=== PATIENT | female | born 1965 | race Caucasian/White ===

== ENCOUNTER 2018-11-12 08:29 | Inpatient (IN) | payer SELFPAY ==
[2018-11-12 09:21] LABS: Arterial Blood Carboxyhemoglob 1.4 % (0-1.5); Blood Gas Oxyhemoglobin 92.8 % (94-97); Blood O2 Saturation 95.1 % (92-98.5)
[2018-11-12 09:22] LABS: Absolute Lymphocytes (CBC) 0.5 K/uL (0.7-4.9); Absolute Monocytes 0.5 K/uL (0.1-1.3); Absolute Neutrophil 9.8 K/uL (1.8-8.0); Basophils % 0.2 % (0-1.3); Eosinophils % 9.2 % (0-4.4); Lymphocytes % 4.1 % (15.3-44.8); MPV 9.6 fL (7.6-11.3); Monocytes % 4.6 % (3.3-12.3); RBC Red Blood Cell Count 5.45 M/uL (3.86-4.86)
[2018-11-12] MEDS ORDERED: NA CHLORIDE 0.9% 1,000 ML ONE ×2 (09:24→16:03)
[2018-11-12] MEDS ORDERED: PROMETHAZINE 25 MG/ML VIAL ONE ×2 (09:24→13:23)
[2018-11-12 09:45] LABS: Blood Morphology Comment NOT SEEN (NOT SEEN); Platelet Estimate DECR; Urine White Blood Cell Casts OK
[2018-11-12] MEDS ORDERED: INSULIN -REGULAR HUMAN 50 UNIT/0.5 ML ML ONE ×2 (10:21→11:30)
[2018-11-12 10:22] LABS: Albumin 2.4 g/dL (3.4-5.0); Bilirubin Direct 0.6 mg/dL (0-0.2); Phosphorus 3.6 mg/dL (2.5-4.9); Potassium 4.6 mmol/L (3.5-5.1); Protein, Total 7.6 g/dL (6.4-8.2); Thyroid Stimulating Hormone 2.8 uIU/mL (0.360-3.740)
--- NOTE | 2018-11-12 10:56 | RAD REPORT ---
EXAM DESCRIPTION: CT - Stone Protocol - 11/12/2018 10:41 am CLINICAL HISTORY: Flank pain. ABD PAIN COMPARISON: No comparisons TECHNIQUE: Axial images were obtained without oral or IV contrast. Lack of contrast limits solid org an and vascular assessment. The [id number] spans the entirety of the system partially obscuring uppermost abdomen and lung bases. Coronal reformatted images were obtained and reviewed. All CT scans are performed using dose optimization technique as appropriate and may include automated exposure control or mA/KV adjustment according to patient size. FINDINGS: Small left pleural effusion is seen with ill-defined opacity in the left lung base may rep resent infiltrate or atelectasis. Imaged portions of the liver and spleen show no suspicious findings on non-contrast imaging. The panc reas and adrenal glands are normal. No pathologic lymphadenopathy in the abdomen or pelvis. The left kidney appears significantly enlarged with surrounding inflammatory changes present. Mild le ft hydronephrosis and hydroureter is present without obstructing stones seen. Air is seen within the cortex of the posterior left kidney as well as the urinary bladder. No right-sided stone or hydroneph rosis is seen. No bowel obstruction, free air, free fluid or abscess. Prominent sigmoid diverticulosis is present. No significant bony abnormality. IMPRESSION: Emphysematous left pyelonephritis and emphysematous cystitis is present. Mild left hydronephrosis and hydroureter is noted without evidence of obstructing calculus. Small left pleural effusion with atelectasis or infiltrate left base. Prominent colonic diverticulosis without diverticulitis.
--- NOTE | 2018-11-12 11:19 | ER ---
Nurse's Notes [facility] Name: Nancy El Age: 53 yrs Sex: Female : 1965 Arrival Date: 11/12/2018 Time: 08:32 Bed 15 Private MD: None, None Diagnosis: Emphysematous Pyelonephritis with acute kidney injury, Dehydration;Diabetes mellitus due to underlying condition with hyperglycemia Presentation: 11/12 08:32 Presenting complaint: Patient states: n/v/left flank pain/dysuria since Monday. sv Transition of care: patient was not received from another setting of care. Onset of symptoms was November 10, 2018. Care prior to arrival: None. 08:32 Method Of Arrival: Wheelchair sv 08:32 Acuity: GONZALO 3 sv 09:14 Risk Assessment: Do you want to hurt yourself or someone else? Patient reports no iw desire to harm self or others. Initial Sepsis Screen: Does the patient meet any 2 criteria? RR > 20 per min. HR > 90 bpm. Does the patient have a suspected source of infection? No. Patient's initial sepsis screen is negative. 09:14 Acuity: GONZALO 2 iw Triage Assessment: 08:32 General: Appears in no apparent distress. uncomfortable, ill, Behavior is calm, sv cooperative, appropriate for age. Pain: Complains of pain in posterior aspect of left lateral abdomen Pain currently is 8 out of 10 on a pain scale. Neuro: Level of Consciousness is awake, alert, obeys commands, Oriented to person, place, time, situation, Moves all extremities. Full function Gait is steady. Respiratory: Respiratory effort is even, unlabored, Respiratory pattern is regular, symmetrical. GI: Reports nausea, vomiting. : Reports dysuria. Historical: - Allergies: 08:40 No Known Allergies; sv - PMHx: 08:40 Diabetes - NIDDM; sv - PSHx: 08:40 Tubal ligation; sv - Immunization history:: Flu vaccine is not up to date. - Social history:: Smoking status: Patient uses tobacco products, smokes one-half pack cigarettes per day. - Ebola Screening: : No symptoms or risks identified at this time. Screenin:28 Abuse screen: Denies threats or abuse. Denies injuries from another. Nutritional ph screening: On. Tuberculosis screening: No symptoms or risk factors identified. Fall Risk No fall in past 12 months (0 pts). No secondary diagnosis (0 pts). IV access (20 points). Ambulatory Aid- None/Bed Rest/Nurse Assist (0 pts). Gait- Weak (10 pts.). Mental Status- Overestimates/Forgets Limitations (15 pts.). Total Daniel Fall Scale indicates High Risk Score (45 or more points). Fall prevention measures have been instituted. Side Rails Up X 2 Placed Close to Nursing Station Frequent Obs/Assessments Occuring Family Present and informed to notify staff if the need to leave the bedside As available patient and family educated on Fall Prevention Program and Strategies. Assessment: 09:25 General: Behavior is cooperative, fussy, restless. Pain: Complains of pain in left ph lower quadrant and left upper quadrant and posterior aspect of left lateral abdomen. Neuro: Level of Consciousness is awake, obeys commands, lethargic, Oriented to person, place, Speech is slurred, Facial symmetry appears normal, Facial symmetry: tongue is midline, Pupils are PERRLA. Cardiovascular: Capillary refill < 3 seconds in bilateral fingers. Respiratory: Airway is patent Respiratory effort is even, shallow, Respiratory pattern is tachypnea Breath sounds are clear bilaterally. Denies shortness of breath. GI: Abdomen is round non-distended, Reports nausea, vomiting. : Reports burning with urination, pain in left flank(s), upper quadrant(s) lower quadrant(s) in lower back. Derm: Skin is intact, with poor turgor Skin is pink, warm \T\ dry. Musculoskeletal: Circulation, motion, and sensation intact. Range of motion: intact in all extremities. 10:30 Reassessment: Patient appears in no apparent distress at this time. No changes from ph previously documented assessment. Patient and/or family updated on plan of care and expected duration. Pain level reassessed. 12:09 Reassessment: Patient appears in no apparent distress at this time. Patient and/or ph family updated on plan of care and expected duration. Pain level reassessed. Pt awake but drowsy, Dr Iverson at bedside to speak w/ pt and family. 13:00 Reassessment: Patient appears in no apparent distress at this time. No changes from ph previously documented assessment. Patient and/or family updated on plan of care and expected duration. Pain level reassessed. 14:00 Reassessment: Patient appears in no apparent distress at this time. No changes from ph previously documented assessment. Patient and/or family updated on plan of care and expected duration. Pain level reassessed. 14:45 Reassessment: Patient appears in no apparent distress at this time. Patient and/or ph family updated on plan of care and expected duration. Pain level reassessed. Patient is alert, oriented x 3, equal unlabored respirations, skin warm/dry/pink. Pt ambulated to restroom, accompanied by family, attempted to call report to ICU and was asked to call back in approx 30 min. 16:00 Reassessment: Patient appears in no apparent distress at this time. No changes from ph previously documented assessment. Patient and/or family updated on plan of care and expected duration. Pain level reassessed. Patient is alert, oriented x 3, equal unlabored respirations, skin warm/dry/pink. Unable to take pt to ICU at this time, told that another nurse is being called in and will call down to ED for report when they arrive. 17:00 Reassessment: Patient appears in no apparent distress at this time. No changes from ph previously documented assessment. Patient and/or family updated on plan of care and expected duration. Pain level reassessed. 17:45 Reassessment: Patient appears in no apparent distress at this time. Patient and/or ph family updated on plan of care and expected duration. Pain level reassessed. Patient is alert, oriented x 3, equal unlabored respirations, skin warm/dry/pink. Report called to CELIA Brownlee, pt taken to ICU 7. Vital Signs: 08:40 BP 94 / 59; Pulse 131; Resp 20; Temp 98; Pulse Ox 97% ; Weight 55.34 kg; Height 5 ft. 1 sv in. (154.94 cm); Pain 8/10; 09:09 BP 105 / 71; Pulse 137; Resp 28; Pulse Ox 100% on R/A; iw 10:24 BP 112 / 76; Pulse 133; Resp 26; Pulse Ox 99% on R/A; ph 11:06 BP 111 / 71; Pulse 133; Resp 26; Pulse Ox 97% on R/A; ph 12:10 BP 124 / 73; Pulse 138; Resp 30; Pulse Ox 96% on R/A; ph 12:44 BP 114 / 72; Pulse 137; Resp 28; Pulse Ox 97% on R/A; ph 13:30 BP 105 / 69; Pulse 140; Resp 28; Pulse Ox 98% on R/A; ph 13:57 BP 105 / 69; Pulse 141; Resp 28; Temp 98.6; Pulse Ox 96% on R/A; ph 14:30 BP 117 / 87; Pulse 137; Resp 26; Pulse Ox 98% on R/A; ph 15:30 BP 108 / 78; Pulse 134; Resp 28; Temp 98.8(TE); Pulse Ox 97% on R/A; ph 16:30 BP 110 / 72; Pulse 132; Resp 30; Pulse Ox 97% on R/A; ph 17:22 BP 111 / 68; Pulse 136; Resp 26; Temp 98.8; Pulse Ox 97% on R/A; ph 08:40 Body Mass Index 23.05 (55.34 kg, 154.94 cm) sv Vitals: 13:57 Cardiac Rhythm Assessment Sinus tach. ph 17:22 Cardiac Rhythm Assessment Sinus tach. ph ED Course: 08:32 Patient arrived in ED. sb2 08:32 Arm band placed on Patient placed in an exam room, on a stretcher, on pulse oximetry. sv 08:33 None, None is Private Physician. sb2 08:35 Desiree [facility]-C [facility]. snw 08:35 Jerod Squires MD is Attending Physician. snw 08:37 Venita Umana, RN is Primary Nurse. ph 08:40 Triage completed. sv 08:45 Missed attempt(s): 22 gauge in right antecubital area. Bleeding controlled, band aid ph applied, catheter tip intact. 08:55 Missed attempt(s): 22 gauge in right forearm. Bleeding controlled, band aid applied, ph catheter tip intact. 09:14 Inserted saline lock: 22 gauge in left antecubital area, using aseptic technique. Blood iw collected. 09:29 Patient has correct armband on for positive identification. Placed in gown. Bed in low ph position. Call light in reach. Side rails up X2. monitoring analyst on. Pulse ox on. NIBP on. Door closed. Noise minimized. Warm blanket given. 10:[address] vr 10:40 CT completed. Patient tolerated procedure well. Patient moved back from CT. jj2 11:16 Esequiel Iverson MD is Hospitalizing Provider. snw 16:00 No provider procedures requiring assistance completed. Patient admitted, IV remains in ph place. Administered Medications: 09:24 Drug: NS 0.9% 1000 ml Route: IV; Rate: 1 bolus; Site: left antecubital; ph 10:30 Follow up: Response: No adverse reaction; IV Status: Completed infusion ph 09:24 Drug: Phenergan 6.25 mg Route: IVP; Site: left antecubital; ph 10:23 Drug: Insulin Regular Human 5 units {Co-Signature: hb (Taya Umanzor RN).} Route: IVP; ph Site: left antecubital; 11:30 Follow up: Response: No adverse reaction ph 11:45 Drug: LevaQUIN 500 mg Volume: 100 ml; Route: IVPB; Infused Over: 60 mins; Site: left ph antecubital; 12:45 Follow up: Response: No adverse reaction; IV Status: Completed infusion ph 11:45 Drug: NS 0.9% 500 ml Route: IV; Rate: bolus; Site: left antecubital; ph 12:30 Follow up: Response: No adverse reaction; IV Status: Completed infusion ph 11:45 Drug: Insulin Regular Human 5 units {Co-Signature: hb (Taya Umanzor RN).} Route: IVP; ph Site: left antecubital; 12:45 Follow up: Response: No adverse reaction; Blood sugar is lowered ph 11:45 Drug: fentaNYL (PF) 25 mcg Route: IVP; Site: left antecubital; ph 12:30 Follow up: Response: No adverse reaction; Pain is decreased ph 13:19 Drug: Zosyn 3.375 grams Route: IVPB; Infused Over: 60 mins; Site: left antecubital; ph 14:20 Follow up: Response: No adverse reaction; IV Status: Completed infusion ph 13:19 Drug: Phenergan 6.25 mg Route: IVP; Site: left antecubital; ph 13:45 Follow up: Response: No adverse reaction; Nausea is decreased ph Point of Care Testing: Blood Glucose: 08:50 Blood Glucose: 414 mg/dL; ph 11:11 Blood Glucose: 456 mg/dL; ph 12:44 Blood Glucose: 295 mg/dL; ph Ranges: Outcome: 11:17 Decision to Hospitalize by Provider. snw 18:15 Patient left the ED. hb 18:15 Admitted to ICU accompanied by nurse, accompanied by tech, family with patient, via [facility], room 7, with chart. 18:15 critical 18:15 Instructed on the need for admit. Signatures: Randee Lewis, RN RN Desiree Jenkins, PEDAL ASSEMBLER-C PEDAL ASSEMBLER-Csnw Mendoza Clark jSarah Vazquez, CELIA YANG Eliane Silveira Patricia, RN RN Taya Umanzor RN RN Angelina Abraham 2 Taya Umanzor RN
--- NOTE | 2018-11-12 11:20 | EDPHYS ---
Physician Documentation [facility] Name: Nancy El Age: 53 yrs Sex: Female : 1965 Arrival Date: 11/12/2018 Time: 08:32 Bed 15 Private MD: None, None ED Physician Jerod Squires HPI: 11/12 08:48 This 53 yrs old Unknown Female presents to ER via Wheelchair with complaints of side snw pain, Nausea/Vomiting. 08:48 pt is diabetic but has not been treated in "a long time". Onset: The symptoms/episode snw began/occurred at an unknown time. and became worse this morning. Severity of symptoms: At their worst the symptoms were severe. It is unknown whether or not the patient has had similar symptoms in the past. The patient has not recently seen a physician, and does not have an established primary care provider. Historical: - Allergies: 08:40 No Known Allergies; sv - PMHx: 08:40 Diabetes - NIDDM; sv - PSHx: 08:40 Tubal ligation; sv - Immunization history:: Flu vaccine is not up to date. - Social history:: Smoking status: Patient uses tobacco products, smokes one-half pack cigarettes per day. - Ebola Screening: : No symptoms or risks identified at this time. ROS: 08:48 Eyes: Negative for injury, pain, redness, and discharge, ENT: Negative for injury, snw pain, and discharge, Neck: Negative for injury, pain, and swelling, Cardiovascular: Negative for chest pain, palpitations, and edema, Respiratory: Negative for shortness of breath, cough, wheezing, and pleuritic chest pain. 08:48 Back: Negative for injury and pain, : Negative for injury, bleeding, discharge, and swelling, MS/Extremity: Negative for injury and deformity, Skin: Negative for injury, rash, and discoloration, Neuro: Negative for headache, weakness, numbness, tingling, and seizure. 08:48 Constitutional: Positive for body aches, malaise, poor PO intake. 08:48 Abdomen/GI: Positive for abdominal pain, nausea. Exam: 08:44 Head/Face: Normocephalic, atraumatic. Eyes: Pupils equal round and reactive to light, snw extra-ocular motions intact. Lids and lashes normal. Conjunctiva and sclera are non-icteric and not injected. Cornea within normal limits. Periorbital areas with no swelling, redness, or edema. ENT: Nares patent. No nasal discharge, no septal abnormalities noted. Tympanic membranes are normal and external auditory canals are clear. Oropharynx with no redness, swelling, or masses, exudates, or evidence of obstruction, uvula midline. Mucous membranes moist. Neck: Trachea midline, no thyromegaly or masses palpated, and no cervical lymphadenopathy. Supple, full range of motion without nuchal rigidity, or vertebral point tenderness. No Meningismus. Chest/axilla: Normal chest wall appearance and motion. Nontender with no deformity. No lesions are appreciated. 08:44 Respiratory: Lungs have equal breath sounds bilaterally, clear to auscultation and percussion. No rales, rhonchi or wheezes noted. No increased work of breathing, no retractions or nasal flaring. Back: No spinal tenderness. No costovertebral tenderness. Full range of motion. 08:44 Skin: Warm, dry with poor turgor. pale color with no rashes, no lesions, and no evidence of cellulitis. MS/ Extremity: Pulses equal, no cyanosis. Neurovascular intact. Full, normal range of motion. 08:44 Constitutional: The patient appears awake, anxious, frail, listless, in obvious distress, moderately distressed. 08:44 Cardiovascular: Rate: tachycardic, Rhythm: regular, Heart sounds: normal. 08:44 Abdomen/GI: Inspection: abdomen appears normal, Bowel sounds: diminished, in all quadrants, Palpation: moderate abdominal tenderness, in the left upper quadrant, right lower quadrant and left lower quadrant. 08:44 Neuro: Orientation: is normal, fatigued. Vital Signs: 08:40 BP 94 / 59; Pulse 131; Resp 20; Temp 98; Pulse Ox 97% ; Weight 55.34 kg; Height 5 ft. 1 sv in. (154.94 cm); Pain 8/10; 09:09 BP 105 / 71; Pulse 137; Resp 28; Pulse Ox 100% on R/A; iw 10:24 BP 112 / 76; Pulse 133; Resp 26; Pulse Ox 99% on R/A; ph 11:06 BP 111 / 71; Pulse 133; Resp 26; Pulse Ox 97% on R/A; ph 12:10 BP 124 / 73; Pulse 138; Resp 30; Pulse Ox 96% on R/A; ph 12:44 BP 114 / 72; Pulse 137; Resp 28; Pulse Ox 97% on R/A; ph 13:30 BP 105 / 69; Pulse 140; Resp 28; Pulse Ox 98% on R/A; ph 13:57 BP 105 / 69; Pulse 141; Resp 28; Temp 98.6; Pulse Ox 96% on R/A; ph 14:30 BP 117 / 87; Pulse 137; Resp 26; Pulse Ox 98% on R/A; ph 15:30 BP 108 / 78; Pulse 134; Resp 28; Temp 98.8(TE); Pulse Ox 97% on R/A; ph 16:30 BP 110 / 72; Pulse 132; Resp 30; Pulse Ox 97% on R/A; ph 17:22 BP 111 / 68; Pulse 136; Resp 26; Temp 98.8; Pulse Ox 97% on R/A; ph 08:40 Body Mass Index 23.05 (55.34 kg, 154.94 cm) sv MDM: 08:44 Patient medically screened. snw 11:09 Data reviewed: vital signs, nurses notes. Data interpreted: Pulse oximetry: on room air snw is 99 %. Interpretation: normal. Counseling: I had a detailed discussion with the patient and/or guardian regarding: the historical points, exam findings, and any diagnostic results supporting the discharge/admit diagnosis, lab results, radiology results, the need for further work-up and treatment in the hospital. Physician consultation: Esequiel Iverson MD was called at 11:10, was contacted at 11:10, regarding admission, to the medical/surgical unit. 11/12 08:42 Order name: CBC with Diff w 11/12 08:42 Order name: Chem 7 formerly [facility] 11/12 08:42 Order name: Blood Culture Adult (2) formerly [facility] 11/12 08:42 Order name: Procalcitonin formerly [facility] 11/12 08:42 Order name: Lactate formerly [facility] 11/12 08:42 Order name: Hemoglobin A1c formerly [facility] 11/12 08:42 Order name: TSH formerly [facility] 11/12 08:42 Order name: TS 11/12 08:42 Order name: Phosphorus formerly [facility] 11/12 08:42 Order name: LDH formerly [facility] 11/12 08:42 Order name: ABG formerly [facility] 11/12 09:27 Order name: ABG Arterial Blood Gas; Complete Time: 09:36 EDMS 11/12 09:45 Order name: CBC with Automated Diff; Complete Time: 09:56 EDMS 11/12 09:45 Order name: CBC Smear Scan; Complete Time: 09:56 EDMS 11/12 09:59 Order name: Add On-Lab formerly [facility] 11/12 10:02 Order name: Type and Screen; Complete Time: 10:03 EDMS 11/12 10:50 Order name: Basic Metabolic Panel; Complete Time: 10:57 EDMS 11/12 10:50 Order name: Liver (Hepatic) Function; Complete Time: 10:57 EDMS 11/12 10:50 Order name: Lactic Dehydrogenase; Complete Time: 10:57 EDMS 11/12 10:50 Order name: Phosphorus; Complete Time: 10:57 EDMS 11/12 10:50 Order name: Thyroid Stimulating Hormone; Complete Time: 10:57 EDMS 11/12 10:51 Order name: Lactate; Complete Time: 10:57 EDMS 11/12 11:24 Order name: Glucose 11/12 11:28 Order name: ABO/RH no charge; Complete Time: 11:28 EDMS 11/12 12:05 Order name: Procalcitonin formerly [facility] 11/12 12:05 Order name: Chem 7 formerly [facility] 11/12 12:06 Order name: Lactate: reflex order in but will repeat now with other labs formerly [facility] 11/12 12:27 Order name: Glucose Level; Complete Time: 12:47 EDMS 11/12 13:18 Order name: Basic Metabolic Panel; Complete Time: 13:23 EDMS 11/12 13:19 Order name: Lactate; Complete Time: 13:23 EDKS 11/12 08:42 Order name: FSBS; Complete Time: 09:12 formerly [facility] 11/12 10:25 Order name: CT Stone Protocol formerly [facility] 11/12 10:57 Order name: CT; Complete Time: 10:57 EDMS 11/12 11:03 Order name: Recheck Vital Signs; Complete Time: 11:11 formerly [facility] 11/12 11:03 Order name: Recheck Blood Sugar; Complete Time: 11:11 formerly [facility] 11/12 13:56 Order name: Procalcitonin; Complete Time: 13:58 EDMS Administered Medications: 09:24 Drug: NS 0.9% 1000 ml Route: IV; Rate: 1 bolus; Site: left antecubital; ph 10:30 Follow up: Response: No adverse reaction; IV Status: Completed infusion ph 09:24 Drug: Phenergan 6.25 mg Route: IVP; Site: left antecubital; ph 10:23 Drug: Insulin Regular Human 5 units {Co-Signature: hb (Taya Umanzor RN).} Route: IVP; ph Site: left antecubital; 11:30 Follow up: Response: No adverse reaction ph 11:45 Drug: LevaQUIN 500 mg Volume: 100 ml; Route: IVPB; Infused Over: 60 mins; Site: left ph antecubital; 12:45 Follow up: Response: No adverse reaction; IV Status: Completed infusion ph 11:45 Drug: NS 0.9% 500 ml Route: IV; Rate: bolus; Site: left antecubital; ph 12:30 Follow up: Response: No adverse reaction; IV Status: Completed infusion ph 11:45 Drug: Insulin Regular Human 5 units {Co-Signature: hb (Taya Umanzor RN).} Route: IVP; ph Site: left antecubital; 12:45 Follow up: Response: No adverse reaction; Blood sugar is lowered ph 11:45 Drug: fentaNYL (PF) 25 mcg Route: IVP; Site: left antecubital; ph 12:30 Follow up: Response: No adverse reaction; Pain is decreased ph 13:19 Drug: Zosyn 3.375 grams Route: IVPB; Infused Over: 60 mins; Site: left antecubital; ph 14:20 Follow up: Response: No adverse reaction; IV Status: Completed infusion ph 13:19 Drug: Phenergan 6.25 mg Route: IVP; Site: left antecubital; ph 13:45 Follow up: Response: No adverse reaction; Nausea is decreased ph Point of Care Testing: Blood Glucose: 08:50 Blood Glucose: 414 mg/dL; ph 11:11 Blood Glucose: 456 mg/dL; ph 12:44 Blood Glucose: 295 mg/dL; ph Ranges: Critical Glucose Levels:Adult <50 mg/dl or >400 mg/dl <40 mg/dl or >180 mg/dl Disposition: 11/13 07:08 Co-signature as Attending Physician, Jerod Squires MD I agree with the assessment and jese plan of care. Disposition: 11/12/18 11:17 Hospitalization ordered by Esequiel Iverson for Inpatient Admission. Preliminary diagnosis are Emphysematous Pyelonephritis with acute kidney injury, Dehydration, Diabetes mellitus due to underlying condition with hyperglycemia. - Bed requested for Intensive Care Unit. - Status is Inpatient Admission. hb - Condition is Stable. - Problem is an acute exacerbation. - Symptoms are unchanged. UTI on Admission? Yes Signatures: Dispatcher [employer] EDMS Muriel Perdomo Stephanie, RN RN sv Anderson, Corey, MD MD cha Therrien, Shelly, GRINDER-C GRINDER-Csnw Venita Umana RN RN Taya Umanzor RN RN Taya Umanzor RN Corrections: (The following items were deleted from the chart) 11/12 13:49 11:17 Hospitalization Ordered by Esequiel Iverson MD for Inpatient Admission. Preliminary bd diagnosis is Emphysematous Pyelonephritis with acute kidney injury, Dehydration; Diabetes mellitus due to underlying condition with hyperglycemia. Bed requested for Telemetry/MedSurg (Inpatient). Status is Inpatient Admission. Condition is Stable. Problem is an acute exacerbation. Symptoms are unchanged. UTI on Admission? Yes. snw 14:38 13:49 11/12/2018 11:17 Hospitalization Ordered by Esequiel Iverson MD for Inpatient bd Admission. Preliminary diagnosis is Emphysematous Pyelonephritis with acute kidney injury, Dehydration; Diabetes mellitus due to underlying condition with hyperglycemia. Bed requested for Telemetry/MedSurg (Inpatient). Status is Inpatient Admission. Condition is Stable. Problem is an acute exacerbation. Symptoms are unchanged. UTI on Admission? Yes. bd 16:48 14:38 11/12/2018 11:17 Hospitalization Ordered by Esequiel Iverson MD for Inpatient bd Admission. Preliminary diagnosis is Emphysematous Pyelonephritis with acute kidney injury, Dehydration; Diabetes mellitus due to underlying condition with hyperglycemia. Bed requested for Intensive Care Unit. Status is Inpatient Admission. Condition is Stable. Problem is an acute exacerbation. Symptoms are unchanged. UTI on Admission? Yes. bd 18:15 16:48 11/12/2018 11:17 Hospitalization Ordered by Esequiel Iverson MD for Inpatient hb Admission. Preliminary diagnosis is Emphysematous Pyelonephritis with acute kidney injury, Dehydration; Diabetes mellitus due to underlying condition with hyperglycemia. Bed requested for Intensive Care Unit. Status is Inpatient Admission. Condition is Stable. Problem is an acute exacerbation. Symptoms are unchanged. UTI on Admission? Yes. bd
[2018-11-12] MEDS ORDERED: Levofloxacin500mg IV 500 MG/100 ML BAG IV ONE (11:31)
[2018-11-12] MEDS ORDERED: FENTANYL CITR 100 MCG/2 ML ONE (11:31)
[2018-11-12] MEDS ORDERED: PIPER/TAZO/NS 3.375gm 3.375 GM/100 ML BAG ONE (11:31)
[2018-11-12] MEDS ORDERED: NA CHLORIDE 0.9% 500 ML ONE (11:31)
[2018-11-12 13:07] LABS: Potassium 4.2 mmol/L (3.5-5.1)
[2018-11-12] MEDS ORDERED: ACETAMINOPHEN 500 MG TAB PO PRN (15:28)
[2018-11-12] MEDS ORDERED: Levofloxacin500mg IV 500 MG/100 ML BAG IV SCH (15:28)
[2018-11-12] MEDS: INSULIN -REGULAR HUMAN 50 UNIT/0.5 ML ML SQ SCH ×2 (16:30→21:54)
[2018-11-12] MEDS ORDERED: PIPER/TAZO/NS 3.375gm 3.375 GM/100 ML BAG IVPB SCH (17:00)
[2018-11-12] MEDS: NA CHLORIDE 0.9% 1,000 ML IV SCH ×2 (18:00→23:48)
[2018-11-12] MEDS ORDERED: ONDANSETRON 4 MG/2 ML VIAL ONE (18:28)
[2018-11-12] MEDS: ONDANSETRON 4 MG/2 ML VIAL IV PRN (18:29)
[2018-11-12] MEDS: MORPHINE 4 MG/ML SYR IV PRN (18:29)
--- NOTE | 2018-11-12 18:37 | P.HP ---
Certification for Inpatient Patient admitted to: Inpatient With expected LOS: >2 Midnights Practitioner: I am a practitioner with admitting privileges, knowledge of patient current condition, hospital course, and medical plan of care. Services: Services provided to patient in accordance with Admission requirements found in Title 42 Section 412.3 of the Code of Federal Regulations Patient History Date of Service: 11/12/18 Primary Care Provider: No primary care physician Reason for admission: Left upper quadrant pain History of Present Illness: This is a 53-year-old female with complaints of left upper quadrant pain and left flank pain. Per patient and family, pain started a couple days ago has been progressively getting worse. She is also complaining of dysuria, subjective fever. Patient is a known diabetic, but she has not seen any physician for management of her diabetes in a very long time. She has not been taking any medications for a few years now. She was previously diagnosed with diabetes, was on oral pills. She states that she has never been on any insulin. In the ER, patient was found to be tachypneic, hypotensive and with elevated blood sugars. Blood gas was done which showed pH of 7.422, pCO2 decreased at 28.3 and PO2 75.3. She was also found to have blood sugars in the 400-500s, elevated lactic acid and pro calcitonin of 315.85. At the time of my exam, patient was breathing better, her blood pressures have stabilized though she was still tachycardic. She was alert and oriented x3, though in moderate distress secondary to the left lower quadrant pain and flank pain. Allergies No Known Allergies Allergy (Unverified 11/12/18 14:40) - Past Medical/Surgical History Diabetic: Yes Review of Systems 10-point ROS is otherwise unremarkable Physical Examination - Vital Signs Temperature: 98 F Blood Pressure: 111/71 Pulse: 133 Respirations: 26 - Physical Exam General: Alert, Oriented x3, Moderate distress HEENT: Atraumatic, PERRLA, Mucous membr. moist/pink, EOMI, Sclerae nonicteric Neck: Supple, 2+ carotid pulse no bruit, No LAD, Without JVD or thyroid abnormality Respiratory: Clear to auscultation bilaterally, Normal air movement Cardiovascular: Normal S1 S2, No murmurs, Irregular heart rate/rhythm Gastrointestinal: Normal bowel sounds, No tenderness Musculoskeletal: Tenderness (Positive left CVA tenderness) Integumentary: No rashes Neurological: Normal gait, Normal speech, Normal strength at 5/5 x4 extr, Normal tone, Normal affect Lymphatics: No axilla or inguinal lymphadenopathy - Studies Laboratory Data (last 24 hrs) 11/12/18 08:25: WBC 11.9 H, Hgb 14.9, Hct 44.0, Plt Count 56 L Assessment and Plan - Problems (Diagnosis) (1) Acute kidney injury Current Visit: Yes Status: Acute (2) Diverticulosis Current Visit: Yes Status: Acute (3) Emphysematous pyelonephritis of right kidney Current Visit: Yes Status: Acute (4) Hydronephrosis, left Current Visit: Yes Status: Acute (5) Hydroureter on left Current Visit: Yes Status: Acute (6) Hyponatremia Current Visit: Yes Status: Acute (7) Sepsis Current Visit: Yes Status: Acute (8) Type 2 diabetes mellitus with hyperglycemia, without long-term current use of insulin Current Visit: Yes Status: Acute (9) Right calf pain Current Visit: Yes Status: Acute - Plan This is a 53-year-old female with: Sepsis (Acute) A41.9 Admit to ICU. Blood pressure now stabilized, the patient still tachycardic. Sepsis bundle initiated. Patient was given 1.6 L bolus of fluids in the ER. Will continue maintenance fluids. IV antibiotics with Levaquin, Zosyn Lactic acid elevated, improved with fluid. Pro calcitonin of 315.85, improved slightly with fluids. Will recheck pro calcitonin in the morning Emphysematous pyelonephritis of right kidney (Acute) N12 Continue IV antibiotics with Levaquin and Zosyn. Acute kidney injury (Acute) N17.9 Unsure if any underlying chronic kidney disease. Creatinine improving with IV fluids. We will continue to monitor Avoid nephrotoxic drugs Hydronephrosis, left (Acute) N13.30 Hydroureter on left (Acute) N13.4 No calculi noted. Likely secondary to the pyelonephritis. Will continue to monitor May consider consulting Urology. Pain control Hyponatremia (Acute) E87.1 Likely pseudohyponatremia secondary to hyperglycemia. Continue IV fluids We will monitor with a.m. labs Type 2 diabetes mellitus with hyperglycemia, without long-term current use of insulin (Acute) E11.65 Not in DKA at this time. Continue moderate sliding scale insulin and Accu- Cheks. Admit to ICU if insulin drip needed overnight. We will continue to monitor and adjust. Patient will need social work involvement for the resources for [facility] diabetic program as patient does not have insurance or PCP at this time. Diverticulosis (Acute) K57.90 Right calf pain and swelling Venous Doppler ordered, pending Thrombocytopenia Unsure of etiology. Will continue to monitor, hold Lovenox for now. SCDs for DVT prophylaxis May need further autoimmune testing if no improvement noted. . DVT prophylaxis: SCDs GI prophylaxis: Protonix Diet: Diabetic Disposition: Admit to ICU, monitor. Continue IV antibiotics and pain control. Pending symptomatic improvement - Advance Directives Does patient have a Living Will: No Does patient have a Durable POA for Healthcare: No Critical Care: Yes
--- NOTE | 2018-11-12 20:22 | RAD REPORT ---
EXAM DESCRIPTION: US - Extrem Venous W Compress Shlomo - 11/12/2018 8:17 pm CLINICAL HISTORY: R/O DVT Bilateral leg edema and swelling. COMPARISON: No comparisons TECHNIQUE: Real-time sonographic interrogation of the left and right lower extremity deep venous sys tems was performed. FINDINGS: Normal compressibility, flow augmentation, phasic flow and spontaneous flow is identified in both the left and right lower extremity deep venous systems. IMPRESSION: No sonographic evidence of left or right lower extremity deep venous thrombosis.
[2018-11-12] MEDS ORDERED: INFLUENZA VACCINE (for 3y+) 0.5 ML DOSE IMVAC ONE (21:00)
[2018-11-13] MEDS: MORPHINE 4 MG/ML SYR IV PRN ×3 (00:10→20:32)
[2018-11-13] MEDS: PIPER/TAZO/NS 3.375gm 3.375 GM/100 ML BAG IVPB SCH ×2 (01:56→08:36)
[2018-11-13] MEDS: NA CHLORIDE 0.9% 1,000 ML IV SCH ×3 (02:00→17:20)
[2018-11-13] MEDS: ONDANSETRON 4 MG/2 ML VIAL IV PRN ×2 (02:09→14:45)
[2018-11-13 05:25] LABS: Absolute Lymphocytes (CBC) 0.4 K/uL (0.7-4.9); Absolute Monocytes 0.5 K/uL (0.1-1.3); Absolute Neutrophil 6.5 K/uL (1.8-8.0); Basophils % 0.1 % (0-1.3); Eosinophils % 8.7 % (0-4.4); Hematocrit 33.1 % (36.0-45.0); Monocytes % 5.8 % (3.3-12.3); RBC Red Blood Cell Count 4.18 M/uL (3.86-4.86)
[2018-11-13 05:33] LABS: Albumin 1.7 g/dL (3.4-5.0); Bilirubin Total 1.6 mg/dL (0.2-1.0); Potassium 4.6 mmol/L (3.5-5.1); Protein, Total 6.1 g/dL (6.4-8.2)
[2018-11-13 05:36] LABS: Blood Morphology Comment NOT SEEN (NOT SEEN); Platelet Estimate DECR
[2018-11-13 05:58] LABS: Urine Appearance TURBID; Urine Bilirubin NEGATIVE (NEG); Urine Blood 2+ (NEG); Urine Color DK YELLOW; Urine Glucose TRACE (NEG); Urine Protein 2+ (NEG); Urine pH 5.5 (5.0-7.0)
[2018-11-13 06:48] LABS: Magnesium 1.5 mg/dL (1.8-2.4); Phosphorus 3.9 mg/dL (2.5-4.9)
[2018-11-13 07:06] LABS: Urine Microscopic Reflex ORDER UMIC
[2018-11-13 07:18] LABS: Urine Amorphous Sediment 1+ /HPF (NONE SEEN); Urine Bacteria 20-50 /HPF (<20); Urine Culture Reflex Order NOT NEEDED; Urine Mucus 2+ /HPF (NONE SEEN)
[2018-11-13 07:19] LABS: Urine Coarse Granular Casts 0-5 /LPF (NONE SEEN)
[2018-11-13] MEDS: INSULIN -REGULAR HUMAN 50 UNIT/0.5 ML ML SQ SCH ×4 (08:36→21:00)
[2018-11-13] MEDS ORDERED: Levofloxacin 250mg IV 250 MG/50 ML BAG IV SCH (10:00)
[2018-11-13] MEDS ORDERED: MAGNESIUM SULFATE 1 gm IVPB 1 GM/100 ML BAG IV ONE ×2 (10:00→16:00)
[2018-11-13] MEDS ORDERED: Levofloxacin500mg IV 500 MG/100 ML BAG IV SCH (12:00)
--- NOTE | 2018-11-13 15:52 | RAD REPORT ---
EXAM DESCRIPTION: CT - Abdomen Pelvis Wo Contrast - 11/13/2018 3:40 pm CLINICAL HISTORY: Abdominal pain COMPARISON: November 12, 2018 TECHNIQUE: Computed axial tomography of the abdomen and pelvis was obtained. IV and oral contrast we re not requested. All CT scans are performed using dose optimization technique as appropriate and may include automated exposure control or mA/KV adjustment according to patient size. FINDINGS: The evaluation of solid organs, vessels and bowel is limited secondary to the lack of con trast administration. Left lower lobe atelectasis with small left pleural effusion The amount of air within the left kidney and surrounding the left renal capsule has progressed since the prior exam. Air extends outside of the left kidney between the left kidney and spleen. A 26 jonas meter vague low-density areas present within the lower pole of the left kidney Mild left hydronephros is is seen. Left ureter is mildly dilated. A genitourinary calculus is not noted. Air within the blad neto is present. A small amount of ascites is present. No other significant change noted IMPRESSION: Emphysematous left pyelonephritis has worsened since the prior exam. Left emphysematous cystitis persists A 26 millimeter low-density areas present within the lower pole of the left kidney. This is nonspecif ic without IV contrast but may represent an abscess
[2018-11-13] MEDS ORDERED: NA CHLORIDE 0.9% 1,000 ML IV SCH (16:00)
[2018-11-13] MEDS ORDERED: PIPER/TAZO/NS 2.25gm 2.25 GM/50 ML BAG IVPB SCH (17:00)
[2018-11-13] MEDS ORDERED: VANCOMYCIN 1.5 GM in NA CHLORIDE 0.9% 500 ML IVPB ONE (18:00)
--- NOTE | 2018-11-13 18:29 | PN ---
Date of Progress Note: 11/13/2018 Subjective: The patient is seen and examined. Chart reviewed, and case discussed with RN and Dr. Joshua christianson. The patient is still having some pain in her left flank. Complains of nausea and vomiting. Medications: List reviewed. Physical Examination: Vital Signs: Temperature 97.5, heart rate 114, blood pressure 112/74, respirations 24, O2 of 94% on room air. General: Awake, alert, oriented x3. An ill-appearing female. CV: S1, S2. Sinus tachycardia. Peripheral pulses present. Respiratory: Moving air well bilaterally. No wheezing or stridor. Gastrointestinal: Abdomen is soft, nontender, nondistended. Positive bowel sounds. Extremities: No clubbing, cyanosis, or edema. No calf tenderness. Neuro: Cranial nerves 2 through 12 intact grossly. No focal neurological deficit. Speech is normal . Musculoskeletal: The patient has left flank tenderness. Laboratory Data: Sodium 133, potassium 4.6, chloride 102, CO2 of 19, BUN 56, creatinine 2.41, glucos e 175, calcium 7.4, magnesium 1.5. AST 94, ALT 48, albumin 1.7. Procalcitonin 267. WBC 8.1, H and H 11.5 and 33.1, platelets 19, neutrophils 80%. Blood cultures preliminary growing gram-negative shilo s, 4 out of 4 bottles. Urine culture is pending. Assessment: A 53-year-old female with: 1.Sepsis. The patient is still tachycardic and tachypneic. The patient is on sepsis bundle, receiv ed 1.6 L bolus in the ER. Continue IV fluids. Continue broad-spectrum IV antibiotics. Secondary to bacteremia and pyelonephritis. 2.Emphysematous pyelonephritis of left kidney. 3.Acute kidney injury secondary to above. We will continue with IV fluids. Continue to monitor cre atinine. 4.Diverticulosis. 5.Left hydronephrosis. 6.Left hydroureter. 7.Pseudohyponatremia secondary to hyperglycemia, improved. 8.Diabetes mellitus type 2 with hyperglycemia without long-term use of insulin, uncontrolled. We wi ll continue with sliding scale insulin and monitor Accu-Cheks. 9.Right calf pain. Venous Dopplers negative for deep venous thrombosis. 10.Thrombocytopenia, unclear etiology, may be secondary to sepsis. Hold Lovenox. Continue with SCD s for deep venous thrombosis prophylaxis. We will obtain peripheral blood smear. No history of live r disease. Liver imaging on CT scan of what was imaged is normal. The patient does have elevated LF Ts, may have history of hepatitis and subsequent liver damage. We will continue to monitor. No sign s of active bleeding at this time. We will hold off on any platelet transfusion. 11.Gastrointestinal and deep venous thrombosis prophylaxis with PPI and SCDs. No chemical anticoagu lation due to thrombocytopenia. Plan: Step down from ICU. Urology was contacted. Dr. Perez is out of town. He will be unable to s ee the patient. He recommends transfer to tertiary care facility for Urology Services. We will init iate transfer. Overall guarded prognosis. SA/MODL Voice ID: [id number] Report ID: [id number]
[2018-11-13 20:35] LABS: Urine Protein/Creatinine Ratio 3.76 ratio (<0.15)
--- NOTE | 2018-11-13 20:53 | CON ---
Date of Consultation: 11/13/2018 Additional Consulting Physician: Dr. Gardner. Reason For Consultation: Elevated BUN and creatinine, complicated UTI. History Of Present Illness: This is a pleasant 53-year-old female with significant past medical hist ory of diabetes since more than 20 years, complicated with neuropathy, no retinopathy, hypertension, hyperlipidemia, kidney stone. In the last episode last year, according to her, she passed 2-3 stones back on May 2018, brownish color. The patient started her this time around Monday when she started having flank pain, nausea without any vomiting, no fever, no chills, came to the hospital, found to have UTI complicated with emphysematous and sepsis. For that re ason, the patient was started on treatment. On presentation, her creatinine was elevated at 2.9 to 3 with the GFR down to 17 and 15. Currently creatinine improved to 2.4, GFR of 21. The patient had g ood urine output. The patient apparently taking ibuprofen 3-4 tablet every other day and lately pauline use of the pain, she is taking 3-4 tablet 3 times a day. The patient denied any fever, any chills. Reviewing the record for the patient, there is no record for any kidney function before. The patient apparently had CT abdomen and pelvis was done on the and that one was without contra st. Past Medical History: Include: 1.Diabetes complicated with neuropathy. 2.Hypertension. 3.Nephrolithiasis, recurrent according to her she has brownish stones. Allergies: NO KNOWN DRUGS ALLERGY. Family History: Positive for hypertension. Social History: Lives with the family. Denies smoking. Denies drinking. Denies drugs abuse. Home Medication: None. Current Medications: In the hospital include Levaquin, Zofran, Zosyn, and IV fluid. Past Surgical History: Noncontributory. Review of Systems: Head and Neck: No red eye. No ear pain. GI: Has nausea. No vomiting. : No polyuria. No dysuria. Has flank pain. GARDEN CONSULTANT: No vaginal discharge. Respiratory: No shortness of breath. Cardiovascular: No chest pain. Endocrine: No polydipsia. Skin: No rash. Neuro: Has neuropathy. Musculoskeletal: No joint pain. Physical Examination: Vital Signs: Blood pressure 112/74, pulse of 114. Chest: Clear to auscultation. Heart: S1, S2. Regular. Abdomen: Soft. Tender on the left flank with the positive CVA tenderness. Extremities: No edema. Laboratory Data: Sodium 133, potassium 4.6, bicarb 19, BUN 56, creatinine 2.4, GFR of 20, calcium 7. 4, phosphorus 3.9, magnesium 1.5. TSH of 2.8. WBC 8.1, H and H 11.5/33.1, platelets of 19. Urinaly sis has hematuria of 10, wbc more than 50, +2 protein, serology still pending. Assessment And Plan: 1.Acute kidney injury secondary to toxic acute tubular necrosis, obstructive uropathy, supported wit h the finding on the CT abdomen and pelvis, mostly on chronic kidney disease. Given the presence of thrombocytopenia and the anemia for the patient, light chain disease and autoimmune disease needs to be ruled out. I am going to go ahead and send for full serology for the patient and we will send for serum protein electrophoresis. We will quantify the protein creatinine. I am going to go ahead and also send for PTH to evaluate the chronicity of the disease. For the time being, we will bolus the patient with the another liter of normal saline and then we will maintain the patient on IV fluid. 2.The patient is going to need evaluation giving the obstructive uropathy that being complicated with urinary tract infection and acute kidney injury. 3.Complicated urinary tract infection. As I mentioned, the patient need urology evaluation. We nkechi l continue hydration and we will follow up the patient. 4.Hypomagnesemia. We will supplement. 5.Diabetes, as by the primary. ANDI/HO Voice ID: [id number] Report ID: [id number]
[2018-11-14] MEDS ORDERED: Levofloxacin 250mg IV 250 MG/50 ML BAG IV SCH (09:00)
--- NOTE | 2018-11-14 23:04 | DS ---
Date of Discharge: 11/13/2018 Business Mail Entry Clerk: Dr. Sosa with Nephrology. Admitting Diagnoses: 1.Sepsis. 2.Emphysematous pyelonephritis of the left kidney. 3.Diverticulosis. 4.Acute kidney injury. 5.Hydronephrosis, left kidney. 6.Hydroureter, left. 7.Pseudohyponatremia. 8.Diabetes mellitus type 2, with hyperglycemia, without long-term use of insulin. 9.Right calf pain. Discharge Diagnoses: 1.Sepsis. 2.Emphysematous pyelonephritis of left kidney. 3.Acute kidney injury secondary to above. 4.Diverticulosis. 5.Left hydronephrosis. 6.Left hydroureter. 7.Pseudohyponatremia. 8.Diabetes mellitus type 2, with hyperglycemia, without long-term use of insulin, uncontrolled. 9.Right calf pain. 10.Thrombocytopenia. Hospital Course: The patient is a 53-year-old female who comes in with left flank pain. The patient was found to have pyelonephritis. She was found to be septic, started on sepsis bundle and IV antib iotics. She received IV fluid bolus. The patient did respond. Her white count improved from 11,000 to 8000. However, her platelets did fall. She did come in with a very high glucose level; however, was not in DKA. She also had some pseudohyponatremia. Her electrolytes were corrected. The patien t's procalcitonin was elevated over 300, trending down. The patient's blood cultures grew out Escher ichia coli. The patient was unable to be seen by Urology. There was no coverage. Her repeat CT sca n did show emphysematous left pyelonephritis, which was worse since previous. Left emphysematous cys titis and low-density area of 26 mm in the lower pole of left kidney possibly representing abscess. Transfer was initiated as there was no Urology coverage. Initial contact with Dr. Roman, urologist at [facility], recommended repeating the CT scan, which was done. Once the results showed worsenin g findings, Transfer Center was contacted again, and Dr. Roman was [facility] They agreed for [facility]. The patient was transferred on an urgent basis to [facility] d was transferred once bed was available yesterday, on the day of discharge. The patient was then tr ansferred to [facility] in a fair condition. Physical Examination: For physical examination findings, please see progress note dictated on day of discharge. Total time spent transferring the patient was 45 minutes. HOMER Voice ID: [id number] Report ID: [id number]
[2018-11-15] MEDS ORDERED: VANCOMYCIN/NS 1 gm 1 GM/250 ML BAG IVPB SCH (18:00)
== END 2018-11-13 22:49 | disposition short-term general hospital (02) | DRG 871 ==
LOC: ER 08:29 → ERHOLD 11:37 → 3RD-ICU 17:54 → 4TH 11-13 12:10
PROVIDERS: ADMIT Family Medicine; ATTEND Family Medicine
DX: A41.51 Sepsis due to Escherichia coli [E. coli] (principal); N17.0 Acute kidney failure with tubular necrosis; N13.30 Unspecified hydronephrosis; N13.4 Hydroureter; E87.1 Hypo-osmolality and hyponatremia; N12 Tubulo-interstitial nephritis, not specified as acute or chronic; R65.20 Severe sepsis without septic shock; K57.90 Diverticulosis of intestine, part unspecified, without perforation or abscess without bleeding; E11.65 Type 2 diabetes mellitus with hyperglycemia; Z79.84 Long term (current) use of oral hypoglycemic drugs; M79.661 Pain in right lower leg; D69.6 Thrombocytopenia, unspecified; F17.210 Nicotine dependence, cigarettes, uncomplicated; E86.0 Dehydration; R06.82 Tachypnea, not elsewhere classified; I95.9 Hypotension, unspecified; E11.40 Type 2 diabetes mellitus with diabetic neuropathy, unspecified; E78.5 Hyperlipidemia, unspecified; I10 Essential (primary) hypertension; E83.42 Hypomagnesemia
CPT/HCPCS: 36415; 74176; 76377; 80048; 80053; 80076; 81003; 81015; 82553; 82570; 82805; 82947; 82962; 83605; 83615; 83735; 84100; 84145; 84156; 84443; 85025; 86038; 86850; 86900; 86901; 87040; 87077; 87086; 87088; 87186; 87205; 88108; 93970; 94760; 96361; 96365; 96367; 96375; 99285; J2405; J2543; J2550; J3010; J3475; J7030

== ENCOUNTER 2018-11-27 12:19 | Emergency (ER) | payer SELFPAY ==
--- OUTSIDE RECORDS SUMMARY | 2018-11-27 12:22 | XMS REPORT | Clinical Summary ---
:1965 Author Organization [facility] Address [address] [place] [address] Care Team Providers Name Role Phone Unavailable Primary Care Provider Unavailable Allergies No Known Allergies Medications Medication Sig Dispensed Refills Start Date End Date Status cefdinir Take 1 capsule (300 60 capsule 0 11/23/2018 12/23/2018 Active (OMNICEF) 300 MG mg total) by mouth 2 capsule (two) times daily for 30 days. omeprazole Take 2 capsules (40 0 11/23/2018 11/23/2019 Active (PRILOSEC) 20 MG mg total) by mouth capsule daily. folic acid Take 1 tablet (1 mg 0 11/24/2018 11/24/2019 Active (FOLVITE) 1 MG total) by mouth tablet daily. insulin NPH Inject 10 Units 10 mL 0 11/23/2018 Active (HUMULIN N) 100 subcutaneously 2 unit/mL injection (two) times daily before meals Use as directed. senna-docusate Take 2 tablets by 0 11/23/2018 11/23/2019 Active (SENOKOT S) mouth daily as needed 8.6-50 mg per for Constipation. tablet acetaminophen-cod Take 1 tablet by 30 tablet 0 11/23/2018 Active eine mouth every 4 (four) (TYLENOL-CODEINE hours as needed for #3) 300-30 mg per Pain. Max Daily tablet Amount: 6 tablets Active Problems Problem Noted Date Pyelonephritis 11/14/2018 RAVEN (acute kidney injury) 11/14/2018 Thrombocytopenia 11/14/2018 Encounters Date Type Specialty Care Team Description 11/18/2018 Travel 11/14/2018 Anesthesia Event rErol Fisher, LEAD INSTRUCTOR/FLIGHT ATTENDANT 11/14/2018 Surgery Ramsey Roman CYSTOSCOPY,INSERTION MD Edu URETERAL STENTS 11/13/2018 - Hospital Encounter General Internal Luisa, RAVEN (acute kidney injury) (HCC); 11/23/2018 Medicine MD Jose Juan Pyelonephritis; Jayashree Sky Thrombocytopenia (HCC); Kaylee Buckley, Bacteremia; Other hydronephrosis; Pam Vitale Sepsis due to Gram negative bacteria (HCC); MD Frank Cirrhosis of liver without ascites, unspecified hepatic cirrhosis type (HCC) Andria Tony MD after 11/26/2017 Immunizations Name Dates Previously Given Next Due Influenza Four-QIV Non-PF 5+ YR 11/16/2018 (Deferred: - pt/family refused vaccine at this time.) Pneumococcal Conjugate (Prevnar) 11/16/2018 (Deferred: ) 13-Valent Social History Tobacco Use Types Packs/Day Years Used Date Light Tobacco Smoker 0.25 40 Tobacco Cessation: Ready to Quit: No; Counseling Given: Yes Alcohol Use Drinks/Week oz/Week Comments Yes occasional Sex Assigned at Date Recorded Not on file Job Start Date Occupation Industry Not on file Not on file Not on file Travel History Travel Start Travel End No recent travel history available. Last Filed Vital Signs Vital Sign Reading Time Taken Blood Pressure 116/62 11/23/2018 11:24 AM ASSISTANT HOUSEKEEPING MANAGER Pulse 99 11/23/2018 11:24 AM ASSISTANT HOUSEKEEPING MANAGER Temperature 35.8 C (96.5 F) 11/23/2018 11:24 AM ASSISTANT HOUSEKEEPING MANAGER Respiratory Rate 18 11/23/2018 11:24 AM ASSISTANT HOUSEKEEPING MANAGER Oxygen Saturation 100% 11/23/2018 11:24 AM ASSISTANT HOUSEKEEPING MANAGER Inhaled Oxygen Concentration - - Weight 65.4 kg (144 lb 2.9 oz) 11/19/2018 6:00 AM ASSISTANT HOUSEKEEPING MANAGER Height 182.9 cm (6') 11/14/2018 12:37 AM ASSISTANT HOUSEKEEPING MANAGER Body Mass Index 19.55 11/19/2018 6:00 AM ASSISTANT HOUSEKEEPING MANAGER Plan of Treatment Not on file Implants Implanted Type Area Nipple Threader Device Shelf Model / Identifier Expiration Serial / Date Lot Stent Uret Cntour Inj [id number] - [id number] IMPLANTS Left: [employer]ON 05/16/2020 [id number] / Implanted: Qty: 1 on 11/14/2018 by Ramsey Roman MD [employer] SCI:UROLOGY /GYNE / COLOGY [id number] Procedures Procedure Name Priority Date/Time Associated Diagnosis Comments POCT-GLUCOSE METER Routine 11/23/2018 11:50 Results for this AM ASSISTANT HOUSEKEEPING MANAGER procedure are in the results section. POCT-GLUCOSE METER Routine 11/23/2018 8:42 Results for this AM ASSISTANT HOUSEKEEPING MANAGER procedure are in the results section. POCT-GLUCOSE METER Routine 11/22/2018 9:15 Results for this PM ASSISTANT HOUSEKEEPING MANAGER procedure are in the results section. POCT-GLUCOSE METER Routine 11/22/2018 5:26 Results for this PM ASSISTANT HOUSEKEEPING MANAGER procedure are in the results section. XR CHEST 1 VIEW STAT 11/22/2018 2:44 Results for this PORTABLE/BEDSIDE PM ASSISTANT HOUSEKEEPING MANAGER procedure are in the results section. POCT-GLUCOSE METER Routine 11/22/2018 11:23 Results for this AM ASSISTANT HOUSEKEEPING MANAGER procedure are in the results section. POCT-GLUCOSE METER Routine 11/22/2018 8:02 Results for this AM ASSISTANT HOUSEKEEPING MANAGER procedure are in the results section. BASIC METABOLIC PANEL Routine 11/22/2018 5:14 Results for this (7) AM ASSISTANT HOUSEKEEPING MANAGER procedure are in the results section. POCT-GLUCOSE METER Routine 11/21/2018 10:31 Results for this PM ASSISTANT HOUSEKEEPING MANAGER procedure are in the results section. POCT-GLUCOSE METER Routine 11/21/2018 5:39 Results for this PM ASSISTANT HOUSEKEEPING MANAGER procedure are in the results section. POCT-GLUCOSE METER Routine 11/21/2018 11:27 Results for this AM ASSISTANT HOUSEKEEPING MANAGER procedure are in the results section. CT ABDOMEN/PELVIS Routine 11/21/2018 11:12 Results for this WITH IV CONTRAST AM ASSISTANT HOUSEKEEPING MANAGER procedure are in the results section. POCT-GLUCOSE METER Routine 11/21/2018 7:56 Results for this AM ASSISTANT HOUSEKEEPING MANAGER procedure are in the results section. BASIC METABOLIC PANEL Routine 11/21/2018 3:47 Results for this (7) AM ASSISTANT HOUSEKEEPING MANAGER procedure are in the results section. HEMOGLOBIN A1C Routine 11/21/2018 3:47 Results for this AM ASSISTANT HOUSEKEEPING MANAGER procedure are in the results section. POCT-GLUCOSE METER Routine 11/20/2018 9:57 Results for this PM ASSISTANT HOUSEKEEPING MANAGER procedure are in the results section. POCT-GLUCOSE METER Routine 11/20/2018 5:09 Results for this PM ASSISTANT HOUSEKEEPING MANAGER procedure are in the results section. BLOOD CULTURE Routine 11/20/2018 12:20 Results for this PM ASSISTANT HOUSEKEEPING MANAGER procedure are in the results section. POCT-GLUCOSE METER Routine 11/20/2018 12:05 Results for this PM ASSISTANT HOUSEKEEPING MANAGER procedure are in the results section. BLOOD CULTURE Routine 11/20/2018 10:34 Results for this AM ASSISTANT HOUSEKEEPING MANAGER procedure are in the results section. POCT-GLUCOSE METER Routine 11/20/2018 8:18 Results for this AM ASSISTANT HOUSEKEEPING MANAGER procedure are in the results section. (CELLAVISION MANUAL Routine 11/20/2018 4:41 Results for this DIFF) AM ASSISTANT HOUSEKEEPING MANAGER procedure are in the results section. CBC W/PLT COUNT & Routine 11/20/2018 4:41 Results for this AUTO DIFFERENTIAL AM ASSISTANT HOUSEKEEPING MANAGER procedure are in the results section. BASIC METABOLIC PANEL Routine 11/20/2018 4:41 Results for this (7) AM ASSISTANT HOUSEKEEPING MANAGER procedure are in the results section. CBC W/PLT COUNT & Routine 11/20/2018 4:41 Results for this AUTO DIFFERENTIAL AM ASSISTANT HOUSEKEEPING MANAGER procedure are in the results section. POCT-GLUCOSE METER Routine 11/19/2018 9:52 Results for this PM ASSISTANT HOUSEKEEPING MANAGER procedure are in the results section. POCT-GLUCOSE METER Routine 11/19/2018 6:52 Results for this PM ASSISTANT HOUSEKEEPING MANAGER procedure are in the results section. POCT-GLUCOSE METER Routine 11/19/2018 12:14 Results for this PM ASSISTANT HOUSEKEEPING MANAGER procedure are in the results section. POCT-GLUCOSE METER Routine 11/19/2018 7:50 Results for this AM ASSISTANT HOUSEKEEPING MANAGER procedure are in the results section. (CELLAVISION MANUAL Routine 11/19/2018 4:23 Results for this DIFF) AM ASSISTANT HOUSEKEEPING MANAGER procedure are in the results section. CBC W/PLT COUNT & Routine 11/19/2018 4:23 Results for this AUTO DIFFERENTIAL AM ASSISTANT HOUSEKEEPING MANAGER procedure are in the results section. BASIC METABOLIC PANEL Routine 11/19/2018 4:23 Results for this (7) AM ASSISTANT HOUSEKEEPING MANAGER procedure are in the results section. CBC W/PLT COUNT & Routine 11/19/2018 4:23 Results for this AUTO DIFFERENTIAL AM ASSISTANT HOUSEKEEPING MANAGER procedure are in the results section. US ENDOVAGINAL EV Routine 11/18/2018 10:45 Results for this PM ASSISTANT HOUSEKEEPING MANAGER procedure are in the results section. POCT-GLUCOSE METER Routine 11/18/2018 10:01 Results for this PM ASSISTANT HOUSEKEEPING MANAGER procedure are in the results section. POCT-GLUCOSE METER Routine 11/18/2018 5:59 Results for this PM ASSISTANT HOUSEKEEPING MANAGER procedure are in the results section. TRANSFUSION SERVICE 11/18/2018 5:51 REPORT - SCAN PM ASSISTANT HOUSEKEEPING MANAGER POCT-GLUCOSE METER Routine 11/18/2018 12:40 Results for this PM ASSISTANT HOUSEKEEPING MANAGER procedure are in the results section. (CELLAVISION MANUAL Routine 11/18/2018 9:48 Results for this DIFF) AM ASSISTANT HOUSEKEEPING MANAGER procedure are in the results section. CBC W/PLT COUNT & Routine 11/18/2018 9:48 Results for this AUTO DIFFERENTIAL AM ASSISTANT HOUSEKEEPING MANAGER procedure are in the results section. BASIC METABOLIC PANEL Routine 11/18/2018 9:48 Results for this (7) AM ASSISTANT HOUSEKEEPING MANAGER procedure are in the results section. CBC W/PLT COUNT & Routine 11/18/2018 9:48 Results for this AUTO DIFFERENTIAL AM ASSISTANT HOUSEKEEPING MANAGER procedure are in the results section. POCT-GLUCOSE METER Routine 11/18/2018 7:33 Results for this AM ASSISTANT HOUSEKEEPING MANAGER procedure are in the results section. POCT-GLUCOSE METER Routine 11/18/2018 12:33 Results for this AM ASSISTANT HOUSEKEEPING MANAGER procedure are in the results section. PREPARE LEUKO-REDUCED Routine 11/17/2018 11:54 Results for this PLATELETS PM ASSISTANT HOUSEKEEPING MANAGER procedure are in the results section. FERRITIN AP Routine 11/17/2018 6:34 Results for this PM ASSISTANT HOUSEKEEPING MANAGER procedure are in the results section. IRON, TIBC, % SAT. Routine 11/17/2018 6:34 Results for this (WITHOUT FERRITIN) PM ASSISTANT HOUSEKEEPING MANAGER procedure are in the results section. POCT-GLUCOSE METER Routine 11/17/2018 6:00 Results for this PM ASSISTANT HOUSEKEEPING MANAGER procedure are in the results section. TRANSFUSION SERVICE 11/17/2018 5:51 REPORT - SCAN PM ASSISTANT HOUSEKEEPING MANAGER CT DRAINAGE ABDOMINAL UMM 11/17/2018 1:22 Results for this PM ASSISTANT HOUSEKEEPING MANAGER procedure are in the results section. ECHOCARDIOGRAM REPORT 11/17/2018 10:50 - SCAN AM ASSISTANT HOUSEKEEPING MANAGER POCT-GLUCOSE METER Routine 11/17/2018 7:29 Results for this AM ASSISTANT HOUSEKEEPING MANAGER procedure are in the results section. (CELLAVISION MANUAL Routine 11/17/2018 4:55 Results for this DIFF) AM ASSISTANT HOUSEKEEPING MANAGER procedure are in the results section. CBC W/PLT COUNT & Routine 11/17/2018 4:55 Results for this AUTO DIFFERENTIAL AM ASSISTANT HOUSEKEEPING MANAGER procedure are in the results section. BASIC METABOLIC PANEL Routine 11/17/2018 4:55 Results for this (7) AM ASSISTANT HOUSEKEEPING MANAGER procedure are in the results section. CBC W/PLT COUNT & Routine 11/17/2018 4:55 Results for this AUTO DIFFERENTIAL AM ASSISTANT HOUSEKEEPING MANAGER procedure are in the results section. POCT-GLUCOSE METER Routine 11/16/2018 10:45 Results for this PM ASSISTANT HOUSEKEEPING MANAGER procedure are in the results section. XR CHEST 1 VIEW STAT 11/16/2018 9:36 Results for this PORTABLE/BEDSIDE PM ASSISTANT HOUSEKEEPING MANAGER procedure are in the results section. TRANSFUSE Routine 11/16/2018 6:22 LEUKO-REDUCED PM ASSISTANT HOUSEKEEPING MANAGER PLATELETS POCT-GLUCOSE METER Routine 11/16/2018 6:08 Results for this PM ASSISTANT HOUSEKEEPING MANAGER procedure are in the results section. TRANSFUSION SERVICE 11/16/2018 5:52 REPORT - SCAN PM ASSISTANT HOUSEKEEPING MANAGER XR CHEST 1 VIEW Routine 11/16/2018 4:13 Results for this PORTABLE/BEDSIDE PM ASSISTANT HOUSEKEEPING MANAGER procedure are in the results section. 2D ECHO W/ DOPPLER Routine 11/16/2018 3:20 Results for this (CW/PW/COLOR) PM ASSISTANT HOUSEKEEPING MANAGER procedure are in the results section. POCT-GLUCOSE METER Routine 11/16/2018 12:35 Results for this PM ASSISTANT HOUSEKEEPING MANAGER procedure are in the results section. CT ABDOMEN/PELVIS Routine 11/16/2018 12:18 Results for this WITH/WITHOUT IV PM ASSISTANT HOUSEKEEPING MANAGER procedure are in CONTRAST the results section. POCT-GLUCOSE METER Routine 11/16/2018 6:19 Results for this AM ASSISTANT HOUSEKEEPING MANAGER procedure are in the results section. (CELLAVISION MANUAL Routine 11/16/2018 4:34 Results for this DIFF) AM ASSISTANT HOUSEKEEPING MANAGER procedure are in the results section. CBC W/PLT COUNT & Routine 11/16/2018 4:34 Results for this AUTO DIFFERENTIAL AM ASSISTANT HOUSEKEEPING MANAGER procedure are in the results section. BASIC METABOLIC PANEL STAT 11/16/2018 4:34 Results for this (7) AM ASSISTANT HOUSEKEEPING MANAGER procedure are in the results section. B-TYPE NATRIURETIC Routine 11/16/2018 4:34 Results for this FACTOR (BNP) AM ASSISTANT HOUSEKEEPING MANAGER procedure are in the results section. HEPATITIS C PCR, Routine 11/16/2018 4:34 Results for this QUANTITATIVE AM ASSISTANT HOUSEKEEPING MANAGER procedure are in the results section. CBC W/PLT COUNT & Routine 11/16/2018 4:34 Results for this AUTO DIFFERENTIAL AM ASSISTANT HOUSEKEEPING MANAGER procedure are in the results section. MAGNESIUM Routine 11/16/2018 4:34 Results for this AM ASSISTANT HOUSEKEEPING MANAGER procedure are in the results section. PROTHROMBIN TIME/INR Routine 11/16/2018 4:34 Results for this AM ASSISTANT HOUSEKEEPING MANAGER procedure are in the results section. HEPATIC FUNCTION Routine 11/16/2018 4:34 Results for this PANEL AM ASSISTANT HOUSEKEEPING MANAGER procedure are in the results section. POCT-GLUCOSE METER Routine 11/15/2018 11:43 Results for this PM ASSISTANT HOUSEKEEPING MANAGER procedure are in the results section. TRANSFUSION SERVICE 11/15/2018 5:52 REPORT - SCAN PM ASSISTANT HOUSEKEEPING MANAGER POCT-GLUCOSE METER Routine 11/15/2018 5:39 Results for this PM ASSISTANT HOUSEKEEPING MANAGER procedure are in the results section. BASIC METABOLIC PANEL STAT 11/15/2018 1:25 Results for this (7) PM ASSISTANT HOUSEKEEPING MANAGER procedure are in the results section. POCT-GLUCOSE METER Routine 11/15/2018 11:54 Results for this AM ASSISTANT HOUSEKEEPING MANAGER procedure are in the results section. POCT-GLUCOSE METER Routine 11/15/2018 9:05 Results for this AM ASSISTANT HOUSEKEEPING MANAGER procedure are in the results section. POCT-GLUCOSE METER Routine 11/15/2018 6:16 Results for this AM ASSISTANT HOUSEKEEPING MANAGER procedure are in the results section. US ABDOMEN COMPLETE Routine 11/15/2018 4:15 Results for this AM ASSISTANT HOUSEKEEPING MANAGER procedure are in the results section. (CELLAVISION MANUAL Routine 11/15/2018 3:50 Results for this DIFF) AM ASSISTANT HOUSEKEEPING MANAGER procedure are in the results section. CBC W/PLT COUNT & Routine 11/15/2018 3:50 Results for this AUTO DIFFERENTIAL AM ASSISTANT HOUSEKEEPING MANAGER procedure are in the results section. PERIPHERAL BLOOD Routine 11/15/2018 3:50 Results for this SMEAR - HOLD ONLY AM ASSISTANT HOUSEKEEPING MANAGER procedure are in the results section. HEPATITIS C ANTIBODY Routine 11/15/2018 3:50 Results for this AM ASSISTANT HOUSEKEEPING MANAGER procedure are in the results section. CBC W/PLT COUNT & Routine 11/15/2018 3:50 Results for this AUTO DIFFERENTIAL AM ASSISTANT HOUSEKEEPING MANAGER procedure are in the results section. MAGNESIUM Routine 11/15/2018 3:50 Results for this AM ASSISTANT HOUSEKEEPING MANAGER procedure are in the results section. PROTHROMBIN TIME/INR Routine 11/15/2018 3:50 Results for this AM ASSISTANT HOUSEKEEPING MANAGER procedure are in the results section. HEPATIC FUNCTION Routine 11/15/2018 3:50 Results for this PANEL AM ASSISTANT HOUSEKEEPING MANAGER procedure are in the results section. BASIC METABOLIC PANEL Routine 11/15/2018 3:50 Results for this (7) AM ASSISTANT HOUSEKEEPING MANAGER procedure are in the results section. POCT-GLUCOSE METER Routine 11/15/2018 12:50 Results for this AM ASSISTANT HOUSEKEEPING MANAGER procedure are in the results section. POCT-GLUCOSE METER Routine 11/14/2018 9:25 Results for this PM ASSISTANT HOUSEKEEPING MANAGER procedure are in the results section. PREPARE PLATELETS STAT 11/14/2018 9:15 Results for this PM ASSISTANT HOUSEKEEPING MANAGER procedure are in the results section. SURGICALLY OBTAINED Routine 11/14/2018 8:59 Results for this CULTURE + GRAM STAIN PM ASSISTANT HOUSEKEEPING MANAGER procedure are in the results section. FUNGUS CULTURE + Routine 11/14/2018 8:59 SMEAR PM ASSISTANT HOUSEKEEPING MANAGER ANAEROBIC CULTURE Routine 11/14/2018 8:59 Results for this PM ASSISTANT HOUSEKEEPING MANAGER procedure are in the results section. AFB CULTURE + SMEAR Routine 11/14/2018 8:59 PM ASSISTANT HOUSEKEEPING MANAGER POCT-GLUCOSE METER Routine 11/14/2018 5:44 Results for this PM ASSISTANT HOUSEKEEPING MANAGER procedure are in the results section. CYSTOSCOPY,INSERTION 11/14/2018 3:02 Emphysematous URETERAL STENTS PM ASSISTANT HOUSEKEEPING MANAGER pyelonephritis PT/APTT STAT 11/14/2018 2:33 Results for this PM ASSISTANT HOUSEKEEPING MANAGER procedure are in the results section. RETICULOCYTE COUNT STAT 11/14/2018 2:33 Results for this PM ASSISTANT HOUSEKEEPING MANAGER procedure are in the results section. HAPTOGLOBIN STAT 11/14/2018 2:33 Results for this PM ASSISTANT HOUSEKEEPING MANAGER procedure are in the results section. LACTATE DEHYDROGENASE STAT 11/14/2018 2:33 Results for this (LDH) PM ASSISTANT HOUSEKEEPING MANAGER procedure are in the results section. HEPATITIS C PCR, Routine 11/14/2018 2:33 Results for this QUANTITATIVE PM ASSISTANT HOUSEKEEPING MANAGER procedure are in the results section. URINE CULTURE Routine 11/14/2018 1:52 Results for this PM ASSISTANT HOUSEKEEPING MANAGER procedure are in the results section. POCT-GLUCOSE METER Routine 11/14/2018 12:42 Results for this PM ASSISTANT HOUSEKEEPING MANAGER procedure are in the results section. BLOOD CULTURE Routine 11/14/2018 11:51 Results for this IDENTIFICATION PANEL AM ASSISTANT HOUSEKEEPING MANAGER procedure are in the results section. BLOOD CULTURE Routine 11/14/2018 11:51 Results for this AM ASSISTANT HOUSEKEEPING MANAGER procedure are in the results section. BLOOD CULTURE Routine 11/14/2018 11:51 Results for this AM ASSISTANT HOUSEKEEPING MANAGER procedure are in the results section. CBC W/PLT COUNT & Routine 11/14/2018 8:01 Results for this AUTO DIFFERENTIAL AM ASSISTANT HOUSEKEEPING MANAGER procedure are in the results section. ABORH, MANUAL STAT 11/14/2018 8:01 Results for this AM ASSISTANT HOUSEKEEPING MANAGER procedure are in the results section. PERIPHERAL BLOOD AP Routine 11/14/2018 8:01 Results for this SMEAR - PATHOLOGIST AM ASSISTANT HOUSEKEEPING MANAGER procedure are in REVIEW the results section. HAPTOGLOBIN Routine 11/14/2018 8:01 Results for this AM ASSISTANT HOUSEKEEPING MANAGER procedure are in the results section. LACTATE DEHYDROGENASE Routine 11/14/2018 8:01 Results for this (LDH) AM ASSISTANT HOUSEKEEPING MANAGER procedure are in the results section. CBC W/PLT COUNT & Routine 11/14/2018 8:01 Results for this AUTO DIFFERENTIAL AM ASSISTANT HOUSEKEEPING MANAGER procedure are in the results section. XR CHEST 1 VIEW Routine 11/14/2018 7:28 Results for this PORTABLE/BEDSIDE AM ASSISTANT HOUSEKEEPING MANAGER procedure are in the results section. TYPE AND SCREEN, Routine 11/14/2018 6:50 Results for this AUTOMATED AM ASSISTANT HOUSEKEEPING MANAGER procedure are in the results section. POCT-GLUCOSE METER Routine 11/14/2018 6:49 Results for this AM ASSISTANT HOUSEKEEPING MANAGER procedure are in the results section. (CELLAVISION MANUAL Routine 11/14/2018 3:04 Results for this DIFF) AM ASSISTANT HOUSEKEEPING MANAGER procedure are in the results section. CBC W/PLT COUNT & Routine 11/14/2018 3:04 Results for this AUTO DIFFERENTIAL AM ASSISTANT HOUSEKEEPING MANAGER procedure are in the results section. VITAMIN B12 Routine 11/14/2018 3:04 Results for this AM ASSISTANT HOUSEKEEPING MANAGER procedure are in the results section. FOLATE, SERUM Routine 11/14/2018 3:04 Results for this AM ASSISTANT HOUSEKEEPING MANAGER procedure are in the results section. FIBRINOGEN Routine 11/14/2018 3:04 Results for this AM ASSISTANT HOUSEKEEPING MANAGER procedure are in the results section. D-DIMER Routine 11/14/2018 3:04 Results for this AM ASSISTANT HOUSEKEEPING MANAGER procedure are in the results section. PERIPHERAL BLOOD Routine 11/14/2018 3:04 Results for this SMEAR - HOLD ONLY AM ASSISTANT HOUSEKEEPING MANAGER procedure are in the results section. HEPATITIS PANEL, Routine 11/14/2018 3:04 Results for this ACUTE AM ASSISTANT HOUSEKEEPING MANAGER procedure are in the results section. HIV-1 ANTIGEN WITH Routine 11/14/2018 3:04 Results for this HIV-1/2 ANTIBODY AM ASSISTANT HOUSEKEEPING MANAGER procedure are in the results section. CBC W/PLT COUNT & Routine 11/14/2018 3:04 Results for this AUTO DIFFERENTIAL AM ASSISTANT HOUSEKEEPING MANAGER procedure are in the results section. MAGNESIUM Routine 11/14/2018 3:04 Results for this AM ASSISTANT HOUSEKEEPING MANAGER procedure are in the results section. PROTHROMBIN TIME/INR Routine 11/14/2018 3:04 Results for this AM ASSISTANT HOUSEKEEPING MANAGER procedure are in the results section. HEPATIC FUNCTION Routine 11/14/2018 3:04 Results for this PANEL AM ASSISTANT HOUSEKEEPING MANAGER procedure are in the results section. BASIC METABOLIC PANEL Routine 11/14/2018 3:04 Results for this (7) AM ASSISTANT HOUSEKEEPING MANAGER procedure are in the results section. POCT-GLUCOSE METER Routine 11/14/2018 12:18 Results for this AM ASSISTANT HOUSEKEEPING MANAGER procedure are in the results section. after 11/26/2017 Results POC-Glucose meter (11/23/2018 11:50 AM ASSISTANT HOUSEKEEPING MANAGER)Only the most recent of40 resultswithin the time period is included. POC-Glucose Meter 252 (H)Comment: TESTED AT 70 - 110 mg/dL [facility] [address] [facility] [id number] Specimen Blood Performing Organization Address City/State/Zipcode Phone Number [facility] [address] [place], [place] [id number] CENTER XR chest 1 view portable / bedside (11/22/2018 2:44 PM ASSISTANT HOUSEKEEPING MANAGER)Only the most recent of4 resultswithin the time period is included. Narrative Performed At FINAL REPORT [facility] TECHNIQUE: Frontal chest radiograph dated 11/22/2018. CLINICAL HISTORY: Post PICC COMPARISON STUDY: Chest radiograph dated 11/16/2018 IMPRESSION: Right-sided PICC is seen with the tip projects over the superior vena cava/right atrial junction. Pulmonary edema has improved. There is stable left retrocardiac atelectasis. No fracture. Signed: Irma Betts MD Report Verified Date/Time:11/22/2018 15:45:15 Reading Location: [facility] Radiology Reading Room Procedure Note Interface, External Ris In - 11/22/2018 3:47 PM ASSISTANT HOUSEKEEPING MANAGER FINAL REPORT TECHNIQUE: Frontal chest radiograph dated 11/22/2018. CLINICAL HISTORY: Post PICC COMPARISON STUDY: Chest radiograph dated 11/16/2018 IMPRESSION: Right-sided PICC is seen with the tip projects over the superior vena cava/right atrial junction. Pulmonary edema has improved. There is stable left retrocardiac atelectasis. No fracture. Signed: Irma Betts MD Report Verified Date/Time: 11/22/2018 15:45:15 Reading Location: [facility] Radiology Reading Room Performing Organization Address City/State/Zipcode Phone Number [facility] Basic Metabolic Panel (11/22/2018 5:14 AM ASSISTANT HOUSEKEEPING MANAGER)Only the most recent of10 resultswithin the time period is included. Sodium 137 136 - 145 meq/L [facility] Potassium 5.4 (H)Comment: Specimen 3.5 - 5.1 meq/L [facility] slightly hemolyzed [facility] Chloride 110 (H) 98 - 107 meq/L [facility] CO2 22 22 - 29 meq/L [facility] BUN 33 (H) 7 - 21 mg/dL [facility] Creatinine 1.02Comment: Specimen 0.57 - 1.25 mg/dL [facility] [place] slightly hemolyzed [facility] Glucose 83 70 - 105 mg/dL [facility] Calcium 8.4 8.4 - 10.2 mg/dL [facility] EGFR 56Comment: ESTIMATED GFR IS mL/min/1.73 sq m [facility] [place] NOT ACCURATE CREATININE [facility] CLEARANCE IN PREDICTING GLOMERULAR FILTRATION RATE. ESTIMATED GFR IS NOT APPLICABLE FOR DIALYSIS PATIENTS. Specimen Blood Performing Organization Address City/State/Zipcode Phone Number [facility] [address] [place] [address] abdomen/pelvis with IV contrast (11/21/2018 11:12 AM ASSISTANT HOUSEKEEPING MANAGER) Narrative Performed At FINAL REPORT [employer] TECHNIQUE: CT of the abdomen and pelvis WITH intravenous contrast and WITHOUT oral contrast. Dose modulation, iterative reconstruction, and/or weight-based adjustment of the mA/kV was utilized to reduce the radiation dose to as low as reasonably achievable. INDICATION: Abd pain, fever, abscess suspected. COMPARISON: CT from 11/16/2018. FINDINGS: LOWER THORAX: Moderate right and small left pleural effusions with atelectasis. Groundglass opacities and interstitial changes of the lungs HEPATOBILIARY: The liver is mildly enlarged. No focal hepatic lesions. Gallbladder is unremarkable. No biliary ductal dilatation. SPLEEN: No splenomegaly. The spleen measures 4.4 cm in length. PANCREAS: No focal masses or ductal dilatation. ADRENALS: No adrenal nodules. KIDNEYS/URETERS: A retropulsed renal cyst measures 1 cm on axial image 35. The left kidney is diffusely enlarged with several areas of wedge-shaped hypodensity and phlegmon. In addition, there is gas in the left renal parenchyma in a branching pattern. There is some questionable fluid in this location as well. There is a left ureteral stent extends from the renal pelvis to the bladder. No residual hydronephrosis. The catheter has been retracted out of the kidney. PELVIC ORGANS/BLADDER: The bladder is collapsed by a Mejia catheter. PERITONEUM/RETROPERITONEUM: Small volume free fluid in the pelvis and left paracolic gutter. LYMPH NODES: Retroperitoneal are prominent measuring up to 0.9 mm in the left para-aortic region on image 32. VESSELS: Unremarkable. GI TRACT: No distention or wall thickening. Severe diverticulosis of the sigmoid colon. Mild diverticulosis of the left an right colon. [place] is normal. BONES AND SOFT TISSUES: Mild degenerative changes of the lumbar spine.. 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 The left posterior renal necrosis with gas may have a small amount of liquid. However, this is likely not enough for a drain. The appearance is similar to the prior examination. 2.The previously seen left renal drainage catheter has been retracted outside of the kidney. 3.The left ureteral catheter is in place without residual hydronephrosis. 4.There is small volume free fluid in the pelvis and left paracolic gutter. 5.Moderate right and small left pleural effusions with pulmonary edema. 6.Mild hepatomegaly with upper limit of normal spleen size. Signed: Rober Payan MD Report Verified Date/Time:11/21/2018 12:29:22 Reading Location: [facility] Diagnostic Imaging Reading Room - [place] [address] Procedure Note Interface, External Ris In - 11/21/2018 12:31 PM ASSISTANT HOUSEKEEPING MANAGER FINAL REPORT TECHNIQUE: CT of the abdomen and pelvis WITH intravenous contrast and WITHOUT oral contrast. Dose modulation, iterative reconstruction, and/or weight-based adjustment of the mA/kV was utilized to reduce the radiation dose to as low as reasonably achievable. INDICATION: Abd pain, fever, abscess suspected. COMPARISON: CT from 11/16/2018. FINDINGS: LOWER THORAX: Moderate right and small left pleural effusions with atelectasis. Groundglass opacities and interstitial changes of the lungs HEPATOBILIARY: The liver is mildly enlarged. No focal hepatic lesions. Gallbladder is unremarkable. No biliary ductal dilatation. SPLEEN: No splenomegaly. The spleen measures 4.4 cm in length. PANCREAS: No focal masses or ductal dilatation. ADRENALS: No adrenal nodules. KIDNEYS/URETERS: A retropulsed renal cyst measures 1 cm on axial image 35. The left kidney is diffusely enlarged with several areas of wedge-shaped hypodensity and phlegmon. In addition, there is gas in the left renal parenchyma in a branching pattern. There is some questionable fluid in this location as well. There is a left ureteral stent extends from the renal pelvis to the bladder. No residual hydronephrosis. The catheter has been retracted out of the kidney. PELVIC ORGANS/BLADDER: The bladder is collapsed by a Mejia catheter. PERITONEUM/RETROPERITONEUM: Small volume free fluid in the pelvis and left paracolic gutter. LYMPH NODES: Retroperitoneal are prominent measuring up to 0.9 mm in the left para-aortic region on image 32. VESSELS: Unremarkable. GI TRACT: No distention or wall thickening. Severe diverticulosis of the sigmoid colon. Mild diverticulosis of the left an right colon. [place] is normal. BONES AND SOFT TISSUES: Mild degenerative changes of the lumbar spine.. 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 The left posterior renal necrosis with gas may have a small amount of liquid. However, this is likely not enough for a drain. The appearance is similar to the prior examination. 2.The previously seen left renal drainage catheter has been retracted outside of the kidney. 3.The left ureteral catheter is in place without residual hydronephrosis. 4.There is small volume free fluid in the pelvis and left paracolic gutter. 5.Moderate right and small left pleural effusions with pulmonary edema. 6.Mild hepatomegaly with upper limit of normal spleen size. Signed: Rober Payan MD Report Verified Date/Time: 11/21/2018 12:29:22 Reading Location: [facility] Diagnostic Imaging Reading Room - [place] [address] [id number] Performing Organization Address City/State/Zipcode Phone Number [facility] Hemoglobin A1c (11/21/2018 3:47 AM ASSISTANT HOUSEKEEPING MANAGER) Hemoglobin A1C 13.6 (H) 4.3 - 6.1 % [facility] Specimen Blood - Arm, Right Performing Organization Address City/[facility]/Zipcode Phone Number [facility] [address] [place] [address] CENTER Blood culture (11/20/2018 12:20 PM ASSISTANT HOUSEKEEPING MANAGER)Only the most recent of4 resultswithin the time period is included. Result No growth in 5 days [facility] Specimen Blood - Arm, Right Performing Organization Address [facility] Cent[facility] Phone Number [facility] [address] [place] [address] CENTER Manual Differential (11/20/2018 4:41 AM ASSISTANT HOUSEKEEPING MANAGER)Only the most recent of7 resultswithin the time period is included. % Neutros 86 % [facility] % Lymphs 8 % [facility] % Monos 5 % [facility] % Bands 1 0 - 10 % [facility] # Neutros 10.15 (H) 1.56 - 6.13 K/ul [facility] # Lymphs 0.94 (L) 1.18 - 3.74 K/ul [facility] # Monos 0.59 (H) 0.24 - 0.36 K/uL [facility] # Bands 0.12 0.00 - 0.80 K/uL [facility] Total Counted 100 [facility] Giant Platelet Present [facility] Toxic Granulation Present [facility] Anisocytosis 1+ few [facility] Microcytes 1+ few [facility] Schistocytes 1+ few [facility] Artifact Present [facility] Platelet Conc Adequate [facility] Specimen Blood - Arm, Left Narrative Performed At Received comment: [facility] User comments: Slide comments: Performing Organization Address City/[facility] Cent[facility]ode Phone Number [facility] [address] [place] [address] [phone] [place] CBC with platelet count + automated diff (11/20/2018 4:41 AM ASSISTANT HOUSEKEEPING MANAGER)Only the most recent of8 resultswithin the time period is included. WBC 11.8 (H) 3.5 - 10.5 K/L [facility] RBC 3.26 (L) 3.93 - 5.22 M/L [facility] Hemoglobin 8.6 (L) 11.2 - 15.7 GM/DL [facility] Hematocrit 27.6 (L) 34.1 - 44.9 % [facility] MCV 84.7 79.4 - 94.8 fL [facility] MCH 26.4 25.6 - 32.2 pg [facility] MCHC 31.2 (L) 32.2 - 35.5 GM/DL [facility] RDW 15.2 (H) 11.7 - 14.4 % [facility] Platelets 182 150 - 450 K/CU MM [facility] MPV 11.3 9.4 - 12.3 fL [facility] nRBC 0 0 - 0 /100 WBC [facility] Specimen Blood - Arm, Left Performing Organization Address City/[facility]/Zipcode Phone Number [facility] [address] [place] [address] [phone] CENTER US Endovaginal (11/18/2018 10:45 PM ASSISTANT HOUSEKEEPING MANAGER) Narrative Performed At FINAL REPORT [employer] U/S, ENDOVAGINAL (EV) CLINICAL INDICATION: ultrasound hx of cervical cancer, f/u COMPARISON: CT abdomen and pelvis November 16, 2018 TECHNIQUE:Ultrasound imaging of the pelvis was performed transabdominally through a distended urinary bladder followed by transvaginal examination postvoid. Color and spectral Doppler evaluation was also performed. FINDINGS: Uterus Orientation: Anteverted Size: 7.1 x 3.2 x 5.5 cm Masses: None Endometrial thickness: 0.8 cm. Cervix: Unremarkable Other: Linear echogenic focus which is either within or adjacent to the myometrium measures 0.8 and 0.2 x 0.4 cm, uncertain etiology, possibly a ureteral stent. Right Ovary: Size: 2.7 x 1.0 x 1.4cm. Echogenicity: Normal. Single calcification adjacent to or within the ovary measures 0.8 x 0.4 cm Vascular flow: Preserved Left Ovary: Not seen Free fluid: None. Additional findings: None IMPRESSION: 1. No definite masses identified within the cervix 2. Echogenic focus within the myometrium is of uncertain etiology and appears well circumscribed with sharp margins. This may conceivably represent a ureteral stent noted adjacent to the uterus on recent CT. Correlate with clinical history. 3. Punctate calcification within the right adnexa of uncertain significance that corresponds to calcific focus seen on prior CT. Right ovary is otherwise normal in appearance. Signed: Kumar Wang MD Report Verified Date/Time:11/19/2018 03:28:08 Reading Location: [facility] C013V Neuro Reading Room Procedure Note Interface, External Ris In - 11/19/2018 3:30 AM ASSISTANT HOUSEKEEPING MANAGER FINAL REPORT U/S, ENDOVAGINAL (EV) CLINICAL INDICATION: ultrasound hx of cervical cancer, f/u COMPARISON: CT abdomen and pelvis November 16, 2018 TECHNIQUE: Ultrasound imaging of the pelvis was performed transabdominally through a distended urinary bladder followed by transvaginal examination postvoid. Color and spectral Doppler evaluation was also performed. FINDINGS: Uterus Orientation: Anteverted Size: 7.1 x 3.2 x 5.5 cm Masses: None Endometrial thickness: 0.8 cm. Cervix: Unremarkable Other: Linear echogenic focus which is either within or adjacent to the myometrium measures 0.8 and 0.2 x 0.4 cm, uncertain etiology, possibly a ureteral stent. Right Ovary: Size: 2.7 x 1.0 x 1.4cm. Echogenicity: Normal. Single calcification adjacent to or within the ovary measures 0.8 x 0.4 cm Vascular flow: Preserved Left Ovary: Not seen Free fluid: None. Additional findings: None IMPRESSION: 1. No definite masses identified within the cervix 2. Echogenic focus within the myometrium is of uncertain etiology and appears well circumscribed with sharp margins. This may conceivably represent a ureteral stent noted adjacent to the uterus on recent CT. Correlate with clinical history. 3. Punctate calcification within the right adnexa of uncertain significance that corresponds to calcific focus seen on prior CT. Right ovary is otherwise normal in appearance. Signed: Kumar Wang MD Report Verified Date/Time: 11/19/2018 03:28:08 Reading Location: [facility] B1 C013V Neuro Reading Room Performing Organization Address City/[facility] Centercoms Phone Number [employer] TRANSFUSION SERVICE REPORT - SCAN (11/18/2018 5:51 PM ASSISTANT HOUSEKEEPING MANAGER)Only the most recent of4 resultswithin the time period is included. Narrative Performed At Prepare Leuko-Red PLT (11/17/2018 11:54 PM ASSISTANT HOUSEKEEPING MANAGER) Unit ABO O Neg [facility] [place] UNIT NUMBER [id number] [place] Status TRANSFUSED [facility] Blood Bank Product PLATELETS [place] PRODUCT CODE [id number] [place] Specimen Blood Performing Organization Address [facility] [place] Number [place] [place] Iron, TIBC, % sat. (without ferritin) (11/17/2018 6:34 PM ASSISTANT HOUSEKEEPING MANAGER) Iron 40.0 40.0 - 160.0 ug/dL [facility] TIBC 146 (L) 250 - 450 ug/dL [facility] Iron % Saturation 27 20 - 55 % [facility] Specimen Blood - Arm, Right Performing Organization Address [facility] [place] Phone Number [address] [address] [phone] CENTER Ferritin (11/17/2018 6:34 PM ASSISTANT HOUSEKEEPING MANAGER) Ferritin 2,216 (H) 5 - 275 ng/mL [facility] Specimen Blood - Arm, Right Performing Organization Address City/State/Zipcode Phone Number [facility] [address] [place] [address] [phone] drainage abdominal (11/17/2018 1:22 PM ASSISTANT HOUSEKEEPING MANAGER) Narrative Performed At FINAL REPORT [employer] PROCEDURE: Dose modulation, iterative reconstruction, and/or weight-based adjustment of the mA/kV was utilized to reduce the radiation dose to as low as reasonably achievable. INDICATION: Left renal abscess. COMPARISON: CT from 11/16/2018. SEDATION: Intravenous moderate sedation was administered by radiology nursing and monitored under the direction of the undersigned radiologist. The patient's vital signs were monitored throughout the procedure and recorded in the patient's medical record by radiology nursing. Total intraservice time of sedation was 45 minutes. MEDICATIONS: 0.5 mg Versed, 25 mcg fentanyl DESCRIPTION: After obtaining informed written consent, the patient was brought to the procedure room and placed in the prone position. Preliminary CT scan revealed the air and possible fluid collection of the left kidney. A clear path to the collection was identified. The overlying skin was prepped and draped in the usual, sterile fashion and local 1% lidocaine anesthesia was administered. Under ultrasound guidance, a 19-gauge introducer needle was placed into the fluid collection. No fluid was able to be aspirated. Therefore, the needle was repositioned with the tip in a slightly different position. Again, no fluid was able to be aspirated. A J-wire was introduced, and an 8 Malay catheter was placed. The catheter was unable to be coiled, but it was sutured in place. The catheter was affixed to the skin and connected to suction bulb. Post procedure scan showed no immediate complications. Interstitial nodular opacities in the lungs could be due to pneumonia. IMPRESSION: An 8 Malay catheter was placed in the region of air and fluid in the left kidney. No fluid was obtained, and this may be necrotic renal parenchyma as opposed to a true fluid collection. If no significant fluid is obtained within two days, removal of the catheter is recommended. Signed: Rober Payan MD Report Verified Date/Time:11/17/2018 15:00:19 Reading Location: [facility] C013Y CT Body Reading Room Procedure Note Interface, External Ris In - 11/17/2018 3:02 PM ASSISTANT HOUSEKEEPING MANAGER FINAL REPORT PROCEDURE: Dose modulation, iterative reconstruction, and/or weight-based adjustment of the mA/kV was utilized to reduce the radiation dose to as low as reasonably achievable. INDICATION: Left renal abscess. COMPARISON: CT from 11/16/2018. SEDATION: Intravenous moderate sedation was administered by radiology nursing and monitored under the direction of the undersigned radiologist. The patient's vital signs were monitored throughout the procedure and recorded in the patient's medical record by radiology nursing. Total intraservice time of sedation was 45 minutes. MEDICATIONS: 0.5 mg Versed, 25 mcg fentanyl DESCRIPTION: After obtaining informed written consent, the patient was brought to the procedure room and placed in the prone position. Preliminary CT scan revealed the air and possible fluid collection of the left kidney. A clear path to the collection was identified. The overlying skin was prepped and draped in the usual, sterile fashion and local 1% lidocaine anesthesia was administered. Under ultrasound guidance, a 19-gauge introducer needle was placed into the fluid collection. No fluid was able to be aspirated. Therefore, the needle was repositioned with the tip in a slightly different position. Again, no fluid was able to be aspirated. A J-wire was introduced, and an 8 Malay catheter was placed. The catheter was unable to be coiled, but it was sutured in place. The catheter was affixed to the skin and connected to suction bulb. Post procedure scan showed no immediate complications. Interstitial nodular opacities in the lungs could be due to pneumonia. IMPRESSION: An 8 Malay catheter was placed in the region of air and fluid in the left kidney. No fluid was obtained, and this may be necrotic renal parenchyma as opposed to a true fluid collection. If no significant fluid is obtained within two days, removal of the catheter is recommended. Signed: Rober Payan MD Report Verified Date/Time: 11/17/2018 15:00:19 Reading Location: [facility] C013Y CT Body Reading Room Performing Organization Address City/State/Zipcode Phone Number [employer] ECHOCARDIOGRAM REPORT - SCAN (11/17/2018 10:50 AM ASSISTANT HOUSEKEEPING MANAGER) Narrative Performed At Transfuse Leuko-Red PLT (11/16/2018 6:22 PM ASSISTANT HOUSEKEEPING MANAGER)Only the most recent of2 resultswithin the time period is included.2D Echo W/Doppler(CW/PW/Color) (2018 3:20 PM ASSISTANT HOUSEKEEPING MANAGER) Ejection Fraction [facility] Narrative Performed At Transthoracic Echocardiography Report (TTE) 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 Clinical History DM, Thyroid disease HGB 10.8 HCT 32.6 % Height: 62 inches Weight: 63.96 kg (141 lbs) BSA: 1.65 m^2 BMI: 25.79 kg/m^2 HR: 105 bpm BP: 106/68 mmHg Summary Sinus tachycardia during the exam. The left ventricle is chamber size (by PSLAX dimension) is normal (female - LVIDd 3.8-5.2cm) . Normal LV wall thickness. The following segment(s) appear akinetic:large area of apex and mid-distal septum. Mid segments are hypokinetic with relatively preserved basal segments contractility. Global LV systolic function moderately reduced . LVEF by Pack's method of disk assessment is moderately reduced (30-34%) . The LVEF was measured using Pack's bi-plane method of disk . Degree of diastolic dysfunction (LAP assessment) is inconclusive due to tachycardia . The right ventricular chamber size and systolic function are within normal limits. Unable to estimate peak systolic PA pressure; inadequate TR velocity signal. The estimated RA pressure by IVC dynamics 5-10mmHg . No significant pericardial effusion is visualized. Previous Study No prior exam available for comparison. Signature Findings Technical Quality: Technically adequate exam. Rhythm/BPSinus tachycardia during the exam. Left Ventricle The left ventricle is chamber size (by PSLAX di mension) is normal (female - LVIDd 3.8-5.2cm) . No rmal LV wall thickness. The following segment(s) ap pear akinetic:large area of apex and mid-distal se ptum. Mid segments are hypokinetic with re latively preserved basal segments contractility. Gl obal LV systolic function moderately reduced . LV EF by Pack's method of disk assessment is mo derately reduced (30-34%) . The LVEF was measured us ing Pack's bi-plane method of disk . Degree of di astolic dysfunction (LAP assessment) is in conclusive due to tachycardia . Left AtriumLA size is mildly enlarged (35-41 ml/m2) . Right VentricleThe right ventricular chamber size and systolic fu nction are within normal limits. Right Atrium RA cavity size is normal . Aortic Valve Mild AoV cusp thickening. Ao V cusp mobility is normal . Mitral Valve Mild MV leaflet thickening. Mi ld mitral annular calcification. Tr isaac mitral regurgitation. Tricuspid ValveTV structure is normal. Un able to estimate peak systolic PA pressure; in adequate TR velocity signal. Pulmonic Valve Normal PV structure and function by limited views an d Doppler. AortaAortic root size (SInus of Valsalva diameter) is no rmal . Proximal ascending aorta size is normal . PericardiumNo significant pericardial effusion is visualized. IVC/SVC/PA/PV/PleuralA left pleural effusion is noted. Th e right upper pulmonary vein (RUPV) is normal . Th e estimated RA pressure by IVC dynamics 5-10mmHg . Chambers/Structures Left Atrium LA Dimension: 3.46 cmLA Area: 19.27 cm^2 LA Volume: 57.13 ml LA Vol. Index: 35 ml/m^2 Left Ventricle LVIDd: 4 cm LV Septum Diastolic: 0.94 cm LV PW Diastolic: 0.89 cm LVEDV Pack's:110.5 ml LVESV Pack's:86.2 ml LVEF Pack's: 22 %L VEDVI: 67 ml/m^2 LVESVI: 52 ml/m^2 LVOT Diameter: 1.9 cm Right Ventricle TAPSE: 2.3 cm Aorta Ao Root S of Ryann.: 2.86 cm Doppler/Quantitative Measurements LVOT Peak Velocity: 0.88 m/s Peak Gradient: 3.09 mmHg Mean Velocity: 0.64 m/s Mean Gradient: 1.83 mmHg LVOT Diameter: 1.9 cm LVOT VTI: 14.87 cm LVOT Area: 2.84 cm^2LVOT SV:42.14 ml LVOT CO: 4.42 l/min LVOT CI: 2.68 l/min/m^2 Procedure Note Interface, External Ris In - 11/17/2018 10:14 AM ASSISTANT HOUSEKEEPING MANAGER Transthoracic Echocardiography Report (TTE) Demographics Patient Name NANCY MEJIA Date of Study 11/16/2018 Gender Female Visit Number [id number] Race Room Number C716 Number Date of 1965 Referring Physician Pam Vitale 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 Clinical History DM, Thyroid disease HGB 10.8 HCT 32.6 % Height: 62 inches Weight: 63.96 kg (141 lbs) BSA: 1.65 m^2 BMI: 25.79 kg/m^2 HR: 105 bpm BP: 106/68 mmHg Summary Sinus tachycardia during the exam. The left ventricle is chamber size (by PSLAX dimension) is normal (female - LVIDd 3.8-5.2cm) . Normal LV wall thickness. The following segment(s) appear akinetic:large area of apex and mid-distal septum. Mid segments are hypokinetic with relatively preserved basal segments contractility. Global LV systolic function moderately reduced . LVEF by Pack's method of disk assessment is moderately reduced (30-34%) . The LVEF was measured using Pack's bi-plane method of disk . Degree of diastolic dysfunction (LAP assessment) is inconclusive due to tachycardia . The right ventricular chamber size and systolic function are within normal limits. Unable to estimate peak systolic PA pressure; inadequate TR velocity signal. The estimated RA pressure by IVC dynamics 5-10mmHg . No significant pericardial effusion is visualized. Previous Study No prior exam available for comparison. Signature Findings Technical Quality: Technically adequate exam. Rhythm/BP Sinus tachycardia during the exam. Left Ventricle The left ventricle is chamber size (by PSLAX dimension) is normal (female - LVIDd 3.8-5.2cm) . Normal LV wall thickness. The following segment(s) appear akinetic:large area of apex and mid-distal septum. Mid segments are hypokinetic with relatively preserved basal segments contractility. Global LV systolic function moderately reduced . LVEF by Pack's method of disk assessment is moderately reduced (30-34%) . The LVEF was measured using Pack's bi-plane method of disk . Degree of diastolic dysfunction (LAP assessment) is inconclusive due to tachycardia . Left Atrium LA size is mildly enlarged (35-41 ml/m2) . Right Ventricle The right ventricular chamber size and systolic function are within normal limits. Right Atrium RA cavity size is normal . Aortic Valve Mild AoV cusp thickening. AoV cusp mobility is normal . Mitral Valve Mild MV leaflet thickening. Mild mitral annular calcification. Trace mitral regurgitation. Tricuspid Valve TV structure is normal. Unable to estimate peak systolic PA pressure; inadequate TR velocity signal. Pulmonic Valve Normal PV structure and function by limited views and Doppler. Aorta Aortic root size (SInus of Valsalva diameter) is normal . Proximal ascending aorta size is normal . Pericardium No significant pericardial effusion is visualized. IVC/SVC/PA/PV/Pleural A left pleural effusion is noted. The right upper pulmonary vein (RUPV) is normal . The estimated RA pressure by IVC dynamics 5-10mmHg . Chambers/Structures Left Atrium LA Dimension: 3.46 cm LA Area: 19.27 cm^2 LA Volume: 57.13 ml LA Vol. Index: 35 ml/m^2 Left Ventricle LVIDd: 4 cm LV Septum Diastolic: 0.94 cm LV PW Diastolic: 0.89 cm LVEDV Pack's:110.5 ml LVESV Pack's:86.2 ml LVEF Pack's: 22 % LVEDVI: 67 ml/m^2 LVESVI: 52 ml/m^2 LVOT Diameter: 1.9 cm Right Ventricle TAPSE: 2.3 cm Aorta Ao Root S of Ryann.: 2.86 cm Doppler/Quantitative Measurements LVOT Peak Velocity: 0.88 m/s Peak Gradient: 3.09 mmHg Mean Velocity: 0.64 m/s Mean Gradient: 1.83 mmHg LVOT Diameter: 1.9 cm LVOT VTI: 14.87 cm LVOT Area: 2.84 cm^2 LVOT SV:42.14 ml LVOT CO: 4.42 l/min LVOT CI: 2.68 l/min/m^2 Performing Organization Address City/State/[facility] Phone Number [facility] CT abdomen/pelvis without & with IV contrast (11/16/2018 12:18 PM ASSISTANT HOUSEKEEPING MANAGER) Narrative Performed At FINAL REPORT [employer] [facility] ABDOMINAL AND PELVIS CT DATED 11/16/2018 CLINICAL INFORMATION:Pyelonephritis, complicated Emphysematous pyelonephritis TECHNIQUE:Axial images of the abdomen and pelvis were obtained from diaphragm to the pubic symphysis with and without intravenous contrast. This exam was performed according to our departmental dose-optimization program, which includes automated exposure control, adjustment of the mA and/or kV according to patient size and/or use of interactive reconstruction technique. COMMENT: Moderate bilateral pleural effusion is present with bibasilar subsegmental atelectasis. Liver and spleen are normal in size without focal abnormality. Gallbladder is contracted. No gallstone or biliary dilatation is noted. Pancreas and adrenals are unremarkable. A double-J ureteral stent is seen on the left. Perfusion defects are seen in the left kidney suggestive of pyelonephritis. Air-fluid collection is seen in the mid upper pole left kidney measuring at least to 3.1 x 4.4 x 6.2 suspicious for renal abscess. A 1.1 cm cyst is seen in the mid inferior pole right kidney. Diverticular disease is seen in the large bowel without diverticulitis. The small bowel is normal in caliber. Appendix is not visualized. Uterus and ovaries are unremarkable. Trace amount of free fluid is seen in the pelvis. IMPRESSION: 1. Perfusion defects in the left kidney suggestive of multifocal pyelonephritis with air-fluid collection in the mid upper pole left kidney suggestive of renal abscess. 2. Bilateral pleural effusion with bibasilar subsegmental atelectasis. 3. Diverticulosis without diverticulitis. Signed: Briana Giron MD Report Verified Date/Time:11/16/2018 15:05:14 Reading Location: [address] Body Reading Room Procedure Note Interface, External Ris In - 11/16/2018 3:07 PM ASSISTANT HOUSEKEEPING MANAGER FINAL REPORT ABDOMINAL AND PELVIS CT DATED 11/16/2018 CLINICAL INFORMATION: Pyelonephritis, complicated Emphysematous pyelonephritis TECHNIQUE: Axial images of the abdomen and pelvis were obtained from diaphragm to the pubic symphysis with and without intravenous contrast. This exam was performed according to our departmental dose-optimization program, which includes automated exposure control, adjustment of the mA and/or kV according to patient size and/or use of interactive reconstruction technique. COMMENT: Moderate bilateral pleural effusion is present with bibasilar subsegmental atelectasis. Liver and spleen are normal in size without focal abnormality. Gallbladder is contracted. No gallstone or biliary dilatation is noted. Pancreas and adrenals are unremarkable. A double-J ureteral stent is seen on the left. Perfusion defects are seen in the left kidney suggestive of pyelonephritis. Air-fluid collection is seen in the mid upper pole left kidney measuring at least to 3.1 x 4.4 x 6.2 suspicious for renal abscess. A 1.1 cm cyst is seen in the mid inferior pole right kidney. Diverticular disease is seen in the large bowel without diverticulitis. The small bowel is normal in caliber. Appendix is not visualized. Uterus and ovaries are unremarkable. Trace amount of free fluid is seen in the pelvis. IMPRESSION: 1. Perfusion defects in the left kidney suggestive of multifocal pyelonephritis with air-fluid collection in the mid upper pole left kidney suggestive of renal abscess. 2. Bilateral pleural effusion with bibasilar subsegmental atelectasis. 3. Diverticulosis without diverticulitis. Signed: Briana Giron MD Report Verified Date/Time: 11/16/2018 15:05:14 Reading Location: [facility] B1 [id number] CT Body Reading Room Performing Organization Address City/State/Zipcode Phone Number [facility] Hepatitis C PCR, Quantitative (11/16/2018 4:34 AM ASSISTANT HOUSEKEEPING MANAGER)Only the most recent of2 resultswithin the time period is included. HCV PCR, Quantitative HCV RNA not detected HCV RNA not detected [facility] Specimen Blood - Arm, Right Narrative Performed At This test uses a Real-Time Polymerase Chain [facility] Reaction (RT-PCR) methodology and was performed using ANTONIO Ampliprep/ANTONIO TaqMan HCV test kit version 2.0 ([employer]). Reportable range for this assay is 15 - 100,000,000 IU per mL (1.18 - 8.00 Log IU/mL). Performing Organization Address City/State/Zipcode Phone Number [address] [address] [phone] CENTER Prothrombin time/INR (11/16/2018 4:34 AM ASSISTANT HOUSEKEEPING MANAGER)Only the most recent of3 resultswithin the time period is included. Protime 14.2 11.7 - 14.7 seconds [facility] INR 1.1 <=5.9 [facility] Specimen Blood - Arm, Right Narrative Performed At RECOMMENDED COUMADIN/WARFARIN INR THERAPY [facility] RANGES STANDARD DOSE: 2.0 - 3.0 Includes: PROPHYLAXIS for venous thrombosis, systemic embolization; TREATMENT for venous thrombosis and/or pulmonary embolus. HIGH RISK: Target INR is 2.5-3.5 for patients with mechanical heart valves. Performing Organization Address City/[facility]/Zipcode Phone Number [address] [address] [phone] CENTER B-type Natriuretic Factor (BNP) (11/16/2018 4:34 AM ASSISTANT HOUSEKEEPING MANAGER) BNP 2,264 (H) 0 - 100 pg/mL [facility] Specimen Blood - Arm, Right Performing Organization Address [facility] Phone Number [address] [address] CENTER Magnesium (11/16/2018 4:34 AM ASSISTANT HOUSEKEEPING MANAGER)Only the most recent of3 resultswithin the time period is included. Magnesium 2.4Comment: Specimen slightly 1.6 - 2.6 mg/dL [facility] Specimen Blood - Arm, Right Performing Organization Address [facility] [place] Phone Number [address] [address] CENTER Hepatic function panel (11/16/2018 4:34 AM ASSISTANT HOUSEKEEPING MANAGER)Only the most recent of3 resultswithin the time period is included. Protein, Total 6.2Comment: Specimen 6.0 - 8.3 gm/dL [facility] hemolyzed [facility] Albumin 2.2 (L)Comment: Specimen 3.5 - 5.0 g/dL [facility] hemolyzed [facility] Total Bilirubin 5.4 (H)Comment: Specimen 0.2 - 1.2 mg/dL [facility] hemolyzed [facility] Bilirubin, Direct 4.0 (H)Comment: Specimen 0.1 - 0.5 mg/dL [facility] slightly hemolyzed [facility] [place] Alkaline Phosphatase 426 (H) 40 - 150 U/L [facility] [place] AST 66 (H)Comment: Specimen 5 - 34 U/L [facility] slightly hemolyzed [facility] ALT 44Comment: Specimen 6 - 55 U/L [facility] slightly hemolyzed [facility] Specimen Blood - Arm, Right Narrative Performed At Specimen slightly icteric [facility] Performing Organization Address City/State/Zipcode Phone Number [facility] [address] [place] [address] [phone] CENTER US abdomen complete (11/15/2018 4:15 AM ASSISTANT HOUSEKEEPING MANAGER) Narrative Performed At FINAL REPORT [employer] TECHNIQUE: Grayscale ultrasound of the abdomen. INDICATION: 53-year-old woman with low platelets. COMPARISON: None. FINDINGS: MIDLINE VASCULATURE: The visualized inferior vena cava is patent. Portal vein is patent and measures 1.3 cm in diameter. The maximum visualized aortic diameter is 2 cm. LIVER: The liver is normal in size and echotexture with nodular contour. No focal lesions. BILIARY: Gallbladder: No gallstones or sludge. No gallbladder wall thickening, pericholecystic fluid, or distention. Negative sonographic Mendoza sign. Common bile duct measures 0.4 cm, within normal limits. No intrahepatic biliary ductal dilatation. PANCREAS: Visualized portions of the pancreas are unremarkable. SPLEEN: The spleen is enlarged, measuring 15.4 cm. PERITONEUM: No free fluid. KIDNEYS: Normal in size bilaterally. No hydronephrosis. Extrarenal pelvis on the left. No sonographically evident solid mass lesion. OTHER FINDINGS: Trace bilateral pleural effusions. IMPRESSION: Nodular contour of the liver, suggestive of cirrhosis. Splenomegaly. Signed: Damon Silvestre MD Report Verified Date/Time:11/15/2018 08:05:08 Reading Location: [facility] [id number] Ultrasound Reading Room Procedure Note Interface, External Ris In - 11/15/2018 8:07 AM ASSISTANT HOUSEKEEPING MANAGER FINAL REPORT TECHNIQUE: Grayscale ultrasound of the abdomen. INDICATION: 53-year-old woman with low platelets. COMPARISON: None. FINDINGS: MIDLINE VASCULATURE: The visualized inferior vena cava is patent. Portal vein is patent and measures 1.3 cm in diameter. The maximum visualized aortic diameter is 2 cm. LIVER: The liver is normal in size and echotexture with nodular contour. No focal lesions. BILIARY: Gallbladder: No gallstones or sludge. No gallbladder wall thickening, pericholecystic fluid, or distention. Negative sonographic Mendoza sign. Common bile duct measures 0.4 cm, within normal limits. No intrahepatic biliary ductal dilatation. PANCREAS: Visualized portions of the pancreas are unremarkable. SPLEEN: The spleen is enlarged, measuring 15.4 cm. PERITONEUM: No free fluid. KIDNEYS: Normal in size bilaterally. No hydronephrosis. Extrarenal pelvis on the left. No sonographically evident solid mass lesion. OTHER FINDINGS: Trace bilateral pleural effusions. IMPRESSION: Nodular contour of the liver, suggestive of cirrhosis. Splenomegaly. Signed: Damon Silvestre MD Report Verified Date/Time: 11/15/2018 08:05:08 Reading Location: [place] [id number] Ultrasound Reading Room Performing Organization Address [facility] Phone Number [facility] Peripheral Blood Smear - Hold only (11/15/2018 3:50 AM ASSISTANT HOUSEKEEPING MANAGER)Only the most recent of2 resultswithin the time period is included. Peripheral Smear Save saved [facility] Specimen Blood - Arm, Left Performing Organization Address [facility] [place] Phone Number [address] [address] [phone] CENTER Hepatitis C antibody (11/15/2018 3:50 AM ASSISTANT HOUSEKEEPING MANAGER) Hepatitis C Ab Reactive (A) Nonreactive [facility] Specimen Blood - Arm, Left Performing Organization Address [facility] [place] Phone Number [address] [address] CENTER Prepare PLT (11/14/2018 9:15 PM ASSISTANT HOUSEKEEPING MANAGER) Unit ABO O Pos [place] UNIT NUMBER [id number] [place] Status RETURNED FROM ISSUE [place] Blood Bank Product PLATELETS SAF[place]ACE [place] PRODUCT CODE [id number] [place] Performing Organization Address [facility] [place] Phone Number [place] Anaerobic culture (11/14/2018 8:59 PM ASSISTANT HOUSEKEEPING MANAGER) Result No anaerobes isolated [facility] Specimen Body Fluid - Kidney, Left Performing Organization Address City/[facility] Phone Number [facility] [address] [place] [address] CENTER Surgically obtained culture + gram stain (11/14/2018 8:59 PM ASSISTANT HOUSEKEEPING MANAGER) Result ESCHERICHIA COLI (A) [facility] Result ESCHERICHIA COLI (A)Comment: [facility] of a second type MEDICAL CENTER Gram Stain Result 3+ WBCs [facility] Gram Stain Result No organisms seen [facility] Specimen Body Fluid - Kidney, Left Organism Antibiotic Method Susceptibility Escherichia coli Amikacin <=2: Susceptible Escherichia coli Ampicillin + Sulbactam >=32: Resistant Escherichia coli Aztreonam <=1: Susceptible Escherichia coli Cefepime <=1: Susceptible Escherichia coli Cefoxitin <=4: Susceptible Escherichia coli Ceftazidime <=1: Susceptible Escherichia coli Ceftriaxone <=1: Susceptible Escherichia coli Ertapenem <=0.5: Susceptible Escherichia coli Gentamicin <=1: Susceptible Escherichia coli Levofloxacin >=8: Resistant Escherichia coli Meropenem <=0.25: Susceptible Escherichia coli Piperacillin + Tazobactam <=4: Susceptible Escherichia coli Tetracycline 4: Susceptible Escherichia coli Tobramycin <=1: Susceptible Escherichia coli Trimethoprim + Sulfamethoxazole >=320: Resistant Escherichia coli Amikacin <=2: Susceptible Escherichia coli Ampicillin + Sulbactam 16: Resistant Escherichia coli Aztreonam <=1: Susceptible Escherichia coli Cefepime <=1: Susceptible Escherichia coli Cefoxitin <=4: Susceptible Escherichia coli Ceftazidime <=1: Susceptible Escherichia coli Ceftriaxone <=1: Susceptible Escherichia coli Ertapenem <=0.5: Susceptible Escherichia coli Gentamicin <=1: Susceptible Escherichia coli Levofloxacin <=0.12: Susceptible Escherichia coli Meropenem <=0.25: Susceptible Escherichia coli Piperacillin + Tazobactam <=4: Susceptible Escherichia coli Tetracycline >=16: Resistant Escherichia coli Tobramycin <=1: Susceptible Escherichia coli Trimethoprim + Sulfamethoxazole <=20: Susceptible Performing Organization Address City/State/[facility] Cent[facility]ode Phone Number [address] [address] CENTER PT/aPTT (11/14/2018 2:33 PM ASSISTANT HOUSEKEEPING MANAGER) Protime 15.5 (H) 11.7 - 14.7 seconds [facility] INR 1.2 <=5.9 [facility] PTT 26.3 22.5 - 36.0 seconds [facility] Specimen Blood - Arm, Right Narrative Performed At RECOMMENDED COUMADIN/WARFARIN INR THERAPY [facility] RANGES STANDARD DOSE: 2.0 - 3.0 Includes: PROPHYLAXIS for venous thrombosis, systemic embolization; TREATMENT for venous thrombosis and/or pulmonary embolus. HIGH RISK: Target INR is 2.5-3.5 for patients with mechanical heart valves. Performing Organization Address [facility] Phone Number [address] [address] CENTER Reticulocyte count (11/14/2018 2:33 PM ASSISTANT HOUSEKEEPING MANAGER) % Retic 0.9 0.5 - 1.7 % [facility] Specimen Blood - Arm, Right Performing Organization Address [facility] Phone Number [address] [address] CENTER Lactate dehydrogenase (LDH) (11/14/2018 2:33 PM ASSISTANT HOUSEKEEPING MANAGER)Only the most recent of2 resultswithin the time period is included. LDH 634 (H) 125 - 220 U/L [facility] Specimen Blood - Arm, Right Performing Organization Address [facility] Cent[facility]ode Phone Number [address] [address] CENTER Haptoglobin (11/14/2018 2:33 PM ASSISTANT HOUSEKEEPING MANAGER)Only the most recent of2 resultswithin the time period is included. Haptoglobin 245 14 - 258 mg/dL [facility] Specimen Blood - Arm, Right Performing Organization Address [facility] Cent[facility]ode Phone Number [facility] [address] [place] [address] [place] Urine culture (11/14/2018 1:52 PM ASSISTANT HOUSEKEEPING MANAGER) Result No growth [facility] Gram Stain Result <1+ WBCs [facility] Gram Stain Result No organisms seen [facility] Specimen Urine - Urine, Voided Performing Organization Address City/State/Zipcode Phone Number [facility] [address] [place] [address] [phone] [place] Blood Culture Panel([employer]) (11/14/2018 11:51 AM ASSISTANT HOUSEKEEPING MANAGER) LISTERIA MONOCYTOGENES Not detected Not detected [facility] STAPHYLOCOCCUS Not detected Not detected [facility] STAPHYLOCOCCUS AUREUS Not detected Not detected [facility] Streptococcus Not detected Not detected [facility] STREPTOCOCCUS AGALACTIAE Not detected Not detected [facility] (GROUP B) [facility] STREPTOCOCCUS PNEUMONIAE Not detected Not detected [facility] Streptococcus pyogenes (Group Not detected Not detected [facility] ACINETOBACTER BAUMANNII Not detected Not detected [facility] HAEMOPHILUS INFLUENZAE Not detected Not detected [facility] NEISSERIA MENINGITIDIS Not detected Not detected [facility] ENTEROBACTERIACEAE Detected (A) Not detected [facility] ENTEROBACTER CLOACOE COMPLEX Not detected Not detected [facility] KLEBSIELLA OXYTOCA Not detected Not detected [facility] KLEBSIELLA PNEUMONIAE Not detected Not detected [facility] PROTEUS Not detected Not detected [facility] SERRATIA MARCESCENS Not detected Not detected [facility] TRESSA ALBICANS Not detected Not detected [facility] TRESSA GLABRATA Not detected Not detected [facility] TRESSA ALEXA Not detected Not detected [facility] TRESSA PARAPSILOSIS Not detected Not detected [facility] TRESSA TROPICALIS Not detected Not detected [facility] ESCHERICHIA COLI Detected (A) Not detected [facility] Comment: [facility] First line therapy: Meropenem. De-escalate based on susceptibilities.This test does not evaluate for ESBL Reference Range: Not Detected METHICILLIN-RESISTANCE GENE Not detected [facility] VANCOMYCIN-RESISTANCE GENE Not detected [facility] CARBAPENEM-RESISTANCE GENE Not detected Not detected [facility] ENTEROCOCCUS Not detected Not detected [facility] PSEUDOMONAS AERUGINOSA Not detected Not detected [facility] Specimen Blood - Arm, Left Narrative Performed At Other bacteria and resistance markers not [facility] targeted by this PCR panel cannot be excluded; therefore clinical correlation and follow up of serology, culture results, and other molecular studies is required. The results are not intended to be used as the sole means for clinical diagnosis or patient management decisions. This sample was tested at the [facility] using the [employer] Blood Culture ID Panel. It is FDA cleared and has been verified and approved by the [facility] for clinical use. This laboratory is CLIA-certified and [employer] (CAP)-accredited to perform high complexity testing. Performing Organization Address City/State/Zipcode Phone Number [facility] [address] [place] [address] CENTER Peripheral Blood Smear - Path Review (11/14/2018 8:01 AM ASSISTANT HOUSEKEEPING MANAGER) RBC Morphology Comment: Hypochromic, normocytic [facility] anemia with mild [facility] anisopoikilocytosis including occasional spherocytes. Mild Rouleaux. WBC Morphology Comment: Normal in number. [facility] Predominately comprised by [facility] neutrophils. Some neutrophils with toxic granulation changes. Subpopulation of hypogranular forms. Platelet Morphology Comment: Markedly decreased. [facility] Normal granular morphology. [facility] Increase large and rare giants forms present. No platelet clumping identified. Pathologist: Hugo Tsang MD (electronic [facility] signature) [facility] Specimen Blood - Arm, Right Performing Organization Address [facility] Centercode Phone Number [address] [address] CENTER ABORH, manual (11/14/2018 8:01 AM ASSISTANT HOUSEKEEPING MANAGER) ABO Grouping O [facility] Rh Factor NEG [facility] Specimen Blood - Arm, Right Performing Organization Address [facility] Cent[facility]ode Phone Number [address] [address] Type and screen, automated (11/14/2018 6:50 AM ASSISTANT HOUSEKEEPING MANAGER) ABO/RH AUTOMATED (BEAKER) O NEGATIVE [facility] Ab Scrn NEGATIVE [facility] Specimen Blood - Arm, Left Performing Organization Address [facility] Phone Number [address] [address] HIV-1 Antigen with HIV-1/2 Antibody (11/14/2018 3:04 AM ASSISTANT HOUSEKEEPING MANAGER) HIV-1 Antigen with HIV 1&2 NON-REACTIVE Nonreactive [facility] Specimen Blood - Arm, Left Performing Organization Address [facility] Cent[facility] Phone Number [address] [phone] CENTER Hepatitis panel, acute (11/14/2018 3:04 AM ASSISTANT HOUSEKEEPING MANAGER) Hep A IgM HEPATITIS A TEST NEGATIVE Nonreactive [facility] Hep B C IgM NON-REACTIVE Nonreactive [facility] Hepatitis C Ab Reactive (A) Nonreactive [facility] hepatitis B Surface Ag NON-REACTIVE Nonreactive [facility] Specimen Blood - Arm, Left Performing Organization Address [facility] Cent[facility] Phone Number [address] [address] CENTER Fibrinogen (11/14/2018 3:04 AM ASSISTANT HOUSEKEEPING MANAGER) Fibrinogen 1,324 (H) 225 - 434 mg/dl [facility] Specimen Blood - Arm, Left Performing Organization Address [facility] Centercode Phone Number [address] [address] CENTER D-dimer (11/14/2018 3:04 AM ASSISTANT HOUSEKEEPING MANAGER) D-Dimer, Quant 13.73 (H) <0.50 MG/L FEU [facility] Specimen Blood - Arm, Left Narrative Performed At Intended Use: The D-Dimer Assay can be used [facility] to aid in the diagnosis of Deep Vein Thrombosis (DVT) and Pulmonary Embolism Disease (PED). In patients with low pre-test probability, various studies concerning STA Liatest D-dimer test have reported that with a cutoff value of 0.50 MG/L FEU, the Negative Predictive Value (NPV) regarding the exclusion of thrombosis is within 95-100% range. Performing Organization Address [facility] Phone Number [address] [address] CENTER Folate, Serum (11/14/2018 3:04 AM ASSISTANT HOUSEKEEPING MANAGER) Folate 3.8 (L) >=7.0 ng/mL [facility] Specimen Blood - Arm, Left Performing Organization Address [facility] Cent[facility]ode Phone Number [address] [address] [phone] CENTER Vitamin B12 (11/14/2018 3:04 AM ASSISTANT HOUSEKEEPING MANAGER) Vitamin B12 >2000 (H) 213 - 816 pg/mL [facility] Specimen Blood - Arm, Left Performing Organization Address [facility]/Zipcode Phone Number [address] [address] CENTER after 11/26/2017 Advance Directives For more information, please contact:[place] [address] [place]be FelixWENONA, [place] [phone] Code Status Date Activated Date Inactivated Comments Full Code 11/14/2018 1:54 AM This code status was determined by: Patient
--- OUTSIDE RECORDS SUMMARY | 2018-11-27 12:24 | XMS REPORT ---
:1965 [facility] [address] [place] [address] [address] [place] [address] Care Team Providers Name Role Phone LIZA SHAH Unavailable Unavailable Problems This patient has no known problems. Allergies, Adverse Reactions, Alerts This patient has no known allergies or adverse reactions. Medications This patient has no known medications. Results Test Description Test Time Test Comments Text Results Atomic Results Result Comments BLOOD CULTURE 2018-11-25 19:01:00 Test Item Value Reference Range Comments CULTURE (BEAKER) (test xjjl=4354) No growth in 5 days BLOOD [id number] 19:01:00 Test Item Value Reference Range Comments CULTURE (BEAKER) (test ewwj=9335) No growth in 5 days POCT-GLUCOSE [id number] 11:52:00 Test Item Value Reference Range Comments POC-GLUCOSE METER (BEAKER) 252 mg/dL 70-110 TESTED AT [facility] [address] [facility] (test tmgx=7747) [facility] [address] POCT-GLUCOSE [id number] 08:45:00 Test Item Value Reference Range Comments POC-GLUCOSE METER (BEAKER) 94 mg/dL 70-110 TESTED AT [facility] [address] [facility] (test fifi=6644) [facility] [address] POCT-GLUCOSE [id number] 21:49:00 Test Item Value Reference Range Comments POC-GLUCOSE METER (BEAKER) 95 mg/dL 70-110 TESTED AT [place] [id number] [facility] (test mnqn=0829) [facility] [address] POCT-GLUCOSE [id number] 17:58:00 Test Item Value Reference Range Comments POC-GLUCOSE METER (BEAKER) 122 mg/dL 70-110 TESTED AT [place] [id number] [facility] (test kfla=4463) [facility] [address] RAD, CHEST, 1 VIEW, NON [id number] 15:45:00Reason for exam:->post picc line insertionShould this be performed at the bedside?->YesFINAL REPORT TECHNIQUE: Frontal chest radiograph dated 11/22/2018. CLINICAL HISTORY: Post PICC COMPARISON STUDY: Chest radiograph dated 11/16/2018 IMPRESSION:Right-sided PICC is seen with the tip projects over the superior vena cava/right atrial junction. Pulmonary edema has improved. There is stable left retrocardiac atelectasis. No fracture. Signed: Irma Betts MDReportVerified Date/Time: 11/22/2018 15:45:15 Reading Location: [facility] Radiology Reading Room POCT-GLUCOSE [id number] 12:04:00 Test Item Value Reference Range Comments POC-GLUCOSE METER (BEAKER) 233 mg/dL 70-110 TESTED AT [facility] [address] [facility] (test tyec=0059) [facility] [address] POCT-GLUCOSE [id number] 08:10:00 Test Item Value Reference Range Comments POC-GLUCOSE METER (BEAKER) 101 mg/dL 70-110 TESTED AT [place] [id number] [facility] (test pser=2768) [facility] [address] BASIC METABOLIC [id number] 06:33:00 Test Item Value Reference Range Comments SODIUM (BEAKER) (test 137 meq/L 136-145 uxuw=456) POTASSIUM (BEAKER) (test 5.4 meq/L 3.5-5.1 Specimen slightly usoc=554) hemolyzed CHLORIDE (BEAKER) (test 110 meq/L 98-107 erer=353) CO2 (BEAKER) (test 22 meq/L 22-29 ttsx=990) BLOOD UREA NITROGEN 33 mg/dL 7-21 (BEAKER) (test dczf=016) CREATININE (BEAKER) (test 1.02 mg/dL 0.57-1.25 Specimen slightly yabh=096) hemolyzed GLUCOSE RANDOM (BEAKER) 83 mg/dL 70-105 (test tpks=847) CALCIUM (BEAKER) (test 8.4 mg/dL 8.4-10.2 srwm=524) EGFR (BEAKER) (test 56 mL/min/1.73 sq m ESTIMATED GFR IS NOT jlvw=6823) ACCURATE CREATININE CLEARANCE IN PREDICTING GLOMERULAR FILTRATION RATE. ESTIMATED GFR IS NOT APPLICABLE FOR DIALYSIS PATIENTS. ANAEROBIC [id number] 02:52:00 Test Item Value Reference Range Comments CULTURE (BEAKER) (test jxtz=4757) No anaerobes isolated POCT-GLUCOSE [id number] 22:38:00 Test Item Value Reference Range Comments POC-GLUCOSE METER (BEAKER) 193 mg/dL 70-110 TESTED AT [facility] [address] [facility] (test oezm=7190) [facility] [address] POCT-GLUCOSE [id number] 18:00:00 Test Item Value Reference Range Comments POC-GLUCOSE METER (BEAKER) 160 mg/dL 70-110 TESTED AT [address] (test gmne=3876) [place] [id number] [place], [id number] 12:29:00FU gas and fluid collection after drainage.FINAL REPORT TECHNIQUE: CT of the abdomen and [...] lesions. Gallbladder is unremarkable. No biliary ductal dilatation.SPLEEN: No splenomegaly. The spleen measures 4.4 cm in length.PANCREAS: No focal masses or ductal dilatation. ADRENALS: No adrenal nodules.KIDNEYS/URETERS: A retropulsed renal cyst measures 1 cm on axial image 35. The left kidney is diffusely enlarged with several areas of wedge-shaped hypodensity and phlegmon. In addition, there is gas in the left renalparenchyma in a branching pattern. There is some questionable fluid in this location as well. There is a left ureteral stent extends from the renal pelvis to the bladder. No residual hydronephrosis. The catheter has been retracted out of the kidney. PELVIC ORGANS/BLADDER: The bladder is collapsed by aFoley catheter. PERITONEUM/RETROPERITONEUM: Small volume free fluid in the pelvis and left paracolicgutter. LYMPH NODES: Retroperitoneal are prominent measuring up to 0.9 mm in the left para-aortic region on image 32.VESSELS: Unremarkable. GI TRACT: No distention or wall thickening. Severe diverticulosis of the sigmoid colon. Mild diverticulosis of the left an right colon. [place] is normal. BONES AND SOFT TISSUES: Mild degenerative changes of the lumbar spine.. 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 The left posterior renal necrosis with gas may have a small amount of liquid. However, this is likely not enough for a drain. The appearance is similar to theprior examination. 2.The previously seen left renal drainage catheter has been retracted outside of the kidney. 3.The left ureteral catheter is in place without residual hydronephrosis. 4.There is small volume free fluid in the pelvis and left paracolic gutter. 5.Moderate right and small left pleural effusions with pulmonary edema. 6.Mild hepatomegaly with upper limit of normal spleen size. Signed: Rober Payan Verified Date/Time: 12:29:22 Reading Location: [facility] Diagnostic ImagingReading Room - [place] [address] POCT-GLUCOSE [id number] 12:21:00 Test Item Value Reference Range Comments POC-GLUCOSE METER (BEAKER) 98 mg/dL 70-110 TESTED AT [address] (test fuax=8273) [place] [address] HEMOGLOBIN [id number] 11:12:00 Test Item Value Reference Range Comments HEMOGLOBIN A1C (BEAKER) (test dgou=840) 13.6 % 4.3-6.1 POCT-GLUCOSE [id number] 08:48:00 Test Item Value Reference Range Comments POC-GLUCOSE METER (BEAKER) 103 mg/dL 70-110 TESTED AT [address] (test gmos=9748) [place] [address] BASIC METABOLIC [id number] 04:16:00 Test Item Value Reference Range Comments SODIUM (BEAKER) (test 137 meq/L 136-145 pdnv=708) POTASSIUM (BEAKER) (test 4.9 meq/L 3.5-5.1 mnsf=863) CHLORIDE (BEAKER) (test 113 meq/L 98-107 oumo=229) CO2 (BEAKER) (test 19 meq/L 22-29 gvei=030) BLOOD UREA NITROGEN 39 mg/dL 7-21 (BEAKER) (test afjt=545) CREATININE (BEAKER) (test 0.99 mg/dL 0.57-1.25 nrgk=639) GLUCOSE RANDOM (BEAKER) 81 mg/dL 70-105 (test hqov=904) CALCIUM (BEAKER) (test 8.2 mg/dL 8.4-10.2 rhjm=024) EGFR (BEAKER) (test 58 mL/min/1.73 sq m ESTIMATED GFR IS NOT bsgn=7363) ACCURATE CREATININE CLEARANCE IN PREDICTING GLOMERULAR FILTRATION RATE. ESTIMATED GFR IS NOT APPLICABLE FOR DIALYSIS PATIENTS. POCT-GLUCOSE [id number] 22:37:00 Test Item Value Reference Range Comments POC-GLUCOSE METER (BEAKER) 130 mg/dL 70-110 TESTED AT [address] (test oisj=0387) [facility] [address] POCT-GLUCOSE [id number] 17:16:00 Test Item Value Reference Range Comments POC-GLUCOSE METER (BEAKER) 169 mg/dL 70-110 TESTED AT [address] (test vtgq=8080) [facility] [address] CBC W/PLT COUNT & AUTO [id number] 15:03:00 Test Item Value Reference Range Comments WHITE BLOOD CELL COUNT (BEAKER) (test rtoc=131) 11.8 K/ L 3.5-10.5 RED BLOOD CELL COUNT (BEAKER) (test ebxh=524) 3.26 M/ L 3.93-5.22 HEMOGLOBIN (BEAKER) (test yssk=842) 8.6 GM/DL 11.2-15.7 HEMATOCRIT (BEAKER) (test vnse=446) 27.6 % 34.1-44.9 MEAN CORPUSCULAR VOLUME (BEAKER) (test eonf=889) 84.7 fL 79.4-94.8 MEAN CORPUSCULAR HEMOGLOBIN (BEAKER) (test 26.4 pg 25.6-32.2 grtf=822) MEAN CORPUSCULAR HEMOGLOBIN CONC (BEAKER) (test 31.2 GM/DL 32.2-35.5 ktng=585) RED CELL DISTRIBUTION WIDTH (BEAKER) (test 15.2 % 11.7-14.4 gjwy=725) PLATELET COUNT (BEAKER) (test wcoa=761) 182 K/CU MM 150-450 MEAN PLATELET VOLUME (BEAKER) (test opsz=681) 11.3 fL 9.4-12.3 NUCLEATED RED BLOOD CELLS (BEAKER) (test 0 /100 WBC 0-0 dsmn=878) (CELLAVISION MANUAL DIFF)2018-11-20 15:03:00 Test Item Value Reference Range Comments NEUTROPHILS - REL (CELLAVISION)(BEAKER) (test 86 % hiaw=6096) LYMPHOCYTES - REL (CELLAVISION)(BEAKER) (test 8 % fhmq=8293) MONOCYTES - REL (CELLAVISION)(BEAKER) (test 5 % awjm=6401) BANDS - REL (CELLAVISION)(BEAKER) (test 1 % 0-10 qdwa=6095) NEUTROPHILS - ABS (CELLAVISION)(BEAKER) (test 10.15 K/ul 1.56-6.13 uyyj=3987) LYMPHOCYTES - ABS (CELLAVISION)(BEAKER) (test 0.94 K/ul 1.18-3.74 wiib=8826) MONOCYTES - ABS (CELLAVISION)(BEAKER) (test 0.59 K/uL 0.24-0.36 ifhv=4650) BANDS - ABS (CELLAVISION)(BEAKER) (test 0.12 K/uL 0.00-0.80 udjb=4932) TOTAL COUNTED (BEAKER) (test wlnb=1546) 100 GIANT PLATELETS (BEAKER) (test hgqu=562) Present TOXIC GRANULATION (BEAKER) (test yvhy=088) Present ANISOCYTOSIS (BEAKER) (test nmtt=842) 1+ few MICROCYTES (BEAKER) (test bnjg=225) 1+ few SCHISTOCYTES (BEAKER) (test bwjm=084) 1+ few ARTIFACT (CELLAVISION)(BEAKER) (test xlks=2770) Present PLATELET CONCENTRATION (CELLAVISION)(BEAKER) Adequate (test dend=5560) Received comment: User comments: Slide comments:POCT-GLUCOSE [id number] 12: 23:00 Test Item Value Reference Range Comments POC-GLUCOSE METER (BEAKER) 256 mg/dL 70-110 TESTED AT [address] (test pkaw=2582) [facility] [address] POCT-GLUCOSE [id number] 08:22:00 Test Item Value Reference Range Comments POC-GLUCOSE METER (BEAKER) 199 mg/dL 70-110 TESTED AT [address] (test ynnv=0221) [facility] [address] BASIC METABOLIC [id number] 06:47:00 Test Item Value Reference Range Comments SODIUM (BEAKER) (test 134 meq/L 136-145 vjnt=031) POTASSIUM (BEAKER) (test 4.6 meq/L 3.5-5.1 hquf=303) CHLORIDE (BEAKER) (test 108 meq/L 98-107 yngo=343) CO2 (BEAKER) (test 21 meq/L 22-29 kwxs=892) BLOOD UREA NITROGEN 54 mg/dL 7-21 (BEAKER) (test ztpu=130) CREATININE (BEAKER) (test 1.31 mg/dL 0.57-1.25 ijug=148) GLUCOSE RANDOM (BEAKER) 142 mg/dL 70-105 (test vyov=339) CALCIUM (BEAKER) (test 8.0 mg/dL 8.4-10.2 oegp=199) EGFR (BEAKER) (test 42 mL/min/1.73 sq m ESTIMATED GFR IS NOT lluf=8001) ACCURATE CREATININE CLEARANCE IN PREDICTING GLOMERULAR FILTRATION RATE. ESTIMATED GFR IS NOT APPLICABLE FOR DIALYSIS PATIENTS. POCT-GLUCOSE [id number] 21:58:00 Test Item Value Reference Range Comments POC-GLUCOSE METER (BEAKER) 331 mg/dL 70-110 Notified CELIA ALLEN/TESTED AT [facility] (test esxh=9747) [address] [place] [address] POCT-GLUCOSE [id number] 18:56:00 Test Item Value Reference Range Comments POC-GLUCOSE METER (BEAKER) 312 mg/dL 70-110 Notified CELIA ALLEN/TESTED AT [facility] (test vmbr=7566) [address] [place] [address] POCT-GLUCOSE [id number] 12:34:00 Test Item Value Reference Range Comments POC-GLUCOSE METER (BEAKER) 275 mg/dL 70-110 TESTED AT [address] (test elxg=4186) [place] [address] CBC W/PLT COUNT & AUTO [id number] 10:30:00 Test Item Value Reference Range Comments WHITE BLOOD CELL COUNT (BEAKER) (test jwho=735) 13.6 K/ L 3.5-10.5 RED BLOOD CELL COUNT (BEAKER) (test bsiu=133) 3.67 M/ L 3.93-5.22 HEMOGLOBIN (BEAKER) (test hipn=242) 9.9 GM/DL 11.2-15.7 HEMATOCRIT (BEAKER) (test owah=622) 30.7 % 34.1-44.9 MEAN CORPUSCULAR VOLUME (BEAKER) (test bgbw=252) 83.7 fL 79.4-94.8 MEAN CORPUSCULAR HEMOGLOBIN (BEAKER) (test 27.0 pg 25.6-32.2 zvzy=037) MEAN CORPUSCULAR HEMOGLOBIN CONC (BEAKER) (test 32.2 GM/DL 32.2-35.5 pphz=842) RED CELL DISTRIBUTION WIDTH (BEAKER) (test 15.2 % 11.7-14.4 lkkh=002) PLATELET COUNT (BEAKER) (test bpky=963) 158 K/CU MM 150-450 MEAN PLATELET VOLUME (BEAKER) (test qbbp=052) 10.9 fL 9.4-12.3 NUCLEATED RED BLOOD CELLS (BEAKER) (test 0 /100 WBC 0-0 lpnr=516) (CELLAVISION MANUAL DIFF)2018-11-19 10:30:00 Test Item Value Reference Range Comments NEUTROPHILS - REL (CELLAVISION)(BEAKER) (test 78 % dyot=5778) LYMPHOCYTES - REL (CELLAVISION)(BEAKER) (test 8 % wwhk=0625) MONOCYTES - REL (CELLAVISION)(BEAKER) (test 7 % kaks=5741) METAMYELOCYTES - REL (CELLAVISION)(BEAKER) (test 1 % 0-0 cvbi=9751) MYELOCYTES - REL (CELLAVISION)(BEAKER) (test 2 % 0-0 erup=0306) BANDS - REL (CELLAVISION)(BEAKER) (test 4 % 0-10 ghnl=8400) NEUTROPHILS - ABS (CELLAVISION)(BEAKER) (test 10.61 K/ul 1.56-6.13 sqwf=7230) LYMPHOCYTES - ABS (CELLAVISION)(BEAKER) (test 1.09 K/ul 1.18-3.74 ccck=6887) MONOCYTES - ABS (CELLAVISION)(BEAKER) (test 0.95 K/uL 0.24-0.36 olgp=2343) METAMYELOCYTES - ABS (CELLAVISION)(BEAKER) (test 0.14 K/uL 0.00-0.00 dkcs=9402) MYELOCYTES-ABS (CELLAVISION)(BEAKER) (test 0.27 K/uL 0.00-0.00 orzd=2116) BANDS - ABS (CELLAVISION)(BEAKER) (test 0.54 K/uL 0.00-0.80 kbus=2761) TOTAL COUNTED (BEAKER) (test tjhk=5030) 100 SMUDGE CELLS (BEAKER) (test sviz=5486) Present GIANT PLATELETS (BEAKER) (test vuen=401) Present ANISOCYTOSIS (BEAKER) (test faan=504) 1+ few PLATELET CONCENTRATION (CELLAVISION)(BEAKER) Adequate (test cvet=7486) Received comment: User comments: Slide comments:POCT-GLUCOSE [id number] 08: 04:00 Test Item Value Reference Range Comments POC-GLUCOSE METER (BEAKER) 180 mg/dL 70-110 TESTED AT [address] (test nztj=1525) [facility] [address] BASIC METABOLIC [id number] 05:28:00 Test Item Value Reference Range Comments SODIUM (BEAKER) (test 134 meq/L 136-145 tbww=945) POTASSIUM (BEAKER) (test 4.3 meq/L 3.5-5.1 bwph=166) CHLORIDE (BEAKER) (test 108 meq/L 98-107 jflu=812) CO2 (BEAKER) (test 20 meq/L 22-29 pdku=002) BLOOD UREA NITROGEN 50 mg/dL 7-21 (BEAKER) (test uhqo=010) CREATININE (BEAKER) (test 1.14 mg/dL 0.57-1.25 tmpj=498) GLUCOSE RANDOM (BEAKER) 152 mg/dL 70-105 (test sdfr=850) CALCIUM (BEAKER) (test 8.3 mg/dL 8.4-10.2 ymvq=585) EGFR (BEAKER) (test 49 mL/min/1.73 sq m ESTIMATED GFR IS NOT cecr=3478) ACCURATE CREATININE CLEARANCE IN PREDICTING GLOMERULAR FILTRATION RATE. ESTIMATED GFR IS NOT APPLICABLE FOR DIALYSIS PATIENTS. U/S, ENDOVAGINAL (EV)2018-11-19 03:28:00Reason for exam:->ultrasound hx of cervical cancer, f/uFINAL REPORT U/S, ENDOVAGINAL (EV) CLINICAL INDICATION: ultrasound hx of cervical cancer, f/u COMPARISON: CT abdomen and pelvis November 16, 2018 TECHNIQUE: Ultrasound imaging of the pelvis was performed transabdominally through a distended urinary bladder followed by transvaginal examination postvoid. Color and spectral Doppler evaluation was also performed. FINDINGS: Uterus Orientation: Anteverted Size: 7.1 x 3.2 x 5.5 cm Masses: None Endometrial thickness:0.8 cm. Cervix: Unremarkable Other: Linear echogenic focus which is either within or adjacent to the myometrium measures 0.8 and 0.2 x 0.4 cm, uncertain etiology , possibly a ureteral stent. Right Ovary: Size: 2.7 x 1.0 x 1.4cm. Echogenicity: Normal. Single calcification adjacent to orwithin the ovary measures 0.8 x 0.4 cm Vascular flow: Preserved Left Ovary: Not seen Free fluid: None. Additional findings: None IMPRESSION: 1. No definite masses identified within the cervix2. Echogenic focus within the myometrium is of uncertain etiology and appears well circumscribed with sharp margins. This may conceivably represent a ureteral stent noted adjacent to the uterus on recent CT. Correlate with clinical history.3. Punctate calcification within the right adnexa of uncertain significance that corresponds to calcific focus seen on prior CT. Right ovary is otherwise normalin appearance. Signed: Kumar Wang MDReport Verified Date/Time: 11/19/2018 03:28:08 Reading Location: [address] Neuro Reading Room BLOOD [id number] 03:10:00 Test Item Value Reference Range Comments CULTURE (BEAKER) (test Positive; see gram xief=5872) stain results. GRAM STAIN RESULT (BEAKER) From anaerobic bottle (test xtqq=4318) only: gram negative rods CULTURE (BEAKER) (test ESCHERICHIA COLI From Anaerobic Bottle vtlz=5645) Only Escherichia coli Amikacin (test code=1) Ampicillin + Sulbactam (test code=6) Aztreonam (test code=32) Cefepime (test code=51) Cefoxitin (test code=68) Ceftazidime (test code=27) Ceftriaxone (test code=52) Ertapenem (test code=38) Gentamicin (test code=18) Levofloxacin (test code=22) Meropenem (test code=34) Nitrofurantoin (test code=23) Piperacillin + Tazobactam (test code=29) Tetracycline (test code=2) Tobramycin (test code=25) Trimethoprim + Sulfamethoxazole (test code=47) BLOOD [id number] 01:05:00 Test Item Value Reference Range Comments CULTURE (BEAKER) Positive; see gram From Anaerobic Bottle Only (test doui=5169) stain results. Same organism has been isolated from cultures(s) of the same body site and collection date. Repeat identification and susceptibility testing performed only after consultation with the clinical microbiology laboratory.Refer to previous culture ofEscherichia coli GRAM STAIN RESULT From anaerobic bottle (BEAKER) (test only: gram negative vrxb=6770) rods POCT-GLUCOSE [id number] 22:06:00 Test Item Value Reference Range Comments POC-GLUCOSE METER (BEAKER) 216 mg/dL 70-110 TESTED AT [address] (test cpgl=0946) [place] [address] POCT-GLUCOSE [id number] 18:06:00 Test Item Value Reference Range Comments POC-GLUCOSE METER (BEAKER) 212 mg/dL 70-110 TESTED AT [address] (test jmxq=6525) [place] [address] POCT-GLUCOSE [id number] 12:45:00 Test Item Value Reference Range Comments POC-GLUCOSE METER (BEAKER) 272 mg/dL 70-110 TESTED AT [address] (test txvl=2908) [place] [address] CBC W/PLT COUNT & AUTO [id number] 11:23:00 Test Item Value Reference Range Comments WHITE BLOOD CELL COUNT ([facility]) (test hhxy=484) 12.7 K/ L 3.5-10.5 RED BLOOD CELL COUNT (BEAKER) (test wlvf=733) 3.40 M/ L 3.93-5.22 HEMOGLOBIN (BEAKER) (test zbxd=494) 9.3 GM/DL 11.2-15.7 HEMATOCRIT (BEAKER) (test gmmm=101) 27.6 % 34.1-44.9 MEAN CORPUSCULAR VOLUME (BEAKER) (test bpql=425) 81.2 fL 79.4-94.8 MEAN CORPUSCULAR HEMOGLOBIN (BEAKER) (test 27.4 pg 25.6-32.2 jwvu=101) MEAN CORPUSCULAR HEMOGLOBIN CONC (BEAKER) (test 33.7 GM/DL 32.2-35.5 wjad=124) RED CELL DISTRIBUTION WIDTH (BEAKER) (test 15.2 % 11.7-14.4 qnoe=709) PLATELET COUNT (BEAKER) (test nywd=930) 133 K/CU MM 150-450 MEAN PLATELET VOLUME (BEAKER) (test quvu=993) 11.3 fL 9.4-12.3 NUCLEATED RED BLOOD CELLS (BEAKER) (test 0 /100 WBC 0-0 qkmp=427) (CELLAVISION MANUAL DIFF)2018-11-18 11:23:00 Test Item Value Reference Range Comments NEUTROPHILS - REL (CELLAVISION)(BEAKER) (test 68 % zhdt=0042) LYMPHOCYTES - REL (CELLAVISION)(BEAKER) (test 5 % amel=7672) MONOCYTES - REL (CELLAVISION)(BEAKER) (test 10 % nxsh=8174) EOSINOPHILS - REL (CELLAVISION)(BEAKER) (test 1 % xwox=6578) METAMYELOCYTES - REL (CELLAVISION)(BEAKER) (test 1 % 0-0 odyr=8967) MYELOCYTES - REL (CELLAVISION)(BEAKER) (test 2 % 0-0 ashq=1322) BANDS - REL (CELLAVISION)(BEAKER) (test gecm=6350) 13 % 0-10 NEUTROPHILS - ABS (CELLAVISION)(BEAKER) (test 8.64 K/ul 1.56-6.13 bctn=9410) LYMPHOCYTES - ABS (CELLAVISION)(BEAKER) (test 0.64 K/ul 1.18-3.74 nyxe=7631) MONOCYTES - ABS (CELLAVISION)(BEAKER) (test 1.27 K/uL 0.24-0.36 vlsm=6034) EOSINOPHILS - ABS (CELLAVISION)(BEAKER) (test 0.13 K/uL 0.04-0.36 fmvb=1676) METAMYELOCYTES - ABS (CELLAVISION)(BEAKER) (test 0.13 K/uL 0.00-0.00 jwjr=0663) MYELOCYTES-ABS (CELLAVISION)(BEAKER) (test 0.25 K/uL 0.00-0.00 kdxm=5797) BANDS - ABS (CELLAVISION)(BEAKER) (test njbx=7148) 1.65 K/uL 0.00-0.80 TOTAL COUNTED (BEAKER) (test uidc=6935) 100 WBC MORPHOLOGY (BEAKER) (test cfxl=404) Normal PLT MORPHOLOGY (BEAKER) (test ftvx=636) Normal POLYCHROMATOPHILLIC RBCS(BEAKER) (test lczw=805) 1+ few ANISOCYTOSIS (BEAKER) (test llbi=270) 1+ few ARTIFACT (CELLAVISION)(BEAKER) (test cfmu=8446) Present PLATELET CONCENTRATION (CELLAVISION)(BEAKER) (test Decreased hutq=0779) Received comment: User comments: Slide comments:BASIC METABOLIC [id number] 10:19:00 Test Item Value Reference Range Comments SODIUM (BEAKER) (test 134 meq/L 136-145 ewrh=159) POTASSIUM (BEAKER) (test 4.3 meq/L 3.5-5.1 cvum=535) CHLORIDE (BEAKER) (test 109 meq/L 98-107 kkvl=979) CO2 (BEAKER) (test 20 meq/L 22-29 hpto=775) BLOOD UREA NITROGEN 48 mg/dL 7-21 (BEAKER) (test dufg=421) CREATININE (BEAKER) (test 1.17 mg/dL 0.57-1.25 dwbp=490) GLUCOSE RANDOM (BEAKER) 249 mg/dL 70-105 (test ibfu=077) CALCIUM (BEAKER) (test 8.0 mg/dL 8.4-10.2 ptmf=800) EGFR (BEAKER) (test 48 mL/min/1.73 sq m ESTIMATED GFR IS NOT epmk=3125) ACCURATE CREATININE CLEARANCE IN PREDICTING GLOMERULAR FILTRATION RATE. ESTIMATED GFR IS NOT APPLICABLE FOR DIALYSIS PATIENTS. Specimen slightly [id number] 09:20:00 Test Item Value Reference Range Comments FERRITIN (BEAKER) (test rmwi=774) 2216 ng/mL 5-275 POCT-GLUCOSE [id number] 07:36:00 Test Item Value Reference Range Comments POC-GLUCOSE METER (BEAKER) 159 mg/dL 70-110 TESTED AT [address] (test ivrd=3895) [place] [address] POCT-GLUCOSE [id number] 00:36:00 Test Item Value Reference Range Comments POC-GLUCOSE METER (BEAKER) 223 mg/dL 70-110 TESTED AT [address] (test tnkf=1638) [place] [address] IRON, TIBC, % SAT. (WITHOUT FERRITIN)2018-11-17 19:02:00 Test Item Value Reference Range Comments IRON (BEAKER) (test wgbi=837) 40.0 ug/dL 40.0-160.0 TOTAL IRON BINDING CAPACITY (BEAKER) (test 146 ug/dL 250-450 zfxw=937) IRON % SATURATION (2) (BEAKER) (test wryb=0382) 27 % 20-55 POCT-GLUCOSE [id number] 18:15:00 Test Item Value Reference Range Comments POC-GLUCOSE METER (BEAKER) 244 mg/dL 70-110 TESTED AT [address] (test sqmp=0387) [place] [address] CT, DRAINAGE, [id number] 15:00:00Reason for exam:->Left renal abscess, needs drainage. please perform asapFINAL REPORT PROCEDURE: Dose modulation, iterative reconstruction, and/or weight- based adjustment of the mA/kV was utilized to reduce the radiation dose to as low as reasonably achievable. INDICATION: Left renal abscess. COMPARISON: CT from 11/16/2018. SEDATION: Intravenous moderate sedation was administered by radiology nursing and monitored under the direction of the undersigned radiologist. The patient's vital signs were monitored throughout the procedure and recorded in thepatient's medical record by radiology nursing. Total intraservice time of sedation was 45 minutes. MEDICATIONS: 0.5 mg Versed, 25 mcg fentanyl DESCRIPTION: After obtaining informed written consent, thepatient was brought to the procedure room and [...] A J-wire was introduced, and an 8 [place] catheter was placed. The catheter was unable to be coiled, but it was sutured in place. The catheter was affixed to the skin and connected to suction bulb. Post procedure scan showed no immediate complications. Interstitial nodular opacities in the lungs could be due to pneumonia. IMPRESSION: An 8 [place] catheter was placed in the region of air and fluid in the left kidney.No fluid was obtained, and this may be necrotic renal parenchyma as opposed to a true fluid collection. If no significant fluid is obtained within two days, removal of the catheter is recommended. Signed: Rober Payan MDReport Verified Date/Time: 11/17/2018 15:00:19 Reading Location: [facility] C013Y CT Body Reading Room HEPATITIS C PCR, [id number] 10:47:00 Test Item Value Reference Range Comments HCV RESULT COMPONENT (BEAKER) HCV RNA not detected HCV RNA not detected (test hmcq=1053) This test uses a Real-Time Polymerase Chain Reaction (RT-PCR) methodology and was performed using ANTONIO Ampliprep/ANTONIO TaqMan HCV test kit version 2.0 ( [employer]).Reportable range for this assay is 15 - 100,000, 000 IU per mL (1.18 - 8.00 Log IU/mL).CBC W/PLT COUNT & AUTO [id number] 10:29:00 Test Item Value Reference Range Comments WHITE BLOOD CELL COUNT (BEAKER) (test gnzb=189) 10.2 K/ L 3.5-10.5 RED BLOOD CELL COUNT (BEAKER) (test fnuw=584) 3.39 M/ L 3.93-5.22 HEMOGLOBIN (BEAKER) (test zshy=109) 9.1 GM/DL 11.2-15.7 HEMATOCRIT (BEAKER) (test ssvs=453) 27.2 % 34.1-44.9 MEAN CORPUSCULAR VOLUME (BEAKER) (test htay=712) 80.2 fL 79.4-94.8 MEAN CORPUSCULAR HEMOGLOBIN (BEAKER) (test 26.8 pg 25.6-32.2 wepn=811) MEAN CORPUSCULAR HEMOGLOBIN CONC (BEAKER) (test 33.5 GM/DL 32.2-35.5 erat=952) RED CELL DISTRIBUTION WIDTH (BEAKER) (test 15.1 % 11.7-14.4 rqsy=368) PLATELET COUNT (BEAKER) (test azds=551) 85 K/CU MM 150-450 MEAN PLATELET VOLUME (BEAKER) (test qwif=784) 11.2 fL 9.4-12.3 NUCLEATED RED BLOOD CELLS (BEAKER) (test 0 /100 WBC 0-0 dcbw=899) (CELLAVISION MANUAL DIFF)2018-11-17 10:29:00 Test Item Value Reference Range Comments NEUTROPHILS - REL (CELLAVISION)(BEAKER) (test 79 % rcts=4224) LYMPHOCYTES - REL (CELLAVISION)(BEAKER) (test 10 % fotj=9197) MONOCYTES - REL (CELLAVISION)(BEAKER) (test 6 % rnmf=1430) BANDS - REL (CELLAVISION)(BEAKER) (test wnhh=1603) 5 % 0-10 NEUTROPHILS - ABS (CELLAVISION)(BEAKER) (test 8.06 K/ul 1.56-6.13 dgny=7723) LYMPHOCYTES - ABS (CELLAVISION)(BEAKER) (test 1.02 K/ul 1.18-3.74 vzav=9725) MONOCYTES - ABS (CELLAVISION)(BEAKER) (test 0.61 K/uL 0.24-0.36 zqhy=6626) BANDS - ABS (CELLAVISION)(BEAKER) (test glwu=8649) 0.51 K/uL 0.00-0.80 TOTAL COUNTED (BEAKER) (test rqmq=6505) 100 WBC MORPHOLOGY (BEAKER) (test ddrx=016) Normal GIANT PLATELETS (BEAKER) (test ollq=457) Present LARGE PLT(BEAKER) (test qibn=0810) Present HYPOCHROMIA (BEAKER) (test kkrp=037) 1+ few ANISOCYTOSIS (BEAKER) (test wceu=350) 1+ few MACROCYTES (BEAKER) (test jwjq=649) 1+ few POIKILOCYTES (BEAKER) (test ymew=519) 1+ few ARTIFACT (CELLAVISION)(BEAKER) (test zfqr=6051) Present PLATELET CONCENTRATION (CELLAVISION)(BEAKER) (test Decreased gnci=8201) Received comment: User comments: Slide comments:SURGICALLY OBTAINED CULTURE + GRAM [id number] 09:00:00 Test Item Value Reference Range Comments CULTURE (BEAKER) (test ESCHERICHIA COLI 3+ Escherichia coli pcyl=1533) Amikacin (test code=1) Ampicillin + Sulbactam (test code=6) Aztreonam (test code=32) Cefepime (test code=51) Cefoxitin (test code=68) Ceftazidime (test code=27) Ceftriaxone (test code=52) Ertapenem (test code=38) Gentamicin (test code=18) Levofloxacin (test code=22) Meropenem (test code=34) Nitrofurantoin (test code=23) Piperacillin + Tazobactam (test code=29) Tetracycline (test code=2) Tobramycin (test code=25) Trimethoprim + Sulfamethoxazole (test code=47) CULTURE (BEAKER) (test 3+ Escherichia coliof a atwn=9774) second type GRAM STAIN RESULT (BEAKER) 3+ WBCs (test bsll=3503) GRAM STAIN RESULT (BEAKER) No organisms seen (test vdmo=254563) POCT-GLUCOSE [id number] 08:07:00 Test Item Value Reference Range Comments POC-GLUCOSE METER (BEAKER) 156 mg/dL 70-110 TESTED AT [facility] [address] [facility] (test dhpl=7544) [facility] [address] BASIC METABOLIC [id number] 05:37:00 Test Item Value Reference Range Comments SODIUM (BEAKER) (test 137 meq/L 136-145 inba=611) POTASSIUM (BEAKER) (test 3.7 meq/L 3.5-5.1 iryq=939) CHLORIDE (BEAKER) (test 112 meq/L 98-107 lsia=393) CO2 (BEAKER) (test 17 meq/L 22-29 zfyp=457) BLOOD UREA NITROGEN 54 mg/dL 7-21 (BEAKER) (test smht=928) CREATININE (BEAKER) (test 1.28 mg/dL 0.57-1.25 owyu=043) GLUCOSE RANDOM (BEAKER) 136 mg/dL 70-105 (test vekr=111) CALCIUM (BEAKER) (test 8.2 mg/dL 8.4-10.2 uafu=440) EGFR (BEAKER) (test 43 mL/min/1.73 sq m ESTIMATED GFR IS NOT ahme=7837) ACCURATE CREATININE CLEARANCE IN PREDICTING GLOMERULAR FILTRATION RATE. ESTIMATED GFR IS NOT APPLICABLE FOR DIALYSIS PATIENTS. Specimen slightly ictericPOCT-GLUCOSE [id number] 22:48:00 Test Item Value Reference Range Comments POC-GLUCOSE METER (BEAKER) 155 mg/dL 70-110 TESTED AT [address] (test vcyg=7974) [facility] [address] RAD, CHEST, 1 VIEW, NON [id number] 21:45:00Reason for exam:->SOBShould this be performed at the bedside?->YesFINAL REPORT RAD , CHEST, 1 VIEW, NON DEPT INDICATION: SOB COMPARISON: Prior day's exam FINDINGS : Portable frontal view of the chest. IMPRESSION: Support Lines: External leads Lungs and pleura: Unchanged airspace and pleural opacities. No pneumothorax.Heart and mediastinum: Stable contours. Additional findings: None. Signed: Kumar Wang Verified Date/Time: 11/16/2018 21:45: 36 Reading Location: [address] Neuro Reading Room POCT-GLUCOSE [id number] 18:18:00 Test Item Value Reference Range Comments POC-GLUCOSE METER (BEAKER) 188 mg/dL 70-110 TESTED AT [place] [id number] [facility] (test yxfd=8959) [facility] [address] RAD, CHEST, 1 VIEW, NON [id number] 17:04:00Reason for exam:-> dyspneaShould this be performed at the bedside?->YesFINAL REPORT Chest, portable AP view History: Dyspnea Comparison: Chest radiograph dated 11/14/2018, CT of the abdomen and pelvis dated 11/16/2018 IMPRESSION: The heart is of unchanged size and configuration. There is diffuse interstitial prominence which may be secondary to edema or atypical infection. There is a small left pleural effusion and left basilar atelectasis. There is no pneumothorax. 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 Signed: Jovany Almanza MDReport Verified Date/Time: 11/16/2018 17:04:56Reading Location: [facility] Radiology Reading Room Electronically signed by: JOVANY ALMANZA on11/16/2018 05 :04 PMCT, [id number] 15:05:00FINAL REPORT ABDOMINAL AND PELVIS CT DATED 11/16/2018 CLINICAL INFORMATION: Pyelonephritis, complicatedEmphysematous pyelonephritis TECHNIQUE: Axial images of the abdomen [...] dilatation is noted. Pancreas and adrenals are unremarkable.A double-J ureteral stent is seen on the [...] the mid upper pole left kidney suggestive ofrenal abscess.2. Bilateral pleural effusion with bibasilar subsegmental atelectasis.3. Diverticulosis without diverticulitis. Signed: Briana Giron MDReport Verified Date/Time: 11/16/2018 15: 05:14 Reading Location: [facility] C013Y CT Body Reading Room POCT-GLUCOSE [id number] 12:53:00 Test Item Value Reference Range Comments POC-GLUCOSE METER (BEAKER) 99 mg/dL 70-110 TESTED AT [address] (test esgp=0445) [facility] [address] URINE [id number] 10:03:00 Test Item Value Reference Range Comments CULTURE (BEAKER) (test fghy=5312) No growth GRAM STAIN RESULT (BEAKER) (test <1+ WBCs ohtw=5761) GRAM STAIN RESULT (BEAKER) (test No organisms seen lhbl=85296) CBC W/PLT COUNT & AUTO [id number] 09:34:00 Test Item Value Reference Range Comments WHITE BLOOD CELL COUNT (BEAKER) (test lfwf=013) 8.0 K/ L 3.5-10.5 RED BLOOD CELL COUNT (BEAKER) (test etvz=827) 4.05 M/ L 3.93-5.22 HEMOGLOBIN (BEAKER) (test yncu=845) 10.8 GM/DL 11.2-15.7 HEMATOCRIT (BEAKER) (test kwby=785) 32.6 % 34.1-44.9 MEAN CORPUSCULAR VOLUME (BEAKER) (test zrpc=459) 80.5 fL 79.4-94.8 MEAN CORPUSCULAR HEMOGLOBIN (BEAKER) (test 26.7 pg 25.6-32.2 pwzg=888) MEAN CORPUSCULAR HEMOGLOBIN CONC (BEAKER) (test 33.1 GM/DL 32.2-35.5 pvpd=161) RED CELL DISTRIBUTION WIDTH (BEAKER) (test 14.9 % 11.7-14.4 iojn=680) PLATELET COUNT (BEAKER) (test ipul=153) 27 K/CU MM 150-450 MEAN PLATELET VOLUME (BEAKER) (test pswk=131) 10.3 fL 9.4-12.3 NUCLEATED RED BLOOD CELLS (BEAKER) (test 0 /100 WBC 0-0 pmql=687) (CELLAVISION MANUAL DIFF)2018-11-16 09:34:00 Test Item Value Reference Range Comments NEUTROPHILS - REL (CELLAVISION)(BEAKER) (test 81 % yfhv=5080) LYMPHOCYTES - REL (CELLAVISION)(BEAKER) (test 12 % ozsl=8750) MONOCYTES - REL (CELLAVISION)(BEAKER) (test 4 % nalw=4735) EOSINOPHILS - REL (CELLAVISION)(BEAKER) (test 1 % mzox=4389) ATYPICAL LYMPHOCYTES - REL (CELLAVISION)(BEAKER) 2 % 0-0 (test nudj=3061) NEUTROPHILS - ABS (CELLAVISION)(BEAKER) (test 6.48 K/ul 1.56-6.13 bajf=7144) LYMPHOCYTES - ABS (CELLAVISION)(BEAKER) (test 0.96 K/ul 1.18-3.74 mgxd=2475) MONOCYTES - ABS (CELLAVISION)(BEAKER) (test 0.32 K/uL 0.24-0.36 rswn=6021) EOSINOPHILS - ABS (CELLAVISION)(BEAKER) (test 0.08 K/uL 0.04-0.36 wigi=1608) ATYPICAL LYMPHOCYTES - ABS (CELLAVISION)(BEAKER) 0.16 K/uL 0.00-0.00 (test mhmv=9740) TOTAL COUNTED (BEAKER) (test qjuo=4607) 100 WBC MORPHOLOGY (BEAKER) (test yolu=465) Normal GIANT PLATELETS (BEAKER) (test pwrk=751) Present SPHEROCYTES (BEAKER) (test uuzz=577) 1+ few ARTIFACT (CELLAVISION)(BEAKER) (test lwdv=0352) Present PLATELET CONCENTRATION (CELLAVISION)(BEAKER) (test Decreased mupq=3123) Received comment: User comments: Slide comments:BLOOD CULTURE IDENTIFICATION [id number] 09:09:00 Test Item Value Reference Range Comments LISTERIA MONOCYTOGENES (test Not detected Not detected marm=9999928) STAPHYLOCOCCUS (test Not detected Not detected vnxd=6921670) STAPHYLOCOCCUS AUREUS (test Not detected Not detected bvbn=6724912) STREPTOCOCCUS (test Not detected Not detected pwyb=5551392) STREPTOCOCCUS AGALACTIAE (GROUP Not detected Not detected B) (test veth=3738656) STREPTOCOCCUS PNEUMONIAE (test Not detected Not detected wais=0840952) STREPTOCOCCUS PYOGENES (GROUP Not detected Not detected A) (test jmnk=0477071) ACINETOBACTER BAUMANNII (test Not detected Not detected gkzr=0409631) HAEMOPHILUS INFLUENZAE (test Not detected Not detected tgbg=9218717) NEISSERIA MENINGITIDIS (test Not detected Not detected mdbl=8994639) ENTEROBACTERIACEAE (test Detected Not detected oijm=1607179) ENTEROBACTER CLOACOE COMPLEX Not detected Not detected (test jqgf=0790417) KLEBSIELLA OXYTOCA (test Not detected Not detected tens=3266477) KLEBSIELLA PNEUMONIAE (test Not detected Not detected hmnz=8470) PROTEUS (test mloy=5711427) Not detected Not detected SERRATIA MARCESCENS (test Not detected Not detected uekt=5021382) TRESSA ALBICANS (test Not detected Not detected jwsp=7965293) TRESSA GLABRATA (test Not detected Not detected txio=5367695) TRESSA KRUSEI (test Not detected Not detected xouc=1261847) TRESSA PARAPSILOSIS (test Not detected Not detected ujsi=4979574) TRESSA TROPICALIS (test Not detected Not detected zttc=0233505) ESCHERICHIA COLI (test Detected Not detected First line therapy: yhcc=5650005) Meropenem. De-escalate based on susceptibilities.This test does not evaluate for ESBLReference Range: Not Detected METHICILLIN-RESISTANCE GENE Not detected (test stsm=7794126) VANCOMYCIN-RESISTANCE GENE Not detected (test asrz=1101386) CARBAPENEM-RESISTANCE GENE Not detected Not detected (test swye=5883224) ENTEROCOCCUS-BEAKER (test Not detected Not detected qyko=4962464) PSEUDOMONAS AERUGINOSA-BEAKER Not detected Not detected (test pnoy=2250228) Other bacteria and resistance markers not targeted by this PCR panel cannot be excluded; therefore clinical correlation and follow up of serology, culture results, and other molecular studies is required. The results are not intended to be used as the sole means for clinical diagnosis or patient management decisions. This sample was tested at the [facility] using the [employer] Blood Culture ID Panel. It is FDA cleared and has been verified and approved by the [facility] for clinical use. This laboratory is CLIA-certified and College ofAmerican Pathologists (CAP)-accredited to perform high complexity testing.POCT-GLUCOSE [id number] 06:36:00 Test Item Value Reference Range Comments POC-GLUCOSE METER (BEAKER) 102 mg/dL 70-110 TESTED AT [facility] [address] (test vgte=6266) [facility] [address] [id number] 05:24:00 Test Item Value Reference Range Comments MAGNESIUM (BEAKER) (test 2.4 mg/dL 1.6-2.6 Specimen slightly hemolyzed ccck=231) BASIC METABOLIC [id number] 05:24:00 Test Item Value Reference Range Comments SODIUM (BEAKER) (test 135 meq/L 136-145 blsm=208) POTASSIUM (BEAKER) (test 4.1 meq/L 3.5-5.1 Specimen slightly hipl=652) hemolyzed CHLORIDE (BEAKER) (test 109 meq/L 98-107 vift=861) CO2 (BEAKER) (test 17 meq/L 22-29 ljyw=670) BLOOD UREA NITROGEN 56 mg/dL 7-21 (BEAKER) (test gukh=263) CREATININE (BEAKER) (test 1.46 mg/dL 0.57-1.25 Specimen slightly lkas=705) hemolyzed GLUCOSE RANDOM (BEAKER) 106 mg/dL 70-105 (test adpf=685) CALCIUM (BEAKER) (test 8.7 mg/dL 8.4-10.2 ksdg=863) EGFR (BEAKER) (test 37 mL/min/1.73 sq m ESTIMATED GFR IS NOT azgl=2754) ACCURATE CREATININE CLEARANCE IN PREDICTING GLOMERULAR FILTRATION RATE. ESTIMATED GFR IS NOT APPLICABLE FOR DIALYSIS PATIENTS. Specimen slightly ictericHEPATIC FUNCTION [id number] 05:24:00 Test Item Value Reference Range Comments TOTAL PROTEIN (BEAKER) (test 6.2 gm/dL 6.0-8.3 Specimen slightly hemolyzed pdnf=682) ALBUMIN (BEAKER) (test 2.2 g/dL 3.5-5.0 Specimen slightly hemolyzed ysqd=1781) BILIRUBIN TOTAL (BEAKER) (test 5.4 mg/dL 0.2-1.2 Specimen slightly hemolyzed jiqs=734) BILIRUBIN DIRECT (BEAKER) (test 4.0 mg/dL 0.1-0.5 Specimen slightly hemolyzed jhon=260) ALKALINE PHOSPHATASE (BEAKER) 426 U/L 40-150 (test nzvt=158) AST (SGOT) (BEAKER) (test 66 U/L 5-34 Specimen slightly hemolyzed xenj=090) ALT (SGPT) (BEAKER) (test 44 U/L 6-55 Specimen slightly hemolyzed ujnz=983) Specimen slightly ictericB-TYPE NATRIURETIC FACTOR (BNP)2018-11-16 05:10:00 Test Item Value Reference Range Comments B-TYPE NATRIURETIC PEPTIDE (BEAKER) (test 2264 pg/mL 0-100 ppxn=126) PROTHROMBIN [id number] 04:59:00 Test Item Value Reference Range Comments PROTIME (BEAKER) (test omtu=852) 14.2 seconds 11.7-14.7 INR (BEAKER) (test rcmd=319) 1.1 <=5.9 RECOMMENDED COUMADIN/WARFARIN INR THERAPY RANGESSTANDARD DOSE: 2.0 - 3.0 Includes: PROPHYLAXIS forvenous thrombosis, systemic embolization; TREATMENT for venous thrombosis and/or pulmonary embolus.HIGH RISK: Target INR is 2.5-3.5 for patients with mechanical heart valves.POCT-GLUCOSE [id number] 23:53:00 Test Item Value Reference Range Comments POC-GLUCOSE METER (JESSICA) 132 mg/dL 70-110 TESTED AT [address] (test pzoz=2832) [place] [address] POCT-GLUCOSE [id number] 17:46:00 Test Item Value Reference Range Comments POC-GLUCOSE METER (ERIN) 164 mg/dL 70-110 TESTED AT [address] (test zvaa=8191) [place] [address] HEPATITIS C PCR, [id number] 14:44:00 Test Item Value Reference Range Comments HCV RESULT COMPONENT (AKER) HCV RNA not detected HCV RNA not detected (test qxiz=4419) This test uses a Real-Time Polymerase Chain Reaction (RT-PCR) methodology and was performed using ANTONIO Ampliprep/ANTONIO TaqMan HCV test kit version 2.0 ( [employer]Reportable range for this assay is 15 - 100,000, 000 IU per mL (1.18 - 8.00 Log IU/mL).BASIC METABOLIC [id number] 14:05:00 Test Item Value Reference Range Comments SODIUM (BEAKER) (test 134 meq/L 136-145 jpwn=404) POTASSIUM (BEAKER) (test 3.9 meq/L 3.5-5.1 ybpg=208) CHLORIDE (BEAKER) (test 108 meq/L 98-107 vuyh=803) CO2 (BEAKER) (test 17 meq/L 22-29 zhyx=200) BLOOD UREA NITROGEN 55 mg/dL 7-21 (BEAKER) (test torx=921) CREATININE (BEAKER) (test 1.64 mg/dL 0.57-1.25 ebck=424) GLUCOSE RANDOM (BEAKER) 178 mg/dL 70-105 (test mkgh=365) CALCIUM (BEAKER) (test 8.2 mg/dL 8.4-10.2 hwot=550) EGFR (BEAKER) (test 33 mL/min/1.73 sq m ESTIMATED GFR IS NOT ozum=4317) ACCURATE CREATININE CLEARANCE IN PREDICTING GLOMERULAR FILTRATION RATE. ESTIMATED GFR IS NOT APPLICABLE FOR DIALYSIS PATIENTS. Specimen slightly ictericPOCT-GLUCOSE [id number] 12:00:00 Test Item Value Reference Range Comments POC-GLUCOSE METER (BEAKER) 197 mg/dL 70-110 TESTED AT [facility] [address] [facility] (test lwpt=3150) [facility] [address] PERIPHERAL BLOOD SMEAR - PATHOLOGIST [id number] 11:24:00 Test Item Value Reference Range Comments RBC MORPHOLOGY Hypochromic, normocytic anemia (BEAKER) (test with mild anisopoikilocytosis rvyo=6320) including occasional spherocytes. Mild Rouleaux. WBC MORPHOLOGY Normal in number. (BEAKER) (test Predominately comprised by opal=3346) neutrophils. Some neutrophils with toxic granulation changes. Subpopulation of hypogranular forms. PLT MORPHOLOGY Markedly decreased. Normal (BEAKER) (test granular morphology. Increase djiu=7322) large and rare giants forms present. No platelet clumping identified. [id number] Hugo Tsang MD (BEAKER) (test (electronic edql=2479) signature) CBC W/PLT COUNT & AUTO [id number] 09:42:00 Test Item Value Reference Range Comments WHITE BLOOD CELL COUNT (BEAKER) (test pluw=762) 7.3 K/ L 3.5-10.5 RED BLOOD CELL COUNT (BEAKER) (test cbap=305) 3.43 M/ L 3.93-5.22 HEMOGLOBIN (BEAKER) (test rxyh=240) 9.2 GM/DL 11.2-15.7 HEMATOCRIT (BEAKER) (test czak=040) 27.6 % 34.1-44.9 MEAN CORPUSCULAR VOLUME (BEAKER) (test rfdl=196) 80.5 fL 79.4-94.8 MEAN CORPUSCULAR HEMOGLOBIN (BEAKER) (test 26.8 pg 25.6-32.2 lxsd=191) MEAN CORPUSCULAR HEMOGLOBIN CONC (BEAKER) (test 33.3 GM/DL 32.2-35.5 wkmn=311) RED CELL DISTRIBUTION WIDTH (BEAKER) (test 14.7 % 11.7-14.4 ildo=743) PLATELET COUNT (BEAKER) (test eecg=577) 12 K/CU MM 150-450 MEAN PLATELET VOLUME (BEAKER) (test wrsb=967) 9.8 fL 9.4-12.3 NUCLEATED RED BLOOD CELLS (BEAKER) (test 0 /100 WBC 0-0 qiie=655) (CELLAVISION MANUAL DIFF)2018-11-15 09:42:00 Test Item Value Reference Range Comments NEUTROPHILS - REL (CELLAVISION)(BEAKER) (test 72 % qaep=1426) LYMPHOCYTES - REL (CELLAVISION)(BEAKER) (test 8 % eppg=4540) MONOCYTES - REL (CELLAVISION)(BEAKER) (test 3 % xcla=3692) EOSINOPHILS - REL (CELLAVISION)(BEAKER) (test 1 % olnt=8547) BANDS - REL (CELLAVISION)(BEAKER) (test ulbh=1263) 16 % 0-10 NEUTROPHILS - ABS (CELLAVISION)(BEAKER) (test 5.26 K/ul 1.56-6.13 doda=0123) LYMPHOCYTES - ABS (CELLAVISION)(BEAKER) (test 0.58 K/ul 1.18-3.74 wlma=4251) MONOCYTES - ABS (CELLAVISION)(BEAKER) (test 0.22 K/uL 0.24-0.36 voue=8987) EOSINOPHILS - ABS (CELLAVISION)(BEAKER) (test 0.07 K/uL 0.04-0.36 tfrl=2886) BANDS - ABS (CELLAVISION)(BEAKER) (test gnij=2723) 1.17 K/uL 0.00-0.80 TOTAL COUNTED (BEAKER) (test coqb=9153) 100 RBC MORPHOLOGY (BEAKER) (test xenp=719) Normal SMUDGE CELLS (BEAKER) (test djtj=9087) Present GIANT PLATELETS (BEAKER) (test zcoe=111) Present PLATELET CONCENTRATION (CELLAVISION)(BEAKER) (test Decreased rjik=2743) Received comment: User comments: Slide comments:POCT-GLUCOSE [id number] 09: 10:00 Test Item Value Reference Range Comments POC-GLUCOSE METER (BEAKER) 151 mg/dL 70-110 TESTED AT [facility] [address] [facility] (test ghqz=1756) [facility] [address] PERIPHERAL BLOOD SMEAR - HOLD [id number] 08:14:00 Test Item Value Reference Range Comments PERIPHERAL SMEAR SAVE (BEAKER) (test lpel=7309) saved U/S, ABDOMINAL, [id number] 08:05:00Reason for exam:->low platelet. evaluate for cirrhosis, splenomegalyFINAL REPORT TECHNIQUE: Grayscale ultrasound of the abdomen. INDICATION: 53-year-old woman with low platelets. COMPARISON: None. FINDINGS: MIDLINE VASCULATURE: The visualized inferior vena cava is patent. Portal vein is patent and measures 1.3 cm in diameter. The maximum visualized aortic diameter is 2 cm. LIVER: The liver is normal in size and echotexture with nodular contour. No focal lesions. BILIARY:Gallbladder: No gallstones or sludge. No gallbladder wall thickening, pericholecystic fluid, or distention. Negative sonographic Mendoza sign.Common bile duct measures 0.4 cm,within normal limits. No intrahepatic biliary ductal dilatation. PANCREAS: Visualized portions of the pancreas are unremarkable. SPLEEN: The spleen is enlarged, measuring 15.4 cm. PERITONEUM: No free fluid. KIDNEYS: Normal in size bilaterally. No hydronephrosis. Extrarenal pelvis on the left. No sonographically evident solid mass lesion. OTHER FINDINGS: Trace bilateral pleural effusions. IMPRESSION:Nodular contour of the liver, suggestive of cirrhosis. Splenomegaly. Signed: Damon Silvestre MDReportVerified Date/Time: 11/15/2018 08:05:08 Reading Location: [facility] P006J Ultrasound Reading Room Electronically signed by: DAMON SILVESTRE MD on 2018 08:05 AMPOCT-GLUCOSE [id number] 07:03:00 Test Item Value Reference Range Comments POC-GLUCOSE METER (BEAKER) 178 mg/dL 70-110 TESTED AT [facility] [address] [facility] (test bcjw=7745) [facility] [address] HEPATITIS C [id number] 04:53:00 Test Item Value Reference Range Comments HEPATITIS C ANTIBODY (BEAKER) (test aryt=132) Reactive Nonreactive [id number] 04:30:00 Test Item Value Reference Range Comments MAGNESIUM (BEAKER) (test mtdn=390) 2.3 mg/dL 1.6-2.6 BASIC METABOLIC [id number] 04:30:00 Test Item Value Reference Range Comments SODIUM (BEAKER) (test 135 meq/L 136-145 hykm=658) POTASSIUM (BEAKER) (test 3.8 meq/L 3.5-5.1 syzh=558) CHLORIDE (BEAKER) (test 109 meq/L 98-107 vsmp=711) CO2 (BEAKER) (test 16 meq/L 22-29 zslr=937) BLOOD UREA NITROGEN 56 mg/dL 7-21 (BEAKER) (test ilnp=287) CREATININE (BEAKER) (test 1.74 mg/dL 0.57-1.25 rler=213) GLUCOSE RANDOM (BEAKER) 179 mg/dL 70-105 (test sxfa=284) CALCIUM (BEAKER) (test 8.1 mg/dL 8.4-10.2 walv=792) EGFR (BEAKER) (test 30 mL/min/1.73 sq m ESTIMATED GFR IS NOT mqfo=2696) ACCURATE CREATININE CLEARANCE IN PREDICTING GLOMERULAR FILTRATION RATE. ESTIMATED GFR IS NOT APPLICABLE FOR DIALYSIS PATIENTS. Specimen slightly ictericHEPATIC FUNCTION [id number] 04:30:00 Test Item Value Reference Range Comments TOTAL PROTEIN (BEAKER) (test xwmo=022) 5.6 gm/dL 6.0-8.3 ALBUMIN (BEAKER) (test xkgk=3869) 2.1 g/dL 3.5-5.0 BILIRUBIN TOTAL (BEAKER) (test rgcx=518) 5.0 mg/dL 0.2-1.2 BILIRUBIN DIRECT (BEAKER) (test jiso=550) 4.0 mg/dL 0.1-0.5 ALKALINE PHOSPHATASE (BEAKER) (test zsgt=216) 170 U/L 40-150 AST (SGOT) (BEAKER) (test qogu=207) 45 U/L 5-34 ALT (SGPT) (BEAKER) (test agxn=823) 36 U/L 6-55 Specimen slightly ictericPROTHROMBIN TIME/[id number] 04:21:00 Test Item Value Reference Range Comments PROTIME (BEAKER) (test fcxn=691) 16.2 seconds 11.7-14.7 INR (BEAKER) (test mzrj=865) 1.3 <=5.9 RECOMMENDED COUMADIN/WARFARIN INR THERAPY RANGESSTANDARD DOSE: 2.0 - 3.0 Includes: PROPHYLAXIS forvenous thrombosis, systemic embolization; TREATMENT for venous thrombosis and/or pulmonary embolus.HIGH RISK: Target INR is 2.5-3.5 for patients with mechanical heart valves.POCT-GLUCOSE [id number] 00:51:00 Test Item Value Reference Range Comments POC-GLUCOSE METER (BEAKER) 195 mg/dL 70-110 TESTED AT [address] (test etfw=9431) [place] [address] POCT-GLUCOSE [id number] 21:26:00 Test Item Value Reference Range Comments POC-GLUCOSE METER (BEAKER) 145 mg/dL 70-110 TESTED AT [address] (test zqdz=5682) [place] [address] POCT-GLUCOSE [id number] 17:51:00 Test Item Value Reference Range Comments POC-GLUCOSE METER (BEAKER) 147 mg/dL 70-110 TESTED AT [address] (test vvov=5507) [place] [address] [id number] 15:23:00 Test Item Value Reference Range Comments HAPTOGLOBIN (BEAKER) (test olft=385) 245 mg/dL 14-258 LACTATE DEHYDROGENASE (LDH)2018-11-14 15:10:00 Test Item Value Reference Range Comments LACTATE DEHYDROGENASE (BEAKER) (test lywj=141) 634 U/L 125-220 [id number] 15:06:00 Test Item Value Reference Range Comments PROTIME (BEAKER) (test bogs=457) 15.5 seconds 11.7-14.7 INR (BEAKER) (test szwr=602) 1.2 <=5.9 PARTIAL THROMBOPLASTIN TIME (BEAKER) (test 26.3 seconds 22.5-36.0 dcxl=763) RECOMMENDED COUMADIN/WARFARIN INR THERAPY RANGESSTANDARD DOSE: 2.0 - 3.0 Includes: PROPHYLAXIS forvenous thrombosis, systemic embolization; TREATMENT for venous thrombosis and/or pulmonary embolus.HIGH RISK: Target INR is 2.5-3.5 for patients with mechanical heart valves.RETICULOCYTE [id number] 14:58:00 Test Item Value Reference Range Comments RETICULOCYTE COUNT PCT (BEAKER) (test crrj=324) 0.9 % 0.5-1.7 POCT-GLUCOSE [id number] 12:56:00 Test Item Value Reference Range Comments POC-GLUCOSE METER (BEAKER) 171 mg/dL 70-110 TESTED AT [address] (test qonr=7088) [facility] [address] CBC W/PLT COUNT & AUTO [id number] 09:53:00 Test Item Value Reference Range Comments WHITE BLOOD CELL COUNT (BEAKER) (test rdjj=403) 8.5 K/ L 3.5-10.5 RED BLOOD CELL COUNT (BEAKER) (test oqaj=239) 4.06 M/ L 3.93-5.22 HEMOGLOBIN (BEAKER) (test mbms=973) 11.0 GM/DL 11.2-15.7 HEMATOCRIT (BEAKER) (test qlpp=770) 32.8 % 34.1-44.9 MEAN CORPUSCULAR VOLUME (BEAKER) (test zfwt=214) 80.8 fL 79.4-94.8 MEAN CORPUSCULAR HEMOGLOBIN (BEAKER) (test 27.1 pg 25.6-32.2 ifbj=241) MEAN CORPUSCULAR HEMOGLOBIN CONC (BEAKER) (test 33.5 GM/DL 32.2-35.5 eezn=646) RED CELL DISTRIBUTION WIDTH (BEAKER) (test 14.4 % 11.7-14.4 zixw=061) PLATELET COUNT (BEAKER) (test ovpf=290) 15 K/CU MM 150-450 MEAN PLATELET VOLUME (BEAKER) (test ptej=433) 9.7 fL 9.4-12.3 NUCLEATED RED BLOOD CELLS (BEAKER) (test 0 /100 WBC 0-0 yxwq=990) LACTATE DEHYDROGENASE (LDH)2018-11-14 09:27:00 Test Item Value Reference Range Comments LACTATE DEHYDROGENASE (BEAKER) 680 U/L 125-220 Specimen slightly hemolyzed (test daqe=879) RAD, CHEST, 1 VIEW, NON [id number] 09:23:00Reason for exam:->coughShould this be performed at the bedside?->YesFINAL REPORT Chest one view. Clinical history: cough Comparison: No priors Discussion: A frontal chest is provided. Cardiomediastinal contours are unremarkable allowing for portable technique. There is retrocardiac opacity that likely represents a combination of pleural effusion and atelectasis/consolidation. There is also interstitial prominence, which may reflect pulmonary edema. No pneumothorax identified. Osseous structures demonstrate degenerative changes. Signed: Dov Blount Verified Date/Time: 11/14/2018 09:23:15 Reading Location: [address] Ortho Consult Reading Room [id number] 09:21:00 Test Item Value Reference Range Comments HAPTOGLOBIN (BEAKER) (test gxfv=925) 236 mg/dL 14-258 CBC W/PLT COUNT & AUTO [id number] 08:42:00 Test Item Value Reference Range Comments WHITE BLOOD CELL COUNT 8.9 K/ L 3.5-10.5 (BEAKER) (test klld=162) RED BLOOD CELL COUNT (BEAKER) 3.89 M/ L 3.93-5.22 (test drml=080) HEMOGLOBIN (BEAKER) (test 10.6 GM/DL 11.2-15.7 mjwh=703) HEMATOCRIT (BEAKER) (test 31.4 % 34.1-44.9 wiwr=608) MEAN CORPUSCULAR VOLUME 80.7 fL 79.4-94.8 (BEAKER) (test owzs=262) MEAN CORPUSCULAR HEMOGLOBIN 27.2 pg 25.6-32.2 (BEAKER) (test oprs=026) MEAN CORPUSCULAR HEMOGLOBIN 33.8 GM/DL 32.2-35.5 CONC (BEAKER) (test htos=691) RED CELL DISTRIBUTION WIDTH 14.2 % 11.7-14.4 (BEAKER) (test oqwf=325) PLATELET COUNT (BEAKER) (test 10 K/CU MM 150-450 tuli=689) MEAN PLATELET VOLUME (BEAKER) fL 9.4-12.3 Unable to report due to (test xznm=640) abnormal Platelet population distribution. NUCLEATED RED BLOOD CELLS 0 /100 WBC 0-0 (BEAKER) (test xxhe=505) (CELLAVISION MANUAL DIFF)2018-11-14 08:42:00 Test Item Value Reference Range Comments NEUTROPHILS - REL (CELLAVISION)(BEAKER) (test 93 % dick=0116) LYMPHOCYTES - REL (CELLAVISION)(BEAKER) (test 3 % cygk=6846) MONOCYTES - REL (CELLAVISION)(BEAKER) (test 2 % kauo=3311) BANDS - REL (CELLAVISION)(BEAKER) (test mkkn=8582) 2 % 0-10 NEUTROPHILS - ABS (CELLAVISION)(BEAKER) (test 8.28 K/ul 1.56-6.13 drom=6099) LYMPHOCYTES - ABS (CELLAVISION)(BEAKER) (test 0.27 K/ul 1.18-3.74 ibhr=6850) MONOCYTES - ABS (CELLAVISION)(BEAKER) (test 0.18 K/uL 0.24-0.36 lvfq=0691) BANDS - ABS (CELLAVISION)(BEAKER) (test tofv=7584) 0.18 K/uL 0.00-0.80 TOTAL COUNTED (BEAKER) (test puvp=1966) 100 WBC MORPHOLOGY (BEAKER) (test erho=876) Normal PLT MORPHOLOGY (BEAKER) (test fzki=497) Normal POLYCHROMATOPHILLIC RBCS(BEAKER) (test wbmh=440) 1+ few ARTIFACT (CELLAVISION)(BEAKER) (test oosf=4491) Present PLATELET CONCENTRATION (CELLAVISION)(BEAKER) (test Decreased abut=5461) Received comment: User comments: Slide comments:PERIPHERAL BLOOD SMEAR - HOLD [id number] 07:46:00 Test Item Value Reference Range Comments PERIPHERAL SMEAR SAVE (BEAKER) (test cecj=2843) saved HEPATITIS PANEL, [id number] 07:23:00 Test Item Value Reference Range Comments HEPATITIS A IGM ANTIBODY (BEAKER) (test Nonreactive Nonreactive jmge=393) HEPATITIS B CORE IGM ANTIBODY (BEAKER) (test Nonreactive Nonreactive asdm=389) HEPATITIS C ANTIBODY (BEAKER) (test loap=514) Reactive Nonreactive HEPATITIS B SURFACE ANTIGEN (2) (BEAKER) (test Nonreactive Nonreactive kydx=9385) VITAMIN [id number] 07:20:00 Test Item Value Reference Range Comments VITAMIN B12 (BEAKER) (test xgxl=308) > pg/mL 213-816 FOLATE, [id number] 07:18:00 Test Item Value Reference Range Comments FOLATE (BEAKER) (test fwgl=626) 3.8 ng/mL >=7.0 [id number] 07:09:00 Test Item Value Reference Range Comments FIBRINOGEN LEVEL (BEAKER) (test vccd=930) 1324 mg/dl 225-434 POCT-GLUCOSE [id number] 06:57:00 Test Item Value Reference Range Comments POC-GLUCOSE METER (BEAKER) 184 mg/dL 70-110 TESTED AT [facility] [address] [facility] (test sjie=6584) [facility] [address] [id number] 06:18:00 Test Item Value Reference Range Comments D-DIMER QUANTITATIVE (BEAKER) (test mwhs=438) 13.73 MG/L FEU <0.50 Intended Use: The D-Dimer Assay can be used to aid in the diagnosis of Deep Vein Thrombosis (DVT) and Pulmonary Embolism Disease (PED).In patients with low pre-test probability, various studies concerning STA Liatest D-dimer test have reported that with a cutoff value of 0.50 MG/L FEU, the Negative Predictive Value (NPV) regarding the exclusion of thrombosis is within 95-100% range.HIV-1 ANTIGEN WITH HIV-1/2 [id number] 04:12:00 Test Item Value Reference Range Comments HIV-1 ANTIGEN WITH HIV 1\T\2 ANTIBODY (2) Nonreactive Nonreactive (BEAKER) (test ruyf=5087) BASIC METABOLIC [id number] 04:03:00 Test Item Value Reference Range Comments SODIUM (BEAKER) (test 132 meq/L 136-145 ggbg=404) POTASSIUM (BEAKER) (test 4.1 meq/L 3.5-5.1 Specimen slightly oixq=432) hemolyzed CHLORIDE (BEAKER) (test 104 meq/L 98-107 dmnh=205) CO2 (BEAKER) (test 16 meq/L 22-29 fyao=865) BLOOD UREA NITROGEN 50 mg/dL 7-21 (BEAKER) (test snne=681) CREATININE (BEAKER) (test 1.87 mg/dL 0.57-1.25 Specimen slightly vhem=160) hemolyzed GLUCOSE RANDOM (BEAKER) 157 mg/dL 70-105 (test nagd=892) CALCIUM (BEAKER) (test 8.1 mg/dL 8.4-10.2 ljnj=447) EGFR (BEAKER) (test 28 mL/min/1.73 sq m ESTIMATED GFR IS NOT vbiq=4607) ACCURATE CREATININE CLEARANCE IN PREDICTING GLOMERULAR FILTRATION RATE. ESTIMATED GFR IS NOT APPLICABLE FOR DIALYSIS PATIENTS. Specimen slightly [id number] 03:54:00 Test Item Value Reference Range Comments MAGNESIUM (BEAKER) (test 2.3 mg/dL 1.6-2.6 Specimen slightly hemolyzed gqnl=100) HEPATIC FUNCTION [id number] 03:54:00 Test Item Value Reference Range Comments TOTAL PROTEIN (BEAKER) (test 6.0 gm/dL 6.0-8.3 Specimen slightly hemolyzed gxsw=417) ALBUMIN (BEAKER) (test 2.3 g/dL 3.5-5.0 Specimen slightly hemolyzed mfap=7344) BILIRUBIN TOTAL (BEAKER) (test 3.9 mg/dL 0.2-1.2 Specimen slightly hemolyzed twll=788) BILIRUBIN DIRECT (BEAKER) (test 2.9 mg/dL 0.1-0.5 Specimen slightly hemolyzed udjt=368) ALKALINE PHOSPHATASE (BEAKER) 153 U/L 40-150 (test rsgo=924) AST (SGOT) (BEAKER) (test 75 U/L 5-34 Specimen slightly hemolyzed xjvp=009) ALT (SGPT) (BEAKER) (test 47 U/L 6-55 Specimen slightly hemolyzed duud=124) Specimen slightly ictericPROTHROMBIN [id number] 03:52:00 Test Item Value Reference Range Comments PROTIME (BEAKER) (test owvq=612) 17.0 seconds 11.7-14.7 INR (BEAKER) (test xqky=445) 1.4 <=5.9 RECOMMENDED COUMADIN/WARFARIN INR THERAPY RANGESSTANDARD DOSE: 2.0 - 3.0 Includes: PROPHYLAXIS forvenous thrombosis, systemic embolization; TREATMENT for venous thrombosis and/or pulmonary embolus.HIGH RISK: Target INR is 2.5-3.5 for patients with mechanical heart valves.POCT-GLUCOSE [id number] 00:42:00 Test Item Value Reference Range Comments POC-GLUCOSE METER (BEERIN) 206 mg/dL 70-110 TESTED AT [facility] [address] (test xdbi=0323) [facility] [address]
[2018-11-27 13:13] LABS: Urine Blood 2+ (NEG); Urine Glucose NEGATIVE (NEG); Urine Protein 2+ (NEG); Urine Specific Gravity <1.005 (1.005-1.030); Urine pH 5.5 (5.0-7.0)
[2018-11-27 13:14] LABS: Absolute Lymphocytes (CBC) 1.7 K/uL (0.7-4.9); Absolute Monocytes 1.3 K/uL (0.1-1.3); Absolute Neutrophil 10.2 K/uL (1.8-8.0); Basophils % 0.6 % (0-1.3); Eosinophils % 0.4 % (0-4.4); Lymphocytes % 12.6 % (15.3-44.8); MPV 8.2 fL (7.6-11.3); Monocytes % 9.8 % (3.3-12.3); RBC Red Blood Cell Count 2.46 M/uL (3.86-4.86)
[2018-11-27 13:19] LABS: Protime INR 1.22
[2018-11-27 13:22] LABS: Hematocrit 20.1 % (36.0-45.0)
[2018-11-27 13:23] LABS: Urine Bacteria <20 /HPF (<20); Urine Culture Reflex Order NOT NEEDED; Urine Yeast PRESENT (NONE SEEN)
[2018-11-27 13:24] LABS: Urine Yeast with Hyphae PRESENT
--- NOTE | 2018-11-27 13:35 | RAD REPORT ---
EXAM DESCRIPTION: USExtrem Venous W Compress Bil11/27/2018 1:28 pm CLINICAL HISTORY: Bilateral leg swelling COMPARISON: October 2018 FINDINGS: The common femoral, superficial femoral, popliteal and posterior tibial veins bilaterally are compressible and demonstrate augmentation. Doppler demonstrates good flow. IMPRESSION: No evidence of deep venous thrombosis involving either lower extremity.
[2018-11-27 13:43] LABS: Albumin 1.7 g/dL (3.4-5.0); Bilirubin Direct 0.4 mg/dL (0-0.2); Bilirubin Total 0.6 mg/dL (0.2-1.0); Magnesium 1.8 mg/dL (1.8-2.4); Potassium 5.3 mmol/L (3.5-5.1); Protein, Total 7.9 g/dL (6.4-8.2); Troponin (Emerg Dept Use Only) 0.16 ng/mL (0.0-0.045)
--- NOTE | 2018-11-27 15:15 | RAD REPORT ---
EXAM DESCRIPTION: CT - Abdomen Pelvis W Contrast - 11/27/2018 2:54 pm CLINICAL HISTORY: Abdominal pain COMPARISON: none. TECHNIQUE: Computed axial tomography of the abdomen pelvis was obtained. 100 cc Isovue-300 was admin istered intravenously. Oral contrast was not requested which limits evaluation of bowel. All CT scans are performed using dose optimization technique as appropriate and may include automated exposure control or mA/KV adjustment according to patient size. FINDINGS: Small bilateral pleural effusions The liver, spleen, pancreas, adrenal and right kidney appear unremarkable. 5.8 centimeter fluid collection containing air is present within the upper pole the left kidney consi stent with abscess. A small amount of fluid extends superiorly from the left kidney abutting the left pancreatic tail. A left ureteral stent is in place. Small amount of air is present within the bladde r. Left hydronephrosis is not seen. There is no evidence of diverticulitis. IMPRESSION: Left emphysematous pyelonephritis. A 6 centimeter left renal abscess contains air. Coupl e of smaller additional left renal abscesses are noted.
--- NOTE | 2018-11-27 15:32 | RAD REPORT ---
EXAM DESCRIPTION: RAD - Chest Single View - 11/27/2018 3:25 pm CLINICAL HISTORY: edema Chest pain. COMPARISON: Abdomen Pelvis W Contrast dated 11/27/2018; Abdomen Pelvis Wo Contrast dated 11/13/2018 ; Stone Protocol dated 11/12/2018 FINDINGS: Portable technique limits examination quality. Mild interstitial pulmonary edema is seen with small bilateral pleural effusions. The heart is mildly prominent size. No displaced fractures.
[2018-11-27] MEDS ORDERED: CEFTRIAXONE/SWI 1gm 1 GM/10 ML SYR ONE (16:30)
--- NOTE | 2018-11-27 16:59 | ER ---
Nurse's Notes [facility] Name: Nancy El Age: 53 yrs Sex: Female : 1965 Arrival Date: 11/27/2018 Time: 12:20 Bed 17 Private MD: None, None Diagnosis: Anemia;Elevated Troponin;Pyelonephritis with Abscess Presentation: 11/27 12:29 Presenting complaint: Patient states: Bilateral leg swelling since being released from [facility] on Monday for Pyelonephritis. Patient attempted to establish PCP today at clinic but was sent to ER after low blood pressure readings. Transition of care: patient was not received from another setting of care. Onset of symptoms was November 27, 2018. Risk Assessment: Do you want to hurt yourself or someone else? Patient reports no desire to harm self or others. Initial Sepsis Screen: Does the patient meet any 2 criteria? No. Patient's initial sepsis screen is negative. Does the patient have a suspected source of infection? No. Patient's initial sepsis screen is negative. Care prior to arrival: None. 12:29 Method Of Arrival: Wheelchair 12:29 Acuity: GONZALO 3 Triage Assessment: 12:31 General: Appears in no apparent distress. comfortable, Behavior is calm, cooperative, aj appropriate for age. Pain: Complains of pain in mid back area. Neuro: Level of Consciousness is awake, alert, obeys commands, Oriented to person, place, time, situation, Appropriate for age. Respiratory: Airway is patent Respiratory effort is even, unlabored, Respiratory pattern is regular, symmetrical. Derm: Skin is intact, is healthy with good turgor, Skin is pink, warm \T\ dry. normal. Musculoskeletal: Swelling present in right leg and left leg. QC SCIENTIST: 12:31 LMP N/A - Post-menopause Historical: - Allergies: 12:31 No Known Allergies; aj - Home Meds: 12:31 Tylenol #3 Oral [Active]; aj - PMHx: 12:31 Diabetes - NIDDM; aj - PSHx: 12:31 Tubal ligation; aj - Immunization history:: Adult Immunizations up to date. - Social history:: Smoking status: Patient uses tobacco products, smokes one-half pack cigarettes per day. - Ebola Screening: : Patient negative for fever greater than or equal to 101.5 degrees Fahrenheit, and additional compatible Ebola Virus Disease symptoms Patient denies exposure to infectious person Patient denies travel to an Ebola-affected area in the 21 days before illness onset No symptoms or risks identified at this time. Screenin:34 Abuse screen: Denies threats or abuse. Denies injuries from another. Abuse screen: sv Denies threats or abuse. Nutritional screening: No deficits noted. Tuberculosis screening: No symptoms or risk factors identified. Fall Risk None identified. Assessment: 12:50 General: Appears in no apparent distress. uncomfortable, well developed, Behavior is sv calm, cooperative, appropriate for age. Pain: Denies pain. Neuro: Level of Consciousness is awake, alert, obeys commands, Oriented to person, place, time, situation, Moves all extremities. Full function Gait is steady, Speech is normal. Cardiovascular: Patient's skin is warm and dry. Rhythm is sinus rhythm. Cardiovascular: Edema is 2+ to left knee and right knee is 3+ to left midcalf, left ankle, left foot, right midcalf, right ankle and right foot pitting to left midcalf, left ankle, left foot, right midcalf, right ankle and right foot. Respiratory: Reports shortness of breath on exertion Airway is patent Respiratory effort is even, unlabored, Respiratory pattern is regular, symmetrical, Denies shortness of breath at rest. Derm: Skin is jaundiced, BLE Wound noted left mid back Wound is covered with 2x2, site appears red and serous drainage. Other: Family reports that there has been no change in the appearance. Musculoskeletal: Range of motion: intact in all extremities. 14:25 Reassessment: Patient appears in no apparent distress at this time. No changes from sv previously documented assessment. Patient and/or family updated on plan of care and expected duration. Pain level reassessed. Patient is alert, oriented x 3, equal unlabored respirations, skin warm/dry/pink. 15:05 Reassessment: Patient appears in no apparent distress at this time. No changes from sv previously documented assessment. Patient and/or family updated on plan of care and expected duration. Pain level reassessed. Patient is alert, oriented x 3, equal unlabored respirations, skin warm/dry/pink. 15:05 Reassessment: Pt requesting ice chips, ok by Wenceslao CRISTINA. sv 15:29 Reassessment: Patient appears in no apparent distress at this time. No changes from sv previously documented assessment. Patient and/or family updated on plan of care and expected duration. Pain level reassessed. Patient is alert, oriented x 3, equal unlabored respirations, skin warm/dry/pink. 16:17 Reassessment: Patient appears in no apparent distress at this time. Patient and/or sv family updated on plan of care and expected duration. Pain level reassessed. Patient is alert, oriented x 3, equal unlabored respirations, skin warm/dry/pink. Pt to be transferred. 16:32 Reassessment: Patient appears in no apparent distress at this time. No changes from sv previously documented assessment. Patient and/or family updated on plan of care and expected duration. Pain level reassessed. Patient is alert, oriented x 3, equal unlabored respirations, skin warm/dry/pink. Informed of BS ok to given orange juice. 17:40 Reassessment: Patient appears in no apparent distress at this time. Patient and/or sv family updated on plan of care and expected duration. Pain level reassessed. Patient is alert, oriented x 3, equal unlabored respirations, skin warm/dry/pink. 18:40 Reassessment: Patient appears in no apparent distress at this time. Patient and/or sv family updated on plan of care and expected duration. Pain level reassessed. Patient is alert, oriented x 3, equal unlabored respirations, skin warm/dry/pink. 18:55 Reassessment: 1st unit of PRBCs started. sv 19:12 Reassessment: Report given to EMS. sv Vital Signs: 12:31 BP 102 / 61; Pulse 93; Resp 19; Temp 98.6; Pulse Ox 100% on R/A; Weight 60.33 kg; aj Height 5 ft. 1 in. (154.94 cm); 13:11 BP 102 / 66; Pulse 91; Resp 16; Pulse Ox 98% ; sv 14:25 BP 115 / 67; Pulse 89; Resp 17; Pulse Ox 100% on R/A; sv 15:03 BP 101 / 59; Pulse 104; Resp 18; Pulse Ox 100% ; sv 16:02 BP 105 / 62; Pulse 102; Resp 16; Pulse Ox 96% ; sv 17:30 BP 108 / 61; Pulse 98; Resp 17; Pulse Ox 99% on R/A; sv 18:50 BP 106 / 69; Pulse 98; Resp 17; Pulse Ox 100% ; sv 12:31 Body Mass Index 25.13 (60.33 kg, 154.94 cm) ED Course: 12:20 Patient arrived in ED. dl4 12:20 None, None is Private Physician. dl4 12:30 Triage completed. aj 12:31 Arm band placed on left wrist. Patient placed in an exam room. aj 12:34 Randee Lewis, RN is Primary Nurse. sv 12:34 Patient has correct armband on for positive identification. Bed in low position. Call sv light in reach. Adult w/ patient. Door closed. Head of bed elevated. 12:35 Wenceslao Mcintosh PA is PHCP. [facility] 12:35 Daniel Morales MD is Attending Physician. [facility] 12:42 Nurse Practitioner and/or Physician Chain Link Fence Installer to see patient. sv 13:00 Initial lab(s) drawn, by me, sent to lab. Inserted saline lock: 22 gauge in right sv wrist, using aseptic technique. ,using aseptic technique. diffusics Blood collected. Flushed right with 5 ml normal saline wrist. 13:12 Patient taken to ultrasound. via wheelchair. sv 13:27 US Extremity Venous W Compression Shlomo In Process Unspecified. EDMS 14:06 EKG done, by sales service technician. reviewed by Wenceslao CRISTINA. sm3 14:[address] vm2 14:56 CT Abd/Pelvis - W/Contrast In Process Unspecified. EDMS 15:01 Patient moved back from CT. sv 15:03 Repeat lab(s) drawn. by ED staff, sent to lab. sv 15:33 XRAY Chest (1 view) In Process Unspecified. EDMS 16:32 transfer approval from receiving facility. sv 19:13 No provider procedures requiring assistance completed. Patient transferred, IV remains sv in place. intact. Administered Medications: 16:25 Drug: Rocephin - (cefTRIAXone) 1 grams Route: IVPB; Infused Over: 30 mins; Site: right sv forearm; 16:28 Follow up: Response: No adverse reaction; IV Status: Completed infusion; IV Intake: 10mlsv 18:36 Drug: Benadryl 12.5 mg Route: IVP; Site: right forearm; sv 19:16 Follow up: Response: No adverse reaction sv 18:39 Drug: Solu-CORTEF 50 mg Route: IVP; Site: right forearm; sv 19:16 Follow up: Response: No adverse reaction sv 18:39 Drug: Tylenol 650 mg Route: PO; sv 19:16 Follow up: Response: No adverse reaction sv 19:07 Drug: fentaNYL (PF) 50 mcg Route: IVP; Site: right forearm; sv 19:15 Follow up: Response: No adverse reaction sv Point of Care Testing: Blood Glucose: 16:31 Blood Glucose: 64 mg/dL; sv 18:43 Blood Glucose: 102 mg/dL; ms Guaiac: 14:17 Stool Guaiac: Positive; Stool Hemoccult Control: Pass; sv 14:17 done by Wenceslao CRISTINA sv Ranges: Intake: 16:28 IV: 10ml; Total: 10ml. sv Outcome: 16:59 ER care complete, transfer ordered by . olivia 18:35 Transferred by ground EMS to [facility], Transfer form completed. sv X-rays sent w/ patient. Note: Report given to Aysha YANG 18:35 Condition: stable 18:35 Instructed on the need for transfer. 19:16 Patient left the ED. sv Signatures: Dispatcher [employer] Randee Jimenez RN RN sv Myers, Amanda, RN RN aj Mickail, Joel, PA PA jmm Solis, Maria ms McGuire, Eliane 2 Windy Kelley3 Gilberto Li dl4 Corrections: (The following items were deleted from the chart) 16:06 12:50 Derm: Skin is jaundiced, BLE sv sv
--- NOTE | 2018-11-27 16:59 | EDPHYS ---
Physician Documentation [facility] Name: Nancy El Age: 53 yrs Sex: Female : 1965 Arrival Date: 11/27/2018 Time: 12:20 Bed 17 Private MD: None, None ED Physician Daniel Morales HPI: 11/27 12:35 This 53 yrs old Female presents to ER via Wheelchair with complaints of Leg jmm Swelling, Low Blood Pressure. 12:35 The patient presents with swelling. The complaints affect the. Onset: The jmm symptoms/episode began/occurred gradually, 4 day(s) ago. This is a 53 year old female with a history of DM that presents to the ED with complaints of lower extremity swelling beginning approx 4 days ago. Patient was recently discharged from [facility] due to pyelonephritis and sepsis. Patient denies fever, vomiting. States she has mild shortness of breath, denies chest pain. . 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 - Social history:: Smoking status: Patient uses tobacco products, smokes one-half pack cigarettes per day. - Ebola Screening: : Patient negative for fever greater than or equal to 101.5 degrees Fahrenheit, and additional compatible Ebola Virus Disease symptoms Patient denies exposure to infectious person Patient denies travel to an Ebola-affected area in the 21 days before illness onset No symptoms or risks identified at this time. ROS: 12:35 Constitutional: Negative for fever, chills, and weight loss, Cardiovascular: Negative jmm for chest pain, palpitations, and edema. 12:35 Respiratory: Positive for shortness of breath. 12:35 MS/extremity: Positive for swelling. 12:35 All other systems are negative. Exam: 12:35 Constitutional: This is a well developed, well nourished patient who is awake, alert, jmm and in no acute distress. Head/Face: atraumatic. Eyes: EOMI, no conjunctival erythema appreciated ENT: Moist Mucus Membranes Neck: Trachea midline, Supple Chest/axilla: Normal chest wall appearance and motion. 12:35 Abdomen/GI: Non distended, soft 12:35 Cardiovascular: Rate: normal, Rhythm: regular, Pulses: no pulse deficits are appreciated. 12:35 Respiratory: the patient does not display signs of respiratory distress, Respirations: normal, Breath sounds: are clear throughout. 12:35 Back: nephrostomy insertion site mildly tender to palpation, no purulent drainage is appreciated, . 12:35 Musculoskeletal/extremity: ROM: intact in all extremities, edema noted bilaterally, non tender to palpation, FROM is appreciated, compartments are soft, NVI. 12:35 Skin: Appearance: Color: normal in color. 12:35 Neuro: Orientation: is normal, Mentation: is normal, Memory: is normal. 12:35 Psych: Behavior/mood is pleasant, cooperative. Vital Signs: 12:31 BP 102 / 61; Pulse 93; Resp 19; Temp 98.6; Pulse Ox 100% on R/A; Weight 60.33 kg; aj Height 5 ft. 1 in. (154.94 cm); 13:11 BP 102 / 66; Pulse 91; Resp 16; Pulse Ox 98% ; sv 14:25 BP 115 / 67; Pulse 89; Resp 17; Pulse Ox 100% on R/A; sv 15:03 BP 101 / 59; Pulse 104; Resp 18; Pulse Ox 100% ; sv 16:02 BP 105 / 62; Pulse 102; Resp 16; Pulse Ox 96% ; sv 17:30 BP 108 / 61; Pulse 98; Resp 17; Pulse Ox 99% on R/A; sv 18:50 BP 106 / 69; Pulse 98; Resp 17; Pulse Ox 100% ; sv 12:31 Body Mass Index 25.13 (60.33 kg, 154.94 cm) aj MDM: 12:35 Patient medically screened. [facility] 16:57 Data reviewed: vital signs, nurses notes. Counseling: I had a detailed discussion with olivia the patient and/or guardian regarding: the historical points, exam findings, and any diagnostic results supporting the discharge/admit diagnosis, lab results, radiology results, the need to transfer to another facility. ED course: I discussed the patient with [facility] Internal Medicine, Dr. Maynard whom accepted admission. . 11/27 12:44 Order name: Basic Metabolic Panel; Complete Time: 13:57 [facility] 11/27 12:44 Order name: CBC with Diff; Complete Time: 13:29 [facility] 11/27 12:44 Order name: LFT's; Complete Time: 13:57 [facility] 11/27 12:44 Order name: Magnesium; Complete Time: 13:57 [facility] 11/27 12:44 Order name: NT PRO-BNP; Complete Time: 13:57 [facility] 11/27 12:44 Order name: PT-INR; Complete Time: 13:35 [facility] 11/27 12:44 Order name: Troponin (emerg Dept Use Only); Complete Time: 13:57 [facility] 11/27 12:53 Order name: Urine Microscopic Only; Complete Time: 13:29 ms 11/27 12:55 Order name: Urine Dipstick--Ancillary (enter results); Complete Time: 13:29 bd 11/27 13:21 Order name: Type And Screen [facility] 11/27 14:17 Order name: Occult Blood--Ancillary; Complete Time: 14:25 sv 11/27 15:01 Order name: Troponin (emerg Dept Use Only); Complete Time: 15:47 sv 11/27 16:00 Order name: Hemoglobin; Complete Time: 16:32 [facility] 11/27 16:32 Order name: Glucose, Ancillary Testing; Complete Time: 16:32 [facility] 11/27 12:44 Order name: XRAY Chest (1 view); Complete Time: 15:34 [facility] 11/27 12:44 Order name: EKG; Complete Time: 12:45 [facility] 11/27 12:44 Order name: Cardiac monitoring; Complete Time: 12:55 [facility] 11/27 12:44 Order name: EKG - Nurse/Tech; Complete Time: 12:55 [facility] 11/27 12:44 Order name: IV Saline Lock; Complete Time: 12:55 [facility] 11/27 12:45 Order name: US Extremity Venous W Compression Shlomo; Complete Time: 13:57 [facility] 11/27 14:25 Order name: CT Abd/Pelvis - W/Contrast; Complete Time: 15:23 [facility] 11/27 16:49 Order name: Bb Add On bd 11/27 16:57 Order name: ABO rpt [facility] 11/27 16:57 Order name: Packed RBCs (Additional Unit) [facility] 11/27 12:44 Order name: Labs collected and sent; Complete Time: 12:55 [facility] 11/27 12:44 Order name: O2 Per Protocol; Complete Time: 12:55 [facility] 11/27 12:44 Order name: O2 Sat Monitoring; Complete Time: 12:55 [facility] 11/27 12:45 Order name: Urine Dipstick-Ancillary (obtain specimen); Complete Time: 12:54 [facility] 11/27 14:03 Order name: Hemacult; Complete Time: 14:18 jmm Administered Medications: 16:25 Drug: Rocephin - (cefTRIAXone) 1 grams Route: IVPB; Infused Over: 30 mins; Site: right sv forearm; 16:28 Follow up: Response: No adverse reaction; IV Status: Completed infusion; IV Intake: 10mlsv 18:36 Drug: Benadryl 12.5 mg Route: IVP; Site: right forearm; sv 19:16 Follow up: Response: No adverse reaction sv 18:39 Drug: Solu-CORTEF 50 mg Route: IVP; Site: right forearm; sv 19:16 Follow up: Response: No adverse reaction sv 18:39 Drug: Tylenol 650 mg Route: PO; sv 19:16 Follow up: Response: No adverse reaction sv 19:07 Drug: fentaNYL (PF) 50 mcg Route: IVP; Site: right forearm; sv 19:15 Follow up: Response: No adverse reaction sv Point of Care Testing: Blood Glucose: 16:31 Blood Glucose: 64 mg/dL; sv 18:43 Blood Glucose: 102 mg/dL; ms Guaiac: 14:17 Stool Guaiac: Positive; Stool Hemoccult Control: Pass; sv 14:17 done by Wenceslao CRISTINA sv Ranges: Critical Glucose Levels:Adult <50 mg/dl or >400 mg/dl <40 mg/dl or >180 mg/dl Disposition: 11/28 07:01 Co-signature as Attending Physician, Daniel Morales MD. rn Disposition: 11/27/18 16:59 Transfer ordered to [facility]. Diagnosis are Anemia, Elevated Troponin, Pyelonephritis with Abscess. - Reason for transfer: Higher level of care. - Accepting physician is [facility] Medicine, Dr. Maynard. - Condition is Stable. - Problem is an acute exacerbation. - Symptoms are unchanged. Signatures: Dispatcher [employer] EDRandee Bradford RN RN Jackie Regan RN RN Wenceslao Morin PA PA [facility] Daniel Morales MD MD rn Calderon, Audri, RN RN aa5 Corrections: (The following items were deleted from the chart) 11/27 18:08 16:57 ED course: I discussed the patient with [facility] Medicine whom accepted [facility] admission. . [facility] 18: 16:59 11/27/2018 16:59 Transfer ordered to [facility]. Diagnosis is [facility] Anemia; Elevated Troponin; Pyelonephritis with Abscess. Reason for transfer: Higher level of care. Accepting physician is [facility] Medicine. Condition is Stable. Problem is an acute exacerbation. Symptoms are unchanged. [facility] 19:16 18:09 11/27/2018 16:59 Transfer ordered to [facility]. Diagnosis is Anemia; Elevated Troponin; Pyelonephritis with Abscess. Reason for transfer: Higher level of care. Accepting physician is [facility] Medicine, Dr. Maynard. Condition is Stable. Problem is an acute exacerbation. Symptoms are unchanged. [facility]
[2018-11-27] MEDS ORDERED: HYDROCORTISONE SUC 100 MG INJ ONE (17:59)
[2018-11-27] MEDS ORDERED: ACETAMINOPHEN 325 MG TABLET ONE (17:59)
[2018-11-27] MEDS ORDERED: DIPHENHYDRAMINE 50 MG/ML VIAL ONE (18:00)
[2018-11-27] MEDS ORDERED: NA CHLORIDE 0.9% 250 ML ONE (18:06)
[2018-11-27] MEDS ORDERED: FENTANYL CITR 100 MCG/2 ML ONE (19:15)
--- NOTE | 2018-11-28 07:00 | EKG ---
Test Date: 2018-10-27 Test Time: 13:58:44 Vest Baster: ROSY MEASUREMENT RESULTS: Intervals: Rate: 90 [place]: 162 QRSD: 92 QT: 364 QTc: 445 [place]: P: 47 [place]: 162 QRS: 61 T: 114 INTERPRETIVE STATEMENTS: Normal sinus rhythm Possible Anterior infarct, age undetermined Abnormal ECG No previous ECG available for comparison Electronically Signed On 11-28-18 06:53:48 ICE PLANT OPERATOR by Angel Schilling
== END 2018-11-27 19:16 | disposition short-term general hospital (02) ==
LOC: ER 12:19
DX: D64.9 Anemia, unspecified (principal); R79.89 Other specified abnormal findings of blood chemistry; N12 Tubulo-interstitial nephritis, not specified as acute or chronic; E11.9 Type 2 diabetes mellitus without complications; F17.210 Nicotine dependence, cigarettes, uncomplicated
CPT/HCPCS: 36415; 71045; 74177; 80048; 80076; 81003; 81015; 82272; 82962; 83735; 83880; 84484; 85018; 85025; 85610; 86850; 86900; 86901; 93005; 93970; 96374; 96375; 99285; J0696; J1720; J3010; P9016; Q9967

== ENCOUNTER 2019-12-29 19:27 | Emergency (ER) | payer OTHER, SELFPAY ==
--- OUTSIDE RECORDS SUMMARY | 2019-12-29 19:36 | XMS REPORT | Summary of Care ---
:1965 Author Organization [facility] Address [address] [place] [address] Care Team Providers Name Role Phone Pcp, Patient Does Not Have A Primary Care Provider Reason for Visit Reason Comments LAB WORK Auth/Cert Status Reason Specialty Diagnoses / Referred By Referred To Procedures Contact Contact Clinical Medical Diagnoses Hyperkalemia [facility] Lab Laboratory Procedures BASIC METABOLIC PANEL (NA, K, CL, CO2, GLUCOSE, BUN, CREATININE, CA) [address] [place] [address] Encounter Details Date Type Department Care Team Description 12/16/2019 Registered Dietitian Visit [facility] Muriel Garcia MD [address] [place] [address] Hyperpotassemia Phlebotomy 1, [facility] Lab (Primary Dx) Lab-[place] [address] [place] [address] Allergies No Known Allergiesdocumented as of this encounter (statuses as of 12/16/2019) Medications Medication Sig Dispensed Refills Start Date End Date Status ibuprofen (ADVIL) 200 mg Take 2 Tabs by 0 Active tabletIndications: Type mouth every 6 II or unspecified type (six) hours as diabetes mellitus needed for Pain. without mention of complication, uncontrolled Iron 18 mg Take 1 Tab by 0 Active TabIndications: Type II mouth daily. or unspecified type diabetes mellitus without mention of complication, uncontrolled blood sugar diagnostic before meals and 200 3 06/29/2010 Active (ONE TOUCH ULTRA TEST) at bedtime. stripIndications: Type II or unspecified type diabetes mellitus without mention of complication, uncontrolled Lancets (ONE TOUCH before meals and 200 3 06/29/2010 Active SURESOFT LANCING DEV) at bedtime. MiscIndications: Type II or unspecified type diabetes mellitus without mention of complication, uncontrolled Blood-Glucose Meter (ONE before meals and 1 0 06/29/2010 Active TOUCH ULTRA 2) at bedtime. KitIndications: Type II Check blood or unspecified type sugars before diabetes mellitus meals and at without mention of bedtime complication, uncontrolled varenicline (CHANTIX) 1 Take 1 Tab by 60 Tab 2 12/17/2010 Active mg tabletIndications: mouth 2 (two) Personal history of times daily. tobacco use, presenting hazards to health pravastatin (PRAVACHOL) Take 1 Tab by 90 Tab 3 04/15/2011 Active 40 mg tabletIndications: mouth at Mixed hyperlipidemia bedtime. metformin (GLUCOPHAGE) Take 1 Tab by 60 Tab 1 09/20/2011 Active 1,000 mg mouth 2 (two) tabletIndications: Type times daily. II or unspecified type diabetes mellitus without mention of complication, uncontrolled glipiZIDE (GLUCOTROL) 5 Take by mouth 30 Tab 1 09/20/2011 Active mg tabletIndications: daily. Take half Type II or unspecified a tab twice a type diabetes mellitus day. 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, CL, CO2, GLUCOSE, BUN, CREATININE, CA) Name Type Priority Associated Diagnoses Order Schedule BASIC METABOLIC PANEL (NA, LAB Routine Hyperpotassemia Expected: 12/16/2019 , K, CL, CO2, GLUCOSE, BUN, Expires: 12/16/2020 CREATININE, CA) Health Maintenance Due Date Last Done Comments PNEUMOCOCCAL 0-64 YEARS COMBINED 1969 SERIES (1 of 1 - PPSV23) EYE EXAM 1973 DTaP,Tdap,and Td Vaccines (1 - 1974 Tdap) FOOT EXAM 1981 HgA1C 08/20/2011 02/18/2011, 12/10/2010, 10/08/2010, Additional history exists LDL-C 04/08/2012 04/08/2011, 12/10/2010, 06/03/2010 URINE MICROALBUMIN 04/08/2012 04/08/2011 Breast Cancer Screening 05/25/2012 05/25/2011 (MAMMOGRAM) COLONOSCOPY 2013 Zoster Recombinant Vaccine 2013 (SHINGRIX) (1 of 2) PAP SMEAR 12/16/2013 12/16/2010, 01/08/2010 INFLUENZA VACCINE (#1) 2019 CREATININE (SERUM) 12/12/2020 12/12/2019, 12/03/2019, 09/02/2019, Additional history exists HEPATITIS C (HCV) SCREEN Completed 06/03/2010 documented as of this encounter Results Not on filedocumented in this encounter Visit Diagnoses Diagnosis Hyperpotassemia - Primary documented in this encounter Insurance Payer Benefit Plan / Subscriber ID Effective Phone Address Type Group Dates [facility] [id number] 2019-e [phone] [facility] [facility] Infectious HEALTH CHOICE nt [phone] [id number] [id number] [phone] (Work) documented as of this encounter
--- OUTSIDE RECORDS SUMMARY | 2019-12-29 19:36 | XMS REPORT | Summary of Care ---
:1965 Author Organization [facility] Address [address] [place] [address] Care Team Providers Name Role Phone Pcp, Patient Does Not Have A Primary Care Provider Reason for Visit Reason Comments LAB WORK Auth/Cert Status Reason Specialty Diagnoses / Procedures Referred By Contact Referred To Contact Phlebotomy Diagnoses I10 N17.9 Ad[facility] Pob Lab Draw Procedures CMP CBC MAG PHOS UA W/MICRO URINE PROTEIN URINE CREATINE Professional Office Building [address] , [address] [place] [address] Encounter Details Date Type Department Care Team Description 12/03/2019 Hospice/Home Health Aide Visit [facility] Muriel Garcia MD [address] [place] [address] Acute renal failure, Professional Office Pob, Adc Lab Main unspecified acute Building Phlebotomy renal failure type Lab (Primary Dx) Professional Office Building [address] , [address] [place] [address] Allergies No Known Allergiesdocumented as of this encounter (statuses as of 12/03/2019) Medications Medication Sig Dispensed Refills Start Date [...] as of this encounter (statuses as of 12/03/2019) Active Problems Problem Noted Date Diabetes mellitus type 2, uncontrolled, without complications 06/29/2010 Overview: ICD10 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 CBC WITH DIFF LAB Routine Acute renal failure, 12/03/2019 3:51 PM unspecified acute renal WEAPONS ELECTRICAL ENGINEERING OFFICER failure type MAGNESIUM LAB Routine Acute renal failure, 12/03/2019 3:51 PM unspecified acute renal WEAPONS ELECTRICAL ENGINEERING OFFICER failure type PHOSPHORUS LAB Routine Acute renal failure, 12/03/2019 3:51 PM unspecified acute renal WEAPONS ELECTRICAL ENGINEERING OFFICER failure type CBC WITH DIFFERENTIAL LAB Routine Acute renal failure, 12/03/2019 3:51 PM unspecified acute renal WEAPONS 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 METABOLIC PANEL LAB Routine Acute renal failure, Expected: 12/03/2019 , ([id number]) unspecified acute renal Expires: 12/03/2020 failure type CBC WITH DIFF LAB Routine Acute renal failure, Expected: 12/03/2019, unspecified acute renal Expires: 12/03/2020 failure type MAGNESIUM LAB Routine Acute renal failure, Expected: 12/03/2019, unspecified acute renal Expires: 12/03/2020 failure type PHOSPHORUS LAB Routine Acute renal failure, Expected: 12/03/2019, unspecified acute renal Expires: 12/03/2020 failure type URINALYSIS LAB Routine Acute renal failure, Expected: 12/03/2019, unspecified acute renal Expires: 12/03/2020 failure type URINE CULTURE LAB Routine Acute renal failure, Expected: 12/03/2019, unspecified acute renal Expires: 12/03/2020 failure type PROTEIN CREAT RATIO LAB Routine Acute renal failure, Expected: 12/03/2019, URINE RANDOM unspecified acute renal Expires: 12/03/2020 failure type Health Maintenance Due Date Last Done Comments DTaP,Tdap,and Td Vaccines (1 1974 - Tdap) Breast Cancer Screening 05/25/2012 05/25/2011 (MAMMOGRAM) COLONOSCOPY 2013 Zoster Recombinant Vaccine 2013 (SHINGRIX) (1 of 2) PAP SMEAR 12/16/2013 12/16/2010, 01/08/2010 INFLUENZA VACCINE (#1) 2019 HEPATITIS C (HCV) SCREEN Completed 06/03/2010 PNEUMOCOCCAL 0-64 YEARS Aged Out No longer eligible based COMBINED SERIES on patient's age to complete this topic documented as of this encounter Results Not on filedocumented in this encounter Visit Diagnoses Diagnosis Acute renal failure, unspecified acute renal failure type - Primary documented in this encounter Insurance Payer Benefit Plan / Subscriber ID Effective Phone Address Type Group Dates [facility] [id number] 2019-Cristopher [phone]MO [address] nt [phone] [place] [address] [phone] (Work) documented as of this encounter
--- OUTSIDE RECORDS SUMMARY | 2019-12-29 19:36 | XMS REPORT | Summary of Care ---
:1965 Author Organization [facility] Address [address] [place] [address] Care Team Providers Name Role Phone Pcp, Patient Does Not Have A Primary Care Provider Reason for Visit Reason Comments LAB WORK Auth/Cert Status Reason Specialty Diagnoses / Procedures Referred By Contact Referred To Contact Phlebotomy Diagnoses E87.5 [facility] Pob Lab Draw Procedures BASIC METABOLIC PANEL (NA, K, CL, CO2, GLUCOSE, BUN, CREATININE, CA) Professional Office Building [address] , [address] [place] [address] Encounter Details Date Type Department Care Team Description 12/12/2019 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 [facility] Muriel Garcia MD [address] [place] [address] Hyperpotassemia Professional Office Pob, [facility] Lab Main (Primary Dx) Building Phlebotomy Lab Professional Office Building [address] , [address] [place] [address] Allergies No Known Allergiesdocumented as of this encounter (statuses as of 12/12/2019) Medications Medication Sig Dispensed Refills Start Date [...] as of this encounter (statuses as of 12/12/2019) Active Problems Problem Noted Date Diabetes mellitus type 2, uncontrolled, without complications 06/29/2010 Overview: ICD10 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 of 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 encounter (statuses as of 12/12/2019) Social History Tobacco Use Types Packs/Day Years [...] Treatment Name Type Priority Associated Diagnoses Date/Time BASIC METABOLIC PANEL (NA, LAB Routine Hyperpotassemia 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 [place] [address] [phone] (Work) documented as of this encounter
--- OUTSIDE RECORDS SUMMARY | 2019-12-29 19:36 | XMS REPORT ---
:1965 Author Organization [employer] Care Team Providers Name Role Phone Chrissie Rodriguez Provider Role Unavailable Allergies, Adverse Reactions, Alerts Substance Reaction Event Type N.K.D.A. Info Not Available Non Drug Allergy Problems Problem Type Condition Code Onset Dates Condition Status Assessment Establishing care with new doctor, Z76.89 Active encounter for Assessment Hydronephrosis, unspecified N13.30 Active hydronephrosis type Assessment Emphysematous pyelonephritis N12 Active Medications Medication Code Code Instructions Start End Status Dosage System Date Date Clopidogrel [facility] 71813529056 75 MG Orally Active 1 tablet Bisulfate Once a day Nitroglycerin [facility] 53029093742 0.4 MG Active as Sublingual directed Nicotine [facility] 35561494393 7 MG/24HR Active 1 patch to Transdermal skin Once a day Atorvastatin [facility] 33484311377 40 MG Orally Active 1 tablet Calcium Once a day Folic Acid [facility] 31685288131 1 MG Orally Active 1 tablet Once a day Lisinopril [facility] 44878224019 2.5 MG Orally Active 1 tablet Once a day Metoprolol [facility] [address]-90 25 MG Orally Active 1 capsule Succinate Once a day Furosemide [facility] 58469427053 20 MG Orally Active 1 tablet Once a day Ferrous Sulfate [facility] 82771214427 325 (65 Fe) MG Active 1 tablet Orally Once a day Results Name Result Date Reference Range Unit Abnormality Flag URINALYSIS AUTO W/O SCOPE (69520) ----NIT neg 20181220 ----URO 0.2 20181220 ----PROTEIN 2+ 20181220 ----pH 6.5 20181220 ----BLO 3+ 20181220 ----GLUCOSE neg 20181220 ----CARA 3+ 20181220 ----BILIRUBIN neg 20181220 ----KETONES neg 20181220 ----SPECIFIC GRAVITY 1.020 20181220 PVR ----PVR 0 20181220 Summary Purpose [employer] Submission
--- OUTSIDE RECORDS SUMMARY | 2019-12-29 19:36 | XMS REPORT ---
:1965 [facility] Address [address] [place] [address] [address] [place] [address] Care Team Providers Name Role Phone DILLAN SHEIKH Unavailable Unavailable ALYSSALIZA Travis Unavailable Unavailable Problems This patient has no known problems. Allergies, Adverse Reactions, Alerts This patient has no known allergies or adverse reactions. Medications This patient has no known medications. Results Test Description Test Time Test Comments Text Results Atomic Results Result Comments AFB CULTURE + SMEAR 2019-01-07 14:23:00 Test Item Value Reference Range Comments CULTURE (BEAKER) (test pntc=8793) No acid-fast bacilli isolated in 42 days AFB SMEAR (BEAKER) (test wgam=444) No acid fast bacilli seen POCT-GLUCOSE [id number] 22:13:00 Test Item Value Reference Range Comments POC-GLUCOSE METER (BEAKER) 209 mg/dL 70-[address] [facility] [address] [facility] (test qpew=8143) [facility] [address] POCT-GLUCOSE [id number] 17:10:00 Test Item Value Reference Range Comments POC-GLUCOSE METER (BEAKER) 201 mg/dL 70-[address] [facility] [address] [facility] (test qcdh=1458) 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 - PLEASE REFER TO THE INTRAOPERATIVE REPORT. POCT-GLUCOSE [id number] 13:11:00 Test Item Value Reference Range Comments POC-GLUCOSE METER (BEAKER) 208 mg/dL 70-[address] [facility] [address] [facility] (test dund=0694) [facility] [address] POCT-GLUCOSE [id number] 08:40:00 Test Item Value Reference Range Comments POC-GLUCOSE METER (BEAKER) 130 mg/dL 70-110 TESTED AT [place] [id number] [facility] (test davg=1570) [facility] [address] [id number] 04:15:00 Test Item Value Reference Range Comments PHOSPHORUS (BEAKER) (test ppuj=132) 4.3 mg/dL 2.3-4.7 [id number] 04:15:00 Test Item Value Reference Range Comments MAGNESIUM (BEAKER) (test qpof=459) 2.0 mg/dL 1.6-2.6 BASIC METABOLIC [id number] 04:15:00 Test Item Value Reference Range Comments SODIUM (BEAKER) (test 136 meq/L 136-145 pgqj=206) POTASSIUM (BEAKER) (test 4.7 meq/L 3.5-5.1 lisn=265) CHLORIDE (BEAKER) (test 106 meq/L 98-107 jehw=556) CO2 (BEAKER) (test 22 meq/L 22-29 wsbp=361) BLOOD UREA NITROGEN 21 mg/dL 7-21 (BEAKER) (test uijp=302) CREATININE (BEAKER) (test 1.21 mg/dL 0.57-1.25 gfgn=210) GLUCOSE RANDOM (BEAKER) 92 mg/dL 70-105 (test nrei=875) CALCIUM (BEAKER) (test 8.6 mg/dL 8.4-10.2 jirl=825) EGFR (BEAKER) (test 46 mL/min/1.73 sq m ESTIMATED GFR IS NOT ifgw=4049) ACCURATE CREATININE CLEARANCE IN PREDICTING GLOMERULAR FILTRATION RATE. ESTIMATED GFR IS NOT APPLICABLE FOR DIALYSIS PATIENTS. CBC W/PLT COUNT & AUTO [id number] 04:01:00 Test Item Value Reference Range Comments WHITE BLOOD CELL COUNT (BEAKER) (test gbpj=785) 9.4 K/ L 3.5-10.5 RED BLOOD CELL COUNT (BEAKER) (test vnrk=128) 3.46 M/ L 3.93-5.22 HEMOGLOBIN (BEAKER) (test eqyf=265) 9.2 GM/DL 11.2-15.7 HEMATOCRIT (BEAKER) (test fbbt=186) 30.4 % 34.1-44.9 MEAN CORPUSCULAR VOLUME (BEAKER) (test fhjx=991) 87.9 fL 79.4-94.8 MEAN CORPUSCULAR HEMOGLOBIN (BEAKER) (test 26.6 pg 25.6-32.2 leou=375) MEAN CORPUSCULAR HEMOGLOBIN CONC (BEAKER) (test 30.3 GM/DL 32.2-35.5 qqsa=852) RED CELL DISTRIBUTION WIDTH (BEAKER) (test 16.4 % 11.7-14.4 hmfc=949) PLATELET COUNT (BEAKER) (test bmvh=467) 334 K/CU MM 150-450 MEAN PLATELET VOLUME (BEAKER) (test ayzu=219) 9.0 fL 9.4-12.3 NUCLEATED RED BLOOD CELLS (BEAKER) (test 0 /100 WBC 0-0 ygtr=834) NEUTROPHILS RELATIVE PERCENT (BEAKER) (test 76 % sybs=356) LYMPHOCYTES RELATIVE PERCENT (BEAKER) (test 13 % dlmv=564) MONOCYTES RELATIVE PERCENT (BEAKER) (test 9 % gpjm=986) EOSINOPHILS RELATIVE PERCENT (BEAKER) (test 1 % njru=268) BASOPHILS RELATIVE PERCENT (BEAKER) (test 1 % xeny=662) NEUTROPHILS ABSOLUTE COUNT (BEAKER) (test 7.07 K/ L 1.56-6.13 ejhx=275) LYMPHOCYTES ABSOLUTE COUNT (BEAKER) (test 1.25 K/ L 1.18-3.74 kwfu=916) MONOCYTES ABSOLUTE COUNT (BEAKER) (test 0.83 K/ L 0.24-0.36 vxqj=366) EOSINOPHILS ABSOLUTE COUNT (BEAKER) (test 0.05 K/ L 0.04-0.36 dbar=239) BASOPHILS ABSOLUTE COUNT (BEAKER) (test 0.05 K/ L 0.01-0.08 yfpd=610) IMMATURE GRANULOCYTES-RELATIVE PERCENT (BEAKER) 1 % 0-1 (test foqm=7121) POCT-GLUCOSE [id number] 23:35:00 Test Item Value Reference Range Comments POC-GLUCOSE METER (BEAKER) 188 mg/dL 70-110 TESTED AT [address] (test zcri=7663) [facility] [address] POCT-GLUCOSE [id number] 18:16:00 Test Item Value Reference Range Comments POC-GLUCOSE METER (BEAKER) 104 mg/dL 70-110 TESTED AT [address] (test hnja=7021) [place] [id number] 13:20:00 Test Item Value Reference Range Comments ACTIVATED CLOTTING TIME 351 sec TESTED AT [place] [address] [facility] (test xgva=352) [place] [id number] POCT-GLUCOSE [id number] 07:46:00 Test Item Value Reference Range Comments POC-GLUCOSE METER (BEAKER) 111 mg/dL 70-110 TESTED AT [address] (test pelz=0485) [place] [id number] [id number] 07:12:00 Test Item Value Reference Range Comments PHOSPHORUS (BEAKER) (test twsn=993) 3.9 mg/dL 2.3-4.7 [id number] 07:12:00 Test Item Value Reference Range Comments MAGNESIUM (BEAKER) (test swpc=677) 1.6 mg/dL 1.6-2.6 BASIC METABOLIC [id number] 07:12:00 Test Item Value Reference Range Comments SODIUM (BEAKER) (test 135 meq/L 136-145 tvpg=506) POTASSIUM (BEAKER) (test 4.8 meq/L 3.5-5.1 ziew=622) CHLORIDE (BEAKER) (test 103 meq/L 98-107 udrs=410) CO2 (BEAKER) (test 24 meq/L 22-29 kqqm=645) BLOOD UREA NITROGEN 21 mg/dL 7-21 (BEAKER) (test vlgs=614) CREATININE (BEAKER) (test 1.31 mg/dL 0.57-1.25 tjpn=636) GLUCOSE RANDOM (BEAKER) 97 mg/dL 70-105 (test cxhe=371) CALCIUM (BEAKER) (test 8.6 mg/dL 8.4-10.2 srvr=989) EGFR (BEAKER) (test 42 mL/min/1.73 sq m ESTIMATED GFR IS NOT ygua=6971) ACCURATE CREATININE CLEARANCE IN PREDICTING GLOMERULAR FILTRATION RATE. ESTIMATED GFR IS NOT APPLICABLE FOR DIALYSIS PATIENTS. POCT-GLUCOSE [id number] 21:10:00 Test Item Value Reference Range Comments POC-GLUCOSE METER (BEAKER) 153 mg/dL 70-110 TESTED AT [address] (test uxpf=4249) [facility] [address] RAD, CHEST, 1 VIEW, NON [id number] 18:25:00Reason for exam:->PICC PlacementShould this be performed at the bedside?->YesReason for exam:-> PICC PlacementShould this be performed at the bedside?->YesFINAL REPORT TECHNIQUE: Frontal view of the chest. INDICATION: 53-year -old woman after PICC placement. COMPARISON: Chest radiograph 11/29/2018. FINDINGS: LINES/TUBES: The tip of aleft upper extremity PICC projects over the expected region of the cavoatrial junction. LUNGS: Central pulmonary venous congestion. PLEURA: Small bilateral pleural effusions. No pneumothorax. HEART ANDMEDIASTINUM: The cardiomediastinal silhouette is unchanged. SOFT TISSUES AND BONES: Unremarkable. IMPRESSION:Lines/tubes as above. Central pulmonary venous congestion. Signed: Damon Silvestre MDReportVerified Date/Time: 12/09/2018 18: 25:05 Reading Location: [address] Ortho Consult Reading Room POCT-GLUCOSE [id number] 18:06:00 Test Item Value Reference Range Comments POC-GLUCOSE METER (BEAKER) 138 mg/dL 70-110 TESTED AT [address] (test jmdr=9796) [facility] [address] BASIC METABOLIC [id number] 13:16:00 Test Item Value Reference Range Comments SODIUM (BEAKER) (test 135 meq/L 136-145 esat=340) POTASSIUM (BEAKER) (test 5.3 meq/L 3.5-5.1 cbvj=048) CHLORIDE (BEAKER) (test 104 meq/L 98-107 ggmj=142) CO2 (BEAKER) (test 23 meq/L 22-29 bpij=192) BLOOD UREA NITROGEN 21 mg/dL 7-21 (BEAKER) (test wpgz=566) CREATININE (BEAKER) (test 1.37 mg/dL 0.57-1.25 ygkx=224) GLUCOSE RANDOM (BEAKER) 148 mg/dL 70-105 (test wggb=393) CALCIUM (BEAKER) (test 8.9 mg/dL 8.4-10.2 eglg=599) EGFR (BEAKER) (test 40 mL/min/1.73 sq m ESTIMATED GFR IS NOT smwk=1129) ACCURATE CREATININE CLEARANCE IN PREDICTING GLOMERULAR FILTRATION RATE. ESTIMATED GFR IS NOT APPLICABLE FOR DIALYSIS PATIENTS. CBC W/PLT COUNT & AUTO [id number] 12:49:00 Test Item Value Reference Range Comments WHITE BLOOD CELL COUNT (BEAKER) (test khfn=776) 9.0 K/ L 3.5-10.5 RED BLOOD CELL COUNT (BEAKER) (test mirf=165) 3.56 M/ L 3.93-5.22 HEMOGLOBIN (BEAKER) (test iwtb=315) 9.6 GM/DL 11.2-15.7 HEMATOCRIT (BEAKER) (test oxln=469) 30.8 % 34.1-44.9 MEAN CORPUSCULAR VOLUME (BEAKER) (test qbuw=670) 86.5 fL 79.4-94.8 MEAN CORPUSCULAR HEMOGLOBIN (BEAKER) (test 27.0 pg 25.6-32.2 rojf=884) MEAN CORPUSCULAR HEMOGLOBIN CONC (BEAKER) (test 31.2 GM/DL 32.2-35.5 ngad=686) RED CELL DISTRIBUTION WIDTH (BEAKER) (test 16.3 % 11.7-14.4 nmtv=322) PLATELET COUNT (BEAKER) (test qovk=914) 324 K/CU MM 150-450 MEAN PLATELET VOLUME (BEAKER) (test qgal=972) 9.0 fL 9.4-12.3 NUCLEATED RED BLOOD CELLS (BEAKER) (test 0 /100 WBC 0-0 ailv=687) NEUTROPHILS RELATIVE PERCENT (BEAKER) (test 76 % tlwo=426) LYMPHOCYTES RELATIVE PERCENT (BEAKER) (test 14 % polg=711) MONOCYTES RELATIVE PERCENT (BEAKER) (test 8 % afsy=208) EOSINOPHILS RELATIVE PERCENT (BEAKER) (test 0 % fosa=719) BASOPHILS RELATIVE PERCENT (BEAKER) (test 0 % nksq=499) NEUTROPHILS ABSOLUTE COUNT (BEAKER) (test 6.83 K/ L 1.56-6.13 qfpa=975) LYMPHOCYTES ABSOLUTE COUNT (BEAKER) (test 1.30 K/ L 1.18-3.74 oyly=794) MONOCYTES ABSOLUTE COUNT (BEAKER) (test 0.74 K/ L 0.24-0.36 okwp=670) EOSINOPHILS ABSOLUTE COUNT (BEAKER) (test 0.04 K/ L 0.04-0.36 hfsu=483) BASOPHILS ABSOLUTE COUNT (BEAKER) (test 0.04 K/ L 0.01-0.08 zdpa=448) IMMATURE GRANULOCYTES-RELATIVE PERCENT (BEAKER) 1 % 0-1 (test bosr=2120) POCT-GLUCOSE [id number] 12:40:00 Test Item Value Reference Range Comments POC-GLUCOSE METER (BEAKER) 133 mg/dL 70-110 TESTED AT [address] (test cthg=1791) [place] [address] POCT-GLUCOSE [id number] 07:44:00 Test Item Value Reference Range Comments POC-GLUCOSE METER (BEAKER) 100 mg/dL 70-110 TESTED AT [address] (test kqzc=5910) [place] [address] [id number] 07:20:00 Test Item Value Reference Range Comments PHOSPHORUS (BEAKER) (test iqym=773) 3.8 mg/dL 2.3-4.7 [id number] 07:20:00 Test Item Value Reference Range Comments MAGNESIUM (BEAKER) (test jrbo=007) 1.9 mg/dL 1.6-2.6 BASIC METABOLIC [id number] 07:20:00 Test Item Value Reference Range Comments SODIUM (BEAKER) (test 135 meq/L 136-145 bpyx=588) POTASSIUM (BEAKER) (test 5.1 meq/L 3.5-5.1 pnkl=146) CHLORIDE (BEAKER) (test 103 meq/L 98-107 sdxs=104) CO2 (BEAKER) (test 25 meq/L 22-29 dptz=229) BLOOD UREA NITROGEN 21 mg/dL 7-21 (BEAKER) (test qpfy=213) CREATININE (BEAKER) (test 1.33 mg/dL 0.57-1.25 iuzk=851) GLUCOSE RANDOM (BEAKER) 101 mg/dL 70-105 (test buap=786) CALCIUM (BEAKER) (test 9.1 mg/dL 8.4-10.2 ihgy=078) EGFR (BEAKER) (test 41 mL/min/1.73 sq m ESTIMATED GFR IS NOT jeob=4313) ACCURATE CREATININE CLEARANCE IN PREDICTING GLOMERULAR FILTRATION RATE. ESTIMATED GFR IS NOT APPLICABLE FOR DIALYSIS PATIENTS. POCT-GLUCOSE [id number] 21:10:00 Test Item Value Reference Range Comments POC-GLUCOSE METER (BEAKER) 149 mg/dL 70-110 TESTED AT [address] (test zqna=7955) [place] [id number] POCT-GLUCOSE [id number] 17:17:00 Test Item Value Reference Range Comments POC-GLUCOSE METER (BEAKER) 139 mg/dL 70-110 TESTED AT [address] (test mhch=8969) [place] [id number] POCT-GLUCOSE [id number] 11:31:00 Test Item Value Reference Range Comments POC-GLUCOSE METER (BEAKER) 135 mg/dL 70-110 TESTED AT [address] (test hrfy=7277) [place] [id number] POCT-GLUCOSE [id number] 07:50:00 Test Item Value Reference Range Comments POC-GLUCOSE METER (BEAKER) 133 mg/dL 70-110 TESTED AT [address] (test ghxz=8519) [place] [id number] BASIC METABOLIC [id number] 07:16:00 Test Item Value Reference Range Comments SODIUM (BEAKER) (test 132 meq/L 136-145 agxo=918) POTASSIUM (BEAKER) (test 5.1 meq/L 3.5-5.1 yaxo=618) CHLORIDE (BEAKER) (test 101 meq/L 98-107 zzym=832) CO2 (BEAKER) (test 25 meq/L 22-29 oyem=351) BLOOD UREA NITROGEN 21 mg/dL 7-21 (BEAKER) (test kzqz=481) CREATININE (BEAKER) (test 1.32 mg/dL 0.57-1.25 ante=825) GLUCOSE RANDOM (BEAKER) 126 mg/dL 70-105 (test dlhl=866) CALCIUM (BEAKER) (test 8.8 mg/dL 8.4-10.2 etnt=323) EGFR (BEAKER) (test 42 mL/min/1.73 sq m ESTIMATED GFR IS NOT oimf=2106) ACCURATE CREATININE CLEARANCE IN PREDICTING GLOMERULAR FILTRATION RATE. ESTIMATED GFR IS NOT APPLICABLE FOR DIALYSIS PATIENTS. [id number] 07:12:00 Test Item Value Reference Range Comments PHOSPHORUS (BEAKER) (test nonp=469) 3.7 mg/dL 2.3-4.7 [id number] 07:12:00 Test Item Value Reference Range Comments MAGNESIUM (BEAKER) (test tbfi=333) 1.9 mg/dL 1.6-2.6 [id number] 19:21:00 Test Item Value Reference Range Comments PROTIME (BEAKER) (test aakm=216) 15.0 seconds 11.7-14.7 INR (BEAKER) (test rbml=487) 1.2 <=5.9 PARTIAL THROMBOPLASTIN TIME (BEAKER) (test 27.5 seconds 22.5-36.0 chpu=492) RECOMMENDED COUMADIN/WARFARIN INR THERAPY RANGESSTANDARD DOSE: 2.0 - 3.0 Includes: PROPHYLAXIS forvenous thrombosis, systemic embolization; TREATMENT for venous thrombosis and/or pulmonary embolus.HIGH RISK: Target INR is 2.5-3.5 for patients with mechanical heart valves.POCT-GLUCOSE [id number] 17:34:00 Test Item Value Reference Range Comments POC-GLUCOSE METER (BEAKER) 86 mg/dL 70-110 TESTED AT [address] (test nsty=7032) [place] [address] POCT-GLUCOSE [id number] 15:09:00 Test Item Value Reference Range Comments POC-GLUCOSE METER (BEAKER) 103 mg/dL 70-110 TESTED AT [place] [id number] [facility] (test fprr=6753) [place] [id number] POCT-GLUCOSE [id number] 11:56:00 Test Item Value Reference Range Comments POC-GLUCOSE METER (BEAKER) 103 mg/dL 70-110 TESTED AT [address] (test gpmh=7546) [place] [address] U/S, ABDOMINAL, [id number] 10:59:00Abdomen limited area? Add comment if clarification is needed.->RenalReason for exam:->left perirenalShould this be performed at the bedside?->NoFINAL REPORT Abdominal ultrasound, limited. History: Left perinephric abscess. Comparison: CT 12/04/2018. Discussion: Transverse and longitudinal sonographic images of the left kidney were obtained. No sonographically visible fluid collection is present. IMPRESSION: No sonographically drainable fluid collection. Signed: Will [place] Verified Date/Time: 12/07/2018 10:59:04 Reading Location: [address] Ultrasound Reading Room PROTHROMBIN [id number] 08:07 :00 Test Item Value Reference Range Comments PROTIME (BEAKER) (test 12.5 seconds 11.7-14.7 Clotted please disregardThis is mzhc=661) a corrected result. Previous result was 12.5 seconds on 12/07/2018 at 0705 HARVEST MANAGER INR (BEAKER) (test 0.9 <=5.9 Clotted please disregardThis is rvix=729) a corrected result. Previous result was 0.9 on 12/07/2018 at 0705 HARVEST MANAGER RECOMMENDED COUMADIN/WARFARIN INR THERAPY RANGESSTANDARD DOSE: 2.0 - 3.0 Includes: PROPHYLAXIS forvenous thrombosis, systemic embolization; TREATMENT for venous thrombosis and/or pulmonary embolus.HIGH RISK: Target INR is 2.5-3.5 for patients with mechanical heart valves.POCT-GLUCOSE [id number] 07:34:00 Test Item Value Reference Range Comments POC-GLUCOSE METER (BEAKER) 138 mg/dL 70-110 TESTED AT [address] (test clap=3876) [facility] [address] BASIC METABOLIC [id number] 07:34:00 Test Item Value Reference Range Comments SODIUM (BEAKER) (test 137 meq/L 136-145 zvqj=779) POTASSIUM (BEAKER) (test 3.6 meq/L 3.5-5.1 eqme=921) CHLORIDE (BEAKER) (test 107 meq/L 98-107 jlqe=393) CO2 (BEAKER) (test 23 meq/L 22-29 fnat=067) BLOOD UREA NITROGEN 19 mg/dL 7-21 (BEAKER) (test lhza=985) CREATININE (BEAKER) (test 1.21 mg/dL 0.57-1.25 gxgt=620) GLUCOSE RANDOM (BEAKER) 102 mg/dL 70-105 (test ftgs=115) CALCIUM (BEAKER) (test 7.2 mg/dL 8.4-10.2 yhen=918) EGFR (BEAKER) (test 46 mL/min/1.73 sq m ESTIMATED GFR IS NOT sjpo=7820) ACCURATE CREATININE CLEARANCE IN PREDICTING GLOMERULAR FILTRATION RATE. ESTIMATED GFR IS NOT APPLICABLE FOR DIALYSIS PATIENTS. ANTI-MITOCHONDRIAL AB, REFLEX TO [id number] 07:33:00 Test Item Value Reference Range Comments SCAN RESULT (test jyqt=[id number]) [id number] 07:32:00 Test Item Value Reference Range Comments PHOSPHORUS (BEAKER) (test nbvf=397) 3.4 mg/dL 2.3-4.7 [id number] 07:32:00 Test Item Value Reference Range Comments MAGNESIUM (BEAKER) (test bkva=717) 1.7 mg/dL 1.6-2.6 CBC W/PLT COUNT & AUTO [id number] 06:56:00 Test Item Value Reference Range Comments WHITE BLOOD CELL COUNT (BEAKER) (test jylx=314) 8.9 K/ L 3.5-10.5 RED BLOOD CELL COUNT (BEAKER) (test xqpy=297) 3.55 M/ L 3.93-5.22 HEMOGLOBIN (BEAKER) (test xmop=732) 9.4 GM/DL 11.2-15.7 HEMATOCRIT (BEAKER) (test mwrc=822) 31.0 % 34.1-44.9 MEAN CORPUSCULAR VOLUME (BEAKER) (test ysrf=663) 87.3 fL 79.4-94.8 MEAN CORPUSCULAR HEMOGLOBIN (BEAKER) (test 26.5 pg 25.6-32.2 atkc=357) MEAN CORPUSCULAR HEMOGLOBIN CONC (BEAKER) (test 30.3 GM/DL 32.2-35.5 fzca=653) RED CELL DISTRIBUTION WIDTH (BEAKER) (test 16.7 % 11.7-14.4 jrmv=660) PLATELET COUNT (BEAKER) (test yjnu=363) 342 K/CU MM 150-450 MEAN PLATELET VOLUME (BEAKER) (test tyas=993) 9.3 fL 9.4-12.3 NUCLEATED RED BLOOD CELLS (BEAKER) (test 0 /100 WBC 0-0 rahn=725) NEUTROPHILS RELATIVE PERCENT (BEAKER) (test 75 % rymx=728) LYMPHOCYTES RELATIVE PERCENT (BEAKER) (test 14 % wwnh=047) MONOCYTES RELATIVE PERCENT (BEAKER) (test 7 % iboh=017) EOSINOPHILS RELATIVE PERCENT (BEAKER) (test 1 % zmyz=520) BASOPHILS RELATIVE PERCENT (BEAKER) (test 0 % xtzo=288) NEUTROPHILS ABSOLUTE COUNT (BEAKER) (test 6.65 K/ L 1.56-6.13 rkiy=746) LYMPHOCYTES ABSOLUTE COUNT (BEAKER) (test 1.26 K/ L 1.18-3.74 bjgj=269) MONOCYTES ABSOLUTE COUNT (BEAKER) (test 0.65 K/ L 0.24-0.36 kkpf=971) EOSINOPHILS ABSOLUTE COUNT (BEAKER) (test 0.10 K/ L 0.04-0.36 axjd=167) BASOPHILS ABSOLUTE COUNT (BEAKER) (test 0.03 K/ L 0.01-0.08 pngk=476) IMMATURE GRANULOCYTES-RELATIVE PERCENT (BEAKER) 2 % 0-1 (test swpb=5137) POCT-GLUCOSE [id number] 21:25:00 Test Item Value Reference Range Comments POC-GLUCOSE METER (BEAKER) 213 mg/dL 70-110 TESTED AT [address] (test hmsf=0930) [place] [address] POCT-GLUCOSE [id number] 16:32:00 Test Item Value Reference Range Comments POC-GLUCOSE METER (BEAKER) 262 mg/dL 70-110 TESTED AT [address] (test wvnn=7853) [place] [id number] POCT-GLUCOSE [id number] 11:40:00 Test Item Value Reference Range Comments POC-GLUCOSE METER (BEAKER) 114 mg/dL 70-110 TESTED AT [address] (test pmgq=8752) [place] [address] CBC W/PLT COUNT & AUTO [id number] 09:40:00 Test Item Value Reference Range Comments WHITE BLOOD CELL COUNT 10.7 K/ L 3.5-10.5 (BEAKER) (test tiuk=480) RED BLOOD CELL COUNT (BEAKER) 3.69 M/ L 3.93-5.22 (test kzci=788) HEMOGLOBIN (BEAKER) (test 10.0 GM/DL 11.2-15.7 Discordant from previous wyvz=955) results. Patient transfused HEMATOCRIT (BEAKER) (test 31.9 % 34.1-44.9 udfx=269) MEAN CORPUSCULAR VOLUME 86.4 fL 79.4-94.8 (BEAKER) (test kjzo=251) MEAN CORPUSCULAR HEMOGLOBIN 27.1 pg 25.6-32.2 (BEAKER) (test ywfm=511) MEAN CORPUSCULAR HEMOGLOBIN 31.3 GM/DL 32.2-35.5 CONC (BEAKER) (test vwot=144) RED CELL DISTRIBUTION WIDTH 16.6 % 11.7-14.4 (BEAKER) (test ksso=958) PLATELET COUNT (BEAKER) (test 394 K/CU MM 150-450 sxpq=543) MEAN PLATELET VOLUME (BEAKER) 9.8 fL 9.4-12.3 (test hxwg=239) NUCLEATED RED BLOOD CELLS 0 /100 WBC 0-0 (BEAKER) (test zkar=559) NEUTROPHILS RELATIVE PERCENT 75 % (BEAKER) (test ujef=784) LYMPHOCYTES RELATIVE PERCENT 12 % (BEAKER) (test qnbs=951) MONOCYTES RELATIVE PERCENT 9 % (BEAKER) (test usgf=617) EOSINOPHILS RELATIVE PERCENT 1 % (BEAKER) (test fvum=885) BASOPHILS RELATIVE PERCENT 0 % (BEAKER) (test xmoa=394) NEUTROPHILS ABSOLUTE COUNT 8.03 K/ L 1.56-6.13 (BEAKER) (test ywxn=817) LYMPHOCYTES ABSOLUTE COUNT 1.29 K/ L 1.18-3.74 (BEAKER) (test ggbp=740) MONOCYTES ABSOLUTE COUNT 0.95 K/ L 0.24-0.36 (BEAKER) (test iako=682) EOSINOPHILS ABSOLUTE COUNT 0.11 K/ L 0.04-0.36 (BEAKER) (test owzs=625) BASOPHILS ABSOLUTE COUNT 0.04 K/ L 0.01-0.08 (BEAKER) (test wvad=158) IMMATURE GRANULOCYTES-RELATIVE 2 % 0-1 PERCENT (BEAKER) (test xdql=1057) POCT-GLUCOSE [id number] 08:19:00 Test Item Value Reference Range Comments POC-GLUCOSE METER (BEAKER) 135 mg/dL 70-[address] [facility] [address] [facility] (test puup=0881) [facility] [address] [id number] 06:41:00 Test Item Value Reference Range Comments PHOSPHORUS (BEAKER) (test nxpm=134) 4.1 mg/dL 2.3-4.7 [id number] 06:41:00 Test Item Value Reference Range Comments MAGNESIUM (BEAKER) (test worx=256) 1.8 mg/dL 1.6-2.6 BASIC METABOLIC [id number] 06:41:00 Test Item Value Reference Range Comments SODIUM (BEAKER) (test 135 meq/L 136-145 ernd=603) POTASSIUM (BEAKER) (test 4.7 meq/L 3.5-5.1 qmaf=411) CHLORIDE (BEAKER) (test 99 meq/L 98-107 zksl=393) CO2 (BEAKER) (test 28 meq/L 22-29 warh=276) BLOOD UREA NITROGEN 23 mg/dL 7-21 (BEAKER) (test vjpf=400) CREATININE (BEAKER) (test 1.64 mg/dL 0.57-1.25 rdpf=029) GLUCOSE RANDOM (BEAKER) 140 mg/dL 70-105 (test kjwg=917) CALCIUM (BEAKER) (test 9.2 mg/dL 8.4-10.2 sxgh=414) EGFR (BEAKER) (test 33 mL/min/1.73 sq m ESTIMATED GFR IS NOT zpcj=5586) ACCURATE CREATININE CLEARANCE IN PREDICTING GLOMERULAR FILTRATION RATE. ESTIMATED GFR IS NOT APPLICABLE FOR DIALYSIS PATIENTS. B-TYPE NATRIURETIC FACTOR (BNP)2018-12-06 06:22:00 Test Item Value Reference Range Comments B-TYPE NATRIURETIC PEPTIDE (BEAKER) (test 2460 pg/mL 0-100 tpul=855) RETICULOCYTE [id number] 06:09:00 Test Item Value Reference Range Comments RETICULOCYTE COUNT PCT (BEAKER) (test svtx=219) 3.2 % 0.5-1.7 POCT-GLUCOSE [id number] 21:32:00 Test Item Value Reference Range Comments POC-GLUCOSE METER (BEAKER) 240 mg/dL 70-110 TESTED AT [place] [id number] [facility] (test ebrn=5683) [place] [address] WOUND CULTURE + GRAM [id number] 16:50:00 Test Item Value Reference Range Comments CULTURE (BEAKER) (test ESCHERICHIA COLI <1+ Escherichia coli goaa=5218) Amikacin (test code=1) Ampicillin + Sulbactam (test code=6) Aztreonam (test code=32) Cefepime (test code=51) Cefoxitin (test code=68) Ceftazidime (test code=27) Ceftriaxone (test code=52) Ertapenem (test code=38) Gentamicin (test code=18) Levofloxacin (test code=22) Meropenem (test code=34) Nitrofurantoin (test code=23) Piperacillin + Tazobactam (test code=29) Tetracycline (test code=2) Tobramycin (test code=25) Trimethoprim + Sulfamethoxazole (test code=47) GRAM STAIN RESULT (BEAKER) 2+ WBCs (test gipy=8678) GRAM STAIN RESULT (BEAKER) No organisms seen (test kiqh=[id number]) POCT-GLUCOSE [id number] 16:46:00 Test Item Value Reference Range Comments POC-GLUCOSE METER (BEAKER) 225 mg/dL 70-110 TESTED AT [address] (test qfli=6407) [place] [address] POCT-GLUCOSE [id number] 12:21:00 Test Item Value Reference Range Comments POC-GLUCOSE METER (BEAKER) 242 mg/dL 70-110 TESTED AT [address] (test notv=6366) [place] [address] POCT-GLUCOSE [id number] 08:40:00 Test Item Value Reference Range Comments POC-GLUCOSE METER (BEAKER) 165 mg/dL 70-110 TESTED AT [address] (test iouo=2279) [place] [address] CALCIUM, [id number] 05:58:00 Test Item Value Reference Range Comments CALCIUM IONIZED (BEAKER) (test dlyr=503) 1.07 mmol/L 1.12-1.27 PH, BLOOD (BEAKER) (test nvgm=3651) 7.47 [id number] 05:30:00 Test Item Value Reference Range Comments PHOSPHORUS (BEAKER) (test zlto=082) 4.4 mg/dL 2.3-4.7 [id number] 05:30:00 Test Item Value Reference Range Comments MAGNESIUM (BEAKER) (test kyto=907) 1.9 mg/dL 1.6-2.6 BASIC METABOLIC [id number] 05:30:00 Test Item Value Reference Range Comments SODIUM (BEAKER) (test 132 meq/L 136-145 crpy=426) POTASSIUM (BEAKER) (test 4.9 meq/L 3.5-5.1 bvlf=521) CHLORIDE (BEAKER) (test 99 meq/L 98-107 wlou=128) CO2 (BEAKER) (test 27 meq/L 22-29 okwq=072) BLOOD UREA NITROGEN 18 mg/dL 7-21 (BEAKER) (test onyp=879) CREATININE (BEAKER) (test 1.38 mg/dL 0.57-1.25 tupe=645) GLUCOSE RANDOM (BEAKER) 142 mg/dL 70-105 (test jdck=409) CALCIUM (BEAKER) (test 8.6 mg/dL 8.4-10.2 xniu=619) EGFR (BEAKER) (test 40 mL/min/1.73 sq m ESTIMATED GFR IS NOT qxsp=9940) ACCURATE CREATININE CLEARANCE IN PREDICTING GLOMERULAR FILTRATION RATE. ESTIMATED GFR IS NOT APPLICABLE FOR DIALYSIS PATIENTS. CBC W/PLT COUNT & AUTO [id number] 05:05:00 Test Item Value Reference Range Comments WHITE BLOOD CELL COUNT (BEAKER) (test hitg=289) 9.4 K/ L 3.5-10.5 RED BLOOD CELL COUNT (BEAKER) (test fsjo=480) 2.48 M/ L 3.93-5.22 HEMOGLOBIN (BEAKER) (test fncz=419) 6.6 GM/DL 11.2-15.7 HEMATOCRIT (BEAKER) (test fxul=616) 21.7 % 34.1-44.9 MEAN CORPUSCULAR VOLUME (BEAKER) (test wdbt=800) 87.5 fL 79.4-94.8 MEAN CORPUSCULAR HEMOGLOBIN (BEAKER) (test 26.6 pg 25.6-32.2 luib=325) MEAN CORPUSCULAR HEMOGLOBIN CONC (BEAKER) (test 30.4 GM/DL 32.2-35.5 rino=643) RED CELL DISTRIBUTION WIDTH (BEAKER) (test 15.9 % 11.7-14.4 axth=588) PLATELET COUNT (BEAKER) (test rxik=227) 374 K/CU MM 150-450 MEAN PLATELET VOLUME (BEAKER) (test jvsf=704) 9.3 fL 9.4-12.3 NUCLEATED RED BLOOD CELLS (BEAKER) (test 0 /100 WBC 0-0 tdmi=005) NEUTROPHILS RELATIVE PERCENT (BEAKER) (test 72 % ixvs=848) LYMPHOCYTES RELATIVE PERCENT (BEAKER) (test 13 % ujwv=413) MONOCYTES RELATIVE PERCENT (BEAKER) (test 10 % bsau=805) EOSINOPHILS RELATIVE PERCENT (BEAKER) (test 1 % hpdp=160) BASOPHILS RELATIVE PERCENT (BEAKER) (test 0 % oehr=826) NEUTROPHILS ABSOLUTE COUNT (BEAKER) (test 6.80 K/ L 1.56-6.13 qdqr=713) LYMPHOCYTES ABSOLUTE COUNT (BEAKER) (test 1.23 K/ L 1.18-3.74 nsxc=125) MONOCYTES ABSOLUTE COUNT (BEAKER) (test 0.93 K/ L 0.24-0.36 sogy=222) EOSINOPHILS ABSOLUTE COUNT (BEAKER) (test 0.10 K/ L 0.04-0.36 tvcx=297) BASOPHILS ABSOLUTE COUNT (BEAKER) (test 0.02 K/ L 0.01-0.08 miqp=372) IMMATURE GRANULOCYTES-RELATIVE PERCENT (BEAKER) 3 % 0-1 (test xcef=6153) POCT-GLUCOSE [id number] 21:06:00 Test Item Value Reference Range Comments POC-GLUCOSE METER (BEAKER) 185 mg/dL 70-110 TESTED AT [place] [id number] [facility] (test kexh=3231) [place] [address] POCT-GLUCOSE [id number] 19:04:00 Test Item Value Reference Range Comments POC-GLUCOSE METER (BEAKER) 156 mg/dL 70-[address] [facility] [address] [facility] (test glzt=1806) [place] [id number] PET, CARDIAC PERFUSION MULTIPLE STUDIES, REST AND [id number] 15:58: 00Reason for exam:->Evaluate for ischemiaFINAL REPORT PROCEDURE: MYOCARDIAL METABOLISM PET IMAGING with Stress/Rest MYOCARDIAL PERFUSION PET IMAGING\XA9\ CPT CODE: 38877, 67624 INDICATION: Assess forischemia and viability. Assess symptoms/risk factors possible coronary artery disease. Assess myocardial viability. New systolic heart failure HISTORY: Cardiac risk factors: Diabetes, tobacco abuse. Other cardiovascular history: Heart failure. Recent cardiac symptoms: None. Current cardiovascular-related medications: Aspirin, furosemide, atorvastatin, metoprolol. PROTOCOL: Limited low-dose CT imaging was performed for attenuation correction. 36.4 mCi of Rb-82 chloride was injected iv at rest, and gated PET (positron emission tomography) images were obtained. Subsequently, 36.3 mCi of Rb-82 chloride was injected iv at expected peak pharmacologic effect , and gated PET images were obtained. After appropriate dextrose/insulin administration, 9.6 mCi of F-18 FDG was injected iv at rest; limited low-dose CT imaging was repeated; and PET images were obtained. PRELIMINARY STRESS TEST DATAFROM NONINVASIVE CARDIOLOGY: Pharmacologic stress was by 10-second iv infusion of 0.4 mg of regadenoson. Radiotracer was injected 30 seconds after start of stress. Heart rate was 86 beats/min at rest and 93 beats/min (56% of MPHR) at tracer injection. BP was 114/57 mmHg at rest and 85/42 mmHg at tracer injection. Stress was stopped for predetermined endpoint. The patient experienced headache and palpitations; treatment was not required. Preliminary ECG evaluation revealed sinus rhythm at rest and no ischemic changes with stress. (Final ECG interpretation and other stress and monitoring data arereported separately by Cardiology.) PERFUSION IMAGING FINDINGS: Study quality is good. Images obtained after stress injection show decreased radiotracer uptake apex, periapical segments, and mid anterior segment. Resting images show decreased radiotracer uptake apex, periapical segments, and mid anterior segment. LV volume appears normal. RV volume appears normal. Gated images obtained immediately after stress show severely hypokinetic LV wall motion. Gated images obtained at rest show severely hypokinetic LV wall motion. LVEF at rest is 20-25%. LVEF at stress is 25-30%. METABOLIC IMAGING FINDINGS: Study quality is good. Images obtained after F-18 FDG injection show mildly reduced uptake in the apex. IMPRESSION: 1. Abnormal study. 2. Appropriate pharmacologic stress. 3. Abnormal myocardial perfusion. There is a marked severity, large size, mildly reversible, perfusion defect in the apex and periapical segments of the LV. 4. Markedly decreased resting LV function. No deterioration of function is noted with pharmacologic stress. 5. Abnormal cardiac metabolism. There is a mild severity, small size, defect of glucose metabolism in the apex of the LV. 6. Combination of perfusion and metabolic images show large fixed perfusion defect in the apex and periapical segments withevidence of hibernating myocardial . 7. Extracardiac tracer distribution is normal. [facility]. [facility]. Signed: Wagner Ellison MDReport Verified Date/Time: 12/04/2018 15:58:43 Reading Location: [address] Reading Room POCT-GLUCOSE [id number] 15:13:00 Test Item Value Reference Range Comments POC-GLUCOSE METER (BEAKER) 132 mg/dL 70-110 TESTED AT [address] (test albx=9596) [place] [id number] POCT-GLUCOSE [id number] 13:32:00 Test Item Value Reference Range Comments POC-GLUCOSE METER (BEAKER) 207 mg/dL 70-110 TESTED AT [address] (test adqp=3306) [place] [id number] POCT-GLUCOSE [id number] 11:39:00 Test Item Value Reference Range Comments POC-GLUCOSE METER (BEAKER) 164 mg/dL 70-110 TESTED AT [address] (test lhfc=9889) [place] [id number] POCT-GLUCOSE [id number] 09:00:00 Test Item Value Reference Range Comments POC-GLUCOSE METER (BEAKER) 181 mg/dL 70-110 TESTED AT [address] (test stkf=3831) [place] [address] [id number] 07:16:00 Test Item Value Reference Range Comments PHOSPHORUS (BEAKER) (test qwov=846) 4.0 mg/dL 2.3-4.7 [id number] 07:16:00 Test Item Value Reference Range Comments MAGNESIUM (BEAKER) (test ivqf=931) 1.7 mg/dL 1.6-2.6 BASIC METABOLIC [id number] 07:16:00 Test Item Value Reference Range Comments SODIUM (BEAKER) (test 131 meq/L 136-145 cfqv=453) POTASSIUM (BEAKER) (test 4.8 meq/L 3.5-5.1 uffg=073) CHLORIDE (BEAKER) (test 99 meq/L 98-107 jupb=468) CO2 (BEAKER) (test 26 meq/L 22-29 rhgc=029) BLOOD UREA NITROGEN 20 mg/dL 7-21 (BEAKER) (test awjs=381) CREATININE (BEAKER) (test 1.57 mg/dL 0.57-1.25 ujvm=976) GLUCOSE RANDOM (BEAKER) 164 mg/dL 70-105 (test cprf=415) CALCIUM (BEAKER) (test 8.7 mg/dL 8.4-10.2 wltq=493) EGFR (BEAKER) (test 34 mL/min/1.73 sq m ESTIMATED GFR IS NOT kjuy=3000) ACCURATE CREATININE CLEARANCE IN PREDICTING GLOMERULAR FILTRATION RATE. ESTIMATED GFR IS NOT APPLICABLE FOR DIALYSIS PATIENTS. CALCIUM, [id number] 06:46:00 Test Item Value Reference Range Comments CALCIUM IONIZED (BEAKER) (test ujzt=569) 1.08 mmol/L 1.12-1.27 PH, BLOOD (BEAKER) (test aamp=8113) 7.40 CBC W/PLT COUNT & AUTO [id number] 06:28:00 Test Item Value Reference Range Comments WHITE BLOOD CELL COUNT (BEAKER) (test czai=389) 9.1 K/ L 3.5-10.5 RED BLOOD CELL COUNT (BEAKER) (test dmzn=096) 2.55 M/ L 3.93-5.22 HEMOGLOBIN (BEAKER) (test rmzx=293) 7.0 GM/DL 11.2-15.7 HEMATOCRIT (BEAKER) (test reww=061) 22.3 % 34.1-44.9 MEAN CORPUSCULAR VOLUME (BEAKER) (test lkxm=118) 87.5 fL 79.4-94.8 MEAN CORPUSCULAR HEMOGLOBIN (BEAKER) (test 27.5 pg 25.6-32.2 bcjg=461) MEAN CORPUSCULAR HEMOGLOBIN CONC (BEAKER) (test 31.4 GM/DL 32.2-35.5 odwp=731) RED CELL DISTRIBUTION WIDTH (BEAKER) (test 15.9 % 11.7-14.4 brcb=362) PLATELET COUNT (BEAKER) (test foxq=846) 373 K/CU MM 150-450 MEAN PLATELET VOLUME (BEAKER) (test zbic=374) 9.4 fL 9.4-12.3 NUCLEATED RED BLOOD CELLS (BEAKER) (test 0 /100 WBC 0-0 wvgz=370) NEUTROPHILS RELATIVE PERCENT (BEAKER) (test 65 % iswu=130) LYMPHOCYTES RELATIVE PERCENT (BEAKER) (test 18 % rdon=662) MONOCYTES RELATIVE PERCENT (BEAKER) (test 11 % zrpx=496) EOSINOPHILS RELATIVE PERCENT (BEAKER) (test 1 % vkcy=906) BASOPHILS RELATIVE PERCENT (BEAKER) (test 0 % gqmy=497) NEUTROPHILS ABSOLUTE COUNT (BEAKER) (test 5.91 K/ L 1.56-6.13 gwuh=634) LYMPHOCYTES ABSOLUTE COUNT (BEAKER) (test 1.63 K/ L 1.18-3.74 lnga=278) MONOCYTES ABSOLUTE COUNT (BEAKER) (test 1.01 K/ L 0.24-0.36 dqqp=576) EOSINOPHILS ABSOLUTE COUNT (BEAKER) (test 0.12 K/ L 0.04-0.36 torr=526) BASOPHILS ABSOLUTE COUNT (BEAKER) (test 0.01 K/ L 0.01-0.08 wflg=921) IMMATURE GRANULOCYTES-RELATIVE PERCENT (BEAKER) 5 % 0-1 (test tuii=0163) CT, ABDOMEN, WITHOUT [id number] 02:02:00FINAL REPORT CLINICAL HISTORY: 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 Oral contrast was not given. This exam was performed according to our departmental dose-optimization program, which includes automated exposure control, adjustment of the mA and/or kV according to patient size and/or use of the iterative reconstruction technique. The examination is limited by lack of IV contrast. Comparison: 2018 Lower chest: Small bilateral pleuraleffusions with adjacent atelectasis versus pneumonitis. No pneumothorax. Low density blood in the cardiac chambers suggesting underlying anemia. Liver: No significant findings. Gallbladder and biliary tree: No significant findings. Spleen: No significant findings. Adrenal Glands: No significant findings. Kidneys and ureters: Lack of IV contrast limits the examination. There is persistence perinephricgas and subcapsular fluid density at the dependent margin of the left kidney. The amount of gas has slightly improved. The left kidney is prominent in size when compared to the right. A partially visualized left ureteral stent is stable in position. There is stable left perinephric stranding. The previously seen left retroperitoneal fluid has resolved. Stomach and Duodenum: No significant findings. Pancreas: No significant findings. Bowel: No significant findings. Major vascular structures : No significant findings. Other: No free intraperitoneal air. Prominent left retroperitoneal lymph nodes are likely reactive. An example measures 1 cm in short axis diameter. Skeleton: No acute bony abnormality. IMPRESSION: Lack of IV contrast limits the examination. Persistent but slightly improved left perinephric gas and fluid consistent with emphysematous pyelonephritis. A partially visualized left ureteral stent is stable in position. Prominent retroperitoneal lymph nodes are probably reactive. Thesecan be followed up. Small bilateral pleural effusions and adjacent atelectasis versus pneumonitis. CT evidence of anemia. Signed: Gopi Chavezort Verified Date/Time: 12/04 02:02:21 ReadingLocation: [address] Reading Room POCT- GLUCOSE [id number] 20:55:00 Test Item Value Reference Range Comments POC-GLUCOSE METER (BEAKER) 287 mg/dL 70-110 TESTED AT [address] (test gfks=5337) [place] [id number] POCT-GLUCOSE [id number] 17:30:00 Test Item Value Reference Range Comments POC-GLUCOSE METER (BEAKER) 195 mg/dL 70-110 TESTED AT [address] (test tmjb=8677) [place] [id number] POCT-GLUCOSE [id number] 12:04:00 Test Item Value Reference Range Comments POC-GLUCOSE METER (BEAKER) 265 mg/dL 70-110 TESTED AT [address] (test zlzf=2328) [place] [id number] B-TYPE NATRIURETIC FACTOR (BNP)2018-12-03 09:16:00 Test Item Value Reference Range Comments B-TYPE NATRIURETIC PEPTIDE (BEAKER) (test 1733 pg/mL 0-100 koen=919) POCT-GLUCOSE [id number] 07:42:00 Test Item Value Reference Range Comments POC-GLUCOSE METER (BEAKER) 153 mg/dL 70-[address] [facility] [address] (test hptm=5405) [facility] [address] CALCIUM, [id number] 06:07:00 Test Item Value Reference Range Comments CALCIUM IONIZED (BEAKER) (test vchh=698) 0.94 mmol/L 1.12-1.27 PH, BLOOD (BEAKER) (test egpp=3547) 7.55 [id number] 04:23:00 Test Item Value Reference Range Comments PHOSPHORUS (BEAKER) (test bgtw=904) 3.7 mg/dL 2.3-4.7 [id number] 04:23:00 Test Item Value Reference Range Comments MAGNESIUM (BEAKER) (test kzpj=949) 1.8 mg/dL 1.6-2.6 BASIC METABOLIC [id number] 04:23:00 Test Item Value Reference Range Comments SODIUM (BEAKER) (test 132 meq/L 136-145 wdhs=030) POTASSIUM (BEAKER) (test 5.0 meq/L 3.5-5.1 kqmu=849) CHLORIDE (BEAKER) (test 99 meq/L 98-107 zhnc=601) CO2 (BEAKER) (test 26 meq/L 22-29 jujk=483) BLOOD UREA NITROGEN 20 mg/dL 7-21 (BEAKER) (test uguc=522) CREATININE (BEAKER) (test 1.48 mg/dL 0.57-1.25 woee=690) GLUCOSE RANDOM (BEAKER) 159 mg/dL 70-105 (test clsm=999) CALCIUM (BEAKER) (test 8.7 mg/dL 8.4-10.2 wjtt=432) EGFR (BEAKER) (test 37 mL/min/1.73 sq m ESTIMATED GFR IS NOT qqof=2132) ACCURATE CREATININE CLEARANCE IN PREDICTING GLOMERULAR FILTRATION RATE. ESTIMATED GFR IS NOT APPLICABLE FOR DIALYSIS PATIENTS. CBC W/PLT COUNT & AUTO [id number] 04:12:00 Test Item Value Reference Range Comments WHITE BLOOD CELL COUNT (BEAKER) (test xdjr=955) 9.5 K/ L 3.5-10.5 RED BLOOD CELL COUNT (BEAKER) (test eqan=593) 2.65 M/ L 3.93-5.22 HEMOGLOBIN (BEAKER) (test gags=314) 7.0 GM/DL 11.2-15.7 HEMATOCRIT (BEAKER) (test vxcb=379) 23.4 % 34.1-44.9 MEAN CORPUSCULAR VOLUME (BEAKER) (test mven=996) 88.3 fL 79.4-94.8 MEAN CORPUSCULAR HEMOGLOBIN (BEAKER) (test 26.4 pg 25.6-32.2 zzcb=223) MEAN CORPUSCULAR HEMOGLOBIN CONC (BEAKER) (test 29.9 GM/DL 32.2-35.5 hjst=938) RED CELL DISTRIBUTION WIDTH (BEAKER) (test 15.7 % 11.7-14.4 xbpu=418) PLATELET COUNT (BEAKER) (test ggwc=708) 343 K/CU MM 150-450 MEAN PLATELET VOLUME (BEAKER) (test kyld=017) 9.7 fL 9.4-12.3 NUCLEATED RED BLOOD CELLS (BEAKER) (test 0 /100 WBC 0-0 gyye=867) NEUTROPHILS RELATIVE PERCENT (BEAKER) (test 67 % loyn=541) LYMPHOCYTES RELATIVE PERCENT (BEAKER) (test 19 % guca=606) MONOCYTES RELATIVE PERCENT (BEAKER) (test 9 % bqaa=912) EOSINOPHILS RELATIVE PERCENT (BEAKER) (test 1 % fniz=767) BASOPHILS RELATIVE PERCENT (BEAKER) (test 0 % otvu=952) NEUTROPHILS ABSOLUTE COUNT (BEAKER) (test 6.36 K/ L 1.56-6.13 gvzh=372) LYMPHOCYTES ABSOLUTE COUNT (BEAKER) (test 1.75 K/ L 1.18-3.74 fbkq=951) MONOCYTES ABSOLUTE COUNT (BEAKER) (test 0.83 K/ L 0.24-0.36 csga=216) EOSINOPHILS ABSOLUTE COUNT (BEAKER) (test 0.09 K/ L 0.04-0.36 jcgb=006) BASOPHILS ABSOLUTE COUNT (BEAKER) (test 0.03 K/ L 0.01-0.08 pklk=188) IMMATURE GRANULOCYTES-RELATIVE PERCENT (BEAKER) 4 % 0-1 (test msib=1011) POCT-GLUCOSE [id number] 21:19:00 Test Item Value Reference Range Comments POC-GLUCOSE METER (BEAKER) 218 mg/dL 70-[address] [facility] [address] [facility] (test dkki=3500) [facility] [address] POCT-GLUCOSE [id number] 17:27:00 Test Item Value Reference Range Comments POC-GLUCOSE METER (BEAKER) 148 mg/dL 70-110 TESTED AT [place] [id number] [facility] (test gdpc=9813) [facility] [address] POCT-GLUCOSE [id number] 12:38:00 Test Item Value Reference Range Comments POC-GLUCOSE METER (BEAKER) 269 mg/dL 70-110 TESTED AT [address] (test rjtr=9677) [facility] [address] POCT-GLUCOSE [id number] 07:40:00 Test Item Value Reference Range Comments POC-GLUCOSE METER (BEAKER) 157 mg/dL 70-110 TESTED AT [address] (test hbtb=3795) [facility] [address] [id number] 04:58:00 Test Item Value Reference Range Comments PHOSPHORUS (BEAKER) (test laxm=557) 3.6 mg/dL 2.3-4.7 [id number] 04:58:00 Test Item Value Reference Range Comments MAGNESIUM (BEAKER) (test tjxf=122) 1.4 mg/dL 1.6-2.6 BASIC METABOLIC [id number] 04:58:00 Test Item Value Reference Range Comments SODIUM (BEAKER) (test 134 meq/L 136-145 kyvc=851) POTASSIUM (BEAKER) (test 4.6 meq/L 3.5-5.1 eczo=602) CHLORIDE (BEAKER) (test 101 meq/L 98-107 taja=153) CO2 (BEAKER) (test 27 meq/L 22-29 qvzp=281) BLOOD UREA NITROGEN 19 mg/dL 7-21 (BEAKER) (test niyu=215) CREATININE (BEAKER) (test 1.48 mg/dL 0.57-1.25 gelo=816) GLUCOSE RANDOM (BEAKER) 142 mg/dL 70-105 (test tshi=673) CALCIUM (BEAKER) (test 8.5 mg/dL 8.4-10.2 fvlt=421) EGFR (BEAKER) (test 37 mL/min/1.73 sq m ESTIMATED GFR IS NOT acuf=0343) ACCURATE CREATININE CLEARANCE IN PREDICTING GLOMERULAR FILTRATION RATE. ESTIMATED GFR IS NOT APPLICABLE FOR DIALYSIS PATIENTS. CBC W/PLT COUNT & AUTO [id number] 04:32:00 Test Item Value Reference Range Comments WHITE BLOOD CELL COUNT (BEAKER) (test akem=785) 9.0 K/ L 3.5-10.5 RED BLOOD CELL COUNT (BEAKER) (test dgdq=454) 2.82 M/ L 3.93-5.22 HEMOGLOBIN (BEAKER) (test pgqo=719) 7.4 GM/DL 11.2-15.7 HEMATOCRIT (BEAKER) (test ijji=041) 24.5 % 34.1-44.9 MEAN CORPUSCULAR VOLUME (BEAKER) (test emjc=246) 86.9 fL 79.4-94.8 MEAN CORPUSCULAR HEMOGLOBIN (BEAKER) (test 26.2 pg 25.6-32.2 vpmj=625) MEAN CORPUSCULAR HEMOGLOBIN CONC (BEAKER) (test 30.2 GM/DL 32.2-35.5 rvds=557) RED CELL DISTRIBUTION WIDTH (BEAKER) (test 15.2 % 11.7-14.4 vyvl=981) PLATELET COUNT (BEAKER) (test vxvi=537) 361 K/CU MM 150-450 MEAN PLATELET VOLUME (BEAKER) (test xmia=242) 9.6 fL 9.4-12.3 NUCLEATED RED BLOOD CELLS (BEAKER) (test 0 /100 WBC 0-0 fkko=872) NEUTROPHILS RELATIVE PERCENT (BEAKER) (test 67 % smjx=972) LYMPHOCYTES RELATIVE PERCENT (BEAKER) (test 19 % ibnu=256) MONOCYTES RELATIVE PERCENT (BEAKER) (test 9 % gbwz=008) EOSINOPHILS RELATIVE PERCENT (BEAKER) (test 1 % juui=189) BASOPHILS RELATIVE PERCENT (BEAKER) (test 0 % uwzn=966) NEUTROPHILS ABSOLUTE COUNT (BEAKER) (test 6.05 K/ L 1.56-6.13 vrde=505) LYMPHOCYTES ABSOLUTE COUNT (BEAKER) (test 1.68 K/ L 1.18-3.74 rvmj=797) MONOCYTES ABSOLUTE COUNT (BEAKER) (test 0.79 K/ L 0.24-0.36 zdlm=025) EOSINOPHILS ABSOLUTE COUNT (BEAKER) (test 0.07 K/ L 0.04-0.36 aahh=336) BASOPHILS ABSOLUTE COUNT (BEAKER) (test 0.03 K/ L 0.01-0.08 fxub=014) IMMATURE GRANULOCYTES-RELATIVE PERCENT (BEAKER) 4 % 0-1 (test jkeg=0944) POCT-GLUCOSE [id number] 22:22:00 Test Item Value Reference Range Comments POC-GLUCOSE METER (BEAKER) 209 mg/dL 70-110 TESTED AT [address] (test xybn=0532) [facility] [address] POCT-GLUCOSE [id number] 17:25:00 Test Item Value Reference Range Comments POC-GLUCOSE METER (BEAKER) 164 mg/dL 70-110 TESTED AT [address] (test gdly=1314) [facility] [address] POCT-GLUCOSE [id number] 11:43:00 Test Item Value Reference Range Comments POC-GLUCOSE METER (BEAKER) 224 mg/dL 70-110 TESTED AT [address] (test wsuf=3445) [facility] [address] [id number] 08:17:00 Test Item Value Reference Range Comments PHOSPHORUS (BEAKER) (test ovjv=843) 3.8 mg/dL 2.3-4.7 [id number] 08:17:00 Test Item Value Reference Range Comments MAGNESIUM (BEAKER) (test pdsd=700) 1.4 mg/dL 1.6-2.6 COMPREHENSIVE METABOLIC [id number] 08:17:00 Test Item Value Reference Range Comments TOTAL PROTEIN (BEAKER) 6.9 gm/dL 6.0-8.3 (test jtxf=612) ALBUMIN (BEAKER) (test 2.3 g/dL 3.5-5.0 xvxe=9648) ALKALINE PHOSPHATASE 261 U/L 40-150 (BEAKER) (test emxg=082) BILIRUBIN TOTAL (BEAKER) 0.7 mg/dL 0.2-1.2 (test llgk=649) SODIUM (BEAKER) (test 133 meq/L 136-145 xcqd=589) POTASSIUM (BEAKER) (test 4.9 meq/L 3.5-5.1 umml=727) CHLORIDE (BEAKER) (test 100 meq/L 98-107 obov=723) CO2 (BEAKER) (test 25 meq/L 22-29 iiab=606) BLOOD UREA NITROGEN 17 mg/dL 7-21 (BEAKER) (test mfti=791) CREATININE (BEAKER) (test 1.41 mg/dL 0.57-1.25 pnfb=462) GLUCOSE RANDOM (BEAKER) 158 mg/dL 70-105 (test fjcq=319) CALCIUM (BEAKER) (test 8.4 mg/dL 8.4-10.2 kbje=534) AST (SGOT) (BEAKER) (test 17 U/L 5-34 adgt=055) ALT (SGPT) (BEAKER) (test 11 U/L 6-55 vbee=939) EGFR (BEAKER) (test 39 mL/min/1.73 sq m ESTIMATED GFR IS NOT hter=8499) ACCURATE CREATININE CLEARANCE IN PREDICTING GLOMERULAR FILTRATION RATE. ESTIMATED GFR IS NOT APPLICABLE FOR DIALYSIS PATIENTS. POCT-GLUCOSE [id number] 08:00:00 Test Item Value Reference Range Comments POC-GLUCOSE METER (BEAKER) 179 mg/dL 70-[address] [facility] [address] [facility] (test lzwo=3538) [facility] [address] CBC W/PLT COUNT & AUTO [id number] 07:31:00 Test Item Value Reference Range Comments WHITE BLOOD CELL COUNT (BEAKER) (test fqtv=747) 9.9 K/ L 3.5-10.5 RED BLOOD CELL COUNT (BEAKER) (test hbnf=662) 2.83 M/ L 3.93-5.22 HEMOGLOBIN (BEAKER) (test swdx=158) 7.6 GM/DL 11.2-15.7 HEMATOCRIT (BEAKER) (test uzsw=479) 24.9 % 34.1-44.9 MEAN CORPUSCULAR VOLUME (BEAKER) (test vdni=007) 88.0 fL 79.4-94.8 MEAN CORPUSCULAR HEMOGLOBIN (BEAKER) (test 26.9 pg 25.6-32.2 vklm=790) MEAN CORPUSCULAR HEMOGLOBIN CONC (BEAKER) (test 30.5 GM/DL 32.2-35.5 spej=068) RED CELL DISTRIBUTION WIDTH (BEAKER) (test 15.1 % 11.7-14.4 bmpr=966) PLATELET COUNT (BEAKER) (test ybbw=549) 342 K/CU MM 150-450 MEAN PLATELET VOLUME (BEAKER) (test ctrp=237) 10.2 fL 9.4-12.3 NUCLEATED RED BLOOD CELLS (BEAKER) (test 0 /100 WBC 0-0 krss=940) NEUTROPHILS RELATIVE PERCENT (BEAKER) (test 76 % ytwn=397) LYMPHOCYTES RELATIVE PERCENT (BEAKER) (test 12 % knvm=085) MONOCYTES RELATIVE PERCENT (BEAKER) (test 8 % jlyl=774) EOSINOPHILS RELATIVE PERCENT (BEAKER) (test 1 % djqy=462) BASOPHILS RELATIVE PERCENT (BEAKER) (test 0 % xzwd=712) NEUTROPHILS ABSOLUTE COUNT (BEAKER) (test 7.52 K/ L 1.56-6.13 mvfu=514) LYMPHOCYTES ABSOLUTE COUNT (BEAKER) (test 1.21 K/ L 1.18-3.74 nnqs=228) MONOCYTES ABSOLUTE COUNT (BEAKER) (test 0.82 K/ L 0.24-0.36 olpn=357) EOSINOPHILS ABSOLUTE COUNT (BEAKER) (test 0.08 K/ L 0.04-0.36 trdr=071) BASOPHILS ABSOLUTE COUNT (BEAKER) (test 0.02 K/ L 0.01-0.08 ezhd=452) IMMATURE GRANULOCYTES-RELATIVE PERCENT (BEAKER) 2 % 0-1 (test nnqh=4687) CALCIUM, [id number] 07:14:00 Test Item Value Reference Range Comments CALCIUM IONIZED (BEAKER) (test elwi=480) 0.99 mmol/L 1.12-1.27 PH, BLOOD (BEAKER) (test ctov=3666) 7.51 POCT-GLUCOSE [id number] 21:25:00 Test Item Value Reference Range Comments POC-GLUCOSE METER (BEAKER) 218 mg/dL 70-110 TESTED AT [address] (test wach=6589) [facility] [address] URINE PROTEIN ELECTROPHORESIS, [id number] 16:24:00 Test Item Value Reference Range Comments PROTEIN, URINE (BEAKER) (test 27 mg/dL 0-14 fjof=0733) ALBUMIN URINE ELP (BEAKER) 37.6 % (test zipx=6529) GAMMA GLOBULIN URINE (BEAKER) 62.4 % (test npfs=1877) UPEP, [id number] (BEAKER) (test No monoclonal bands detected. uopu=1673) [id number] (BEAKER) Indu Moya MD (test rtum=2931) (electronic signature) PROTEIN ELECTROPHORESIS, [id number] 16:08:00 Test Item Value Reference Range Comments ALBUMIN FRACTION (BEAKER) 2.0 g/dL 3.5-5.5 (test elfu=639) ALPHA 1 FRACTION (BEAKER) 0.5 g/dL 0.2-0.4 (test dcbc=856) ALPHA 2 FRACTION (BEAKER) 1.1 g/dL 0.5-0.9 (test ifbe=348) BETA FRACTION (BEAKER) (test 1.0 g/dL 0.6-1.1 sgmm=848) GAMMA GLOBULIN FRACTION 2.1 g/dL 0.7-1.7 (BEAKER) (test eooi=317) INTERPRETATION-119 (BEAKER) Decreased albumin, consistent (test hlyx=9610) with renal dysfunction. Globulin pattern suggestive of mixed acute and chronic inflammation. No monoclonal bands detected. [id number] [facility] Indu Moya MD (test vgne=1169) (electronic signature) PROTEIN TOTAL SERUM, SPEP 6.8 gm/dL 6.0-8.3 (BEAKER) (test fywj=0820) IMMUNOFIXATION ELECTROPHORESIS (CELIA)[id number] 16:08:00 Test Item Value Reference Range Comments IMMUNOGLOBULIN G (IGG) (BEAKER) 2095 mg/dL 540-1,822 (test coyt=354) IMMUNOGLOBULIN A (IGA) (BEAKER) 520 mg/dL 63-484 (test yxhq=509) IMMUNOGLOBULIN M (IGM) (BEAKER) 177 mg/dL 22-293 (test tptx=916) SERUM CELIA ID (BEAKER) (test No monoclonal proteins fvdo=7568) detected. Polyclonal distribution of immunoglobulins. [id number] ([facility]) Indu Moya MD (test zwmo=5872) (electronic signature) POCT-GLUCOSE [id number] 13:16:00 Test Item Value Reference Range Comments POC-GLUCOSE METER (BEAKER) 105 mg/dL 70-[address] [facility] [address] [facility] (test jpir=2889) [place] [address] POCT-GLUCOSE [id number] 09:13:00 Test Item Value Reference Range Comments POC-GLUCOSE METER (BEAKER) 141 mg/dL 70-110 TESTED AT [place] [id number] [facility] (test joec=6717) [place] [id number] HEPATITIS PANEL, [id number] 07:42:00 Test Item Value Reference Range Comments HEPATITIS A IGM ANTIBODY (BEAKER) (test Nonreactive Nonreactive ovux=441) HEPATITIS B CORE IGM ANTIBODY (BEAKER) (test Nonreactive Nonreactive apek=990) HEPATITIS C ANTIBODY (BEAKER) (test mfqe=874) Reactive Nonreactive HEPATITIS B SURFACE ANTIGEN (2) (BEAKER) (test Nonreactive Nonreactive gftr=6920) CALCIUM, [id number] 07:16:00 Test Item Value Reference Range Comments CALCIUM IONIZED (BEAKER) (test ppqp=828) 0.99 mmol/L 1.12-1.27 PH, BLOOD (BEAKER) (test vayh=1750) 7.63 [id number] 07:12:00 Test Item Value Reference Range Comments HAPTOGLOBIN (BEAKER) (test osxo=272) 301 mg/dL 14-258 LACTATE DEHYDROGENASE (LDH)2018-11-30 06:58:00 Test Item Value Reference Range Comments LACTATE DEHYDROGENASE (BEAKER) 301 U/L 125-220 Specimen slightly hemolyzed (test dyia=119) [id number] 06:57:00 Test Item Value Reference Range Comments MAGNESIUM (BEAKER) (test 2.0 mg/dL 1.6-2.6 Specimen slightly hemolyzed ibmx=221) [id number] 06:57:00 Test Item Value Reference Range Comments PHOSPHORUS (BEAKER) (test 4.6 mg/dL 2.3-4.7 Specimen slightly hemolyzed gper=461) COMPREHENSIVE METABOLIC [id number] 06:57:00 Test Item Value Reference Range Comments TOTAL PROTEIN (BEAKER) 7.5 gm/dL 6.0-8.3 Specimen slightly (test rcbz=443) hemolyzed ALBUMIN (BEAKER) (test 2.5 g/dL 3.5-5.0 Specimen slightly yoxh=7369) hemolyzed ALKALINE PHOSPHATASE 305 U/L 40-150 (BEAKER) (test xpeu=033) BILIRUBIN TOTAL (BEAKER) 0.7 mg/dL 0.2-1.2 Specimen slightly (test ibmn=784) hemolyzed SODIUM (BEAKER) (test 135 meq/L 136-145 rwnk=934) POTASSIUM (BEAKER) (test 4.6 meq/L 3.5-5.1 Specimen slightly hwkc=877) hemolyzed CHLORIDE (BEAKER) (test 100 meq/L 98-107 pqgr=063) CO2 (BEAKER) (test 25 meq/L 22-29 juyg=015) BLOOD UREA NITROGEN 20 mg/dL 7-21 (BEAKER) (test pyjy=543) CREATININE (BEAKER) (test 1.40 mg/dL 0.57-1.25 Specimen slightly iphd=487) hemolyzed GLUCOSE RANDOM (BEAKER) 112 mg/dL 70-105 (test qnmf=849) CALCIUM (BEAKER) (test 8.9 mg/dL 8.4-10.2 twws=685) AST (SGOT) (BEAKER) (test 25 U/L 5-34 Specimen slightly rocz=235) hemolyzed ALT (SGPT) (BEAKER) (test 16 U/L 6-55 Specimen slightly mlaq=036) hemolyzed EGFR (BEAKER) (test 39 mL/min/1.73 sq m ESTIMATED GFR IS NOT njnv=8261) ACCURATE CREATININE CLEARANCE IN PREDICTING GLOMERULAR FILTRATION RATE. ESTIMATED GFR IS NOT APPLICABLE FOR DIALYSIS PATIENTS. CBC W/PLT COUNT & AUTO [id number] 06:36:00 Test Item Value Reference Range Comments WHITE BLOOD CELL COUNT (BEAKER) (test llyx=267) 8.5 K/ L 3.5-10.5 RED BLOOD CELL COUNT (BEAKER) (test bxvu=416) 2.85 M/ L 3.93-5.22 HEMOGLOBIN (BEAKER) (test lmwi=560) 7.7 GM/DL 11.2-15.7 HEMATOCRIT (BEAKER) (test forc=443) 25.0 % 34.1-44.9 MEAN CORPUSCULAR VOLUME (BEAKER) (test gglw=868) 87.7 fL 79.4-94.8 MEAN CORPUSCULAR HEMOGLOBIN (BEAKER) (test 27.0 pg 25.6-32.2 tbyb=702) MEAN CORPUSCULAR HEMOGLOBIN CONC (BEAKER) (test 30.8 GM/DL 32.2-35.5 nnqb=494) RED CELL DISTRIBUTION WIDTH (BEAKER) (test 14.8 % 11.7-14.4 ridc=151) PLATELET COUNT (BEAKER) (test kizk=858) 372 K/CU MM 150-450 MEAN PLATELET VOLUME (BEAKER) (test jybn=748) 9.7 fL 9.4-12.3 NUCLEATED RED BLOOD CELLS (BEAKER) (test 0 /100 WBC 0-0 lgff=716) NEUTROPHILS RELATIVE PERCENT (BEAKER) (test 70 % gyty=826) LYMPHOCYTES RELATIVE PERCENT (BEAKER) (test 18 % hskw=459) MONOCYTES RELATIVE PERCENT (BEAKER) (test 9 % ndva=632) EOSINOPHILS RELATIVE PERCENT (BEAKER) (test 1 % nyos=131) BASOPHILS RELATIVE PERCENT (BEAKER) (test 1 % ktns=237) NEUTROPHILS ABSOLUTE COUNT (BEAKER) (test 5.95 K/ L 1.56-6.13 lpyv=886) LYMPHOCYTES ABSOLUTE COUNT (BEAKER) (test 1.54 K/ L 1.18-3.74 kivj=475) MONOCYTES ABSOLUTE COUNT (BEAKER) (test 0.74 K/ L 0.24-0.36 usnq=772) EOSINOPHILS ABSOLUTE COUNT (BEAKER) (test 0.05 K/ L 0.04-0.36 hnrd=647) BASOPHILS ABSOLUTE COUNT (BEAKER) (test 0.05 K/ L 0.01-0.08 tfiu=228) IMMATURE GRANULOCYTES-RELATIVE PERCENT (BEAKER) 2 % 0-1 (test vywz=9874) POCT-GLUCOSE [id number] 20:53:00 Test Item Value Reference Range Comments POC-GLUCOSE METER (BEAKER) 168 mg/dL 70-[address] [facility] [address] [facility] (test xyxm=6492) [facility] [address] CBC (HEMOGRAM ONLY)2018-11-29 18:40:00 Test Item Value Reference Range Comments WHITE BLOOD CELL COUNT (BEAKER) (test svec=268) 9.3 K/ L 3.5-10.5 RED BLOOD CELL COUNT (BEAKER) (test uqgg=173) 2.72 M/ L 3.93-5.22 HEMOGLOBIN (BEAKER) (test yyey=617) 7.4 GM/DL 11.2-15.7 HEMATOCRIT (BEAKER) (test ipbu=516) 23.6 % 34.1-44.9 MEAN CORPUSCULAR VOLUME (BEAKER) (test rwpv=816) 86.8 fL 79.4-94.8 MEAN CORPUSCULAR HEMOGLOBIN (BEAKER) (test 27.2 pg 25.6-32.2 gocf=487) MEAN CORPUSCULAR HEMOGLOBIN CONC (BEAKER) (test 31.4 GM/DL 32.2-35.5 fccf=477) RED CELL DISTRIBUTION WIDTH (BEAKER) (test 15.0 % 11.7-14.4 ajue=572) PLATELET COUNT (BEAKER) (test qrpw=485) 319 K/CU MM 150-450 MEAN PLATELET VOLUME (BEAKER) (test swkj=733) 9.7 fL 9.4-12.3 NUCLEATED RED BLOOD CELLS (BEAKER) (test 0 /100 WBC 0-0 cofb=928) POCT-GLUCOSE [id number] 17:06:00 Test Item Value Reference Range Comments POC-GLUCOSE METER (BEAKER) 213 mg/dL 70-[address] [facility] [address] [facility] (test wgyt=8830) [facility] [address] POCT-GLUCOSE [id number] 12:30:00 Test Item Value Reference Range Comments POC-GLUCOSE METER (BEAKER) 251 mg/dL 70-110 TESTED AT [address] (test ezzg=2451) [facility] [address] RAD, CHEST, 2 [id number] 11:32:00Reason for exam:->SOB, bibasilar crackles, likely CHFShould this be performed at the bedside?->NoFINAL REPORT Chest, two views. CLINICAL HISTORY: Short of breath, likely CHF.COMPARISON STUDY: November 28, 2018. FINDINGS: The cardiac size is enlarged. There are bilateral increased interstitial markings with some atelectatic changes and costophrenic angle blunting, similar toprevious. Some pulmonary venous congestion is noted. No pneumothorax is seen. Degenerative changes are noted. IMPRESSION: Findings most suggestive of CHF, as on previous. In the right clinical setting,a superimposed infection would be difficult to exclude. Clinical correlation and short term imaging follow-up could be made to exclude other etiologies. Signed: Feliciano Motley MDReport Verified Date/Time: 11/29/2018 11:32:11 Reading Location: [facility] Radiology Reading Room Electronicallysigned by: FELICIANO MOTLEY M.D. on 11/29/2018 11:32 AMU/S, RENAL, [id number] 11:31:00Abdomen limited area? Add comment if clarification is needed.->RenalReason for exam:->fluid collection around left flankFINAL REPORT Paracentesis: Performing MD: Nydia Bermeo M.D.Preoperative Diagnosis:Ascites Renal ultrasound Comparison: A CT scan dated November 21, 2018 Clinical History: Fluid collection around the left flank Technique:Sonographic evaluation of the kidneys was performed. 62 images were submitted for interpretation, using a five MHz transducer. Right kidney:The kidney okbpkvme52.5 cm in length. The cortical echogenicity is within normal limits. The cortex measures 1.4 cm.There is no evidence of a focal mass. There is no evidence of hydronephrosis. Caliectasis is suspected in the upper pole. A small cyst may also present with these findings. There is no evidence of a shadowing stone. There is evidence of a 1.4 cm mid to lower pole cyst. There is no evidence of a perinephric fluid collection. Flow was visualized to the right kidney. Left kidney:The kidney measures 11.3 cm in length. The cortical echogenicity is difficult to evaluate secondary to a tear shadowing posteriorly. The cortex measures two cm. There is no evidence of a focal mass. There is no evidence of hydronephrosis. There is no evidence of a shadowing stone. There is no evidence of a cyst. There is no evidence of a perinephric fluid collection. Flow was visualized to the left kidney.Survey images of the bladder demonstrate no abnormality. Impression:Limited examination of the left kidney secondary to shadowing likely from a air. A serous fluid collection was not identified. The left kidney is better evaluated by CT.Both kidneys are normal in length and echogenicity where visualized. There is no evidence of hydronephrosis. Signed: Nydia Bermeo MDReport Verified Date/Time: 11/29/2018 11:31:42 Reading Location: [facility] [id number] Ultrasound Reading Room 11: 31 AMTROPONIN [id number] 09:48:00 Test Item Value Reference Range Comments TROPONIN I (BEAKER) (test qtwg=605) 0.12 ng/mL 0.00-0.03 Troponin I (TnI) levels must be interpreted in the context of the presenting symptoms and the clinical findings. Elevated TnI levels indicate myocardial damage, but are not specific for ischemic heart disease. Elevated TnI levels are seen in patients with other cardiac conditions (including myocarditis and congestive heart failure), and slight TnI elevations occur in patients with other conditions, including sepsis, renal failure, acidosis, acute neurological disease, and persistent tachyarrhythmia.CALCIUM, [id number] 05:30:00 Test Item Value Reference Range Comments CALCIUM IONIZED (BEAKER) (test tywi=725) 1.08 mmol/L 1.12-1.27 PH, BLOOD (BEAKER) (test ioej=4216) 7.36 VITAMIN B12 AND [id number] 05:23:00 Test Item Value Reference Range Comments VITAMIN B12 (BEAKER) (test ppew=091) > pg/mL 213-816 FOLATE (BEAKER) (test pquy=966) 15.0 ng/mL >=7.0 [id number] 05:20:00 Test Item Value Reference Range Comments FERRITIN (BEAKER) (test yzlz=501) 717 ng/mL 5-275 CREATINE KINASE (CK)2018-11-29 04:59:00 Test Item Value Reference Range Comments CREATINE KINASE TOTAL (BEAKER) (test ydbs=172) 8 U/L 29-200 [id number] 04:58:00 Test Item Value Reference Range Comments PHOSPHORUS (BEAKER) (test jdms=967) 5.1 mg/dL 2.3-4.7 [id number] 04:58:00 Test Item Value Reference Range Comments MAGNESIUM (BEAKER) (test rnkm=409) 1.7 mg/dL 1.6-2.6 HEPATIC FUNCTION [id number] 04:58:00 Test Item Value Reference Range Comments TOTAL PROTEIN (BEAKER) (test eooh=204) 7.0 gm/dL 6.0-8.3 ALBUMIN (BEAKER) (test iiyv=6455) 2.3 g/dL 3.5-5.0 BILIRUBIN TOTAL (BEAKER) (test pmmq=056) 0.6 mg/dL 0.2-1.2 BILIRUBIN DIRECT (BEAKER) (test kgti=729) 0.5 mg/dL 0.1-0.5 ALKALINE PHOSPHATASE (BEAKER) (test cnde=935) 315 U/L 40-150 AST (SGOT) (BEAKER) (test dknf=443) 21 U/L 5-34 ALT (SGPT) (BEAKER) (test djhv=885) 16 U/L 6-55 COMPREHENSIVE METABOLIC [id number] 04:58:00 Test Item Value Reference Range Comments TOTAL PROTEIN (BEAKER) 7.0 gm/dL 6.0-8.3 (test tpfo=737) ALBUMIN (BEAKER) (test 2.3 g/dL 3.5-5.0 iytt=7074) ALKALINE PHOSPHATASE 315 U/L 40-150 (BEAKER) (test oyhs=160) BILIRUBIN TOTAL (BEAKER) 0.6 mg/dL 0.2-1.2 (test pfeb=838) SODIUM (BEAKER) (test 136 meq/L 136-145 qnfc=034) POTASSIUM (BEAKER) (test 4.8 meq/L 3.5-5.1 akfp=440) CHLORIDE (BEAKER) (test 102 meq/L 98-107 oyza=410) CO2 (BEAKER) (test 27 meq/L 22-29 ngnz=835) BLOOD UREA NITROGEN 22 mg/dL 7-21 (BEAKER) (test vpqf=106) CREATININE (BEAKER) (test 1.59 mg/dL 0.57-1.25 nbib=741) GLUCOSE RANDOM (BEAKER) 139 mg/dL 70-105 (test nzwu=920) CALCIUM (BEAKER) (test 8.8 mg/dL 8.4-10.2 ddgd=748) AST (SGOT) (BEAKER) (test 21 U/L 5-34 gblr=991) ALT (SGPT) (BEAKER) (test 16 U/L 6-55 lelk=689) EGFR (BEAKER) (test 34 mL/min/1.73 sq m ESTIMATED GFR IS NOT modb=5941) ACCURATE CREATININE CLEARANCE IN PREDICTING GLOMERULAR FILTRATION RATE. ESTIMATED GFR IS NOT APPLICABLE FOR DIALYSIS PATIENTS. IRON, TIBC, % SAT. (WITHOUT FERRITIN)2018-11-29 04:54:00 Test Item Value Reference Range Comments IRON (BEAKER) (test jpue=450) 19.0 ug/dL 40.0-160.0 TOTAL IRON BINDING CAPACITY (BEAKER) (test 171 ug/dL 250-450 zoho=112) IRON % SATURATION (2) (BEAKER) (test oyuq=4323) 11 % 20-55 B-TYPE NATRIURETIC FACTOR (BNP)2018-11-29 04:51:00 Test Item Value Reference Range Comments B-TYPE NATRIURETIC PEPTIDE (BEAKER) (test 1598 pg/mL 0-100 cxzg=689) CBC W/PLT COUNT & AUTO [id number] 04:31:00 Test Item Value Reference Range Comments WHITE BLOOD CELL COUNT (BEAKER) (test ovsh=226) 9.4 K/ L 3.5-10.5 RED BLOOD CELL COUNT (BEAKER) (test oiht=573) 2.91 M/ L 3.93-5.22 HEMOGLOBIN (BEAKER) (test uqgn=852) 7.7 GM/DL 11.2-15.7 HEMATOCRIT (BEAKER) (test pehb=298) 25.5 % 34.1-44.9 MEAN CORPUSCULAR VOLUME (BEAKER) (test lhlv=301) 87.6 fL 79.4-94.8 MEAN CORPUSCULAR HEMOGLOBIN (BEAKER) (test 26.5 pg 25.6-32.2 cuxd=388) MEAN CORPUSCULAR HEMOGLOBIN CONC (BEAKER) (test 30.2 GM/DL 32.2-35.5 zcpq=930) RED CELL DISTRIBUTION WIDTH (BEAKER) (test 14.6 % 11.7-14.4 uisf=112) PLATELET COUNT (BEAKER) (test miss=559) 377 K/CU MM 150-450 MEAN PLATELET VOLUME (BEAKER) (test hlgi=321) 9.9 fL 9.4-12.3 NUCLEATED RED BLOOD CELLS (BEAKER) (test 0 /100 WBC 0-0 uwye=735) NEUTROPHILS RELATIVE PERCENT (BEAKER) (test 76 % exdr=098) LYMPHOCYTES RELATIVE PERCENT (BEAKER) (test 14 % mulv=134) MONOCYTES RELATIVE PERCENT (BEAKER) (test 9 % ngnz=815) EOSINOPHILS RELATIVE PERCENT (BEAKER) (test 1 % evel=543) BASOPHILS RELATIVE PERCENT (BEAKER) (test 0 % rqxy=785) NEUTROPHILS ABSOLUTE COUNT (BEAKER) (test 7.08 K/ L 1.56-6.13 tagg=107) LYMPHOCYTES ABSOLUTE COUNT (BEAKER) (test 1.27 K/ L 1.18-3.74 gulo=843) MONOCYTES ABSOLUTE COUNT (BEAKER) (test 0.83 K/ L 0.24-0.36 kxup=089) EOSINOPHILS ABSOLUTE COUNT (BEAKER) (test 0.07 K/ L 0.04-0.36 oaik=695) BASOPHILS ABSOLUTE COUNT (BEAKER) (test 0.04 K/ L 0.01-0.08 wtrd=596) IMMATURE GRANULOCYTES-RELATIVE PERCENT (BEAKER) 1 % 0-1 (test ygbq=1067) OCCULT BLOOD, [id number] 20:52:00 Test Item Value Reference Range Comments FECAL OCCULT BLOOD (BEAKER) (test auwf=597) Negative Negative POCT-GLUCOSE [id number] 20:17:00 Test Item Value Reference Range Comments POC-GLUCOSE METER (BEAKER) 107 mg/dL 70-110 TESTED AT [address] (test rdfd=2629) [facility] [address] RAD, CHEST, 1 VIEW, NON [id number] 20:01:00Reason for exam:->edemaShould this be performed at the bedside?->YesIs the patient ?->NoFINAL REPORT INDICATION: edema COMPARISON:November 22 TECHNIQUE : Chest radiograph, single view, portable technique. FINDINGS / IMPRESSION: Pulmonary venous congestion has improvedif not resolved. Heart shadow is prominent which may be related to portable technique. Blunting of the right lateral costophrenic angle likely representing a pleural effusion. No consolidation or pneumothorax is demonstrated. Osseous structures are unremarkable. Signed: Basil Catalan MDReport Verified Date/Time: 11/28/2018 20:01:00 Reading Location: [address] Consult Reading Room CREATININE, RANDOM [id number] 19:47:00 Test Item Value Reference Range Comments CREATININE URINE (BEAKER) (test pvou=371) 14.6 mg/dL Reference Range: No [id number] 19:00:00 Test Item Value Reference Range Comments SODIUM (BEAKER) (test wxos=861) 135 meq/L 136-145 POTASSIUM (BEAKER) (test ksbk=136) 5.0 meq/L 3.5-5.1 CHLORIDE (BEAKER) (test ovpv=987) 103 meq/L 98-107 CO2 (BEAKER) (test ffqt=989) 23 meq/L 22-29 Call [id number] if K > 5POCT-GLUCOSE [id number] 17:10:00 Test Item Value Reference Range Comments POC-GLUCOSE METER (BEAKER) 101 mg/dL 70-[address] [facility] [address] [facility] (test eeoc=0390) [facility] [address] URINALYSIS W/ [id number] 16:19:00 Test Item Value Reference Range Comments COLOR (BEAKER) (test bthr=716) Light Yellow CLARITY (BEAKER) (test gwvd=315) Hazy SPECIFIC GRAVITY UA (BEAKER) (test viie=156) 1.007 1.001-1.035 PH UA (BEAKER) (test zjlk=287) 5.5 5.0-8.0 PROTEIN UA (BEAKER) (test dtrl=713) 10 mg/dL Negative GLUCOSE UA (BEAKER) (test tyzy=494) Negative Negative KETONES UA (BEAKER) (test acky=206) Negative Negative BILIRUBIN UA (BEAKER) (test nflc=474) Negative Negative BLOOD UA (BEAKER) (test mxlb=216) Small Negative NITRITE UA (BEAKER) (test lcvg=120) Negative Negative LEUKOCYTE ESTERASE UA (BEAKER) (test cfli=272) Large Negative UROBILINOGEN UA (BEAKER) (test rjhq=364) 0.2 mg/dL 0.2-1.0 RBC UA (BEAKER) (test ykdo=280) 1 /HPF WBC UA (BEAKER) (test ghkr=191) 75 /HPF BACTERIA (BEAKER) (test blnr=951) Rare SQUAMOUS EPITHELIAL (BEAKER) (test lwhy=755) 1 /HPF YEAST (BEAKER) (test dird=4985) Rare SOURCE(BEAKER) (test lkgj=9282) Urine, Voided CREATINE KINASE (CK)2018-11-28 13:36:00 Test Item Value Reference Range Comments CREATINE KINASE TOTAL (BEAKER) (test uiha=437) 16 U/L 29-200 [id number] 13:35:00 Test Item Value Reference Range Comments HAPTOGLOBIN (BEAKER) (test iflc=256) 324 mg/dL 14-258 TSH/FREE T4 IF [id number] 13:33:00 Test Item Value Reference Range Comments THYROID STIMULATING HORMONE (BEAKER) (test 3.42 uIU/mL 0.35-4.94 vlqn=049) TROPONIN [id number] 13:18:00 Test Item Value Reference Range Comments TROPONIN I (BEAKER) (test mkkv=430) 0.14 ng/mL 0.00-0.03 Troponin I (TnI) levels must be interpreted in the context of the presenting symptoms and the clinical findings. Elevated TnI levels indicate myocardial damage, but are not specific for ischemic heart disease. Elevated TnI levels are seen in patients with other cardiac conditions (including myocarditis and congestive heart failure), and slight TnI elevations occur in patients with other conditions, including sepsis, renal failure, acidosis, acute neurological disease, and persistent tachyarrhythmia.[id number] 13:13:00 Test Item Value Reference Range Comments PHOSPHORUS (BEAKER) (test gzqq=586) 5.2 mg/dL 2.3-4.7 [id number] 13:13:00 Test Item Value Reference Range Comments MAGNESIUM (BEAKER) (test kmvw=758) 1.9 mg/dL 1.6-2.6 BASIC METABOLIC [id number] 13:13:00 Test Item Value Reference Range Comments SODIUM (BEAKER) (test 135 meq/L 136-145 ktuo=290) POTASSIUM (BEAKER) (test 5.0 meq/L 3.5-5.1 srua=026) CHLORIDE (BEAKER) (test 104 meq/L 98-107 javd=976) CO2 (BEAKER) (test 25 meq/L 22-29 xxkh=983) BLOOD UREA NITROGEN 20 mg/dL 7-21 (BEAKER) (test pcaw=056) CREATININE (BEAKER) (test 1.31 mg/dL 0.57-1.25 luje=404) GLUCOSE RANDOM (BEAKER) 58 mg/dL 70-105 (test islc=953) CALCIUM (BEAKER) (test 9.4 mg/dL 8.4-10.2 xbfl=082) EGFR (BEAKER) (test 42 mL/min/1.73 sq m ESTIMATED GFR IS NOT fbrx=6899) ACCURATE CREATININE CLEARANCE IN PREDICTING GLOMERULAR FILTRATION RATE. ESTIMATED GFR IS NOT APPLICABLE FOR DIALYSIS PATIENTS. LIPID [id number] 13:13:00 Test Item Value Reference Range Comments TRIGLYCERIDES (BEAKER) (test aniv=750) 159 mg/dL CHOLESTEROL (BEAKER) (test lvmi=342) 153 mg/dL HDL CHOLESTEROL (BEAKER) (test fdpy=322) 25 mg/dL LDL CHOLESTEROL CALCULATED (BEAKER) (test 96 mg/dL deue=133) Triglyceride Reference Range: Low Risk <150 Borderline 150- 199 High Risk 200-499 Very High Risk >=500Cholesterol Reference Range: Low Risk <200 Borderline 200-239 High Risk > 240HDL Cholesterol Reference Range: Low Risk >=60 High Risk <40LDL Cholesterol Reference Range: Optimal <100 Near Optimal 100-129 Borderline 130-159 High 160-189 Very High >=190LACTATE DEHYDROGENASE (LDH)2018-11-28 13:13:00 Test Item Value Reference Range Comments LACTATE DEHYDROGENASE (BEAKER) (test vhwr=575) 214 U/L 125-220 CBC (HEMOGRAM ONLY)2018-11-28 12:55:00 Test Item Value Reference Range Comments WHITE BLOOD CELL COUNT (BEAKER) (test tgzq=800) 8.3 K/ L 3.5-10.5 RED BLOOD CELL COUNT (BEAKER) (test fizc=591) 2.97 M/ L 3.93-5.22 HEMOGLOBIN (BEAKER) (test rpui=791) 8.1 GM/DL 11.2-15.7 HEMATOCRIT (BEAKER) (test scvs=150) 26.3 % 34.1-44.9 MEAN CORPUSCULAR VOLUME (BEAKER) (test dxsd=913) 88.6 fL 79.4-94.8 MEAN CORPUSCULAR HEMOGLOBIN (BEAKER) (test 27.3 pg 25.6-32.2 gcnj=165) MEAN CORPUSCULAR HEMOGLOBIN CONC (BEAKER) (test 30.8 GM/DL 32.2-35.5 haft=845) RED CELL DISTRIBUTION WIDTH (BEAKER) (test 14.3 % 11.7-14.4 namu=934) PLATELET COUNT (BEAKER) (test ufsg=842) 330 K/CU MM 150-450 MEAN PLATELET VOLUME (BEAKER) (test jcdv=227) 9.7 fL 9.4-12.3 NUCLEATED RED BLOOD CELLS (BEAKER) (test 0 /100 WBC 0-0 waah=407) POCT-GLUCOSE [id number] 12:37:00 Test Item Value Reference Range Comments POC-GLUCOSE METER (BEAKER) 70 mg/dL 70-110 TESTED AT [address] (test lvha=0117) [facility] [id number] POCT-GLUCOSE [id number] 07:12:00 Test Item Value Reference Range Comments POC-GLUCOSE METER (BEAKER) 162 mg/dL 70-110 TESTED AT [address] (test mldl=4686) [place] [id number] TROPONIN [id number] 06:17:00 Test Item Value Reference Range Comments TROPONIN I (BEAKER) (test vgah=609) 0.12 ng/mL 0.00-0.03 Troponin I (TnI) levels must be interpreted in the context of the presenting symptoms and the clinical findings. Elevated TnI levels indicate myocardial damage, but are not specific for ischemic heart disease. Elevated TnI levels are seen in patients with other cardiac conditions (including myocarditis and congestive heart failure), and slight TnI elevations occur in patients with other conditions, including sepsis, renal failure, acidosis, acute neurological disease, and persistent tachyarrhythmia.BASIC METABOLIC [id number] 06:14:00 Test Item Value Reference Range Comments SODIUM (BEAKER) (test 129 meq/L 136-145 ebfy=827) POTASSIUM (BEAKER) (test 6.3 meq/L 3.5-5.1 reic=620) CHLORIDE (BEAKER) (test 101 meq/L 98-107 yjsm=728) CO2 (BEAKER) (test 23 meq/L 22-29 unmo=789) BLOOD UREA NITROGEN 21 mg/dL 7-21 (BEAKER) (test zhhr=628) CREATININE (BEAKER) (test 1.29 mg/dL 0.57-1.25 skdk=671) GLUCOSE RANDOM (BEAKER) 157 mg/dL 70-105 (test jeap=587) CALCIUM (BEAKER) (test 8.8 mg/dL 8.4-10.2 sfie=335) EGFR (BEAKER) (test 43 mL/min/1.73 sq m ESTIMATED GFR IS NOT ebzg=4601) ACCURATE CREATININE CLEARANCE IN PREDICTING GLOMERULAR FILTRATION RATE. ESTIMATED GFR IS NOT APPLICABLE FOR DIALYSIS PATIENTS. B-TYPE NATRIURETIC FACTOR (BNP)2018-11-28 06:08:00 Test Item Value Reference Range Comments B-TYPE NATRIURETIC PEPTIDE (BEAKER) (test 1580 pg/mL 0-100 fgms=879) CBC W/PLT COUNT & AUTO [id number] 06:06:00 Test Item Value Reference Range Comments WHITE BLOOD CELL COUNT (BEAKER) (test zsza=587) 9.2 K/ L 3.5-10.5 RED BLOOD CELL COUNT (BEAKER) (test zeoo=488) 2.98 M/ L 3.93-5.22 HEMOGLOBIN (BEAKER) (test ctuo=588) 8.1 GM/DL 11.2-15.7 HEMATOCRIT (BEAKER) (test agbg=291) 25.8 % 34.1-44.9 MEAN CORPUSCULAR VOLUME (BEAKER) (test sgzj=551) 86.6 fL 79.4-94.8 MEAN CORPUSCULAR HEMOGLOBIN (BEAKER) (test 27.2 pg 25.6-32.2 sfgd=539) MEAN CORPUSCULAR HEMOGLOBIN CONC (BEAKER) (test 31.4 GM/DL 32.2-35.5 gily=598) RED CELL DISTRIBUTION WIDTH (BEAKER) (test 14.5 % 11.7-14.4 kaep=534) PLATELET COUNT (BEAKER) (test wlfv=835) 311 K/CU MM 150-450 MEAN PLATELET VOLUME (BEAKER) (test bnkm=160) 10.3 fL 9.4-12.3 NUCLEATED RED BLOOD CELLS (BEAKER) (test 0 /100 WBC 0-0 qyxf=451) NEUTROPHILS RELATIVE PERCENT (BEAKER) (test 83 % ehrg=293) LYMPHOCYTES RELATIVE PERCENT (BEAKER) (test 12 % yhts=117) MONOCYTES RELATIVE PERCENT (BEAKER) (test 3 % tuck=770) EOSINOPHILS RELATIVE PERCENT (BEAKER) (test 0 % kyjf=516) BASOPHILS RELATIVE PERCENT (BEAKER) (test 0 % vucp=758) NEUTROPHILS ABSOLUTE COUNT (BEAKER) (test 7.63 K/ L 1.56-6.13 cnvc=651) LYMPHOCYTES ABSOLUTE COUNT (BEAKER) (test 1.10 K/ L 1.18-3.74 cmzs=676) MONOCYTES ABSOLUTE COUNT (BEAKER) (test 0.31 K/ L 0.24-0.36 phnh=885) EOSINOPHILS ABSOLUTE COUNT (BEAKER) (test 0.00 K/ L 0.04-0.36 ykef=911) BASOPHILS ABSOLUTE COUNT (BEAKER) (test 0.04 K/ L 0.01-0.08 bleg=444) IMMATURE GRANULOCYTES-RELATIVE PERCENT (BEAKER) 1 % 0-1 (test kbse=7118) PROTHROMBIN [id number] 05:56:00 Test Item Value Reference Range Comments PROTIME (BEAKER) (test rvmo=577) 13.7 seconds 11.7-14.7 INR (BEAKER) (test vjjw=874) 1.0 <=5.9 RECOMMENDED COUMADIN/WARFARIN INR THERAPY RANGESSTANDARD DOSE: 2.0 - 3.0 Includes: PROPHYLAXIS forvenous thrombosis, systemic embolization; TREATMENT for venous thrombosis and/or pulmonary embolus.HIGH RISK: Target INR is 2.5-3.5 for patients with mechanical heart valves.TROPONIN [id number] 00:20:00 Test Item Value Reference Range Comments TROPONIN I (BEAKER) (test qybv=471) 0.16 ng/mL 0.00-0.03 Troponin I (TnI) levels must be interpreted in the context of the presenting symptoms and the clinical findings. Elevated TnI levels indicate myocardial damage, but are not specific for ischemic heart disease. Elevated TnI levels are seen in patients with other cardiac conditions (including myocarditis and congestive heart failure), and slight TnI elevations occur in patients with other conditions, including sepsis, renal failure, acidosis, acute neurological disease, and persistent tachyarrhythmia.BASIC METABOLIC [id number] 22:14:00 Test Item Value Reference Range Comments SODIUM (BEAKER) (test 130 meq/L 136-145 cqav=520) POTASSIUM (BEAKER) (test 5.7 meq/L 3.5-5.1 syet=629) CHLORIDE (BEAKER) (test 101 meq/L 98-107 afnc=875) CO2 (BEAKER) (test 22 meq/L 22-29 rsqi=043) BLOOD UREA NITROGEN 19 mg/dL 7-21 (BEAKER) (test gxkl=887) CREATININE (BEAKER) (test 1.17 mg/dL 0.57-1.25 pown=730) GLUCOSE RANDOM (BEAKER) 87 mg/dL 70-105 (test zajc=683) CALCIUM (BEAKER) (test 8.8 mg/dL 8.4-10.2 aadd=657) EGFR (BEAKER) (test 48 mL/min/1.73 sq m ESTIMATED GFR IS NOT mvya=5853) ACCURATE CREATININE CLEARANCE IN PREDICTING GLOMERULAR FILTRATION RATE. ESTIMATED GFR IS NOT APPLICABLE FOR DIALYSIS PATIENTS. CBC W/PLT COUNT & AUTO [id number] 21:58:00 Test Item Value Reference Range Comments WHITE BLOOD CELL COUNT (BEAKER) (test rntx=997) 11.9 K/ L 3.5-10.5 RED BLOOD CELL COUNT (BEAKER) (test hcwl=282) 2.95 M/ L 3.93-5.22 HEMOGLOBIN (BEAKER) (test hbak=975) 8.1 GM/DL 11.2-15.7 HEMATOCRIT (BEAKER) (test kuwz=813) 25.8 % 34.1-44.9 MEAN CORPUSCULAR VOLUME (BEAKER) (test rnfs=862) 87.5 fL 79.4-94.8 MEAN CORPUSCULAR HEMOGLOBIN (BEAKER) (test 27.5 pg 25.6-32.2 mtkw=465) MEAN CORPUSCULAR HEMOGLOBIN CONC (BEAKER) (test 31.4 GM/DL 32.2-35.5 lpqp=017) RED CELL DISTRIBUTION WIDTH (BEAKER) (test 14.7 % 11.7-14.4 grxk=009) PLATELET COUNT (BEAKER) (test ooet=105) 317 K/CU MM 150-450 MEAN PLATELET VOLUME (BEAKER) (test uqra=905) 10.2 fL 9.4-12.3 NUCLEATED RED BLOOD CELLS (BEAKER) (test 0 /100 WBC 0-0 xxcg=878) NEUTROPHILS RELATIVE PERCENT (BEAKER) (test 89 % fnzk=497) LYMPHOCYTES RELATIVE PERCENT (BEAKER) (test 6 % bdjq=393) MONOCYTES RELATIVE PERCENT (BEAKER) (test 4 % amah=373) EOSINOPHILS RELATIVE PERCENT (BEAKER) (test 0 % bdnb=754) BASOPHILS RELATIVE PERCENT (BEAKER) (test 0 % mbec=152) NEUTROPHILS ABSOLUTE COUNT (BEAKER) (test 10.64 K/ L 1.56-6.13 bnul=317) LYMPHOCYTES ABSOLUTE COUNT (BEAKER) (test 0.69 K/ L 1.18-3.74 usfi=673) MONOCYTES ABSOLUTE COUNT (BEAKER) (test 0.43 K/ L 0.24-0.36 nvoz=265) EOSINOPHILS ABSOLUTE COUNT (BEAKER) (test 0.01 K/ L 0.04-0.36 urug=769) BASOPHILS ABSOLUTE COUNT (BEAKER) (test 0.03 K/ L 0.01-0.08 wked=592) IMMATURE GRANULOCYTES-RELATIVE PERCENT (BEAKER) 1 % 0-1 (test brck=1562) POCT-GLUCOSE [id number] 21:07:00 Test Item Value Reference Range Comments POC-GLUCOSE METER (BEAKER) 109 mg/dL 70-110 TESTED AT [address] (test rcrr=9195) [place] [address] BLOOD [id number] 19:01:00 Test Item Value Reference Range Comments CULTURE (BEAKER) (test ikoi=5231) No growth in 5 days BLOOD [id number] 19:01:00 Test Item Value Reference Range Comments CULTURE (BEAKER) (test fkem=2125) No growth in 5 days POCT-GLUCOSE [id number] 11:52:00 Test Item Value Reference Range Comments POC-GLUCOSE METER (BEAKER) 252 mg/dL 70-110 TESTED AT [address] (test kebq=8526) [place] [id number] POCT-GLUCOSE [id number] 08:45:00 Test Item Value Reference Range Comments POC-GLUCOSE METER (BEAKER) 94 mg/dL 70-110 TESTED AT [address] (test fsep=5446) [place] [address] POCT-GLUCOSE [id number] 21:49:00 Test Item Value Reference Range Comments POC-GLUCOSE METER (BEAKER) 95 mg/dL 70-110 TESTED AT [address] (test jwqq=4950) [place] [address] POCT-GLUCOSE [id number] 17:58:00 Test Item Value Reference Range Comments POC-GLUCOSE METER (BEAKER) 122 mg/dL 70-110 TESTED AT [address] (test ylaz=8211) [place] [address] RAD, CHEST, 1 VIEW, NON [id number] 15:45:00Reason for exam:->post picc line insertionShould this be performed at the bedside?->YesFINAL REPORT TECHNIQUE: Frontal chest radiograph dated 11/22/2018. CLINICAL HISTORY: Post PICC COMPARISON STUDY: Chest radiograph dated 11/16/2018 IMPRESSION:Right-sided PICC is seen with the tip projects over the superior vena cava/right atrial junction. Pulmonary edema has improved. There is stable left retrocardiac atelectasis. No fracture. Signed: Irma BettseportVerified Date/Time: 11/22/2018 15:45:15 Reading Location: [facility] Radiology Reading Room POCT-GLUCOSE [id number] 12:04:00 Test Item Value Reference Range Comments POC-GLUCOSE METER (BEAKER) 233 mg/dL 70-110 TESTED AT [address] (test rytu=3337) [place] [address] POCT-GLUCOSE [id number] 08:10:00 Test Item Value Reference Range Comments POC-GLUCOSE METER (BEAKER) 101 mg/dL 70-110 TESTED AT [address] (test svie=0079) [place] [address] BASIC METABOLIC [id number] 06:33:00 Test Item Value Reference Range Comments SODIUM (BEAKER) (test 137 meq/L 136-145 fylx=076) POTASSIUM (BEAKER) (test 5.4 meq/L 3.5-5.1 Specimen slightly wwqb=496) hemolyzed CHLORIDE (BEAKER) (test 110 meq/L 98-107 kblo=388) CO2 (BEAKER) (test 22 meq/L 22-29 mbpg=351) BLOOD UREA NITROGEN 33 mg/dL 7-21 (BEAKER) (test axzy=650) CREATININE (BEAKER) (test 1.02 mg/dL 0.57-1.25 Specimen slightly yoye=883) hemolyzed GLUCOSE RANDOM (BEAKER) 83 mg/dL 70-105 (test artc=179) CALCIUM (BEAKER) (test 8.4 mg/dL 8.4-10.2 smhz=211) EGFR (BEAKER) (test 56 mL/min/1.73 sq m ESTIMATED GFR IS NOT pdgi=6968) ACCURATE CREATININE CLEARANCE IN PREDICTING GLOMERULAR FILTRATION RATE. ESTIMATED GFR IS NOT APPLICABLE FOR DIALYSIS PATIENTS. ANAEROBIC [id number] 02:52:00 Test Item Value Reference Range Comments CULTURE (AKER) (test ixob=3673) No anaerobes isolated POCT-GLUCOSE [id number] 22:38:00 Test Item Value Reference Range Comments POC-GLUCOSE METER (BEAKER) 193 mg/dL 70-[address] [facility] [address] [facility] (test nxpt=4229) [place] [address] POCT-GLUCOSE [id number] 18:00:00 Test Item Value Reference Range Comments POC-GLUCOSE METER (BEAKER) 160 mg/dL 70-110 TESTED AT [address] (test zapw=9987) [facility] [address] [address], [id number] 12:29:00FU gas and fluid collection after drainage.FINAL [...] diverticulosis of the left an right colon. [place] is normal. BONES AND SOFT TISSUES: Mild [...] of normal spleen size. Signed: Rober Payan MDReport Verified Date/Time: 12:29:22 Reading Location: [facility] Diagnostic ImagingReading Room - [place] [address] POCT-GLUCOSE [id number] 12:21:00 Test Item Value Reference Range Comments POC-GLUCOSE METER (BEAKER) 98 mg/dL 70-110 TESTED AT [address] (test hqnq=7848) [place] [id number] HEMOGLOBIN [id number] 11:12:00 Test Item Value Reference Range Comments HEMOGLOBIN A1C (BEAKER) (test vkzp=914) 13.6 % 4.3-6.1 POCT-GLUCOSE [id number] 08:48:00 Test Item Value Reference Range Comments POC-GLUCOSE METER (BEAKER) 103 mg/dL 70-110 TESTED AT [address] (test yeiw=5762) [facility] [address] BASIC METABOLIC [id number] 04:16:00 Test Item Value Reference Range Comments SODIUM (BEAKER) (test 137 meq/L 136-145 zsvs=534) POTASSIUM (BEAKER) (test 4.9 meq/L 3.5-5.1 iejq=410) CHLORIDE (BEAKER) (test 113 meq/L 98-107 rggy=356) CO2 (BEAKER) (test 19 meq/L 22-29 uwyv=161) BLOOD UREA NITROGEN 39 mg/dL 7-21 (BEAKER) (test jvgk=031) CREATININE (BEAKER) (test 0.99 mg/dL 0.57-1.25 suwq=813) GLUCOSE RANDOM (BEAKER) 81 mg/dL 70-105 (test pkvw=227) CALCIUM (BEAKER) (test 8.2 mg/dL 8.4-10.2 jpat=654) EGFR (BEAKER) (test 58 mL/min/1.73 sq m ESTIMATED GFR IS NOT cgdt=5445) ACCURATE CREATININE CLEARANCE IN PREDICTING GLOMERULAR FILTRATION RATE. ESTIMATED GFR IS NOT APPLICABLE FOR DIALYSIS PATIENTS. POCT-GLUCOSE [id number] 22:37:00 Test Item Value Reference Range Comments POC-GLUCOSE METER (BEAKER) 130 mg/dL 70-110 TESTED AT [address] (test grer=8003) [place] [address] POCT-GLUCOSE [id number] 17:16:00 Test Item Value Reference Range Comments POC-GLUCOSE METER (BEAKER) 169 mg/dL 70-110 TESTED AT [address] (test knlz=3654) [place] [id number] CBC W/PLT COUNT & AUTO [id number] 15:03:00 Test Item Value Reference Range Comments WHITE BLOOD CELL COUNT (BEAKER) (test jisz=222) 11.8 K/ L 3.5-10.5 RED BLOOD CELL COUNT (BEAKER) (test vier=240) 3.26 M/ L 3.93-5.22 HEMOGLOBIN (BEAKER) (test mjvd=947) 8.6 GM/DL 11.2-15.7 HEMATOCRIT (BEAKER) (test sjfm=171) 27.6 % 34.1-44.9 MEAN CORPUSCULAR VOLUME (BEAKER) (test njpx=853) 84.7 fL 79.4-94.8 MEAN CORPUSCULAR HEMOGLOBIN (BEAKER) (test 26.4 pg 25.6-32.2 gnac=765) MEAN CORPUSCULAR HEMOGLOBIN CONC (BEAKER) (test 31.2 GM/DL 32.2-35.5 ujdn=859) RED CELL DISTRIBUTION WIDTH (BEAKER) (test 15.2 % 11.7-14.4 jagd=124) PLATELET COUNT (BEAKER) (test mkho=853) 182 K/CU MM 150-450 MEAN PLATELET VOLUME (BEAKER) (test fmgm=448) 11.3 fL 9.4-12.3 NUCLEATED RED BLOOD CELLS (BEAKER) (test 0 /100 WBC 0-0 udbf=395) (CELLAVISION MANUAL DIFF)2018-11-20 15:03:00 Test Item Value Reference Range Comments NEUTROPHILS - REL (CELLAVISION)(BEAKER) (test 86 % fxkh=6923) LYMPHOCYTES - REL (CELLAVISION)(BEAKER) (test 8 % alza=7799) MONOCYTES - REL (CELLAVISION)(BEAKER) (test 5 % ewbn=1048) BANDS - REL (CELLAVISION)(BEAKER) (test 1 % 0-10 hbcr=5697) NEUTROPHILS - ABS (CELLAVISION)(BEAKER) (test 10.15 K/ul 1.56-6.13 xxaf=5720) LYMPHOCYTES - ABS (CELLAVISION)(BEAKER) (test 0.94 K/ul 1.18-3.74 ytwi=7807) MONOCYTES - ABS (CELLAVISION)(BEAKER) (test 0.59 K/uL 0.24-0.36 xwol=2333) BANDS - ABS (CELLAVISION)(BEAKER) (test 0.12 K/uL 0.00-0.80 stnf=4785) TOTAL COUNTED (BEAKER) (test qnhv=8246) 100 GIANT PLATELETS (BEAKER) (test vzwo=470) Present TOXIC GRANULATION (BEAKER) (test azxm=986) Present ANISOCYTOSIS (BEAKER) (test dmsr=034) 1+ few MICROCYTES (BEAKER) (test uhdx=180) 1+ few SCHISTOCYTES (BEAKER) (test yotz=928) 1+ few ARTIFACT (CELLAVISION)(BEAKER) (test rfrf=0672) Present PLATELET CONCENTRATION (CELLAVISION)(BEAKER) Adequate (test toeb=4249) Received comment: User comments: Slide comments:POCT-GLUCOSE [id number] 12: 23:00 Test Item Value Reference Range Comments POC-GLUCOSE METER (BEAKER) 256 mg/dL 70-110 TESTED AT [address] (test kzqw=2035) [facility] [address] POCT-GLUCOSE [id number] 08:22:00 Test Item Value Reference Range Comments POC-GLUCOSE METER (BEAKER) 199 mg/dL 70-110 TESTED AT [address] (test lzcl=8756) [place] [address] BASIC METABOLIC [id number] 06:47:00 Test Item Value Reference Range Comments SODIUM (BEAKER) (test 134 meq/L 136-145 dykg=883) POTASSIUM (BEAKER) (test 4.6 meq/L 3.5-5.1 twbm=524) CHLORIDE (BEAKER) (test 108 meq/L 98-107 zyzj=023) CO2 (BEAKER) (test 21 meq/L 22-29 qqwj=109) BLOOD UREA NITROGEN 54 mg/dL 7-21 (BEAKER) (test shvo=779) CREATININE (BEAKER) (test 1.31 mg/dL 0.57-1.25 xdnq=911) GLUCOSE RANDOM (BEAKER) 142 mg/dL 70-105 (test qqoa=155) CALCIUM (BEAKER) (test 8.0 mg/dL 8.4-10.2 zkoo=819) EGFR (BEAKER) (test 42 mL/min/1.73 sq m ESTIMATED GFR IS NOT zxia=5785) ACCURATE CREATININE CLEARANCE IN PREDICTING GLOMERULAR FILTRATION RATE. ESTIMATED GFR IS NOT APPLICABLE FOR DIALYSIS PATIENTS. POCT-GLUCOSE [id number] 21:58:00 Test Item Value Reference Range Comments POC-GLUCOSE METER (BEAKER) 331 mg/dL 70-110 Notified CELIA ALLEN/TESTED AT [facility] (test qyca=5755) [address] [place] [address] POCT-GLUCOSE [id number] 18:56:00 Test Item Value Reference Range Comments POC-GLUCOSE METER (BEAKER) 312 mg/dL 70-110 Notified CELIA ALLEN/TESTED AT [facility] (test riaq=5249) [address] [place] [address] POCT-GLUCOSE [id number] 12:34:00 Test Item Value Reference Range Comments POC-GLUCOSE METER (BEAKER) 275 mg/dL 70-[address] [facility] [address] (test ybna=4146) [place] [address] CBC W/PLT COUNT & AUTO [id number] 10:30:00 Test Item Value Reference Range Comments WHITE BLOOD CELL COUNT (BEAKER) (test erme=031) 13.6 K/ L 3.5-10.5 RED BLOOD CELL COUNT (BEAKER) (test qkmc=473) 3.67 M/ L 3.93-5.22 HEMOGLOBIN (BEAKER) (test dwdc=617) 9.9 GM/DL 11.2-15.7 HEMATOCRIT (BEAKER) (test dewy=857) 30.7 % 34.1-44.9 MEAN CORPUSCULAR VOLUME (BEAKER) (test kkmh=326) 83.7 fL 79.4-94.8 MEAN CORPUSCULAR HEMOGLOBIN (BEAKER) (test 27.0 pg 25.6-32.2 avpa=893) MEAN CORPUSCULAR HEMOGLOBIN CONC (BEAKER) (test 32.2 GM/DL 32.2-35.5 crlx=210) RED CELL DISTRIBUTION WIDTH (BEAKER) (test 15.2 % 11.7-14.4 hymb=578) PLATELET COUNT (BEAKER) (test zqzk=149) 158 K/CU MM 150-450 MEAN PLATELET VOLUME (BEAKER) (test gqah=075) 10.9 fL 9.4-12.3 NUCLEATED RED BLOOD CELLS (BEAKER) (test 0 /100 WBC 0-0 xksm=665) (CELLAVISION MANUAL DIFF)2018-11-19 10:30:00 Test Item Value Reference Range Comments NEUTROPHILS - REL (CELLAVISION)(BEAKER) (test 78 % gjxy=9982) LYMPHOCYTES - REL (CELLAVISION)(BEAKER) (test 8 % lhze=2503) MONOCYTES - REL (CELLAVISION)(BEAKER) (test 7 % nzye=1345) METAMYELOCYTES - REL (CELLAVISION)(BEAKER) (test 1 % 0-0 uuiq=7737) MYELOCYTES - REL (CELLAVISION)(BEAKER) (test 2 % 0-0 iojg=7541) BANDS - REL (CELLAVISION)(BEAKER) (test 4 % 0-10 ppyv=6982) NEUTROPHILS - ABS (CELLAVISION)(BEAKER) (test 10.61 K/ul 1.56-6.13 fxiq=7681) LYMPHOCYTES - ABS (CELLAVISION)(BEAKER) (test 1.09 K/ul 1.18-3.74 sgrf=1058) MONOCYTES - ABS (CELLAVISION)(BEAKER) (test 0.95 K/uL 0.24-0.36 xpux=5623) METAMYELOCYTES - ABS (CELLAVISION)(BEAKER) (test 0.14 K/uL 0.00-0.00 clgy=1435) MYELOCYTES-ABS (CELLAVISION)(BEAKER) (test 0.27 K/uL 0.00-0.00 iaup=7389) BANDS - ABS (CELLAVISION)(BEAKER) (test 0.54 K/uL 0.00-0.80 mham=7209) TOTAL COUNTED (BEAKER) (test zand=9258) 100 SMUDGE CELLS (BEAKER) (test japq=2913) Present GIANT PLATELETS (BEAKER) (test rqcr=734) Present ANISOCYTOSIS (BEAKER) (test yxnj=849) 1+ few PLATELET CONCENTRATION (CELLAVISION)(BEAKER) Adequate (test lorl=6630) Received comment: User comments: Slide comments:POCT-GLUCOSE [id number] 08: 04:00 Test Item Value Reference Range Comments POC-GLUCOSE METER (BEAKER) 180 mg/dL 70-[address] [facility] [address] [facility] (test duxl=6649) [facility] [address] BASIC METABOLIC [id number] 05:28:00 Test Item Value Reference Range Comments SODIUM (BEAKER) (test 134 meq/L 136-145 zrst=757) POTASSIUM (BEAKER) (test 4.3 meq/L 3.5-5.1 bmlc=190) CHLORIDE (BEAKER) (test 108 meq/L 98-107 iuxz=951) CO2 (BEAKER) (test 20 meq/L 22-29 kedi=949) BLOOD UREA NITROGEN 50 mg/dL 7-21 (BEAKER) (test vbqo=898) CREATININE (BEAKER) (test 1.14 mg/dL 0.57-1.25 cajd=286) GLUCOSE RANDOM (BEAKER) 152 mg/dL 70-105 (test byic=923) CALCIUM (BEAKER) (test 8.3 mg/dL 8.4-10.2 ounm=427) EGFR (BEAKER) (test 49 mL/min/1.73 sq m ESTIMATED GFR IS NOT evqi=9137) ACCURATE CREATININE CLEARANCE IN PREDICTING GLOMERULAR FILTRATION [...] ovary is otherwise normalin appearance. Signed: Kumar Wangort Verified Date/Time: 11/19/2018 03:28:08 Reading Location: [facility] C013V Neuro Reading Room BLOOD [id number] 03:10:00 Test Item Value Reference Range Comments CULTURE (BEAKER) (test Positive; see gram nylv=0928) stain results. GRAM STAIN RESULT (BEAKER) From anaerobic bottle (test xwtl=6134) only: gram negative rods CULTURE (BEAKER) (test ESCHERICHIA COLI From Anaerobic Bottle arop=9547) Only Escherichia coli Amikacin (test code=1) Ampicillin + Sulbactam (test code=6) Aztreonam (test code=32) Cefepime (test code=51) Cefoxitin (test code=68) Ceftazidime (test code=27) Ceftriaxone (test code=52) Ertapenem (test code=38) Gentamicin (test code=18) Levofloxacin (test code=22) Meropenem (test code=34) Nitrofurantoin (test code=23) Piperacillin + Tazobactam (test code=29) Tetracycline (test code=2) Tobramycin (test code=25) Trimethoprim + Sulfamethoxazole (test code=47) BLOOD [id number] 01:05:00 Test Item Value Reference Range Comments CULTURE (BEAKER) Positive; see gram From Anaerobic Bottle Only (test fvbk=4579) stain results. Same organism has been isolated from cultures(s) of the same body site and collection date. Repeat identification and susceptibility testing performed only after consultation with the clinical microbiology laboratory.Refer to previous culture ofEscherichia coli GRAM STAIN RESULT From anaerobic bottle (BEAKER) (test only: gram negative rlvo=4957) rods POCT-GLUCOSE [id number] 22:06:00 Test Item Value Reference Range Comments POC-GLUCOSE METER (BEAKER) 216 mg/dL 70-110 TESTED AT [address] (test xeew=0973) [place] [id number] POCT-GLUCOSE [id number] 18:06:00 Test Item Value Reference Range Comments POC-GLUCOSE METER (BEAKER) 212 mg/dL 70-110 TESTED AT [address] (test xtgq=6897) [place] [id number] POCT-GLUCOSE [id number] 12:45:00 Test Item Value Reference Range Comments POC-GLUCOSE METER (BEAKER) 272 mg/dL 70-110 TESTED AT [address] (test wjve=0323) [place] [id number] CBC W/PLT COUNT & AUTO [id number] 11:23:00 Test Item Value Reference Range Comments WHITE BLOOD CELL COUNT (BEAKER) (test oczh=898) 12.7 K/ L 3.5-10.5 RED BLOOD CELL COUNT (BEAKER) (test mfjt=344) 3.40 M/ L 3.93-5.22 HEMOGLOBIN (BEAKER) (test gpzw=498) 9.3 GM/DL 11.2-15.7 HEMATOCRIT (BEAKER) (test zbnp=520) 27.6 % 34.1-44.9 MEAN CORPUSCULAR VOLUME (BEAKER) (test tfdf=142) 81.2 fL 79.4-94.8 MEAN CORPUSCULAR HEMOGLOBIN (BEAKER) (test 27.4 pg 25.6-32.2 jzuu=365) MEAN CORPUSCULAR HEMOGLOBIN CONC (BEAKER) (test 33.7 GM/DL 32.2-35.5 dtxh=090) RED CELL DISTRIBUTION WIDTH (BEAKER) (test 15.2 % 11.7-14.4 zfac=898) PLATELET COUNT (BEAKER) (test sjxn=097) 133 K/CU MM 150-450 MEAN PLATELET VOLUME (BEAKER) (test qtwh=375) 11.3 fL 9.4-12.3 NUCLEATED RED BLOOD CELLS (BEAKER) (test 0 /100 WBC 0-0 ulzf=917) (CELLAVISION MANUAL DIFF)2018-11-18 11:23:00 Test Item Value Reference Range Comments NEUTROPHILS - REL (CELLAVISION)(BEAKER) (test 68 % lezm=0303) LYMPHOCYTES - REL (CELLAVISION)(BEAKER) (test 5 % vkix=7004) MONOCYTES - REL (CELLAVISION)(BEAKER) (test 10 % cwjv=4558) EOSINOPHILS - REL (CELLAVISION)(BEAKER) (test 1 % mtno=4443) METAMYELOCYTES - REL (CELLAVISION)(BEAKER) (test 1 % 0-0 bvdt=1062) MYELOCYTES - REL (CELLAVISION)(BEAKER) (test 2 % 0-0 obam=7650) BANDS - REL (CELLAVISION)(BEAKER) (test ghoq=8331) 13 % 0-10 NEUTROPHILS - ABS (CELLAVISION)(BEAKER) (test 8.64 K/ul 1.56-6.13 zqep=1973) LYMPHOCYTES - ABS (CELLAVISION)(BEAKER) (test 0.64 K/ul 1.18-3.74 nrpd=6863) MONOCYTES - ABS (CELLAVISION)(BEAKER) (test 1.27 K/uL 0.24-0.36 svjx=3642) EOSINOPHILS - ABS (CELLAVISION)(BEAKER) (test 0.13 K/uL 0.04-0.36 ravb=0616) METAMYELOCYTES - ABS (CELLAVISION)(BEAKER) (test 0.13 K/uL 0.00-0.00 reyi=9272) MYELOCYTES-ABS (CELLAVISION)(BEAKER) (test 0.25 K/uL 0.00-0.00 rsfh=6673) BANDS - ABS (CELLAVISION)(BEAKER) (test uakw=5714) 1.65 K/uL 0.00-0.80 TOTAL COUNTED (BEAKER) (test ofbv=1684) 100 WBC MORPHOLOGY (BEAKER) (test ynan=981) Normal PLT MORPHOLOGY (BEAKER) (test jpvp=746) Normal POLYCHROMATOPHILLIC RBCS(BEAKER) (test zfpq=068) 1+ few ANISOCYTOSIS (BEAKER) (test hpqy=949) 1+ few ARTIFACT (CELLAVISION)(BEAKER) (test cpsn=9831) Present PLATELET CONCENTRATION (CELLAVISION)(BEAKER) (test Decreased behg=5696) Received comment: User comments: Slide comments:BASIC METABOLIC [id number] 10:19:00 Test Item Value Reference Range Comments SODIUM (BEAKER) (test 134 meq/L 136-145 vrhg=403) POTASSIUM (BEAKER) (test 4.3 meq/L 3.5-5.1 umzy=254) CHLORIDE (BEAKER) (test 109 meq/L 98-107 maxa=601) CO2 (BEAKER) (test 20 meq/L 22-29 fiwa=462) BLOOD UREA NITROGEN 48 mg/dL 7-21 (BEAKER) (test vaxp=040) CREATININE (BEAKER) (test 1.17 mg/dL 0.57-1.25 wsfr=645) GLUCOSE RANDOM (BEAKER) 249 mg/dL 70-105 (test zlgs=571) CALCIUM (BEAKER) (test 8.0 mg/dL 8.4-10.2 amdc=380) EGFR (BEAKER) (test 48 mL/min/1.73 sq m ESTIMATED GFR IS NOT xtij=5470) ACCURATE CREATININE CLEARANCE IN PREDICTING GLOMERULAR FILTRATION RATE. ESTIMATED GFR IS NOT APPLICABLE FOR DIALYSIS PATIENTS. Specimen slightly [id number] 09:20:00 Test Item Value Reference Range Comments FERRITIN (BEAKER) (test aazl=915) 2216 ng/mL 5-275 POCT-GLUCOSE [id number] 07:36:00 Test Item Value Reference Range Comments POC-GLUCOSE METER (BEAKER) 159 mg/dL 70-110 TESTED AT [address] (test slmb=3400) [place] [id number] POCT-GLUCOSE [id number] 00:36:00 Test Item Value Reference Range Comments POC-GLUCOSE METER (BEAKER) 223 mg/dL 70-110 TESTED AT [address] (test otau=2063) [place] [address] IRON, TIBC, % SAT. (WITHOUT FERRITIN)2018-11-17 19:02:00 Test Item Value Reference Range Comments IRON (BEAKER) (test vodm=905) 40.0 ug/dL 40.0-160.0 TOTAL IRON BINDING CAPACITY (BEAKER) (test 146 ug/dL 250-450 pwfx=325) IRON % SATURATION (2) (BEAKER) (test sjcs=1433) 27 % 20-55 POCT-GLUCOSE [id number] 18:15:00 Test Item Value Reference Range Comments POC-GLUCOSE METER (BEAKER) 244 mg/dL 70-110 TESTED AT [address] (test cifu=5703) [place] [id number] CT, DRAINAGE, [id number] 15:00:00Reason for exam:->Left renal abscess, needs drainage. [...] A J-wire was introduced, and an 8 Romansh catheter was placed. The catheter was unable to be coiled, but it was sutured in place. The catheter was affixed to the skin and connected to suction bulb. Post procedure scan showed no immediate complications. Interstitial nodular opacities in the lungs could be due to pneumonia. IMPRESSION: An 8 Romansh catheter was placed in the region of air and fluid in the left kidney.No fluid was obtained, and this may be necrotic renal parenchyma as opposed to a true fluid collection. If no significant fluid is obtained within two days, removal of the catheter is recommended. Signed: Rober Payan Verified Date/Time: 11/17/2018 15:00:19 Reading Location: [address] Body Reading Room HEPATITIS C PCR, [id number] 10:47:00 Test Item Value Reference Range Comments HCV RESULT COMPONENT (BEAKER) HCV RNA not detected HCV RNA not detected (test ibxw=7662) This test uses a Real-Time Polymerase Chain Reaction (RT-PCR) methodology and was performed using ANTONIO Ampliprep/ANTONIO TaqMan HCV test kit version 2.0 ( [employer]).Reportable range for this assay is 15 - 100,000, 000 IU per mL (1.18 - 8.00 Log IU/mL).CBC W/PLT COUNT & AUTO [id number] 10:29:00 Test Item Value Reference Range Comments WHITE BLOOD CELL COUNT (BEAKER) (test arnv=376) 10.2 K/ L 3.5-10.5 RED BLOOD CELL COUNT (BEAKER) (test hmue=409) 3.39 M/ L 3.93-5.22 HEMOGLOBIN (BEAKER) (test yvxh=089) 9.1 GM/DL 11.2-15.7 HEMATOCRIT (BEAKER) (test cxil=129) 27.2 % 34.1-44.9 MEAN CORPUSCULAR VOLUME (BEAKER) (test webe=256) 80.2 fL 79.4-94.8 MEAN CORPUSCULAR HEMOGLOBIN (BEAKER) (test 26.8 pg 25.6-32.2 xvss=850) MEAN CORPUSCULAR HEMOGLOBIN CONC (BEAKER) (test 33.5 GM/DL 32.2-35.5 jzeh=074) RED CELL DISTRIBUTION WIDTH (BEAKER) (test 15.1 % 11.7-14.4 cumw=112) PLATELET COUNT (BEAKER) (test xijp=127) 85 K/CU MM 150-450 MEAN PLATELET VOLUME (BEAKER) (test farh=445) 11.2 fL 9.4-12.3 NUCLEATED RED BLOOD CELLS (BEAKER) (test 0 /100 WBC 0-0 osex=536) (CELLAVISION MANUAL DIFF)2018-11-17 10:29:00 Test Item Value Reference Range Comments NEUTROPHILS - REL (CELLAVISION)(BEAKER) (test 79 % jaan=5414) LYMPHOCYTES - REL (CELLAVISION)(BEAKER) (test 10 % wdwe=2689) MONOCYTES - REL (CELLAVISION)(BEAKER) (test 6 % vchk=5491) BANDS - REL (CELLAVISION)(BEAKER) (test aezh=0823) 5 % 0-10 NEUTROPHILS - ABS (CELLAVISION)(BEAKER) (test 8.06 K/ul 1.56-6.13 xuan=7949) LYMPHOCYTES - ABS (CELLAVISION)(BEAKER) (test 1.02 K/ul 1.18-3.74 iixk=0164) MONOCYTES - ABS (CELLAVISION)(BEAKER) (test 0.61 K/uL 0.24-0.36 tevn=7002) BANDS - ABS (CELLAVISION)(BEAKER) (test ljej=0647) 0.51 K/uL 0.00-0.80 TOTAL COUNTED (BEAKER) (test cafg=1991) 100 WBC MORPHOLOGY (BEAKER) (test twfj=850) Normal GIANT PLATELETS (BEAKER) (test zqkm=201) Present LARGE PLT(BEAKER) (test jptf=7862) Present HYPOCHROMIA (BEAKER) (test pblt=611) 1+ few ANISOCYTOSIS (BEAKER) (test mrit=692) 1+ few MACROCYTES (BEAKER) (test slqf=327) 1+ few POIKILOCYTES (BEAKER) (test dvyb=935) 1+ few ARTIFACT (CELLAVISION)(BEAKER) (test zejd=0236) Present PLATELET CONCENTRATION (CELLAVISION)(BEAKER) (test Decreased deau=9740) Received comment: User comments: Slide comments:SURGICALLY OBTAINED CULTURE + GRAM [id number] 09:00:00 Test Item Value Reference Range Comments CULTURE (BEAKER) (test ESCHERICHIA COLI 3+ Escherichia coli gipy=4142) Amikacin (test code=1) Ampicillin + Sulbactam (test code=6) Aztreonam (test code=32) Cefepime (test code=51) Cefoxitin (test code=68) Ceftazidime (test code=27) Ceftriaxone (test code=52) Ertapenem (test code=38) Gentamicin (test code=18) Levofloxacin (test code=22) Meropenem (test code=34) Nitrofurantoin (test code=23) Piperacillin + Tazobactam (test code=29) Tetracycline (test code=2) Tobramycin (test code=25) Trimethoprim + Sulfamethoxazole (test code=47) CULTURE (BEAKER) (test 3+ Escherichia coliof a odpo=0000) second type GRAM STAIN RESULT (BEAKER) 3+ WBCs (test eyyc=6228) GRAM STAIN RESULT (BEAKER) No organisms seen (test iivw=128433) POCT-GLUCOSE [id number] 08:07:00 Test Item Value Reference Range Comments POC-GLUCOSE METER (BEAKER) 156 mg/dL 70-110 TESTED AT [address] (test xkmi=9815) [facility] [address] BASIC METABOLIC [id number] 05:37:00 Test Item Value Reference Range Comments SODIUM (BEAKER) (test 137 meq/L 136-145 tdzg=286) POTASSIUM (BEAKER) (test 3.7 meq/L 3.5-5.1 faaq=670) CHLORIDE (BEAKER) (test 112 meq/L 98-107 ejbu=585) CO2 (BEAKER) (test 17 meq/L 22-29 hpbh=914) BLOOD UREA NITROGEN 54 mg/dL 7-21 (BEAKER) (test dgbg=949) CREATININE (BEAKER) (test 1.28 mg/dL 0.57-1.25 nhnw=292) GLUCOSE RANDOM (BEAKER) 136 mg/dL 70-105 (test tujo=622) CALCIUM (BEAKER) (test 8.2 mg/dL 8.4-10.2 ilrt=208) EGFR (BEAKER) (test 43 mL/min/1.73 sq m ESTIMATED GFR IS NOT vxmq=9562) ACCURATE CREATININE CLEARANCE IN PREDICTING GLOMERULAR FILTRATION RATE. ESTIMATED GFR IS NOT APPLICABLE FOR DIALYSIS PATIENTS. Specimen slightly ictericPOCT-GLUCOSE [id number] 22:48:00 Test Item Value Reference Range Comments POC-GLUCOSE METER (BEAKER) 155 mg/dL 70-[address] [facility] [address] [facility] (test eynn=8644) [facility] [address] RAD, CHEST, 1 VIEW, NON [id number] 21:45:00Reason for exam:->SOBShould this be performed at the bedside?->YesFINAL REPORT RAD , CHEST, 1 VIEW, NON DEPT INDICATION: SOB COMPARISON: Prior day's exam FINDINGS : Portable frontal view of the chest. IMPRESSION: Support Lines: External leads Lungs and pleura: Unchanged airspace and pleural opacities. No pneumothorax.Heart and mediastinum: Stable contours. Additional findings: None. Signed: Kumar Wang Verified Date/Time: 11/16/2018 21:45: 36 Reading Location: [address] Neuro Reading Room POCT-GLUCOSE [id number] 18:18:00 Test Item Value Reference Range Comments POC-GLUCOSE METER (BEAKER) 188 mg/dL 70-[address] [facility] [address] (test yhqx=5951) [facility] [address] RAD, CHEST, 1 VIEW, NON [id number] 17:04:00Reason for exam:-> dyspneaShould this be performed [...] Almanza MDReport Verified Date/Time: 11/16/2018 17:04:56Reading Location: [facility] Radiology Reading Room Electronically signed by: JOVANY ALMANZA on11/16/2018 05 :04 PMCT, [id number] 15:05:00FINAL REPORT ABDOMINAL AND PELVIS CT DATED [...] Verified Date/Time: 11/16/2018 15: 05:14 Reading Location: [facility] B1 C013Y CT Body Reading Room POCT-GLUCOSE [id number] 12:53:00 Test Item Value Reference Range Comments POC-GLUCOSE METER (BEAKER) 99 mg/dL 70-[address] [facility] [address] [facility] (test fjwk=2182) [facility] [address] URINE [id number] 10:03:00 Test Item Value Reference Range Comments CULTURE (BEAKER) (test zafl=3930) No growth GRAM STAIN RESULT (BEAKER) (test <1+ WBCs jzve=3035) GRAM STAIN RESULT (BEAKER) (test No organisms seen cosp=55955) CBC W/PLT COUNT & AUTO [id number] 09:34:00 Test Item Value Reference Range Comments WHITE BLOOD CELL COUNT (BEAKER) (test ldku=345) 8.0 K/ L 3.5-10.5 RED BLOOD CELL COUNT (BEAKER) (test vrya=583) 4.05 M/ L 3.93-5.22 HEMOGLOBIN (BEAKER) (test szmr=522) 10.8 GM/DL 11.2-15.7 HEMATOCRIT (BEAKER) (test mehf=013) 32.6 % 34.1-44.9 MEAN CORPUSCULAR VOLUME (BEAKER) (test gbub=984) 80.5 fL 79.4-94.8 MEAN CORPUSCULAR HEMOGLOBIN (BEAKER) (test 26.7 pg 25.6-32.2 lsle=695) MEAN CORPUSCULAR HEMOGLOBIN CONC (BEAKER) (test 33.1 GM/DL 32.2-35.5 gthj=011) RED CELL DISTRIBUTION WIDTH (BEAKER) (test 14.9 % 11.7-14.4 iffu=056) PLATELET COUNT (BEAKER) (test fnnk=704) 27 K/CU MM 150-450 MEAN PLATELET VOLUME (BEAKER) (test mwjr=662) 10.3 fL 9.4-12.3 NUCLEATED RED BLOOD CELLS (BEAKER) (test 0 /100 WBC 0-0 dgci=268) (CELLAVISION MANUAL DIFF)2018-11-16 09:34:00 Test Item Value Reference Range Comments NEUTROPHILS - REL (CELLAVISION)(BEAKER) (test 81 % jzyb=1781) LYMPHOCYTES - REL (CELLAVISION)(BEAKER) (test 12 % jnst=0564) MONOCYTES - REL (CELLAVISION)(BEAKER) (test 4 % fbyi=3249) EOSINOPHILS - REL (CELLAVISION)(BEAKER) (test 1 % okvl=7128) ATYPICAL LYMPHOCYTES - REL (CELLAVISION)(BEAKER) 2 % 0-0 (test ewea=6746) NEUTROPHILS - ABS (CELLAVISION)(BEAKER) (test 6.48 K/ul 1.56-6.13 ibms=2818) LYMPHOCYTES - ABS (CELLAVISION)(BEAKER) (test 0.96 K/ul 1.18-3.74 helj=0900) MONOCYTES - ABS (CELLAVISION)(BEAKER) (test 0.32 K/uL 0.24-0.36 hulj=3842) EOSINOPHILS - ABS (CELLAVISION)(BEAKER) (test 0.08 K/uL 0.04-0.36 rcbn=0772) ATYPICAL LYMPHOCYTES - ABS (CELLAVISION)(BEAKER) 0.16 K/uL 0.00-0.00 (test qpnp=6141) TOTAL COUNTED (BEAKER) (test bolp=4977) 100 WBC MORPHOLOGY (BEAKER) (test leuw=400) Normal GIANT PLATELETS (BEAKER) (test qqwr=056) Present SPHEROCYTES (BEAKER) (test jrgg=475) 1+ few ARTIFACT (CELLAVISION)(BEAKER) (test hftg=7193) Present PLATELET CONCENTRATION (CELLAVISION)(BEAKER) (test Decreased nstx=9845) Received comment: User comments: Slide comments:BLOOD CULTURE IDENTIFICATION [id number] 09:09:00 Test Item Value Reference Range Comments LISTERIA MONOCYTOGENES (test Not detected Not detected jgef=8467152) STAPHYLOCOCCUS (test Not detected Not detected hfxd=0715187) STAPHYLOCOCCUS AUREUS (test Not detected Not detected xdef=7293538) STREPTOCOCCUS (test Not detected Not detected vyfl=3238102) STREPTOCOCCUS AGALACTIAE (GROUP Not detected Not detected B) (test zaym=6341106) STREPTOCOCCUS PNEUMONIAE (test Not detected Not detected ktrr=7502260) STREPTOCOCCUS PYOGENES (GROUP Not detected Not detected A) (test ciad=4060606) ACINETOBACTER BAUMANNII (test Not detected Not detected ptpb=8366722) HAEMOPHILUS INFLUENZAE (test Not detected Not detected xcst=7494236) NEISSERIA MENINGITIDIS (test Not detected Not detected svgj=4505866) ENTEROBACTERIACEAE (test Detected Not detected rfba=2150371) ENTEROBACTER CLOACOE COMPLEX Not detected Not detected (test fsfh=6763576) KLEBSIELLA OXYTOCA (test Not detected Not detected vjux=5679216) KLEBSIELLA PNEUMONIAE (test Not detected Not detected wfbl=4310) PROTEUS (test byka=7754221) Not detected Not detected SERRATIA MARCESCENS (test Not detected Not detected uehh=6235072) TRESSA ALBICANS (test Not detected Not detected xyaj=4107618) TRESSA GLABRATA (test Not detected Not detected kadv=2918447) TRESSA KRUSEI (test Not detected Not detected dgpj=8668293) TRESSA PARAPSILOSIS (test Not detected Not detected mbys=6134376) TRESSA TROPICALIS (test Not detected Not detected mpgz=7254324) ESCHERICHIA COLI (test Detected Not detected First line therapy: aitp=4982426) Meropenem. De-escalate based on susceptibilities.This test does not evaluate for ESBLReference Range: Not Detected METHICILLIN-RESISTANCE GENE Not detected (test ucpn=8915967) VANCOMYCIN-RESISTANCE GENE Not detected (test vekd=6217259) CARBAPENEM-RESISTANCE GENE Not detected Not detected (test rjib=7005753) ENTEROCOCCUS-BEAKER (test Not detected Not detected eupv=9674679) PSEUDOMONAS AERUGINOSA-BEAKER Not detected Not detected (test oisv=2352262) Other bacteria and resistance markers not targeted by this PCR panel cannot be excluded; therefore clinical correlation and follow up of serology, culture results, and other molecular studies is required. The results are not intended to be used as the sole means for clinical diagnosis or patient management decisions. This sample was tested at the [facility] Molecular Diagnostics Laboratory using the GT NexusArray Blood Culture ID Panel. It is FDA cleared and has been verified and approved by the [facility] Molecular Diagnostics Laboratory for clinical use. This laboratory is CLIA-certified and College ofAmerican Pathologists (CAP)-accredited to perform high complexity testing.POCT-GLUCOSE [id number] 06:36:00 Test Item Value Reference Range Comments POC-GLUCOSE METER (BEAKER) 102 mg/dL 70-[address] [facility] [address] (test laub=0557) [facility] [address] [id number] 05:24:00 Test Item Value Reference Range Comments MAGNESIUM (BEAKER) (test 2.4 mg/dL 1.6-2.6 Specimen slightly hemolyzed ynou=533) BASIC METABOLIC [id number] 05:24:00 Test Item Value Reference Range Comments SODIUM (BEAKER) (test 135 meq/L 136-145 stjt=948) POTASSIUM (BEAKER) (test 4.1 meq/L 3.5-5.1 Specimen slightly lcun=979) hemolyzed CHLORIDE (BEAKER) (test 109 meq/L 98-107 omde=621) CO2 (BEAKER) (test 17 meq/L 22-29 mprq=477) BLOOD UREA NITROGEN 56 mg/dL 7-21 (BEAKER) (test ppgc=244) CREATININE (BEAKER) (test 1.46 mg/dL 0.57-1.25 Specimen slightly bpti=683) hemolyzed GLUCOSE RANDOM (BEAKER) 106 mg/dL 70-105 (test hxbr=828) CALCIUM (BEAKER) (test 8.7 mg/dL 8.4-10.2 tinz=179) EGFR (BEAKER) (test 37 mL/min/1.73 sq m ESTIMATED GFR IS NOT kaum=8920) ACCURATE CREATININE CLEARANCE IN PREDICTING GLOMERULAR FILTRATION RATE. ESTIMATED GFR IS NOT APPLICABLE FOR DIALYSIS PATIENTS. Specimen slightly ictericHEPATIC FUNCTION [id number] 05:24:00 Test Item Value Reference Range Comments TOTAL PROTEIN (BEAKER) (test 6.2 gm/dL 6.0-8.3 Specimen slightly hemolyzed fmnt=032) ALBUMIN (BEAKER) (test 2.2 g/dL 3.5-5.0 Specimen slightly hemolyzed pkxi=4797) BILIRUBIN TOTAL (BEAKER) (test 5.4 mg/dL 0.2-1.2 Specimen slightly hemolyzed rias=299) BILIRUBIN DIRECT (BEAKER) (test 4.0 mg/dL 0.1-0.5 Specimen slightly hemolyzed dgnb=427) ALKALINE PHOSPHATASE (BEAKER) 426 U/L 40-150 (test yawy=945) AST (SGOT) (BEAKER) (test 66 U/L 5-34 Specimen slightly hemolyzed wznc=561) ALT (SGPT) (BEAKER) (test 44 U/L 6-55 Specimen slightly hemolyzed vxgu=936) Specimen slightly ictericB-TYPE NATRIURETIC FACTOR (BNP)2018-11-16 05:10:00 Test Item Value Reference Range Comments B-TYPE NATRIURETIC PEPTIDE (BEAKER) (test 2264 pg/mL 0-100 grel=377) PROTHROMBIN [id number] 04:59:00 Test Item Value Reference Range Comments PROTIME (BEAKER) (test dckg=881) 14.2 seconds 11.7-14.7 INR (BEAKER) (test qzes=952) 1.1 <=5.9 RECOMMENDED COUMADIN/WARFARIN INR THERAPY RANGESSTANDARD DOSE: 2.0 - 3.0 Includes: PROPHYLAXIS forvenous thrombosis, systemic embolization; TREATMENT for venous thrombosis and/or pulmonary embolus.HIGH RISK: Target INR is 2.5-3.5 for patients with mechanical heart valves.POCT-GLUCOSE [id number] 23:53:00 Test Item Value Reference Range Comments POC-GLUCOSE METER (BEAKER) 132 mg/dL 70-110 TESTED AT [address] (test xvhu=7863) [place] [address] POCT-GLUCOSE [id number] 17:46:00 Test Item Value Reference Range Comments POC-GLUCOSE METER (BEAKER) 164 mg/dL 70-[address] [facility] [address] [place] [address] (test dscz=4705) [place] [id number] HEPATITIS C PCR, [id number] 14:44:00 Test Item Value Reference Range Comments HCV RESULT COMPONENT (BEAKER) HCV RNA not detected HCV RNA not detected (test uord=5482) This test uses a Real-Time Polymerase Chain Reaction (RT-PCR) methodology and was performed using ANTONIO Ampliprep/ANTONIO TaqMan HCV test kit version 2.0 ( [employer]).Reportable range for this assay is 15 - 100,000, 000 IU per mL (1.18 - 8.00 Log IU/mL).BASIC METABOLIC [id number] 14:05:00 Test Item Value Reference Range Comments SODIUM (BEAKER) (test 134 meq/L 136-145 oycn=972) POTASSIUM (BEAKER) (test 3.9 meq/L 3.5-5.1 jkms=891) CHLORIDE (BEAKER) (test 108 meq/L 98-107 gfij=759) CO2 (BEAKER) (test 17 meq/L 22-29 txyh=994) BLOOD UREA NITROGEN 55 mg/dL 7-21 (BEAKER) (test tyko=024) CREATININE (BEAKER) (test 1.64 mg/dL 0.57-1.25 keaj=769) GLUCOSE RANDOM (BEAKER) 178 mg/dL 70-105 (test eysv=347) CALCIUM (BEAKER) (test 8.2 mg/dL 8.4-10.2 ocji=353) EGFR (BEAKER) (test 33 mL/min/1.73 sq m ESTIMATED GFR IS NOT hona=7041) ACCURATE CREATININE CLEARANCE IN PREDICTING GLOMERULAR FILTRATION RATE. ESTIMATED GFR IS NOT APPLICABLE FOR DIALYSIS PATIENTS. Specimen slightly ictericPOCT-GLUCOSE [id number] 12:00:00 Test Item Value Reference Range Comments POC-GLUCOSE METER (BEAKER) 197 mg/dL 70-[address] [facility] [address] [place] [address] (test oock=3718) [facility] [address] PERIPHERAL BLOOD SMEAR - PATHOLOGIST [id number] 11:24:00 Test Item Value Reference Range Comments RBC MORPHOLOGY Hypochromic, normocytic anemia (BEAKER) (test with mild anisopoikilocytosis wwpa=5438) including occasional spherocytes. Mild Rouleaux. WBC MORPHOLOGY Normal in number. (BEAKER) (test Predominately comprised by bvmm=4186) neutrophils. Some neutrophils with toxic granulation changes. Subpopulation of hypogranular forms. PLT MORPHOLOGY Markedly decreased. Normal (BEAKER) (test granular morphology. Increase effe=8575) large and rare giants forms present. No platelet clumping identified. [id number] Hugo Tsang MD (BEAKER) (test (electronic ppwt=7042) signature) CBC W/PLT COUNT & AUTO [id number] 09:42:00 Test Item Value Reference Range Comments WHITE BLOOD CELL COUNT (BEAKER) (test zubk=841) 7.3 K/ L 3.5-10.5 RED BLOOD CELL COUNT (BEAKER) (test kpku=414) 3.43 M/ L 3.93-5.22 HEMOGLOBIN (BEAKER) (test uext=604) 9.2 GM/DL 11.2-15.7 HEMATOCRIT (BEAKER) (test crcw=761) 27.6 % 34.1-44.9 MEAN CORPUSCULAR VOLUME (BEAKER) (test eslw=876) 80.5 fL 79.4-94.8 MEAN CORPUSCULAR HEMOGLOBIN (BEAKER) (test 26.8 pg 25.6-32.2 wnpv=088) MEAN CORPUSCULAR HEMOGLOBIN CONC (BEAKER) (test 33.3 GM/DL 32.2-35.5 auye=679) RED CELL DISTRIBUTION WIDTH (BEAKER) (test 14.7 % 11.7-14.4 ozot=714) PLATELET COUNT (BEAKER) (test yudp=279) 12 K/CU MM 150-450 MEAN PLATELET VOLUME (BEAKER) (test sctf=763) 9.8 fL 9.4-12.3 NUCLEATED RED BLOOD CELLS (BEAKER) (test 0 /100 WBC 0-0 mvpb=971) (CELLAVISION MANUAL DIFF)2018-11-15 09:42:00 Test Item Value Reference Range Comments NEUTROPHILS - REL (CELLAVISION)(BEAKER) (test 72 % ljii=6837) LYMPHOCYTES - REL (CELLAVISION)(BEAKER) (test 8 % bmow=0285) MONOCYTES - REL (CELLAVISION)(BEAKER) (test 3 % lpbl=8892) EOSINOPHILS - REL (CELLAVISION)(BEAKER) (test 1 % bmhe=5320) BANDS - REL (CELLAVISION)(BEAKER) (test uxla=8500) 16 % 0-10 NEUTROPHILS - ABS (CELLAVISION)(BEAKER) (test 5.26 K/ul 1.56-6.13 pchr=1923) LYMPHOCYTES - ABS (CELLAVISION)(BEAKER) (test 0.58 K/ul 1.18-3.74 erhv=1477) MONOCYTES - ABS (CELLAVISION)(BEAKER) (test 0.22 K/uL 0.24-0.36 rrdw=3274) EOSINOPHILS - ABS (CELLAVISION)(BEAKER) (test 0.07 K/uL 0.04-0.36 bhoz=5502) BANDS - ABS (CELLAVISION)(BEAKER) (test nqcp=0490) 1.17 K/uL 0.00-0.80 TOTAL COUNTED (BEAKER) (test ngxb=3704) 100 RBC MORPHOLOGY (BEAKER) (test head=107) Normal SMUDGE CELLS (BEAKER) (test ambe=1054) Present GIANT PLATELETS (BEAKER) (test gicn=934) Present PLATELET CONCENTRATION (CELLAVISION)(BEAKER) (test Decreased oxjy=3371) Received comment: User comments: Slide comments:POCT-GLUCOSE [id number] 09: 10:00 Test Item Value Reference Range Comments POC-GLUCOSE METER (BEAKER) 151 mg/dL 70-110 TESTED AT [address] (test ugfi=9022) [facility] [address] PERIPHERAL BLOOD SMEAR - HOLD [id number] 08:14:00 Test Item Value Reference Range Comments PERIPHERAL SMEAR SAVE (BEAKER) (test oxrz=4602) saved U/S, ABDOMINAL, [id number] 08:05:00Reason for exam:->low platelet. evaluate for cirrhosis, [...] Silvestre MDReportVerified Date/Time: 11/15/2018 08:05:08 Reading Location: [facility] P006J Ultrasound Reading Room Electronically signed by: DAMON SILVESTRE MD on 2018 08:05 AMPOCT-GLUCOSE [id number] 07:03:00 Test Item Value Reference Range Comments POC-GLUCOSE METER (BEAKER) 178 mg/dL 70-[address] [facility] [address] [facility] (test zctm=5469) [facility] [address] HEPATITIS C [id number] 04:53:00 Test Item Value Reference Range Comments HEPATITIS C ANTIBODY (BEAKER) (test zxhr=785) Reactive Nonreactive [id number] 04:30:00 Test Item Value Reference Range Comments MAGNESIUM (BEAKER) (test vhex=014) 2.3 mg/dL 1.6-2.6 BASIC METABOLIC [id number] 04:30:00 Test Item Value Reference Range Comments SODIUM (BEAKER) (test 135 meq/L 136-145 zdfo=922) POTASSIUM (BEAKER) (test 3.8 meq/L 3.5-5.1 hihd=742) CHLORIDE (BEAKER) (test 109 meq/L 98-107 plsd=589) CO2 (BEAKER) (test 16 meq/L 22-29 atzg=271) BLOOD UREA NITROGEN 56 mg/dL 7-21 (BEAKER) (test akcb=477) CREATININE (BEAKER) (test 1.74 mg/dL 0.57-1.25 gngv=828) GLUCOSE RANDOM (BEAKER) 179 mg/dL 70-105 (test zybd=934) CALCIUM (BEAKER) (test 8.1 mg/dL 8.4-10.2 aafb=324) EGFR (BEAKER) (test 30 mL/min/1.73 sq m ESTIMATED GFR IS NOT yfud=2708) ACCURATE CREATININE CLEARANCE IN PREDICTING GLOMERULAR FILTRATION RATE. ESTIMATED GFR IS NOT APPLICABLE FOR DIALYSIS PATIENTS. Specimen slightly ictericHEPATIC FUNCTION [id number] 04:30:00 Test Item Value Reference Range Comments TOTAL PROTEIN (BEAKER) (test gvwl=502) 5.6 gm/dL 6.0-8.3 ALBUMIN (BEAKER) (test qwod=5244) 2.1 g/dL 3.5-5.0 BILIRUBIN TOTAL (BEAKER) (test zygk=578) 5.0 mg/dL 0.2-1.2 BILIRUBIN DIRECT (BEAKER) (test jlfd=579) 4.0 mg/dL 0.1-0.5 ALKALINE PHOSPHATASE (BEAKER) (test pack=221) 170 U/L 40-150 AST (SGOT) (BEAKER) (test qzrt=731) 45 U/L 5-34 ALT (SGPT) (BEAKER) (test ulpx=158) 36 U/L 6-55 Specimen slightly ictericPROTHROMBIN [id number] 04:21:00 Test Item Value Reference Range Comments PROTIME (BEAKER) (test eibm=793) 16.2 seconds 11.7-14.7 INR (BEAKER) (test uexr=936) 1.3 <=5.9 RECOMMENDED COUMADIN/WARFARIN INR THERAPY RANGESSTANDARD DOSE: 2.0 - 3.0 Includes: PROPHYLAXIS forvenous thrombosis, systemic embolization; TREATMENT for venous thrombosis and/or pulmonary embolus.HIGH RISK: Target INR is 2.5-3.5 for patients with mechanical heart valves.POCT-GLUCOSE [id number] 00:51:00 Test Item Value Reference Range Comments POC-GLUCOSE METER (BEAKER) 195 mg/dL 70-110 TESTED AT [address] (test smne=3422) [place] [id number] POCT-GLUCOSE [id number] 21:26:00 Test Item Value Reference Range Comments POC-GLUCOSE METER (BEAKER) 145 mg/dL 70-110 TESTED AT [address] (test zpff=6808) [place] [id number] POCT-GLUCOSE [id number] 17:51:00 Test Item Value Reference Range Comments POC-GLUCOSE METER (BEAKER) 147 mg/dL 70-110 TESTED AT [address] (test mrsv=4012) [facility] [address] [id number] 15:23:00 Test Item Value Reference Range Comments HAPTOGLOBIN (BEAKER) (test xdsz=468) 245 mg/dL 14-258 LACTATE DEHYDROGENASE (LDH)2018-11-14 15:10:00 Test Item Value Reference Range Comments LACTATE DEHYDROGENASE (BEAKER) (test ogfh=869) 634 U/L 125-220 [id number] 15:06:00 Test Item Value Reference Range Comments PROTIME (BEAKER) (test odak=084) 15.5 seconds 11.7-14.7 INR (BEAKER) (test qmbt=335) 1.2 <=5.9 PARTIAL THROMBOPLASTIN TIME (BEAKER) (test 26.3 seconds 22.5-36.0 qwrp=127) RECOMMENDED COUMADIN/WARFARIN INR THERAPY RANGESSTANDARD DOSE: 2.0 - 3.0 Includes: PROPHYLAXIS forvenous thrombosis, systemic embolization; TREATMENT for venous thrombosis and/or pulmonary embolus.HIGH RISK: Target INR is 2.5-3.5 for patients with mechanical heart valves.RETICULOCYTE [id number] 14:58:00 Test Item Value Reference Range Comments RETICULOCYTE COUNT PCT (BEAKER) (test biyv=748) 0.9 % 0.5-1.7 POCT-GLUCOSE [id number] 12:56:00 Test Item Value Reference Range Comments POC-GLUCOSE METER (BEAKER) 171 mg/dL 70-[address] [facility] [address] [place] [address] (test rjgl=4910) [facility] [address] CBC W/PLT COUNT & AUTO [id number] 09:53:00 Test Item Value Reference Range Comments WHITE BLOOD CELL COUNT (BEAKER) (test hini=639) 8.5 K/ L 3.5-10.5 RED BLOOD CELL COUNT (BEAKER) (test trjt=360) 4.06 M/ L 3.93-5.22 HEMOGLOBIN (BEAKER) (test nvwi=721) 11.0 GM/DL 11.2-15.7 HEMATOCRIT (BEAKER) (test wakh=206) 32.8 % 34.1-44.9 MEAN CORPUSCULAR VOLUME (BEAKER) (test gfoj=386) 80.8 fL 79.4-94.8 MEAN CORPUSCULAR HEMOGLOBIN (BEAKER) (test 27.1 pg 25.6-32.2 qaxq=046) MEAN CORPUSCULAR HEMOGLOBIN CONC (BEAKER) (test 33.5 GM/DL 32.2-35.5 iuro=611) RED CELL DISTRIBUTION WIDTH (BEAKER) (test 14.4 % 11.7-14.4 mwjf=005) PLATELET COUNT (BEAKER) (test cibv=453) 15 K/CU MM 150-450 MEAN PLATELET VOLUME (BEAKER) (test cowh=444) 9.7 fL 9.4-12.3 NUCLEATED RED BLOOD CELLS (BEAKER) (test 0 /100 WBC 0-0 jsza=888) LACTATE DEHYDROGENASE (LDH)2018-11-14 09:27:00 Test Item Value Reference Range Comments LACTATE DEHYDROGENASE (BEAKER) 680 U/L 125-220 Specimen slightly hemolyzed (test vrsj=360) RAD, CHEST, 1 VIEW, NON [id number] 09:23:00Reason for exam:->coughShould this be performed at [...] [place] Verified Date/Time: 11/14/2018 09:23:15 Reading Location: [facility] C0X Ortho Consult Reading Room [id number] 09:21:00 Test Item Value Reference Range Comments HAPTOGLOBIN (BEAKER) (test arjm=084) 236 mg/dL 14-258 CBC W/PLT COUNT & AUTO [id number] 08:42:00 Test Item Value Reference Range Comments WHITE BLOOD CELL COUNT 8.9 K/ L 3.5-10.5 (BEAKER) (test kijf=465) RED BLOOD CELL COUNT (BEAKER) 3.89 M/ L 3.93-5.22 (test ufma=434) HEMOGLOBIN (BEAKER) (test 10.6 GM/DL 11.2-15.7 lcrz=497) HEMATOCRIT (BEAKER) (test 31.4 % 34.1-44.9 duei=352) MEAN CORPUSCULAR VOLUME 80.7 fL 79.4-94.8 (BEAKER) (test ivuj=571) MEAN CORPUSCULAR HEMOGLOBIN 27.2 pg 25.6-32.2 (BEAKER) (test cyam=144) MEAN CORPUSCULAR HEMOGLOBIN 33.8 GM/DL 32.2-35.5 CONC (BEAKER) (test pfej=243) RED CELL DISTRIBUTION WIDTH 14.2 % 11.7-14.4 (BEAKER) (test dotz=431) PLATELET COUNT (BEAKER) (test 10 K/CU MM 150-450 nbcw=877) MEAN PLATELET VOLUME (BEAKER) fL 9.4-12.3 Unable to report due to (test opii=694) abnormal Platelet population distribution. NUCLEATED RED BLOOD CELLS 0 /100 WBC 0-0 (BEAKER) (test wuch=983) (CELLAVISION MANUAL DIFF)2018-11-14 08:42:00 Test Item Value Reference Range Comments NEUTROPHILS - REL (CELLAVISION)(BEAKER) (test 93 % flhp=0982) LYMPHOCYTES - REL (CELLAVISION)(BEAKER) (test 3 % sgqn=3021) MONOCYTES - REL (CELLAVISION)(BEAKER) (test 2 % umaz=5148) BANDS - REL (CELLAVISION)(BEAKER) (test ixte=0697) 2 % 0-10 NEUTROPHILS - ABS (CELLAVISION)(BEAKER) (test 8.28 K/ul 1.56-6.13 iaec=5014) LYMPHOCYTES - ABS (CELLAVISION)(BEAKER) (test 0.27 K/ul 1.18-3.74 mgok=7418) MONOCYTES - ABS (CELLAVISION)(BEAKER) (test 0.18 K/uL 0.24-0.36 jqrx=2416) BANDS - ABS (CELLAVISION)(BEAKER) (test jqpr=1095) 0.18 K/uL 0.00-0.80 TOTAL COUNTED (BEAKER) (test vbvc=4413) 100 WBC MORPHOLOGY (BEAKER) (test pgyb=839) Normal PLT MORPHOLOGY (BEAKER) (test icqo=595) Normal POLYCHROMATOPHILLIC RBCS(BEAKER) (test hclc=626) 1+ few ARTIFACT (CELLAVISION)(BEAKER) (test yjuo=5241) Present PLATELET CONCENTRATION (CELLAVISION)(BEAKER) (test Decreased xeze=1325) Received comment: User comments: Slide comments:PERIPHERAL BLOOD SMEAR - HOLD [id number] 07:46:00 Test Item Value Reference Range Comments PERIPHERAL SMEAR SAVE (BEAKER) (test zmfx=8501) saved HEPATITIS PANEL, [id number] 07:23:00 Test Item Value Reference Range Comments HEPATITIS A IGM ANTIBODY (BEAKER) (test Nonreactive Nonreactive zyzy=449) HEPATITIS B CORE IGM ANTIBODY (BEAKER) (test Nonreactive Nonreactive hwup=232) HEPATITIS C ANTIBODY (BEAKER) (test cydn=988) Reactive Nonreactive HEPATITIS B SURFACE ANTIGEN (2) (BEAKER) (test Nonreactive Nonreactive xovb=8151) VITAMIN [id number] 07:20:00 Test Item Value Reference Range Comments VITAMIN B12 (BEAKER) (test yehr=932) > pg/mL 213-816 FOLATE, [id number] 07:18:00 Test Item Value Reference Range Comments FOLATE (BEAKER) (test nnma=628) 3.8 ng/mL >=7.0 [id number] 07:09:00 Test Item Value Reference Range Comments FIBRINOGEN LEVEL (BEAKER) (test weer=992) 1324 mg/dl 225-434 POCT-GLUCOSE [id number] 06:57:00 Test Item Value Reference Range Comments POC-GLUCOSE METER (BEAKER) 184 mg/dL 70-110 TESTED AT [address] (test yash=8228) [facility] [address] [id number] 06:18:00 Test Item Value Reference Range Comments D-DIMER QUANTITATIVE (BEAKER) (test phcy=907) 13.73 MG/L FEU <0.50 Intended Use: The [...] is within 95-100% range.HIV-1 ANTIGEN WITH HIV-1/2 [id number] 04:12:00 Test Item Value Reference Range Comments HIV-1 ANTIGEN WITH HIV 1\T\2 ANTIBODY (2) Nonreactive Nonreactive (BEAKER) (test extt=0540) BASIC METABOLIC [id number] 04:03:00 Test Item Value Reference Range Comments SODIUM (BEAKER) (test 132 meq/L 136-145 cgex=303) POTASSIUM (BEAKER) (test 4.1 meq/L 3.5-5.1 Specimen slightly oxnl=658) hemolyzed CHLORIDE (BEAKER) (test 104 meq/L 98-107 gaip=178) CO2 (BEAKER) (test 16 meq/L 22-29 dbgm=645) BLOOD UREA NITROGEN 50 mg/dL 7-21 (BEAKER) (test yqsf=879) CREATININE (BEAKER) (test 1.87 mg/dL 0.57-1.25 Specimen slightly rizm=789) hemolyzed GLUCOSE RANDOM (BEAKER) 157 mg/dL 70-105 (test juyv=919) CALCIUM (BEAKER) (test 8.1 mg/dL 8.4-10.2 cvoc=230) EGFR (BEAKER) (test 28 mL/min/1.73 sq m ESTIMATED GFR IS NOT ttvh=4143) ACCURATE CREATININE CLEARANCE IN PREDICTING GLOMERULAR FILTRATION RATE. ESTIMATED GFR IS NOT APPLICABLE FOR DIALYSIS PATIENTS. Specimen slightly [id number] 03:54:00 Test Item Value Reference Range Comments MAGNESIUM (BEAKER) (test 2.3 mg/dL 1.6-2.6 Specimen slightly hemolyzed bxit=994) HEPATIC FUNCTION [id number] 03:54:00 Test Item Value Reference Range Comments TOTAL PROTEIN (BEAKER) (test 6.0 gm/dL 6.0-8.3 Specimen slightly hemolyzed gweh=944) ALBUMIN (BEAKER) (test 2.3 g/dL 3.5-5.0 Specimen slightly hemolyzed ucbv=1531) BILIRUBIN TOTAL (BEAKER) (test 3.9 mg/dL 0.2-1.2 Specimen slightly hemolyzed mwew=775) BILIRUBIN DIRECT (BEAKER) (test 2.9 mg/dL 0.1-0.5 Specimen slightly hemolyzed exhd=190) ALKALINE PHOSPHATASE (BEAKER) 153 U/L 40-150 (test xduk=504) AST (SGOT) (BEAKER) (test 75 U/L 5-34 Specimen slightly hemolyzed iwnb=973) ALT (SGPT) (BEAKER) (test 47 U/L 6-55 Specimen slightly hemolyzed iazj=945) Specimen slightly ictericPROTHROMBIN [id number] 03:52:00 Test Item Value Reference Range Comments PROTIME (BEAKER) (test fotv=336) 17.0 seconds 11.7-14.7 INR (BEAKER) (test jqcy=910) 1.4 <=5.9 RECOMMENDED COUMADIN/WARFARIN INR THERAPY RANGESSTANDARD DOSE: 2.0 - 3.0 Includes: PROPHYLAXIS forvenous thrombosis, systemic embolization; TREATMENT for venous thrombosis and/or pulmonary embolus.HIGH RISK: Target INR is 2.5-3.5 for patients with mechanical heart valves.POCT-GLUCOSE [id number] 00:42:00 Test Item Value Reference Range Comments POC-GLUCOSE METER (BEAKER) 206 mg/dL 70-[address] [facility] [address] (test sskx=7565) [facility] [address]
--- OUTSIDE RECORDS SUMMARY | 2019-12-29 19:36 | XMS REPORT | Summary of Care ---
:[address] [facility] Address [address] [place] [address] Care Team Providers Name Role Phone Pcp, Patient Does Not Have A Primary Care Provider Encounter Details Date Type Department Care Team Description 12/03/[address] 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 documented as of this encounter (statuses as of 12/05/2019) Social History Tobacco Use Types Packs/Day Years [...] filedocumented in this encounter Plan of Treatment Health Maintenance Due Date Last Done Comments [...] this topic documented as of this encounter Procedures Procedure Name Priority Date/Time Associated Diagnosis Comments PHYSICIAN ORDERS Routine 12/03/2019 12:01 AM 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 [employer] HEALTH CHOICE nt [phone] [place] [address] documented as of this encounter
--- OUTSIDE RECORDS SUMMARY | 2019-12-29 19:37 | XMS REPORT | Summary of Care ---
:1965 Author Organization [facility] Address [address] [place] [address] Care Team Providers Name Role Phone Pcp, Patient Does Not Have A Primary Care Provider Reason for Referral Radiology Services (Routine) Status Reason Specialty Diagnoses / Procedures Referred By Referred To Contact Contact Closed Diagnostic Diagnoses RAVEN (acute kidney injury) Saul Small Radiology Procedures US RETROPERITONEAL COMPLETE [address] [facility] [address] [place] [address] Reason for Visit Radiology Services (Routine) Status Reason Specialty Diagnoses / Procedures Referred By Referred To Contact Contact Closed Diagnostic Diagnoses RAVEN (acute kidney injury) Saul Small Radiology Procedures US RETROPERITONEAL COMPLETE [address] [facility] [address] [place] [address] Encounter Details Date Type Department Care Team Description 12/23/2019 Hospital Encounter [facility] Radiology Arrived [place] [address] [place] [address] [place] [phone] Allergies No Known Allergiesdocumented as of this encounter (statuses as of 12/24/2019) Medications Medication Sig Dispensed Refills Start Date [...] as of this encounter (statuses as of 12/24/2019) Active Problems Problem Noted Date Diabetes mellitus type 2, uncontrolled, without complications 06/29/2010 Overview: ICD10 Diagnosis 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 documented in this encounter Results US RETROPERITONEAL COMPLETE (12/23/2019 10:36 AM REPAIRER AUTO CLOCKS) Specimen Impressions Performed At 1. Essentially normal renal echogenicity and corticomedullary PACS/VR/DOSE differentiation. No appreciable cortical thinning. 2. Right interpolar and lower pole cysts. 3. No hydronephrosis or nephrolithiasis. Narrative Performed At ULTRASOUND RENAL PACS/VR/DOSE INDICATION: RAVEN. COMPARISON: None. FINDINGS: Right kidney measures 11.8 x 4.3 x 5.1 cm (133 mL volume) There is normal renal cortical echogenicity and corticomedullary differentiation. Diffusely lobulated contour. No hydronephrosis or renal calculi. Right lower renal pole simple cyst measures 1.0 cm in greatest diameter. Additional parapelvic anechoic lesion within the right interpolar region measures 2.1 cm in greatest dimension and demonstrates no definite septation or vascular flow on Doppler interrogation. Findings likely represents a parapelvic cyst. Mild prominence of adjacent parapelvic fat. Left kidney measures 8.0 x 4.0 x 4.1 cm (68 mL volume). There is normal renal cortical echogenicity and corticomedullary differentiation. No hydronephrosis or renal calculi. Diffusely elevated contour.. The bladder is normal in appearance. Multiple echogenic areas along the periphery of the uterus may represent calcifications. Exams optimized for evaluation of uterus. Procedure Note [facility], Radiant Results Inft User - 12/23/2019 11:24 AM REPAIRER AUTO CLOCKS ULTRASOUND RENAL INDICATION: RAVEN. COMPARISON: None. FINDINGS: Right kidney measures 11.8 x 4.3 x 5.1 cm (133 mL volume) There is normal renal cortical echogenicity and corticomedullary differentiation. Diffusely lobulated contour. No hydronephrosis or renal calculi. Right lower renal pole simple cyst measures 1.0 cm in greatest diameter. Additional parapelvic anechoic lesion within the right interpolar region measures 2.1 cm in greatest dimension and demonstrates no definite septation or vascular flow on Doppler interrogation. Findings likely represents a parapelvic cyst. Mild prominence of adjacent parapelvic fat. Left kidney measures 8.0 x 4.0 x 4.1 cm (68 mL volume). There is normal renal cortical echogenicity and corticomedullary differentiation. No hydronephrosis or renal calculi. Diffusely elevated contour.. The bladder is normal in appearance. Multiple echogenic areas along the periphery of the uterus may represent calcifications. Exams optimized for evaluation of uterus. IMPRESSION 1. Essentially normal renal echogenicity and corticomedullary differentiation. No appreciable cortical thinning. 2. Right interpolar and lower pole cysts. 3. No hydronephrosis or nephrolithiasis. Performing Organization Address City/State/Zipcode Phone Number PACS/VR/DOSE documented in this encounter Visit Diagnoses Diagnosis RAVEN (acute kidney injury) Acute kidney failure, unspecified documented in this encounter Insurance Payer Benefit Plan / Subscriber ID Effective Phone Address Type Group Dates [facility] [id number] 2019-Cristopher [phone] [employer] HEALTH CHOICE nt [phone] [place] [address] [phone] (Work) documented as of this encounter
--- OUTSIDE RECORDS SUMMARY | 2019-12-29 19:37 | XMS REPORT | Summary of Care ---
:1965 Author Organization [facility] Address [address] [place] [address] Care Team Providers Name Role Phone Pcp, Patient Does Not Have A Primary Care Provider Encounter Details Date Type Department Care Team Description 12/23/2019 Orders Only [facility] Doctor Unassigned, No 301 [facility] [place] [address] [address] [place] [address] Allergies No Known Allergiesdocumented as of this encounter (statuses as of 12/23/2019) Medications Medication Sig Dispensed Refills Start Date [...] as of this encounter (statuses as of 12/23/2019) Active Problems Problem Noted Date Diabetes mellitus type 2, uncontrolled, without complications 06/29/2010 Overview: ICD10 Diagnosis 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 documented as of this encounter (statuses as of 12/23/2019) Social History Tobacco Use Types Packs/Day Years Used Date Current Every Day Smoker Cigarettes 41 Comments: 1/ ppd Alcohol Use Drinks/Week oz/Week Comments Not [...] 0-64 YEARS COMBINED 1969 SERIES (1 of - PPSV23) EYE EXAM 1973 DTaP,Tdap,and Td [...] Procedure Name Priority Date/Time Associated Diagnosis Comments ASSIGNMENT OF BENEFITS Routine 12/23/2019 9:59 AM RN TELEMETRY documented in this encounter Results Not on filedocumented in this encounter Insurance Payer Benefit Plan / Subscriber ID Effective Phone Address Type Group Dates [facility] [id number] 2019-Cristopher [phone] [employer] HEALTH CHOICE [phone] [place] [address] documented as of this encounter
--- OUTSIDE RECORDS SUMMARY | 2019-12-29 19:37 | XMS REPORT | Summary of Care ---
:1965 Author Organization [facility] Address [address] [place] [address] Care Team Providers Name Role Phone Pcp, Patient Does Not Have A Primary Care Provider Encounter Details Date Type Department Care Team Description 12/12/2019 Orders Only [facility] Doctor Unassigned, No 301 [facility] [place] [address] [address] [place] [address] Allergies No Known Allergiesdocumented as of this encounter (statuses as of 12/18/2019) Medications Medication Sig Dispensed Refills Start Date [...] as of this encounter (statuses as of 12/18/2019) Active Problems Problem Noted Date Diabetes mellitus type 2, uncontrolled, without complications 06/29/2010 Overview: ICD10 Diagnosis 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 documented as of this encounter (statuses as of 12/18/2019) Social History Tobacco Use Types Packs/Day Years [...] Care Team Description 12/23/2019 Appointment Radiology Radiology [address] [place] [address] Health Maintenance Due Date Last Done Comments [...] Date/Time Associated Diagnosis Comments PHYSICIAN ORDERS Routine 12/12/2019 12:01 AM 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 [employer] [facility] [employer] [phone] [place] [address] documented as of this encounter
[2019-12-29 20:30] LABS: Urine Bacteria NONE SEEN /HPF (<20); Urine Culture Reflex Order NOT NEEDED; Urine RBC <5 /HPF (NONE SEEN)
[2019-12-29 20:33] LABS: Urine Blood 2+ (NEG); Urine Glucose TRACE (NEG); Urine Protein 3+ (NEG); Urine Specific Gravity 1.025 (1.005-1.030); Urine pH 6.5 (5.0-7.0)
[2019-12-29 21:10] LABS: Absolute Lymphocytes (CBC) 1.5 K/uL (0.7-4.9); Basophils % 0.4 % (0-1.3); Hematocrit 29.8 % (36.0-45.0); MPV 7.3 fL (7.6-11.3); RBC Red Blood Cell Count 3.43 M/uL (3.86-4.86)
[2019-12-29 21:15] LABS: Potassium 4.4 mmol/L (3.5-5.1)
[2019-12-29] MEDS ORDERED: NA CHLORIDE 0.9% 1,000 ML ONE (21:49)
--- NOTE | 2019-12-29 22:41 | ER ---
Nurse's Notes [facility] Name: Nancy El Age: 54 yrs Sex: Female : 1965 Arrival Date: 12/29/2019 Time: 19:31 Bed 13 Private MD: Diagnosis: Diverticulitis of large intestine without perforation or abscess without bleeding;Renal insufficiency Presentation: 12/28 19:36 Chief complaint: Patient states: "My left side hurts a lot a lot" States that she was aj1 transferred to [place] a year ago because her kidneys weren't working correctly. States that she had a renal ultrasound done last week but they have not heard anything back from him. Patient also reports that she has had a temperature of 99.9. Denies dysuria. Coronavirus screen: The patient has NOT traveled to a country currently being monitored by the [facility] within the last 14 days. Ebola Screen: Patient denies travel to an Ebola-affected area in the 21 days before illness onset. Initial Sepsis Screen: Does the patient meet any 2 criteria? No. Patient's initial sepsis screen is negative. Does the patient have a suspected source of infection? No. Patient's initial sepsis screen is negative. Risk Assessment: Do you want to hurt yourself or someone else? Patient reports no desire to harm self or others. 19:36 Method Of Arrival: Ambulatory aj 19:36 Acuity: GONZALO 3 aj1 23:09 Onset of symptoms was December 29, 2019. lp1 Triage Assessment: 19:44 General: Appears in no apparent distress. comfortable, Behavior is calm, cooperative, aj1 appropriate for age. Pain: Complains of pain in back. Neuro: Level of Consciousness is awake, alert, obeys commands, Oriented to person, place, time, situation. Cardiovascular: Patient's skin is warm and dry. Respiratory: Airway is patent Respiratory effort is even, unlabored, Respiratory pattern is regular, symmetrical. Historical: - Allergies: 19:44 No Known Allergies; aj1 - Home Meds: 19:44 Lasix Oral [Active]; Plavix Oral [Active]; Iron CR Oral [Active]; Metoprolol Tartrate aj1 Oral [Active]; atorvastatin oral oral [Active]; Aspirin Oral [Active]; Lisinopril Oral [Active]; Pepcid Oral [Active]; Folic Acid Oral [Active]; - PMHx: 19:44 Diabetes - NIDDM; "kidney problems"; Hypertension; Hyperlipidemia; cardiac stents; aj1 Myocardial infarction; - Immunization history:: Flu vaccine is not up to date. - Social history:: Smoking status: Patient reports the use of cigarette tobacco products, smokes one-half pack cigarettes per day, Patient uses alcohol, but reports only rare drinking. Patient/guardian denies using street drugs. Screenin:45 Abuse screen: Denies threats or abuse. Denies injuries from another. Nutritional lp1 screening: No deficits noted. Tuberculosis screening: No symptoms or risk factors identified. Fall Risk None identified. Assessment: 20:15 General: Appears in no apparent distress. Behavior is calm, cooperative, appropriate lp1 for age. Pain: Complains of pain in left low back Pain currently is 7 out of 10 on a pain scale. Aggravated by increased activity, repositioning. Neuro: Level of Consciousness is awake, alert, obeys commands, Oriented to person, place, time, situation. Cardiovascular: Patient's skin is warm and dry. Respiratory: Respiratory effort is even, unlabored. GI: No signs and/or symptoms were reported involving the gastrointestinal system. : Denies burning with urination. EENT: No signs and/or symptoms were reported regarding the EENT system. Derm: Skin is intact, Skin is dry, Skin is normal. Musculoskeletal: No deficits noted. 21:50 Reassessment: Patient is alert, oriented x 3, equal unlabored respirations, skin lp1 warm/dry/pink. Patient returned from CT. Vital Signs: 19:36 BP 138 / 76; Pulse 85; Resp 18; Temp 98.3; Pulse Ox 99% on R/A; Weight 53.52 kg (R); aj1 Height 5 ft. 1 in. (154.94 cm) (R); Pain 7/10; 22:00 BP 138 / 59; Pulse 80; Resp 16; Pulse Ox 100% on R/A; lp1 19:36 Body Mass Index 22.30 (53.52 kg, 154.94 cm) [facility] ED Course: 19:31 Patient arrived in ED. jg7 19:40 Triage completed. aj1 19:44 Arm band placed on Patient placed in an exam room. aj1 19:46 Desiree Garcia FNP-C is PHCP. snw 19:46 Frank Vizcarra MD is Attending Physician. snw 19:57 Fay Vasquez, RN is Primary Nurse. lp1 20:00 Urine collected: clean catch specimen, clear. 20:46 Patient has correct armband on for positive identification. lp1 21:56 CT [facility] Protocol In Process Unspecified. EDMS 23:08 No provider procedures requiring assistance completed. IV discontinued, No lp1 redness/swelling at site. Pressure dressing applied, 22g IV to R wrist DC'd. Administered Medications: 21:50 Drug: NS 0.9% 1000 ml Route: IV; Rate: 125 ml/hr; Site: right wrist; lp1 23:08 Follow up: IV Status: IV converted to saline lock lp1 23:07 Drug: Cipro 500 mg Route: PO; lp1 23:07 Follow up: Response: Medication administered at discharge. lp1 Outcome: 22:40 Discharge ordered by MD. snw 23:08 Discharged to home ambulatory, with family. lp1 23:08 Condition: good 23:08 Discharge instructions given to patient, Instructed on discharge instructions, follow up and referral plans. medication usage, Demonstrated understanding of instructions, follow-up care, medications, Prescriptions given X 2. 23:09 Patient left the ED. lp1 Signatures: Dispatcher [employer] Zora Paez, RN RN aj1 Desiree Garcia, SENIOR ETL DEVELOPER-C SENIOR ETL DEVELOPER-Csnw Fay Vasquez, RN RN lp1 [place] Malgorzata Sommers jg7
--- NOTE | 2019-12-29 22:41 | EDPHYS ---
Physician Documentation [facility] Name: Nancy El Age: 54 yrs Sex: Female : 1965 Arrival Date: 12/29/2019 Time: 19:31 Bed 13 Private MD: ED Physician Frank Vizcarra HPI: 12/28 20:22 This 54 yrs old Female presents to ER via Ambulatory with complaints of snw Fever, LEFT SIDE PAIN. 20:22 The patient reports fever, not measured (subjective), this am. Onset: The snw symptoms/episode began/occurred gradually, left flank, back pain x 2 -3 days. Associated signs and symptoms: Pertinent negatives: None. Severity of symptoms: At their worst the symptoms were mild moderate. The patient has experienced a previous episode, last year. It is unknown whether or not the patient has recently seen a physician. recently had kidney ultrasound in [place]. Historical: - Allergies: 19:44 No Known Allergies; aj1 - Home Meds: 19:44 Lasix Oral [Active]; Plavix Oral [Active]; Iron CR Oral [Active]; Metoprolol Tartrate aj1 Oral [Active]; atorvastatin oral oral [Active]; Aspirin Oral [Active]; Lisinopril Oral [Active]; Pepcid Oral [Active]; Folic Acid Oral [Active]; - PMHx: 19:44 Diabetes - NIDDM; "kidney problems"; Hypertension; Hyperlipidemia; cardiac stents; aj1 Myocardial infarction; - Immunization history:: Flu vaccine is not up to date. - Social history:: Smoking status: Patient reports the use of cigarette tobacco products, smokes one-half pack cigarettes per day, Patient uses alcohol, but reports only rare drinking. Patient/guardian denies using street drugs. ROS: 20:21 Eyes: Negative for injury, pain, redness, and discharge, ENT: Negative for injury, snw pain, and discharge, Neck: Negative for injury, pain, and swelling, Cardiovascular: Negative for chest pain, palpitations, and edema, Respiratory: Negative for shortness of breath, cough, wheezing, and pleuritic chest pain, Abdomen/GI: Negative for abdominal pain, nausea, vomiting, diarrhea, and constipation, : Negative for injury, bleeding, discharge, and swelling, MS/Extremity: Negative for injury and deformity, Skin: Negative for injury, rash, and discoloration, Neuro: Negative for headache, weakness, numbness, tingling, and seizure. 20:21 Constitutional: Positive for body aches, fever. 20:21 Back: Positive for flank pain, on the left. Exam: 20:20 Constitutional: This is a well developed, well nourished patient who is awake, alert, snw and in no acute distress. Head/Face: Normocephalic, atraumatic. Eyes: Pupils equal round and reactive to light, extra-ocular motions intact. Lids and lashes normal. Conjunctiva and sclera are non-icteric and not injected. Cornea within normal limits. Periorbital areas with no swelling, redness, or edema. ENT: Nares patent. No nasal discharge, no septal abnormalities noted. Tympanic membranes are normal and external auditory canals are clear. Oropharynx with no redness, swelling, or masses, exudates, or evidence of obstruction, uvula midline. Mucous membranes moist. Neck: Trachea midline, no thyromegaly or masses palpated, and no cervical lymphadenopathy. Supple, full range of motion without nuchal rigidity, or vertebral point tenderness. No Meningismus. Chest/axilla: Normal chest wall appearance and motion. Nontender with no deformity. No lesions are appreciated. Cardiovascular: Regular rate and rhythm with a normal S1 and S2. No gallops, murmurs, or rubs. Normal PMI, no JVD. No pulse deficits. Respiratory: Lungs have equal breath sounds bilaterally, clear to auscultation and percussion. No rales, rhonchi or wheezes noted. No increased work of breathing, no retractions or nasal flaring. Abdomen/GI: Soft, non-tender, with normal bowel sounds. No distension or tympany. No guarding or rebound. No evidence of tenderness throughout. Back: No spinal tenderness. No costovertebral tenderness. Full range of motion. Left flank tenderness with movement MS/ Extremity: Pulses equal, no cyanosis. Neurovascular intact. Full, normal range of motion. Neuro: Awake and alert, GCS 15, oriented to person, place, time, and situation. Cranial nerves II-XII grossly intact. Motor strength 5/5 in all extremities. Sensory grossly intact. Cerebellar exam normal. Normal gait. Psych: Awake, alert, with orientation to person, place and time. Behavior, mood, and affect are within normal limits. 20:20 Skin: Appearance: Color: pale. Vital Signs: 19:36 BP 138 / 76; Pulse 85; Resp 18; Temp 98.3; Pulse Ox 99% on R/A; Weight 53.52 kg (R); aj1 Height 5 ft. 1 in. (154.94 cm) (R); Pain 7/10; 22:00 BP 138 / 59; Pulse 80; Resp 16; Pulse Ox 100% on R/A; lp1 19:36 Body Mass Index 22.30 (53.52 kg, 154.94 cm) aj1 MDM: 20:17 Patient medically screened. snw 20:45 Data reviewed: vital signs, nurses notes. Data interpreted: Pulse oximetry: on room air snw is 99 %. Interpretation: normal. Counseling: I had a detailed discussion with the patient and/or guardian regarding: the historical points, exam findings, and any diagnostic results supporting the discharge/admit diagnosis, lab results. 22:45 Response to treatment: the patient's symptoms have mildly improved after treatment. snw 12/28 19:47 Order name: Urine Culture snw 12/28 19:47 Order name: Urine Microscopic Only; Complete Time: 20:30 snw 12/28 20:02 Order name: Urine Dipstick--Ancillary (enter results); Complete Time: 20:34 ar5 12/28 20:20 Order name: CBC with Diff; Complete Time: 21:18 snw 12/28 20:20 Order name: Chem 7; Complete Time: 21:18 snw 12/28 20:20 Order name: Blood Culture Adult (2) snw 12/28 19:47 Order name: Urine Dipstick-Ancillary (obtain specimen); Complete Time: 19:59 snw 12/28 20:17 Order name: FSBS; Complete Time: 21:11 snw 12/28 20:20 Order name: SL; Complete Time: 21:11 snw 12/28 21:09 Order name: Glucose, Ancillary Testing; Complete Time: 21:10 EDMS 12/28 21:33 Order name: CT Stone Protocol snw Administered Medications: 21:50 Drug: NS 0.9% 1000 ml Route: IV; Rate: 125 ml/hr; Site: right wrist; lp1 23:08 Follow up: IV Status: IV converted to saline lock lp1 23:07 Drug: Cipro 500 mg Route: PO; lp1 23:07 Follow up: Response: Medication administered at discharge. lp1 Disposition: 12/29 01:34 Co-signature as Attending Physician, Frank Vizcarra MD. ma2 Disposition: 12/29/19 22:40 Discharged to Home. Impression: Diverticulitis of large intestine without perforation or abscess without bleeding, Renal insufficiency. - Condition is Stable. - Discharge Instructions: Type 2 Diabetes Mellitus, Diagnosis, Adult, Diabetes and Sick Day Management, Diverticulitis, Rehydration, Adult, Roberts Diet. - Prescriptions for Cipro 250 mg Oral Tablet - take 1 tablet by ORAL route once daily for 7 days; 7 tablet. promethazine 25 mg Oral Tablet - take 1 tablet by ORAL route every 8-12 hours As needed; 10 tablet. - Medication Reconciliation Form, Thank You Letter, Antibiotic Education, Prescription Opioid Use form. - Follow up: Emergency Department; When: As needed; Reason: Worsening of condition. Follow up: Private Physician; When: 1 - 2 days; Reason: Recheck today's complaints, Continuance of care, Re-evaluation by your physician. Signatures: Dispatcher [employer] Zora Paez RN RN aj1 Desiree Garcia, NELLY[employer] Fay Vasquez RN RN [email or web address] Frank Vizcarra MD MD sc2 Corrections: (The following items were deleted from the chart) 12/28 23:09 22:40 12/29/2019 22:40 Discharged to Home. Impression: Diverticulitis of large lp1 intestine without perforation or abscess without bleeding; Renal insufficiency. Condition is Stable. Forms are Medication Reconciliation Form, Thank You Letter, Antibiotic Education, Prescription Opioid Use. Follow up: Emergency Department; When: As needed; Reason: Worsening of condition. Follow up: Private Physician; When: 1 - 2 days; Reason: Recheck today's complaints, Continuance of care, Re-evaluation by your physician. snw
[2019-12-29] MEDS ORDERED: CIPROFLOXACIN HCL 500 MG TAB ONE (23:00)
--- NOTE | 2019-12-30 10:51 | RAD REPORT ---
EXAM DESCRIPTION: CT ABDOMEN AND PELVIS WITHOUT CONTRAST CLINICAL HISTORY: Left flank pain. COMPARISON: 11/12/2018 TECHNIQUE: CT of the abdomen and pelvis without IV contrast. Evaluation of the solid organs and vasc ulature is suboptimal due to lack of IV contrast. FINDINGS: Lung Bases: The visualized lung bases are clear. Bones: Degenerative endplate spondylosis of the spine. Mild joint space narrowing of the hips. Abdomen: Liver: The liver has normal size and density. Gallbladder: No calcified gallstones. Spleen, Pancreas, and Adrenal Glands: The spleen, pancreas, and adrenal glands are unremarkable. Kidneys: The kidneys have normal size without evidence of hydronephrosis. No obstructing ureteral ch[place] culi. Vasculature: Aortoiliac atherosclerosis. IVC is unremarkable. Stomach: The stomach and duodenum have normal course. Other: No free intraperitoneal air. Small amount of free fluid predominantly in the pelvis and le ft paracolic gutter. Pelvis: Bladder: Urinary bladder is unremarkable. Bowel: Short segment wall thickening with adjacent inflammatory change of the mid descending colon. Extensive scattered diverticula throughout the colon. No well-circumscribed pericolic fluid collecti on. Appendix: Normal appendix. Pelvis: Uterus is not enlarged. IMPRESSION: 1. Findings compatible with acute diverticulitis of the mid descending colon. Continued follow-up after acute illness to exclude other causes of small bowel wall thickening. This exam was performed according to our departmental dose-optimization program, which includes autom ated exposure control, adjustment of the mA and/or kV according to patient size and/or use of iterati ve reconstruction technique. Electronically signed by: Estiven Barrera 12/29/2019 10:14 PM CDT Due to temporary technical issues with the PACS/Fluency reporting system, reports are being signed by the in house radiologist as a courtesy to ensure prompt reporting. The interpreting radiologist is linh cervantes responsible for the content of the report.
== END 2019-12-29 23:09 | disposition home or self-care (01) ==
LOC: ER 19:27
DX: K57.32 Diverticulitis of large intestine without perforation or abscess without bleeding (principal); N28.9 Disorder of kidney and ureter, unspecified; F17.210 Nicotine dependence, cigarettes, uncomplicated; I10 Essential (primary) hypertension; E11.9 Type 2 diabetes mellitus without complications; Z95.818 Presence of other cardiac implants and grafts; Z79.01 Long term (current) use of anticoagulants
CPT/HCPCS: 87040 ×2; 87088; 85025; 87086; 80048; 36415; 82947; 76377; 74176; 96360; 99284; J7030; 81003; 81015